=== PATIENT | female | born 1940 | race Caucasian/White ===

== ENCOUNTER → 2017-10-25 09:59 | Outpatient (CLI) | payer MEDICARE, OTHER, SELFPAY ==
[2017-10-25 10:53] LABS: BUN 40 mg/dL (7-18); Creatinine, Serum 1.22 mg/dL (0.55-1.02); Glucose 257 mg/dL (74-106)
[2017-10-25 10:54] LABS: Anion Gap 9 (5-15); BUN/Creat Ratio 32.8 RATIO (10-20); Calcium,Total 8.9 mg/dL (8.5-10.1); Chloride 102 mmol/L (98-107); EST Glomerular Filtration Rate 46 mL/min (>60); Est Glom Filt Rate - Afr Amer 55 mL/min (>60); Potassium 4.1 mmol/L (3.5-5.1); Sodium Level 138 mmol/L (136-145)
== END ==
PROVIDERS: Family Provider Surgery Vascular Surgery; PCP Surgery Vascular Surgery; Visit Provider Physician Assistant Medical
DX: I25.10 Atherosclerotic heart disease of native coronary artery without angina pectoris (principal)
CPT/HCPCS: 36415; 80048

== ENCOUNTER → 2018-05-28 11:03 | Outpatient (CLI) | payer MEDICARE, OTHER, SELFPAY ==
[2018-05-28 12:19] LABS: Absolute Lymphocyte Count 3.08 X10^3/ul (0.83-4.51); Absolute Neutrophil Count 5.5 X10^3/uL (2.0-7.7); Basophil# 0.03 X10^3/uL; Basophil% 0.3 % (0-1); Eosinophil# 0.19 X10^3/uL; Hematocrit 30.4 % (37-47); Hemoglobin 9.5 g/dl (12.0-15.0); Lymphocyte # 3.08 X10^3/ul (4.0); Lymphocyte % 31.7 % (19-41); Mean Corp Hgb Conc 31.3 g/gl (32-36); Mean Corpuscular Hgb 27.2 pg (27.0-32.0); Mean Corpuscular Volume 87.1 fL (81-99); Mean Platelet Vol. 10.7 fl (6.2-12.0); Monocyte# 0.87 X10^3/uL; Neutrophil # 5.51 X10^3/uL (2.7-7.7); Neutrophil % 56.7 % (47-70); POSITIVE COUNT NO; POSITIVE DIFFERENTIAL NO; POSITIVE MORPHOLOGY NO; Platelet Count 407 K/mm3 (150-450); RBC Distribution Width SD 43.9 fl (35.1-43.9); Red Blood Count 3.49 M/mm3 (4.2-5.4); White Blood Count 9.7 K/mm3 (4.4-11.0)
[2018-05-28 12:43] LABS: Anion Gap 7 (5-15); BUN 45 mg/dL (7-18); BUN/Creat Ratio 28.8 RATIO (10-20); Calcium,Total 9.5 mg/dL (8.5-10.1); Chloride 106 mmol/L (98-107); Creatinine, Serum 1.56 mg/dL (0.55-1.02); EST Glomerular Filtration Rate 34 mL/min (>60); Est Glom Filt Rate - Afr Amer 42 mL/min (>60); Glucose 83 mg/dL (74-106); Potassium 4.5 mmol/L (3.5-5.1); Sodium Level 141 mmol/L (136-145)
== END ==
PROVIDERS: Family Provider Surgery Vascular Surgery; PCP Family Medicine; Referring Provider Physician Assistant Medical; Visit Provider Physician Assistant Medical
DX: I50.32 Chronic diastolic (congestive) heart failure (principal); I25.10 Atherosclerotic heart disease of native coronary artery without angina pectoris; E78.5 Hyperlipidemia, unspecified; I10 Essential (primary) hypertension
CPT/HCPCS: 36415; 80048; 85025

== ENCOUNTER → 2018-08-06 12:11 | Outpatient (CLI) | payer MEDICARE, OTHER, SELFPAY ==
[2018-08-06 11:19] VITALS: BMI 37.8
--- NOTE | 2018-08-06 12:15 | RAD_ITS ---
STUDY: X-RAY CHEST REASON FOR EXAM: Female, 78 years old. Cough TECHNIQUE: PA and lateral views of the chest. COMPARISON: December 20, 2016 chest 6 FINDINGS: Since prior study there is worsening of the interstitial markings and trace blunting of the costophrenic angles. Sternotomy wires are seen midline. Normal mediastinum and isaiah. Normal visualized pulmonary arteries. There is atherosclerotic calcification of the aortic arch with tortuosity. There are diffuse degenerative changes of the visualized thoracic spine. Normal visualized ribs, clavicles, and shoulders. There is no demonstrated abnormality of the visualized soft tissue structures of the upper abdomen. RAD/Chest PA and Lateral IMPRESSION: Findings is suspicious for vascular congestion small bilateral effusions mild CHF. Status post sternotomy. Electronically Signed: Lynda Reina MD at 3:02 EST Tel , Service support ,
[2018-08-06 13:58] LABS: BNP,B-Type NATRIURETIC PEPTIDE 949.5 pg/mL (0-100)
--- OUTSIDE RECORDS SUMMARY | 2018-11-07 22:03 | XMS RPT_ITS ---
:1940 Author Organization OHIP Support Name Relationship Address Phone HIMA BLANCA Unavailable . + [place] [address] DUSTY DANIEL Unavailable [address] + [place] [address] R Unavailable Unavailable Unavailable UVALDO RABAGOE Unavailable Unavailable + [place] [address] DUSTY DANIEL Unavailable [address] + [place] [address] R Unavailable Unavailable Unavailable UVALDO RABAGOE Unavailable Unavailable + [place] [address] DUSTY DANIEL Unavailable [address] + [place] [address] R Unavailable Unavailable Unavailable HIMA BLANCA Unavailable Unavailable + [place] [address] DUSTY DANIEL Unavailable [address] + [place] [address] R Unavailable Unavailable Unavailable HIMA BLANCA Unavailable Unavailable + [place] [address] DUSTY DANIEL Unavailable [address] + [place] [address] R Unavailable Unavailable Unavailable UVALDO RABAGOE Unavailable Unavailable + [place] [address] DUSTY DANIEL Unavailable [address] + [place] [address] R Unavailable Unavailable Unavailable HIMA BLANCA Unavailable Unavailable + [place] [address] DUSTY DANIEL Unavailable [address] + [place] [address] R Unavailable Unavailable Unavailable HIMA BLANCA Unavailable Unavailable + [place] [address] DUSYT DANIEL Unavailable [address] + [place] [address] R Unavailable Unavailable Unavailable HIMA, BLANCA Unavailable Unavailable + [place] [address] DUSTY DANIEL Unavailable [address] + [place] [address] R Unavailable Unavailable Unavailable HIMA, BLANCA Unavailable Unavailable + [place] [address] DUSTY DANIEL Unavailable [address] + [place] [address] R Unavailable Unavailable Unavailable HIMA, BLANCA Unavailable Unavailable + [place] [address] DUSTY DANIEL Unavailable [address] + [place] [address] R Unavailable Unavailable Unavailable HIMA, BLANCA Unavailable . + [place] [address] DUSTY DANIEL Unavailable [address] + [place] [address] R Unavailable Unavailable Unavailable HIMA, BLANCA Unavailable Unavailable + [place] [address] DUSTY DANIEL Unavailable [address] + [place] [address] R Unavailable Unavailable Unavailable HIMA, BLANCA Unavailable Unavailable + [place] [address] DUSTY DANIEL Unavailable [address] + [place] [address] R Unavailable Unavailable Unavailable HIMA, BLANCA Unavailable . + [place] [address] LANCE DANIELEN Unavailable [address] + [place] [address] R Unavailable Unavailable Unavailable HIMA, BLANCA Unavailable Unavailable + [place] [address] LANCE DANIELEN Unavailable [address] + [place] [address] R Unavailable Unavailable Unavailable HIMA, BLANCA Unavailable Unavailable + [place] [address] LANCE DANIELEN Unavailable [address] + [place] [address] R Unavailable Unavailable Unavailable HIMA, BLANCA Unavailable . + [place] [address] DUSTY DANIEL Unavailable [address] + [place] [address] R Unavailable Unavailable Unavailable HIMA, BLANCA Unavailable . + [place] [address] DUSTY DANIEL Unavailable [address] + [place] [address] R Unavailable Unavailable Unavailable HIMA, BLANCA Unavailable Unavailable + DUSTY DANIEL Unavailable Unavailable + HIMA, BLANCA Unavailable . + [place] [address] DUSTY DANIEL Unavailable [address] + [place] [address] R Unavailable Unavailable Unavailable HIMA, BLANCA Unavailable Unavailable + DUSTY DANIEL Unavailable [address] + [place] [address] R Unavailable Unavailable Unavailable HIMA, BLANCA Unavailable Unavailable + DUSTY DANIEL Unavailable [address] + [place] [address] R Unavailable Unavailable Unavailable Care Team Providers Name Role Phone DURAN DUMONT Attending Unavailable FAST, ADRIANA A Referring Unavailable MENG DO, DR. ALON Asencio Attending Unavailable ABDOUL OROZCO, DR. WHEAT Attending Unavailable Roof, Andres Wheeler Attending Unavailable Meng, Alon Referring Unavailable Roof, Andres H Attending Unavailable Roof, Andres H Referring Unavailable Chang, Alon A Primary Care Unavailable Roof, Andres H Attending Unavailable Roof, Andres H Referring Unavailable Meng, Alon Primary Care Unavailable Meng, Alon Primary Care Unavailable Jopperi, Red Admitting Unavailable Jopperi, Red Attending Unavailable Aki Briceno Consulting Unavailable Duran Dumont Consulting Unavailable Jopperi, Red Admitting Unavailable Jopperi, Red Attending Unavailable Meng, Alon Primary Care Unavailable Aki Briceno Consulting Unavailable Maximeri, Red Consulting Unavailable Jopperi, Red Admitting Unavailable Aki Briceno Attending Unavailable Meng, Alon Primary Care Unavailable Aki Briceno Consulting Unavailable Duran Dumont Consulting Unavailable Jopperi, Red Consulting Unavailable Jopperi, Red Admitting Unavailable Aki Briceno Attending Unavailable Meng, Alon Primary Care Unavailable Aki Briceno Consulting Unavailable Duran Dumont Consulting Unavailable Jopperi, Red Consulting Unavailable Jopperi, Red Admitting Unavailable Jopperi, Red Attending Unavailable Meng, Alon Primary Care Unavailable Aki Briceno Consulting Unavailable Nilesh, Duran Consulting Unavailable Jopperi, Red Consulting Unavailable Jopperi, Red Admitting Unavailable Aki Briceno Attending Unavailable Meng, Alon Primary Care Unavailable Aki Briceno Consulting Unavailable Nilesh, Duran Consulting Unavailable Sementi, Elle Consulting Unavailable Jopperi, Red Admitting Unavailable Sementi, Elle Attending Unavailable Meng, Alon Primary Care Unavailable Aki Briceno Consulting Unavailable Nilesh, Duran Consulting Unavailable Sementi, Elle Consulting Unavailable Jopperi, Red Admitting Unavailable Jopperi, Red Attending Unavailable Meng, Alon Primary Care Unavailable Briceno, Aki Consulting Unavailable Nilesh, Duran Consulting Unavailable Jopperi, Red Consulting Unavailable Meng, Alon Attending Unavailable Meng, Alon Referring Unavailable Meng, Alon Primary Care Unavailable Andres Briseno Attending Unavailable Meng, Alon Referring Unavailable Aki Briceno Attending Unavailable Jopperi, Red Referring Unavailable Nelson Felipe Attending Unavailable Fast, Adriana Referring Unavailable Chang, Alon A Primary Care Unavailable Marie House Attending Unavailable Krystina Villeda Attending Unavailable Marie House Attending Unavailable Krystina Villeda Attending Unavailable Chang, Alon A Referring Unavailable Krystina Villeda Attending Unavailable Krystina Villeda M Referring Unavailable Chang, Alon A Primary Care Unavailable Jopperi, Red Admitting Unavailable Jopperi, Red Attending Unavailable Meng, Alon Primary Care Unavailable Aki Briceno Consulting Unavailable Nilesh, Duran Consulting Unavailable Jopperi, Red Consulting Unavailable Krystina Villeda Attending Unavailable Krystina Villeda Referring Unavailable Chang, Alon A Primary Care Unavailable PROBLEMS PROBLEMS DATE TYPE CONDITION / CODE ATTENDING STATUS SOURCE Unknown R94.31 - Abnormal Aki Briceno Active [place] 9 electrocardiogram [ECG] [facility] [EKG] / R94.31(ICD-10) Hospital Repository Unknown R06.02 - Shortness of Roof Andres Wheeler Active [place] 8 breath / R06.02(ICD-10) [facility] Repository Unknown I50.32 - Chronic Villeda, Active [place] 8 diastolic (congestive) [facility] heart failure / Hospital I50.32(ICD-10) Repository Unknown I10 - Essential (primary) Ronal, Active [place] 8 hypertension / [facility] I10(ICD-10) Hospital Repository Unknown E78.00 - Pure Ronal, Active [place] 8 hypercholesterolemia, [facility] unspecified / Hospital E78.00(ICD-10) Repository Unknown I25.10 - Atherosclerotic Ronal, Active [place] 8 heart disease of [place] [facility] coronary artery without Hospital angina pectoris / Repository I25.10(ICD-10) Unknown E78.5 - Hyperlipidemia, Ronal, Active [place] 8 unspecified / [facility] E78.5(ICD-10) Hospital Repository Unknown R53.83 - Other fatigue / Ronal, Active [place] 8 R53.83(ICD-10) [facility] Hospital Repository Unknown Z95.1 - Presence of [place], Lejunior Active [place] 8 aortocoronary bypass Community graft / Z95.1(ICD-10) Hospital Repository Unknown E78.0 - Pure Matteo, Nelson Active 8 hypercholesterolemia / [facility] E78.0(ICD-10) Hospital Repository PROCEDURES PROCEDURES No Procedure Records FoundRESULTS RESULTS PROGRESS Observed: 08/30/2018 Status: COMPLETED Source: [place] 5:57 AM [facility] [place] REPOSITORY HNO ID: [id number] Author: Duran Dumont Service: (none) Author Type: Physician Type: Progress Notes Filed: 08/30/2018 6:06 AM Note Text: FOLLOW UP VISIT - ENDOSCOPY NAME: Cookie Guerrero [facility] NO.: [id number] DATE OF SERVICE: 08/29/2018 : 1940 REFERRING PHYSICIAN: Alon Fan DO Cookie is a patient I am following for presumed upper GI bleed. The patient is 78 showed male with advanced complicated diabetes, congestive heart failure, coronary disease, peripheral vascular disease who was noted to have worsening fatigue and dyspnea on exertion. She was admitted to [facility] on August 10, 2018 and found to be dehydrated and anemic. Her stool is positive for occult blood. The patient notes that she has very poor vision due to diabetic retinopathy so as not tablet notice if she has blood in her stools. She had recently undergone colonoscopy by Dr. Michel Omer in [place] in the fall for chronic diarrhea and had no colonic abnormalities noted. She was noted to have T-wave changes compared to previous EKGs and diagnosed with another likely acute coronary syndrome. I performed upper endoscopy on August 12, 2018. The patient was found to have superficial gastric ulcers that were not bleeding at the time and nonsevere distal esophagitis. Pathology demonstrated: chronic active gastritis which was negative for H. pylori and chronic inflammation at the GE junction without intestinal metaplasia The patient notes no complaints since the procedure, but did felt she had 1 dark stool. hemoglobin was repeated on August 21 and this was stable at 8.0 compared to her discharge hemoglobin. VITALS: There were no vitals taken for this visit. On examination, the abdomen is benign. Assessment IMPRESSION: recent GI bleed-presumed upper GI bleed PLAN: If the patient notes any problems or changes in bowel function, the patient should contact me immediately. I will obtain a stool for occult blood. If this is negative I would just recommend following her hemoglobin. If this is positive, I recommend follow up endoscopy - upper and lower. Diagnoses: (K92.2) Acute GI bleeding (primary encounter diagnosis) (I21.3) Acute ST elevation myocardial infarction (STEMI), unspecified artery (HCC) Return to Clinic: The patient is instructed to follow- up with me as needed. Duran Dumont MD CNOV Observed: 08/29/2018 Status: COMPLETED Source: WINTER 10:00 AM [facility] REPOSITORY Office Visit (GENSWS) COOKIE GUERRERO ([id number]) 1940 F Date Time Provider Department 08/29/18 10:00 AM DURAN DUMONT During your visit today, we recorded the following information about you: Chris Castaneda YULISSA 08/29/2018 10:12 AM Signed REVIEW OF SYSTEMS: General: The patient denies fatigue, denies weight loss, NOTES weight gain, denies feeling hot, and denies feelings of cold. Eyes: The patient denies glaucoma, NOTES eye injury/surgery, wears glasses or contacts. Ear/Nose/Throat: The patient denies allergies, denies hayfever, denies ear infections, and denies bloody noses. Cardiovascular: The patient denies chest pain, NOTES heart disease, NOTES high blood pressure,NOTES cardiac stent, NOTES prior heart attack, denies irregular heart beat, NOTES high cholesterol, NOTES poor circulation, denies heart failure, other cardiac issues, NOTES claudication, denies cold feet, denies peripheral arterial stent. Respiratory: The patient denies tuberculosis, denies pneumonia, NOTES frequent cough, denies pulmonary embolism, NOTES shortness of breath, and denies coughing up blood. Gastrointestinal: The patient denies difficulty swallowing, NOTES acid reflux, denies ulcers, denies vomiting, denies jaundice/hepatitis, NOTES gallbladder problems, NOTES black or tarry stools, denies hemorrhoids, denies bleeding from rectum, denies diverticulitis, denies constipation, NOTES diarrhea, denies loss of stool control, and denies hernias. Kidney/Bladder: The patient denies kidney stones, denies urine infections, and denies bloody urine. Skin: The patient denies a history of skin cancer, denies bleeding/changing moles, and denies a history of skin rash. Neurologic: The patient denies a history of epilepsy/convulsions, denies headaches, denies head/spinal injuries, and denies stroke/TIA. Psychiatric: The patient denies psychiatric medications, denies depression, and denies voices, denies substance abuse. Endocrine: The patient denies thyroid disorders, NOTES diabetes, and denies hormonal problems. Hematologic: The patient denies a history of bruising, denies bleeding, and denies anemia, denies blood clots. Infections: The patient NOTES a history of measles and mumps, denies rheumatic fever, and denies sexually transmitted diseases. Musculoskeletal: The patient denies back pain/injury, denies back problems, denies sciatica, NOTES knee/foot trouble, denies arthritis, or denies gout. When was patient's last Mammogram screening? unknown Last Colonoscopy: 05/2018 Chris Dumont MD 08/30/2018 6:06 AM Signed FOLLOW UP VISIT - ENDOSCOPY NAME: Cookie Guerrero CLINIC NO.: [id number] DATE OF SERVICE: 08/29/2018 : 1940 REFERRING PHYSICIAN: Alon Fan DO Cookie is a patient I am following for presumed upper GI bleed. The patient is 78 showed male with advanced complicated diabetes, congestive heart failure, coronary disease, peripheral vascular disease who was noted to have worsening fatigue and dyspnea on exertion. She was admitted to [facility] on August 10, 2018 and found to be dehydrated and anemic. Her stool is positive for occult blood. The patient notes that she has very poor vision due to diabetic retinopathy so as not tablet notice if she has blood in her stools. She had recently undergone colonoscopy by Dr. Michel Omer in [place] in the fall for chronic diarrhea and had no colonic abnormalities noted. She was noted to have T-wave changes compared to previous EKGs and diagnosed with another likely acute coronary syndrome. I performed upper endoscopy on August 12, 2018. The patient was found to have superficial gastric ulcers that were not bleeding at the time and nonsevere distal esophagitis. Pathology demonstrated: chronic active gastritis which was negative for H. pylori and chronic inflammation at the GE junction without intestinal metaplasia The patient notes no complaints since the procedure, but did felt she had 1 dark stool. hemoglobin was repeated on August 21 and this was stable at 8.0 compared to her discharge hemoglobin. VITALS: There were no vitals taken for this visit. On examination, the abdomen is benign. Assessment IMPRESSION: recent GI bleed-presumed upper GI bleed PLAN: If the patient notes any problems or changes in bowel function, the patient should contact me immediately. I will obtain a stool for occult blood. If this is negative I would just recommend following her hemoglobin. If this is positive, I recommend follow up endoscopy - upper and lower. Diagnoses: (K92.2) Acute GI bleeding (primary encounter diagnosis) (I21.3) Acute ST elevation myocardial infarction (STEMI), unspecified artery (HCC) Return to Clinic: The patient is instructed to follow- up with me as needed. Duran Dumont MD Referring Provider: ADRIANA CERNA [[id number]] Allergies As of Date: 08/29/2018 (No Known Allergies) Date Reviewed: 08/29/2018 Reviewed by: Chris Castaneda LPN - Fully Assessed Reason for Visit: Post Op [174] Cmt: f/u [facility] Primary Visit Diagnosis:Acute GI bleeding [K92.2] Other Visit Diagnosis:Acute ST elevation myocardial infarction (STEMI), unspecified artery (HCC) [I21.3] Order(s):OCCULT BLD EXAM-DIAG [SQOB] Order #: [id number] Prescriptions as of 08/29/2018 Sig: FUROSEMIDE 40 MG TABLET DAILY LOPERAMIDE 2 MG CAPSULE THREE TIMES A DAY PRN For Bela* FERROUS SULFATE 325 MG (65 MG* DAILY@0800 ASPIRIN 81 MG CHEWABLE TABLET DAILY@0800 ATENOLOL 50 MG TABLET DAILY BUPROPION HCL 150 MG TABLET,1* NEEDED PRN For Anxiety CALCIUM CARBONATE 600 MG CALC* DAILY FENOFIBRATE NANOCRYSTALLIZED * DAILY INSULIN DETEMIR (U-100) 100 U* TWICE A DAY THERAPEUTIC MULTIVITAMIN ORAL DAILY CHOLECALCIFEROL (VITAMIN D3) * DAILY OCUVITE ORAL DAILY INSULIN ASPART 100 UNIT/ML BAILON* 3 TIMES DAILY WITH MEALS ATORVASTATIN 80 MG TABLET Take 80 mg by mouth daily at * PANTOPRAZOLE 40 MG TABLET,DEL* Take 40 mg by mouth twice ranjana* Problem List As Of Date: 08/29/2018 (None) Visit Notes: >> Chris Castaneda LPN [facility] Aug 29, 2018 10:09 AM Status: Signed REVIEW OF SYSTEMS: General: The patient denies fatigue, denies weight loss, NOTES weight gain, denies feeling hot, and denies feelings of cold. Eyes: The patient denies glaucoma, NOTES eye injury/surgery, wears glasses or contacts. Ear/Nose/Throat: The patient denies allergies, denies hayfever, denies ear infections, and denies bloody noses. Cardiovascular: The patient denies chest pain, NOTES heart disease, NOTES high blood pressure,NOTES cardiac stent, NOTES prior heart attack, denies irregular heart beat, NOTES high cholesterol, NOTES poor circulation, denies heart failure, other cardiac issues, NOTES claudication, denies cold feet, denies peripheral arterial stent. Respiratory: The patient denies tuberculosis, denies pneumonia, NOTES frequent cough, denies pulmonary embolism, NOTES shortness of breath, and denies coughing up blood. Gastrointestinal: The patient denies difficulty swallowing, NOTES acid reflux, denies ulcers, denies vomiting, denies jaundice/hepatitis, NOTES gallbladder problems, NOTES black or tarry stools, denies hemorrhoids, denies bleeding from rectum, denies diverticulitis, denies constipation, NOTES diarrhea, denies loss of stool control, and denies hernias. Kidney/Bladder: The patient denies kidney stones, denies urine infections, and denies bloody urine. Skin: The patient denies a history of skin cancer, denies bleeding/changing moles, and denies a history of skin rash. Neurologic: The patient denies a history of epilepsy/convulsions, denies headaches, denies head/spinal injuries, and denies stroke/TIA. Psychiatric: The patient denies psychiatric medications, denies depression, and denies voices, denies substance abuse. Endocrine: The patient denies thyroid disorders, NOTES diabetes, and denies hormonal problems. Hematologic: The patient denies a history of bruising, denies bleeding, and denies anemia, denies blood clots. Infections: The patient NOTES a history of measles and mumps, denies rheumatic fever, and denies sexually transmitted diseases. Musculoskeletal: The patient denies back pain/injury, denies back problems, denies sciatica, NOTES knee/foot trouble, denies arthritis, or denies gout. When was patient's last Mammogram screening? unknown Last Colonoscopy: 05/2018 Chris Castaneda LPN Letter Text Letter Text Encounter Status:Closed by DURAN DUMONT MD on 08/30/18 12 LEAD ELECTROCARDIOGRAM Observed: 08/28/2018 Status: F Source: [place] 4:16 PM [facility] REPOSITORY [facility] Cardiovascular Services [address] [place] [address] 12 Lead EKG 08/10/18 1126 MR#: [id number] Acct: [id number] Name: COOKIE GUERRERO Rep #: [id number] : 1940 78 From: Aki Briceno MD Attending Dr: Red Gurrola DO Status: DIS IN Ordering Dr: Aki Arthur DO Date: 08/10/18 Location: U Sex: F C Admitted: 08/10/18 Test Reason : SOB Blood Pressure : / mmHG Vent. Rate : 060 BPM Atrial Rate : 060 BPM P-R Int : 188 ms QRS Dur : 102 ms QT Int : 432 ms P-R-T Axes : 020 011 173 degrees QTc Int : 432 ms Normal sinus rhythm ST AND Marked T wave abnormality, consider anterolateral ischemia Abnormal ECG Confirmed by AKI BRICENO ([id number]), sports editor FLORENCIO PEREZ ([id number]) on 08/28/2018 4:15:47 PM Referred By: Andres Briseno Confirmed By:AKI BRICENO 08/28/18 1615 Date Aki Briceno MD CC: DO Alon Fan; Aki Arthur DO; Red Gurrola DO Signed BASIC METABOLIC Collected: 08/21/2018 Status: F Source: [place] PROFILE (BMP) 5:19 PM [facility] REPOSITORY Order Comment: Send Results To: lAon Fan @[id number] AND DURAN DUMONT Reason for Laboratory Test acute kidney injury TYPE CODE TESTS RESULT OUT OF RANGE REFERENCE UNITS LAB L501.0100 74-106 mg/dL High GLU 275 Result Comment: Glucose result greater than or equal to 200 mg/dL suggests DIABETES MELLITUS per A.D.A. criteria. Please note revised GLUCOSE reference range effective 2017. LAB L501.1000 7-18 mg/dL High BUN 62 LAB L501.1100 0.55-1.02 mg/dL High CREAT,SERUM 2.91 Result Comment: The validity of the calculated GFR AND GFRAA in patients over 70 years has not been determined. Clinical correlation is essential. LAB L501.1110 >60 mL/min Low EST GFR 17 Result Comment: Non- GFR Calc LAB L501.1115 >60 mL/min Low EST GFR - AA 20 Result Comment: GFR Calc LAB L501.1300 10-20 RATIO High BUN/CRE 21.3 LAB L501.2200 8.5-10.1 mg/dL CA Normal 9.0 LAB L501.5300 136-145 mmol/L NA Normal 140 LAB L501.5600 3.5-5.1 mmol/L K Normal 4.7 LAB L501.5900 98-107 mmol/L CL Normal 103 LAB L501.6100 21.0-32.0 mmol/L Normal CO2 27.0 LAB L501.6200 5-15 Normal GAP 10 Performed By: #### L500.2500 #### [facility] [place], [address] CBC W/DIFF, AUTOMATED Collected: 08/21/2018 Status: F Source: [place] 5:19 PM [facility] REPOSITORY Order Comment: Send Results To: Alon Fan Reason for Laboratory Test anemia Send Results To: Alon Fan @[id number] AND DURAN DUMONT Reason for Laboratory Test acute kidney injury TYPE CODE TESTS RESULT OUT OF RANGE REFERENCE UNITS LAB L100.1000 4.4-11.0 K/mm3 Normal WBC 6.2 LAB L100.1200 4.2-5.4 M/mm3 Low RBC 3.15 LAB L100.1300 12.0-15.0 g/dl Low HGB 8.0 LAB L100.1400 37-47 % Low HCT 26.8 LAB L100.1500 81-99 fL Normal MCV 85.1 LAB L100.1600 27.0-32.0 pg Low MCH 25.4 LAB L100.1700 32-36 g/gl Low MCHC 29.9 LAB L100.1810 11.6-14.6 % High RDW CV 16.1 LAB L100.1820 35.1-43.9 fl High RDW SD 49.7 LAB L100.1900 150-450 K/mm3 Normal PLT 247 LAB L100.2000 6.2-12.0 fl High MPV 12.2 LAB L100.2100 47-70 % Normal NEUT% 63.9 LAB L100.2200 19-41 % Normal LY% 23.2 LAB L100.2300 0-10 % High MONO% 10.3 LAB L100.2400 0-5 % Normal EO% 1.8 LAB L100.2500 0-1 % Normal BASO% 0.6 LAB L100.2550 0.0-0.9 % Normal IM GRAN % 0.200 Result Comment: IG% - Immature Granulocytes (promyelocytes, myelocytes and metamyelocytes) > 1% indicates that a LEFT SHIFT is Present. LAB L100.2620 2.0-7.7 X10 3/uL Normal Absolute Neut 4.0 LAB L100.2720 0.83-4.51 X10 3/ul Normal Absolute Lymph 1.44 Performed By: #### L100.0100 #### [facility] [address] [place], [address] DISCHARGE SUMMARY Observed: 08/14/2018 Status: F Source: [place] 12:26 PM [facility] REPOSITORY [facility] Medical Records Department [address] [place] [address] Discharge Summary 08/14/18 1222 MR#: [id number] Acct: [id number] Name: COOKIE GUERRERO Rep #: [id number] : 1940 78 From: Red Gurrola DO PCP: Alon Fan DO Status: ADM IN Y Location: [place] [address] Discharge Date and Diagnosis - Problem List Patient Problems: Active and Suspected Problems (Last Reviewed 08/10/18 @ 15:44 by Red Gurrola DO) Peptic ulcer disease (Acute) Acute blood loss anemia (Acute) SELAM (acute kidney injury) (Acute) NSTEMI (non-ST elevated myocardial infarction) (Acute) Date of Admission: 08/10/18 Date of Discharge: 08/14/18 - Primary Discharge Diagnosis Active and Suspected Problems (Last Reviewed 08/10/18 @ 15:44 by Red Gurrola DO) Acute blood loss anemia (Acute) SELAM (acute kidney injury) (Acute) NSTEMI (non-ST elevated myocardial infarction) (Acute) - Secondary Discharge Diagnosis Chronic Problems (Last Reviewed 08/10/18 @ 15:44 by Red Gurrola DO) Chronic diastolic heart failure (Chronic) Essential (primary) hypertension (Chronic) H/O coronary artery bypass surgery (Chronic 06/2009) CABG X 4: ONTIVEROS to LAD, SVG to high lateral cx, SVG to PDA and RCA 03/30/2009 History of coronary artery stent placement (Chronic 11/2010) GIO to the mid and distal main RCA origin, GIO-Prox PDA, GIO- RCA and AV continution of the RCA 11/2010 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 Electronically Signed: Kelechi Keyes, at 11:55 EST Tel , Service support , Aki Briceno MD--cardiology Duran Dumont MD--general surgery. Operations: - - 08/07/14 Angiogram w/ ballooning, 08/07/14 R 2nd toe amputation per Dr. Bui Procedures: 2-D Echocardiogram, EGD Summary of Care Provided: The patient is a 78 year old F presents with fatigue. 1. Acute blood loss anemia * Suspected GI source. noted non-bleeding gastric ulcer * stable status post 2 units PRBCs * Check ferritin, iron, TIBC, B12, folate and TSH * General surgery on consultation for further evaluation * start Ferrous sulfate 2. SELAM * improving * Presumed prerenal but may also be a component of ATN related with volume depletion or her anemia * IV fluids * Hold her diuretics * Follow-up labs in the morning * Last creatinine before this admission was 1.56 in May 3. Non-STEMI * May be more of a type II event * Will continue with aspirin but hold her Plavix in light of the anemia * follow up with cardiology * not a candidate for intervention given the GI bleed. 4. PUD * protonix BID for 2 weeks, then daily. 5. Peripheral arterial disease * Hold her Pletal at this time given the anemia 6. DM2 * fair control * as diet is advanced, resume her regular dosing of Lantus. 7. DVT proph: SCDs. Chemical prophylaxis contraindicated due to acute anemia. 8. Disposition: home pending remainder of cardiac work up + H/H remaining stable and improvement of kidney function 9. Diarrhea: chronic. unclear if pt has IBS. was on an expensive medication as outpt, but had to stop d/t cost (Linzess?), was then changed over to Pepto- Bismol and Imodium). Collagenous colitis per report. [] Patient Problems: Active and Suspected Problems (Last Reviewed 08/10/18 @ 15:44 by Red Gurrola DO) Peptic ulcer disease (Acute) Acute blood loss anemia (Acute) SELAM (acute kidney injury) (Acute) NSTEMI (non-ST elevated myocardial infarction) (Acute) - Physical Exam General: Alert, Cooperative, No apparent distress HEENT: Atraumatic, Normocephalic Psych/Mental Status: Normal Affect, Appropriate Vital Signs Temp Pulse Resp BP Pulse Ox 36.6 C 56 L 16 131/78 H 96 08/14/18 09:09 08/14/18 11:00 08/14/18 09:09 08/14/18 09:09 08/14/18 10:00 Oxygen Flow Rate (L/min) 2 Oxygen Delivery Method Room Air Weight: 95.8 kg Body Mass Index (BMI) 36.2 Intake and Output for Last 24 Hours Intake Total 1481 / 1481 1567 / 1567 Output Total 100 / 100 Balance 1381 / 1381 1567 / 1567 Microbiology Past 72 Hours 08/12/18 10:10 Stool Occult Blood (VISHNU) - Final Stool Occult Blood Positive Laboratory Tests Past 24 Hrs WBC 7.7 RBC 3.07 L Hgb 8.1 L Hct 26.5 L MCV 86.3 POC Glucose POC Glucose 220 H 104 245 H POC Glucose 234 H Discharge Diet: Low fat/ Low Cholesterol, 1800 Calorie Control Diet Discharge Activity: Return to Normal Activity Call your doctor if you observe: Shortness of breath, Fainting spells, Increased palpitations (irregular heartbeat) Home Medications: Medications to take at Discharge Aspirin [Aspirin, Baby] 81 mg PO DAILY@0800 08/10/18 Atenolol 50 mg PO DAILY 08/10/18 Bupropion HCl 1 tab PO PRN PRN 08/10/18 Calcium Carbonate [Calcium] 600 mg PO DAILY 08/10/18 Fenofibrate [Tricor] 145 mg PO DAILY 08/10/18 Insulin Detemir [Levemir] 40 unit SQ BID 08/10/18 Isosorbide Mononitrate [Imdur] 30 mg PO DAILY 08/10/18 Multivitamin,Therapeutic [Thera] 1 each PO DAILY 08/10/18 Mv-Min/FA/Vit K/Lycop/Lut/Zeax [Ocuvite Eye Plus Multi Tablet] 1 each PO DAILY 08/10/18 Vitamin D3 1 tab PO DAILY 08/10/18 Atorvastatin Calcium [Lipitor] 80 mg PO QHS #30 tablet 08/14/18 Furosemide [Lasix] 40 mg PO DAILY #30 tab 08/14/18 Insulin Aspart [Novolog Flexpen] 10 units SC TIDCM #0 08/14/18 Loperamide [Imodium] 2 mg PO TID PRN capsule 08/14/18 Pantoprazole Sodium [Protonix] 40 mg PO BID #60 tablet 08/14/18 Following Prescrptions Were Given to Patient: Atorvastatin Calcium [Lipitor] 80 mg PO QHS #30 tablet Furosemide [Lasix] 40 mg PO DAILY #30 tab Pantoprazole Sodium [Protonix] 40 mg PO BID #60 tablet Other Amb Orders: Basic Metabolic Profile (BMP) Time Frame: 1 Week, Location: Laboratory CBC W/Diff, Automated Time Frame: 1 Week, Location: Laboratory Primary Care Physician: Alon Fan DO [Primary Care Provider] - Within 2 Weeks Please Follow Up With: Nelson Felipe MD When: 2-4 weeks Please Follow Up With: Duran Dumont MD When: 2-4 weeks. Disposition: Home with Home Health Minutes spent on discharge:: 35 Patient Condition:: Good Medical Necessity - Tobacco Use Smoking Status: Former smoker Meaningful Use Info Meaningful Use Diagnoses (Choose all that apply): None applicable Code Visit Inpatient E AND M: 56785 Disch Hosp 08/14/18 1226 <Electronically signed by Red Gurrola DO> Date Red Tiwariigner Signature (if applicable): Date CC: DO Alon Fan; Red Gurrola DO Signed DISCHARGE INSTRUCTION Observed: 08/14/2018 Status: F Source: [place] 12:22 PM [facility] REPOSITORY [facility] Medical Records Department [address] [place] [address] Instructions for Home/Discharge Instructions 08/14/18 1220 MR#: [id number] Acct: [id number] Name: COOKIE GUERRERO Rep #: [id number] : 1940 78 From: Red Gurrola DO PCP: Alon Fan DO Status: ADM IN - Discharge Diagnoses Current Active Problems: Current Active and Chronic Problems (Last Reviewed 08/10/18 @ 15:44 by Red Gurrola DO) Acute blood loss anemia (Acute) SELAM (acute kidney injury) (Acute) NSTEMI (non-ST elevated myocardial infarction) (Acute) You will use the following diet at home:: Calorie/Carbohydrate Controlled (specify 1200, 1400, etc) - 1800, Cardiac Your food should be the consistency of: Regular Your liquids should be the consistency of: Regular/Thin Discharge Activity: Return to Normal Activity Call your doctor if you observe: Shortness of breath, Fainting spells, Increased palpitations (irregular heartbeat) Allergies/Adverse Reactions: Allergies latex Allergy (Verified 08/10/18 10:55) Hives Medications to take at Discharge Aspirin [Aspirin, Baby] 81 mg PO DAILY@0800 08/10/18 Atenolol 50 mg PO DAILY 08/10/18 Bupropion HCl 1 tab PO PRN PRN 08/10/18 Calcium Carbonate [Calcium] 600 mg PO DAILY 08/10/18 Fenofibrate [Tricor] 145 mg PO DAILY 08/10/18 Insulin Detemir [Levemir] 40 unit SQ BID 08/10/18 Isosorbide Mononitrate [Imdur] 30 mg PO DAILY 08/10/18 Multivitamin,Therapeutic [Thera] 1 each PO DAILY 08/10/18 Mv-Min/FA/Vit K/Lycop/Lut/Zeax [Ocuvite Eye Plus Multi Tablet] 1 each PO DAILY 08/10/18 Vitamin D3 1 tab PO DAILY 08/10/18 Atorvastatin Calcium [Lipitor] 80 mg PO QHS #30 tablet 08/14/18 Furosemide [Lasix] 40 mg PO DAILY #30 tab 08/14/18 Insulin Aspart [Novolog Flexpen] 10 units SC TIDCM #0 08/14/18 Loperamide [Imodium] 2 mg PO TID PRN capsule 08/14/18 Pantoprazole Sodium [Protonix] 40 mg PO BID #60 tablet 08/14/18 The following prescriptions were given: Atorvastatin Calcium [Lipitor] 80 mg PO QHS #30 tablet Furosemide [Lasix] 40 mg PO DAILY #30 tab Pantoprazole Sodium [Protonix] 40 mg PO BID #60 tablet Orders to be completed after discharge: Basic Metabolic Profile (BMP) Time Frame: 1 Week, Location: Laboratory CBC W/Diff, Automated Time Frame: 1 Week, Location: Laboratory Primary Care Physician: Alon Fan DO [Primary Care Provider] - Within 2 Weeks Test Results: Test results from this visit will be discussed in further detail at your follow-up appointment, if applicable. Please Follow Up With: Nelson Felipe MD When: 2-4 weeks Please Follow Up With: Duran Dumont MD When: 2-4 weeks. Proposed Discharge Date: 08/14/18 08/14/18 1222 <Electronically signed by Red Gurrola DO> Date Red Gurrola DO CC: DO Alon Fan; Aki Briceno MD; Duran Dumont MD Signed BEDSIDE GLUCOSE Collected: 08/14/2018 Status: F Source: [place] 11:26 AM [facility] REPOSITORY TYPE CODE TESTS RESULT OUT OF REFERENCE UNITS RANGE LAB L501.080 70-110 mg/dL High BEDSIDE GLU 220 Result Comment: MANAGEMENT OF PATIENT CARE PER NURSING PROTOCOL Performed By: #### L501.080 #### [facility] Point of Care [address] [place], [place] [id number] BEDSIDE GLUCOSE Collected: 08/14/2018 Status: F Source: [place] 7:06 AM [facility] REPOSITORY TYPE CODE TESTS RESULT OUT OF RANGE REFERENCE UNITS LAB L501.080 70-110 mg/dL Normal BEDSIDE GLU 104 Result Comment: Snack Given Dr Orders Followed MANAGEMENT OF PATIENT CARE PER NURSING PROTOCOL Performed By: #### L501.080 #### [facility] Point of Care [address] [place], [place] [id number] CBC-COMPLETE BLOOD CNT Collected: 08/14/2018 Status: F Source: [place] NO DIFF 5:20 AM [facility] REPOSITORY TYPE CODE TESTS RESULT OUT OF RANGE REFERENCE UNITS LAB L100.1000 4.4-11.0 K/mm3 Normal WBC 7.7 LAB L100.1200 4.2-5.4 M/mm3 Low RBC 3.07 LAB L100.1300 12.0-15.0 g/dl Low HGB 8.1 LAB L100.1400 37-47 % Low HCT 26.5 LAB L100.1500 81-99 fL Normal MCV 86.3 LAB L100.1600 27.0-32.0 pg Low MCH 26.4 LAB L100.1700 32-36 g/gl Low MCHC 30.6 LAB L100.1810 11.6-14.6 % High RDW CV 15.4 LAB L100.1820 35.1-43.9 fl High RDW SD 47.3 LAB L100.1900 150-450 K/mm3 Normal PLT 248 LAB L100.2000 6.2-12.0 fl Normal MPV 11.6 Performed By: #### L100.0500 #### [facility] [address] [place], [place], [id number] BASIC METABOLIC Collected: 08/14/2018 Status: F Source: [place] PROFILE (BMP) 5:20 AM [facility] REPOSITORY TYPE CODE TESTS RESULT OUT OF RANGE REFERENCE UNITS LAB L501.0100 74-106 mg/dL High GLU 120 Result Comment: Fasting Glucose result from 100 to 125 mg/dL suggests IMPAIRED HOMEOSTASIS per A.D.A. criteria. Please note revised GLUCOSE reference range effective 2017. LAB L501.1000 7-18 mg/dL High BUN 49 LAB L501.1100 0.55-1.02 mg/dL High CREAT,SERUM 1.95 Result Comment: The validity of the calculated GFR AND GFRAA in patients over 70 years has not been determined. Clinical correlation is essential. LAB L501.1110 >60 mL/min Low EST GFR 27 Result Comment: Non- GFR Calc LAB L501.1115 >60 mL/min Low EST GFR - AA 32 Result Comment: GFR Calc LAB L501.1255 ml/min Normal Estimated CRCL 21.19 LAB L501.1300 10-20 RATIO High BUN/CRE 25.1 LAB L501.2200 8.5-10 mg/dL Low .1 CA 8.3 LAB L501.5300 136-14 mmol/L Normal 5 NA 145 LAB L501.5600 3.5-5. mmol/L Normal 1 K 4.4 LAB L501.5900 98-107 mmol/L High CL 110 LAB L501.6100 21.0-3 mmol/L Normal 2.0 CO2 27.0 LAB L501.6200 5-15 Normal GAP 8 Performed By: #### L500.2500 #### [facility] [address] [place], [address] BEDSIDE GLUCOSE Collected: 08/13/2018 Status: F Source: [place] 9:13 PM [facility] REPOSITORY TYPE CODE TESTS RESULT OUT OF REFERENCE UNITS RANGE LAB L501.080 70-110 mg/dL High BEDSIDE GLU 245 Result Comment: MANAGEMENT OF PATIENT CARE PER NURSING PROTOCOL Performed By: #### L501.080 #### [facility] Point of Care [address] [place] [address] BEDSIDE GLUCOSE Collected: 08/13/2018 Status: F Source: [place] 4:50 PM [facility] REPOSITORY TYPE CODE TESTS RESULT OUT OF REFERENCE UNITS RANGE LAB L501.080 70-110 mg/dL High BEDSIDE GLU 234 Result Comment: MANAGEMENT OF PATIENT CARE PER NURSING PROTOCOL Performed By: #### L501.080 #### [facility] Point of Care [address] [place] [address] BEDSIDE GLUCOSE Collected: 08/13/2018 Status: F Source: [place] 11:35 AM [facility] REPOSITORY TYPE CODE TESTS RESULT OUT OF REFERENCE UNITS RANGE LAB L501.080 70-110 mg/dL High BEDSIDE GLU 190 Result Comment: MANAGEMENT OF PATIENT CARE PER NURSING PROTOCOL Performed By: #### L501.080 #### [facility] Point of Care [address] [place] [address] BEDSIDE GLUCOSE Collected: 08/13/2018 Status: F Source: [place] 6:46 AM [facility] REPOSITORY TYPE CODE TESTS RESULT OUT OF RANGE REFERENCE UNITS LAB L501.080 70-110 mg/dL Normal BEDSIDE GLU 101 Result Comment: MANAGEMENT OF PATIENT CARE PER NURSING PROTOCOL Performed By: #### L501.080 #### [facility] Point of Care [address] [place] [address] BASIC METABOLIC Collected: 08/13/2018 Status: F Source: [place] PROFILE (BMP) 5:52 AM [facility] REPOSITORY TYPE CODE TESTS RESULT OUT OF RANGE REFERENCE UNITS LAB L501.0100 74-106 mg/dL High GLU 124 Result Comment: Fasting Glucose result from 100 to 125 mg/dL suggests IMPAIRED HOMEOSTASIS per A.D.A. criteria. Please note revised GLUCOSE reference range effective 2017. LAB L501.1000 7-18 mg/dL High BUN 51 LAB L501.1100 0.55-1.02 mg/dL High CREAT,SERUM 1.82 Result Comment: The validity of the calculated GFR AND GFRAA in patients over 70 years has not been determined. Clinical correlation is essential. LAB L501.1110 >60 mL/min Low EST GFR 29 Result Comment: Non- GFR Calc LAB L501.1115 >60 mL/min Low EST GFR - AA 35 Result Comment: GFR Calc LAB L501.1255 ml/min Normal Estimated CRCL 22.71 LAB L501.1300 10-20 RATIO High BUN/CRE 28.0 LAB L501.2200 8.5-10 mg/dL Low .1 CA 8.2 LAB L501.5300 136-14 mmol/L Normal 5 NA 145 LAB L501.5600 3.5-5. mmol/L Normal 1 K 4.3 LAB L501.5900 98-107 mmol/L High CL 111 LAB L501.6100 21.0-3 mmol/L Normal 2.0 CO2 26.0 LAB L501.6200 5-15 Normal GAP 8 Performed By: #### L500.2500 #### [facility] [address] [place], [address] HH, HEMOGLOBIN AND Collected: 08/13/2018 Status: F Source: [place] HEMATOCRIT 5:52 AM [facility] REPOSITORY TYPE CODE TESTS RESULT OUT OF RANGE REFERENCE UNITS LAB L100.1300 12.0-15.0 g/dl Low HGB 8.4 LAB L100.1400 37-47 % Low HCT 26.9 Performed By: #### L100.0600 #### [facility] [address] [place], [address] BEDSIDE GLUCOSE Collected: 08/12/2018 Status: F Source: [place] 8:57 PM [facility] REPOSITORY TYPE CODE TESTS RESULT OUT OF REFERENCE UNITS RANGE LAB L501.080 70-110 mg/dL High BEDSIDE GLU 281 Result Comment: MANAGEMENT OF PATIENT CARE PER NURSING PROTOCOL Performed By: #### L501.080 #### [facility] Point of Care [address] [place] [address] BEDSIDE GLUCOSE Collected: 08/12/2018 Status: F Source: [place] 4:28 PM [facility] REPOSITORY TYPE CODE TESTS RESULT OUT OF REFERENCE UNITS RANGE LAB L501.080 70-110 mg/dL High BEDSIDE GLU 242 Result Comment: Insulin Given MANAGEMENT OF PATIENT CARE PER NURSING PROTOCOL Performed By: #### L501.080 #### [facility] Point of Care [address] [place] [address] ECHOCARDIOGRAM COMPLETE Observed: 08/12/2018 Status: F Source: [place] 1:52 PM [facility] REPOSITORY [facility] Cardiovascular Services [address] [place] [address] Echo Complete 08/12/18 1142 MR#: [id number] Acct: [id number] Name: NICHOLASRONICOOKIE BRYANT Rep #: [id number] : 1940 78 From: Aki Briceno MD Attending Dr: Red Gurrola DO Status: ADM IN Ordering Dr: Red Gurrola DO Date: 08/10/18 Location: PCU Sex: F C Admitted: 08/10/18 Reason For Study: NSTEMI Procedure This was a 2D Doppler, Color Flow transthoracic echocardiogram. Exam performed portable in patient room. Left Ventricle Normal size and thickness. The estimated ejection fraction is 50-55 %. Posterior-Basal: Mildly hypokinetic. Infero-Basal: Mildly hypokinetic. Right Ventricle Mildly dilated right ventricle. Normal systolic function. Atria The left atrium is mildly enlarged. Normal right atrium. Normal atrial septum. Mitral Valve The mitral valve is structurally normal. No prolapse or stenosis seen. Mild mitral annular calcification extending into the posterior leaflet. Trivial mitral valve insufficiency. Tricuspid Valve Normal tricuspid valve. Mild to moderate (1-2+) tricuspid valve insufficiency. Right ventricular systolic pressure estimated to be 67 mmHg. Severe pulmonary hypertension. Aortic Valve Trisinus/trileaflet aortic valve. Mild diffuse aortic valve thickening. Pulmonic Valve The pulmonic valve is not well visualized. Great Vessels Normal aortic root. Normal arch. The inferior vena cava is dilated. Pericardium/Pleural No pericardial effusion. MMode/2D Measurements AND Calculations LVIDd: 4.7 cm IVSd: 1.2 cm Ao root diam: 2.6 cm LVIDs: 3.3 cm LVPWd: 1.1 cm RVDd: 4.1 cm FS: 29.0 % LAV(MOD-bp): 65.2 ml EDV(MOD-sp4): 129.4 ml SV(MOD-sp4): 81.5 ml LAV(MOD-bp) Indexed: 32.6 ml/m2 ESV(MOD-sp4): 47.9 ml LAV(MOD-sp2): 55.9 ml EF(MOD-sp4): 63.0 % LAV(MOD-sp4): 68.4 ml LA dimension(2D): 5.0 cm LA A4 area: 21.4 cm2 RA A4 area: 13.7 cm2 Time Measurements MV dec time: 0.19 sec Doppler Measurements AND Calculations MV E max mahnaz: 147.6 cm/sec Lat Peak E' Mahnaz: 3.8 cm/sec Med Peak E' Mahnaz: 2.0 cm/sec MV A max mahnaz: 50.7 cm/sec E/E' lat: 39.1 E/E' med: 73.8 MV E/A: 2.9 Ao V2 max: 143.9 cm/sec LV V1 max: 78.4 cm/sec PA V2 max: 103.3 cm/sec Ao max P.3 mmHg LV V1 max P.5 mmHg TR max mahnaz: 379.8 cm/sec TR max P.0 mmHg Interpretation Summary The estimated ejection fraction is 50-55 %. Posterior-Basal: Mildly hypokinetic Infero-Basal: Mildly hypokinetic Mildly dilated right ventricle. The left atrium is mildly enlarged. Trivial mitral valve insufficiency. Mild to moderate (1-2+) tricuspid valve insufficiency. Right ventricular systolic pressure estimated to be 67 mmHg. Severe pulmonary hypertension. The inferior vena cava is dilated Compared to echo report dated 12/18/2016, LV function appears mildly reduced and pulmonary pressures not mentioned at that time. Ordering Physician: Red Gurrola Referring Physician: ALON FAN Performed By: Archana Mackay, TRUNG, RVT 08/12/18 1352 Date Aki Briceno MD CC: DO Alon Fan; Red Gurrola DO Date Dictated: 08/12/18 1142 Date Transcribed: 08/12/181351 Equipment Maint Tech: Signed BEDSIDE GLUCOSE Collected: 08/12/2018 Status: F Source: [place] 10:56 AM [facility] REPOSITORY TYPE CODE TESTS RESULT OUT OF REFERENCE UNITS RANGE LAB L501.080 70-110 mg/dL High BEDSIDE GLU 232 Result Comment: MANAGEMENT OF PATIENT CARE PER NURSING PROTOCOL Performed By: #### L501.080 #### [facility] Point of Care [address] [place] [address] Observed: 08/12/2018 Status: F Source: [place] STOOL OCCULT BLOOD 10:10 AM [facility]OB REPOSITORY Send Results To: U Has pt arrived? Y STOB iFOB Occult Blood Positive ORGANISM 1: OCCULT BLOOD POSITIVE Performed By: #### M100.7900 #### [facility] [address] [place], [address] PROGRESS Observed: 08/12/2018 Status: COMPLETED Source: [place] 9:13 AM [facility] REPOSITORY O ID: [id number] Author: Duran Dumont Service: (none) Author Type: Physician Type: Progress Notes Filed: 08/13/2018 9:11 AM Note Text: OPERATIVE NOTATION FOR [facility] SURGICAL PROCEDURE. August 12, 2018 Cookie Guerrero 1940 [id number] female PROCEDURE: EGD WITH BIOPSY - [id number] SURGEON: Lewis Dumont M.D. FACS OPERATIONS VOCATIONAL INSTRUCTOR: None DEPT: WQ PROVIDER: [id number] Dumont MD POS: [id number] DIAGNOSIS: (K92.2) Acute GI bleeding (primary encounter diagnosis) ASA CLASS: 3 - Severe FINDINGS: ? Healing ulcer, distal esophagitis COMPLICATIONS: None PMHx - No past medical history on file. COMORBIDITIES - Chronic Pulmonary, Coagulopathy, Anemia, CHF, Hx Cardiac Surgery and WI Post Op Occurrences - None Wound Classification - Clean Contaminated Operative note dictated in the [facility] dictation system. Duran Dumont MD IMMUNOHISTOCHEMISTRY Observed: 08/12/2018 Status: F Source: [place] 8:00 AM [facility] REPOSITORY Patient: COOKIE GUERRERO : 1940 (/) Acct Num: [id number] Phys: Red Gurrola DO Unit Num: [id number] Loc: [facility] [id number] Specimen: [id number] Received: 08/12/181329 Spec Type: IMMUNO TISSUES 1 TISSUES: A. Stomach, NOS SPECIMEN INFORMATION: Tissue Source: A - Gastric antrum Clinical Info: Anemia Specimen Number: [id number] CPT code: 05398 METHODOLOGY: Deparaffinized sections of prefer/formalin-fixed tissue or PAP/DQ stained slides are incubated with monoclonal/polyclonal antibodies/oligonucleotide probes. Localization is made via biotin free immunoperoxidase method. Appropriate controls are performed and reacted as expected. Results on target cell population are indicated in the following table: RESULTS: ANTIBODY / CLONE RESULT Block A H Pylori (polyclonal) negative These tests were developed and their performance characteristics determined by [facility]. They may not have been cleared or approved by the U.S. Food and Drug Administration. The FDA has determined that such clearance or approval is not necessary. INTERPRETATION: A. Gastric antrum, biopsy: Negative for Helicobacter pylori organisms. SJ:clint 08/14/18 PHYSICIAN AND INSTITUTION [place] [id number] Signed Jacinto Dunaway MD 08/14/18 <signature on file> Performed By: #### PIMM #### [facility] [address] [place], [address] GASTRIC BIOPSY Observed: 08/12/2018 Status: F Source: [place] 8:00 AM [facility] REPOSITORY Patient: COOKIE GUERRERO : 1940 (78/F) Acct Num: [id number] Phys: Red Gurrola DO Unit Num: [id number] Loc: [facility] [id number] Specimen: [id number] Received: 08/12/18 - 1200 Spec Type: Gastric Bx TISSUES 1 TISSUES: A. Gastric mucous membrane B. Esophageal mucous membrane COMMENT A. The results of immunohistochemistry for Helicobacter pylori will be reported separately ([id number]). B. Alcian blue/PAS stain with matched control is used in the evaluation of the specimen. GROSS DESCRIPTION A - Received in fixative is one container labeled with the patient's name and designated gastric antrum. The specimen consists of two irregular fragments of light doyle soft tissue that in aggregate measure 0.3 x 0.3 x 0.1 cm. The specimen is totally submitted in one cassette. B - Received in fixative is one container labeled with the patient's name and designated distal esophagus. The specimen consists of one irregular fragment of light doyle soft tissue that measures 0.3 x 0.3 x 0.1 cm. The specimen is totally submitted in one cassette. / JOSEPHINE:clint 08/12/18 TC:4 CPT: 34590 x2, 65786 HEADER OPERATION: E[place] [place] PRE-OP DIAGNOSIS: Anemia TISSUE SUBMITTED: A - Gastric antrum for H. pylori and path, B - Distal esophagus MICROSCOPIC DESCRIPTION Slides are reviewed. MICROSCOPIC DIAGNOSIS A. Gastric antrum, biopsy: Chronic active gastritis. See comment. B. Distal esophagus, biopsy: A fragment of gastroesophageal mucosa with chronic inflammation. Intestinal metaplasia (goblet cell metaplasia) is not identified. See comment. JOSEPHINE:clint 08/14/18 Signed Jacinto Dunaway MD 08/14/18 <signature on file> Performed By: #### PGASB #### [facility] [address] [place], [address] OPERATIVE REPORT - Observed: 08/12/2018 Status: F Source: [place] ENDOSCOPY 7:12 AM [facility] REPOSITORY [facility] Medical Records Department [address] [place] [address] Operative Report - Endoscopy MR#: [id number] Acct: [id number] Name: COOKIE GUERRERO Rep #: [id number] : 1940 78 From: Duran Dumont MD PCP: Alon Fan DO Status: ADM IN Patient Name: Cookie Guerrero Procedure Date: 08/12/2018 6:05 AM Date of : 1940 Age: 78 Procedure: Upper GI endoscopy Indications: Iron deficiency anemia, Heme positive stool Providers: Duran Dumont MD Medicines: Monitored Anesthesia Care Patient Profile: This is a 78 year old female. Refer to note in patient chart for documentation of history and physical. Complications: No immediate complications. Procedure: Pre-Anesthesia Assessment: - Prior to the procedure, a History and Physical was performed, and patient medications and allergies were reviewed. The patient is competent. The risks and benefits of the procedure and the sedation options and risks were discussed with the patient. All questions were answered and informed consent was obtained. Patient identification and proposed procedure were verified by the physician and the nurse in the procedure room. Mental Status Examination: alert and oriented. Airway Examination: normal oropharyngeal airway and neck mobility. Respiratory Examination: clear to auscultation. CV Examination: normal. Prophylactic Antibiotics: The patient does not require prophylactic antibiotics. Prior Anticoagulants: The patient has taken aspirin, last dose was 1 day prior to procedure. ASA Grade Assessment: III - A patient with severe systemic disease. After reviewing the risks and benefits, the patient was deemed in satisfactory condition to undergo the procedure. The anesthesia plan was to use monitored anesthesia care (MAC). Immediately prior to administration of medications, the patient was re-assessed for adequacy to receive sedatives. The heart rate, respiratory rate, oxygen saturations, blood pressure, adequacy of pulmonary ventilation, and response to care were monitored throughout the procedure. The physical status of the patient was re-assessed after the procedure. After obtaining informed consent, the endoscope was passed under direct vision. Throughout the procedure, the patient's blood pressure, pulse, and oxygen saturations were monitored continuously. The gastroscope was introduced through the mouth, and advanced to the jejunum. The upper GI endoscopy was accomplished without difficulty. The patient tolerated the procedure well. Scope In: 7:03:07 AM Scope Out: 7:06:36 AM Total Procedure Duration Time 0 hours 3 minutes 29 seconds Findings: The examined jejunum was normal. The examined duodenum was normal. One non-bleeding superficial gastric ulcer with no stigmata of bleeding was found in the gastric antrum. Biopsies were taken with a cold forceps for Helicobacter pylori testing using PyloriTek test. Biopsies were taken with a cold forceps for histology. The exam of the stomach was otherwise normal. Non-severe esophagitis with no bleeding was found. Biopsies were taken with a cold forceps for histology. Impression: - Normal examined jejunum. - Normal examined duodenum. - Non-bleeding gastric ulcer with no stigmata of bleeding. Biopsied. - Non-severe reflux esophagitis. Rule out Stratton's esophagus. Biopsied. Recommendation: - Await pathology results. - Return patient to hospital hand for ongoing care. - Continue present medications. Procedure Code(s): --- Professional --- 32892, Esophagogastroduodenoscopy, flexible, transoral; with biopsy, single or multiple CPT copyright 2017 [employer]. All rights reserved. The codes documented in this report are preliminary and upon software validation engineer review may be revised to meet current compliance requirements. Duran Dumont MD 08/12/2018 7:11:57 AM This report has been signed electronically. Number of Addenda: 0 Note Initiated On: 08/12/2018 6:05 AM 08/12/18 0712 Date Duran Dumont MD Cosigner Signature: Date (if indicated) CC: DO Alon Fan; Aki Briceno MD; Red Gurrola DO; Duran Dumont MD Date Dictated: 08/12/18 0605 Date Transcribed: Equipment Maint Tech: CLINT Signed EMERGENCY DEPARTMENT Observed: 08/12/2018 Status: F Source: LANSE SUMMARY 7:03 AM [facility] REPOSITORY [facility] Medical Records Department [address] [place] [address] Emergency Department Summary 08/10/18 1546 MR#: [id number] Acct: [id number] Name: COOKIE GUERRERO Rep #: [id number] : 1940 78 From: Aki Arthur DO PCP: Alon Fan DO Status: ADM IN - ER Visit Summary Date of Service: 08/10/18 Chief Complaint: Shortness of breath History of Present Illness: The patient is a 78 F who states that she went to her PCP on Sunday was placed on 40 mg of Lasix twice a day for swelling her legs and a 13 pound weight gain. She does have a history of coronary artery disease and CHF. She states that on Sunday she weighed 220 pounds today she was 216.8. She continues however to have dyspnea on exertion and dyspnea at rest. She notes a cough but states that she is not expelling any sputum. She is a former smoker. Baseline creatinine 1.56 that was May this year. Last hemoglobin was 9. She also notes that she has been feeling fatigued. Patient states that she has been using a lot of Pepto-Bismol for some colitis that she has had. She is on Plavix. 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 Physical Examination: Afebrile vital signs stable Gen: Well-nourished well-developed Head: Normocephalic atraumatic Eyes: Perrl EOMI ENT: TMs clear no rhinorrhea moist mucous membranes Neck: Supple no lymphadenopathy no JVD nontender CVS: Regular rate rhythm no murmurs normal S1-S2 Respiratory: No distress clear to auscultation bilaterally chest nontender Abdomen: Soft nontender nondistended normal bowel sounds no masses : Back: Nontender Extremity: Nontender no edema Skin: Normal color no rash Neuro: alert orientated 3 CN II-XII intact normal strength sensation reflexes gait cerebellar Psych: Normal affect normal mood Test Results: EKG showed a sinus rhythm at a rate of [address] depression changes. Chest x-ray showed no acute findings. Hemoglobin is low at 6.6 troponin 0.7 creatinine 2.99 with a BUN of 95. Emergency Department Course and Treatment: Patient is anemic with acute renal failure and now elevated troponin. Patient will need to be transfused. We started gentle hydration. I spoke with Dr. Briceno (Cardiology) as well as Dr. Grier (Surgery) and Dr. Gurrola (medicine) Impression: 1. Acute blood loss anemia requiring transfusion 2. NSTEMI 3. Acute renal failure This note was generated with [employer] dictation software. It may contain incorrect words, spelling, and punctuation that were not noted in review of the chart prior to signing ED Disposition - Plan for ED Patient: Disposition: Home or Assisted Living Chief Complaint: Shortness of Breath What to do if you have Problems For any increased pain, shortness of breath, bleeding, nausea or vomiting, chest pain, or any unexpected problems, contact your Primary Care Provider. Call [facility] ([phone]) or report to the closest Emergency Room. Call 911 if necessary. 08/12/18 0703 <Electronically signed by Aki Arthur DO> Date Aki Arthur DO Cosigner Signature (If Indicated): Date CC: DO Alon Meng BEDSIDE GLUCOSE Collected: 08/12/2018 Status: F Source: LANSE 5:56 AM [facility] REPOSITORY TYPE CODE TESTS RESULT OUT OF REFERENCE UNITS RANGE LAB L501.080 70-110 mg/dL High BEDSIDE GLU 138 Result Comment: MANAGEMENT OF PATIENT CARE PER NURSING PROTOCOL Performed By: #### L501.080 #### [facility] Point of Care [address] [place] [address] CBC W/DIFF, AUTOMATED Collected: 08/12/2018 Status: F Source: GRETA 5:24 AM [facility] REPOSITORY TYPE CODE TESTS RESULT OUT OF RANGE REFERENCE UNITS LAB L100.1000 4.4-11.0 K/mm3 Normal WBC 6.6 LAB L100.1200 4.2-5.4 M/mm3 Low RBC 2.98 LAB L100.1300 12.0-15.0 g/dl Low HGB 8.0 LAB L100.1400 37-47 % Low HCT 25.7 LAB L100.1500 81-99 fL Normal MCV 86.2 LAB L100.1600 27.0-32.0 pg Low MCH 26.8 LAB L100.1700 32-36 g/gl Low MCHC 31.1 LAB L100.1810 11.6-14.6 % High RDW CV 15.7 LAB L100.1820 35.1-43.9 fl High RDW SD 48.3 LAB L100.1900 150-450 K/mm3 Normal PLT 235 LAB L100.2000 6.2-12.0 fl Normal MPV 11.3 LAB L100.2100 47-70 % Normal NEUT% 60.2 LAB L100.2200 19-41 % Normal LY% 27.6 LAB L100.2300 0-10 % Normal MONO% 9.7 LAB L100.2400 0-5 % Normal EO% 2.0 LAB L100.2500 0-1 % Normal BASO% 0.3 LAB L100.2550 0.0-0.9 % Normal IM GRAN % 0.200 Result Comment: IG% - Immature Granulocytes (promyelocytes, myelocytes and metamyelocytes) > 1% indicates that a LEFT SHIFT is Present. LAB L100.2620 2.0-7.7 X10 3/uL Normal Absolute Neut 4.0 LAB L100.2720 0.83-4.51 X10 3/ul Normal Absolute Lymph 1.82 Performed By: #### L100.0100 #### [facility] [address] [place], [place], [address] BASIC METABOLIC Collected: 08/12/2018 Status: F Source: GRETA PROFILE (BMP) 5:24 AM [facility] REPOSITORY TYPE CODE TESTS RESULT OUT OF RANGE REFERENCE UNITS LAB L501.0100 74-106 mg/dL High GLU 132 Result Comment: Fasting Glucose result greater than or equal to 126 mg/dL suggests DIABETES MELLITUS per A.D.A. criteria. Please note revised GLUCOSE reference range effective 2017. LAB L501.1000 7-18 mg/dL High BUN 57 LAB L501.1100 0.55-1.02 mg/dL High CREAT,SERUM 2.19 Result Comment: The validity of the calculated GFR AND GFRAA in patients over 70 years has not been determined. Clinical correlation is essential. LAB L501.1110 >60 mL/min Low EST GFR 23 Result Comment: Non- GFR Calc LAB L501.1115 >60 mL/min Low EST GFR - AA 28 Result Comment: GFR Calc LAB L501.1255 ml/min Normal Estimated CRCL 18.87 LAB L501.1300 10-20 RATIO High BUN/CRE 26.0 LAB L501.2200 8.5-10 mg/dL Low .1 CA 8.3 LAB L501.5300 136-14 mmol/L Normal 5 NA 143 LAB L501.5600 3.5-5. mmol/L Normal 1 K 4.4 LAB L501.5900 98-107 mmol/L High CL 110 LAB L501.6100 21.0-3 mmol/L Normal 2.0 CO2 25.0 LAB L501.6200 5-15 Normal GAP 8 Performed By: #### L500.2500 #### [facility] [address] [place], [place], [id number] CNCO Observed: 08/12/2018 Status: COMPLETED Source: WINTER 12:00 AM [facility] REPOSITORY Letter Text Dr. Duran Martínez Priyanka Robles . [place], [place] [address] 08-12-2018 Attn: Medical Records. Patient: NicholasronicatiaCookie D.O.B. 1940 To Whom it may concern, Can you please fax patients recent colonoscopy report for the patient above to [phone]. Thank you, Dr. Duran Dumont CNOP Observed: 08/12/2018 Status: COMPLETED Source: WINTER 12:00 AM [facility] REPOSITORY Operative Note (Enc) (GENSWS) Progress Notes: Duran Dumont MD 08/13/2018 9:11 AM Signed OPERATIVE NOTATION FOR [facility] SURGICAL PROCEDURE. August 12, 2018 Cookie Guerrero 1940 [id number] female PROCEDURE: EGD WITH BIOPSY - 15200-627 SURGEON: Lewis Dumont M.D. FACS OPERATIONS VOCATIONAL INSTRUCTOR: None DEPT: PROVIDER: [id number] Dumont MD POS: [id number] DIAGNOSIS: (K92.2) Acute GI bleeding (primary encounter diagnosis) ASA CLASS: 3 - Severe FINDINGS: ? Healing ulcer, distal esophagitis COMPLICATIONS: None PMHx - No past medical history on file. COMORBIDITIES - Chronic Pulmonary, Coagulopathy, Anemia, CHF, Hx Cardiac Surgery and WI Post Op Occurrences - None Wound Classification - Clean Contaminated Operative note dictated in the [facility] dictation system. Druan Dumont MD Encounter Status:Closed by DURAN DUMONT MD on 08/13/18 BEDSIDE GLUCOSE Collected: 08/11/2018 Status: F Source: LANSE 9:06 PM [facility] REPOSITORY TYPE CODE TESTS RESULT OUT OF REFERENCE UNITS RANGE LAB L501.080 70-110 mg/dL High BEDSIDE GLU 184 Result Comment: MANAGEMENT OF PATIENT CARE PER NURSING PROTOCOL Performed By: #### L501.080 #### [facility] Point of Care [facility] [place] [address] URINALYSIS, COMPLETE Collected: 08/11/2018 Status: F Source: LANSE 7:25 PM [facility] REPOSITORY Order Comment: How was Urine Obtained? CLEAN CATCH TYPE CODE TESTS RESULT OUT OF RANGE REFERENCE UNITS LAB L400.3000 Yellow COLOR Normal Yellow LAB L400.3050 Clear Normal CLARITY Cloudy LAB L400.3200 Normal mg/dl Normal GLUCOSE, UR Normal LAB L400.3300 Negative mg/dL Normal BILIRUBIN URINE Negative LAB L400.3400 Negative mg/dl Normal KETONE UR Negative LAB L400.3465 1.002-1.030 Normal SP.GR. DIPSTX 1.015 LAB L400.3550 5.0 - 8.0 pH UR Normal 6.0 LAB L400.3600 Negative mg/dl High PROT 15 DIPSTX LAB L400.3700 Normal mg/dl Normal UROBILI Normal LAB L400.3750 Negative Normal NITRITE UR Negative LAB L400.3780 Negative /ul Normal OCCULT BLOOD-UR Negative LAB L400.3800 Negative /ul High LEUK ESTERASE 100 LAB L400.4050 0-5 /hpf WBC Normal 0-5 SEEN LAB L400.4100 0-5 /hpf 0 Normal RBC-UA SEEN LAB L400.4150 5-10 /hpf SQUAM Normal EPI 0-5 SEEN LAB L400.4300 None Seen /hpf 3+ Normal BACTERIA LAB L400.4350 <or=2+ /hpf 0 Normal MUCUS, URINE SEEN Performed By: #### L400.0001 #### [facility] [address] [place], [address] CREATININE, URINE Collected: 08/11/2018 Status: F Source: LANSE (RANDOM) 7:25 PM [facility] REPOSITORY TYPE CODE TESTS RESULT OUT OF RANGE REFERENCE UNITS LAB L501.1200 NO RANGE EST. mg/dL Normal UR CREAT 43.00 Performed By: #### L501.1200 #### [facility] [address] [place], [address] UREA NITROGEN, URINE Collected: 08/11/2018 Status: F Source: LANSE 7:25 PM [facility] REPOSITORY TYPE CODE TESTS RESULT OUT OF RANGE REFERENCE UNITS LAB L502.0715 NO RANGE EST. mg/dL Normal URINE 617 UREA Performed By: #### L502.0715 #### [facility] [address] [place], [address] URINE Collected: 08/11/2018 Status: F Source: LANSE 7:25 PM [facility] REPOSITORY TYPE CODE TESTS RESULT OUT OF RANGE REFERENCE UNITS LAB L3100.6600 . % No Normal EOS CT Eosinophils Seen [id number] Result Comment: <5% few or none seen Performed at: [facility] [address] [id number] Automotive Instructor: Michel Simental PhD, Phone: [phone] Performed By: #### L3100.6600 #### [facility] (refer to report for specific site) refer to report for address and phone number BEDSIDE GLUCOSE Collected: 08/11/2018 Status: F Source: GRETA 4:13 PM [facility] REPOSITORY TYPE CODE TESTS RESULT OUT OF REFERENCE UNITS RANGE LAB L501.080 70-110 mg/dL High BEDSIDE GLU 205 Result Comment: MANAGEMENT OF PATIENT CARE PER NURSING PROTOCOL Performed By: #### L501.080 #### [facility] [address] [place] [address] BEDSIDE GLUCOSE Collected: 08/11/2018 Status: F Source: GRETA 11:24 AM [facility] REPOSITORY TYPE CODE TESTS RESULT OUT OF REFERENCE UNITS RANGE LAB L501.080 70-110 mg/dL High BEDSIDE GLU 197 Result Comment: MANAGEMENT OF PATIENT CARE PER NURSING PROTOCOL Performed By: #### L501.080 #### [facility] Point of Care [address] [facility] [place] [address] CONSULTATION Observed: 08/11/2018 Status: F Source: GRETA 9:41 AM [facility] Medical Records Department [address] [place] [address] Consultation 08/11/18 0933 MR#: [id number] Acct: [id number] Name: COOKIE GUERRERO Rep #: [id number] : 1940 78 From: Aki Briceno MD PCP: Alon Fan DO Status: ADM IN Y Location: [place] [address] Problem List (1) NSTEMI (non-ST elevated myocardial infarction) Status: Acute (2) H/O coronary artery bypass surgery Status: Resolved Comment: CABG X 4: ONTIVEROS to LAD, SVG to high lateral cx, SVG to PDA and RCA 03/30/2009 (3) History of coronary artery stent placement Status: Resolved Comment: GIO to the mid and distal main RCA origin, GIO-Prox PDA, GIO- RCA and AV continution of the RCA 11/2010 (4) Bilateral carotid artery stenosis Status: Chronic (5) Hyperlipidemia Status: Chronic Qualifiers: Hyperlipidemia type: pure hypercholesterolemia Qualified Code(s): E78.00 - Pure hypercholesterolemia, unspecified Reason for Consult Date of Consultation: 08/11/18 Reason for Consultation: Acute anemia, non-STEMI, coronary artery disease, abnormal EKG, status post bypass, status post stents, peripheral vascular disease, carotid disease. History of Present Illness: The patient is a 78 year old F, who is legally blind, with diabetes, hypertension, hypercholesterolemia, peripheral vascular disease, coronary artery disease status post bypass surgery x3 with Dr. Hall in 2008. At that time she received a ONTIVEROS to the LAD, saphenous vein graft to the RCA, and a saphenous vein graft to the left circumflex. Repeat catheterization done in 2010 demonstrated occluded saphenous vein graft to the RCA, occluded saphenous vein graft to the circumflex, and patent ONTIVEROS to the LAD. At that time she underwent angioplasty and stenting to the RCA. Patient is a primary patient of Dr. Solitario, and underwent repeat catheterization on 12/22/16. At that time she was found to have severe three-vessel coronary disease, widely patent ONTIVEROS to the LAD, normal LV function of 60%, and no coronary vessels which were amenable to PCI. Patient is remain on baby aspirin and Plavix due to her peripheral vascular disease and remaining coronary disease. Patient apparently has a history of colitis and is a patient of Dr. Garcia. She underwent colonoscopy several months ago which demonstrated colitis and she was placed on Pepto-Bismol and Imodium. Her Imodium made her too constipated, and so she decreased this. She is now presenting with recurrent bloody diarrhea, and positive stools. She is unable to tell how long she has had bloody diarrhea as she has legally blind. Patient admitted with extreme weakness, was unable to walk with a walker, but had no chest pain symptoms. She was found to have a hemoglobin of 6.6, and received 1 unit of PRBCs. Troponins were cycled and peak troponin was found to be 0.906. Her EKG showed normal sinus rhythm with new anterolateral T wave inversion which was not present on previous EKGs. Prior to this she denied any chest pain, angina but did complain of mild dyspnea on exertion prior to her initial presentation. She is a former smoker quit around 40 years ago. Currently she is resting comfortably in her bed. Her hemoglobin is increased to 7.2. [] Past Medical History Allergies/Adverse Reactions: Allergies latex Allergy (Verified 08/10/18 10:55) Hives Home Medications: Ambulatory Orders Medication Instructions Recorded Aspirin [Aspirin, Baby] 81 mg PO DAILY@0800 08/10/18 Atenolol 50 mg PO DAILY 08/10/18 Bupropion HCl 1 tab PO PRN PRN 08/10/18 Past Medical History (Chronic Problems): Chronic Problems (Last Reviewed 08/10/18 @ 15:44 by Red Gurrola DO) Chronic diastolic heart failure (Chronic) Essential (primary) hypertension (Chronic) 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) Atherosclerotic heart disease of [place] coronary artery without angina pectoris (Chronic) Bilateral carotid artery stenosis (Chronic) Hyperlipidemia (Chronic) PVD (peripheral vascular disease) (Chronic) Surgical History: - - Cholecystectomy, hysterectomy, appendectomy, coronary artery bypass surgery, angioplasty, R 1st toe amputation. 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 history - *Family History Maternal Family History: Family History (Last Reviewed 08/10/18 @ 15:44 by Red Gurrola DO) Father COPD (chronic obstructive pulmonary disease) Mother CAD (coronary artery disease) Myocardial infarction Diabetes Congestive heart failure Brother CAD (coronary artery disease) S/P CABG x 4 Sister CAD (coronary artery disease) Hx of CABG History Items: Diabetes Paternal Family History: Family History (Last Reviewed 08/10/18 @ 15:44 by Red Gurrola DO) Father COPD (chronic obstructive pulmonary disease) Mother CAD (coronary artery disease) Myocardial infarction Diabetes Congestive heart failure Brother CAD (coronary artery disease) S/P CABG x 4 Sister CAD (coronary artery disease) Hx of CABG History Items: Heart Disease Lives: Alone Smoking Status: Former smoker Alcohol: Rare Drugs: None Review of Systems - Review of Systems General: Denies: Fever, Night Sweats, Fatigue Cardiovascular: Denies: Chest Discomfort, Shortness of Breath, Orthopnea, PND, Peripheral Edema, Palpitations, Lightheadedness, Dizziness, Near Syncope, Syncope Respiratory: Denies: Cough, Sputum Production, Hemoptysis Gastrointestinal: Denies: Hematemesis, Hematochezia, Melena Genitourinary: Denies: Dysuria, Hematuria Skin: Denies: Rash Subjectve: Patient resting comfortably, no chest pain or shortness of breath. Objective: Vital Signs Temp Pulse Resp BP Pulse Ox 97.8 F 60 18 134/69 H 98 08/11/18 08:14 08/11/18 08:14 08/11/18 08:14 08/11/18 08:14 08/11/18 08:14 Oxygen Flow Rate (L/min) 2 Oxygen Delivery Method Nasal Cannula Weight: 211 lb 3.245 oz Body Mass Index (BMI) 36.2 Intake and Output for Last 24 Hours Intake Total 860 / 860 469 / 469 Balance 860 / 860 469 / 469 General: Awake, Alert, Oriented x 3 HEENT: PERRL, EOMI, Sclera Non Icteric Neck: Supple, Good ROM, No Lymph Node Enlargement Lungs: Clear to auscultation Cardiovascular: Regular Rhythm, Normal S1, Normal S2, No Murmurs, No Rubs, No Gallops Vascular: No Carotid Bruits, Normal Femoral Pulses, Normal Radial Pulses, Normal Dorsalis Pedal Pulse, Normal Posterior Tibial Pulses Abdomen: Bowel Sounds Present, Soft, Non Tender, No HSM, No Organomegaly Extremities: No Cyanosis, No Clubbing, No edema Neurological: No Focal Motor or Sensory Deficit 08/10/18 12:20: WBC 10.6, RBC 2.43 L, Hgb 6.6 L, Hct 21.2 L, MCV 87.2, MCH 27.2, MCHC 31.1 L, RDW 15.0 H, RDW Differential 47.9 H, Plt Count 290, MPV 11.0, Immature Gran % (Auto) 0.300, Neut % (Auto) 71.0 H, Lymph % (Auto) 21.8, Logan % (Auto) 5.6, Eos % (Auto) 1.0, Baso % (Auto) 0.3, Absolute Neuts (auto) 7.5, Total Counted Not Reportable 08/10/18 12:20: PT 15.5 H, INR 1.2, APTT 29.0 08/10/18 12:20: Sodium 140, Potassium 4.7, Chloride 103, Carbon Dioxide 25.0, Anion Gap 12, BUN 95 H, Creatinine 2.99 H, Est GFR (MDRD) Af Amer 20 L, Est GFR (MDRD) Non-Af 16 L, BUN/Creatinine Ratio 31.8 H, Glucose 167 H, Calcium 8.9, Total Bilirubin 0.20, Troponin I 0.705 H* 08/10/18 12:20: B-Natriuretic Peptide 1354.4 H 08/10/18 16:15: WBC 8.9, RBC 2.32 L, Hgb 6.4 L, Hct 20.6 L, MCV 88.8, MCH 27.6, MCHC 31.1 L, RDW 14.6, RDW Differential 44.9 H, Plt Count 301, MPV 11.5, Immature Gran % (Auto) 0.200, Neut % (Auto) 66.8, Lymph % (Auto) 24.6, Logan % (Auto) 7.1, Eos % (Auto) 1.1, Baso % (Auto) 0.2, Absolute Neuts (auto) 5.9, Total Counted Not Reportable 08/10/18 16:15: Ferritin 11 08/10/18 16:15: TIBC 513 H, Troponin I 0.899 H* 08/10/18 18:55: Troponin I 0.906 H* 08/11/18 05:29: WBC 8.0, RBC 2.70 L, Hgb 7.2 L, Hct 23.1 L, MCV 85.6, MCH 26.7 L, MCHC 31.2 L, RDW 15.8 H, RDW Differential 49.3 H, Plt Count 278, MPV 11.0 08/11/18 05:29: PT 14.7, INR 1.2 08/11/18 05:29: Sodium 142, Potassium 4.1, Chloride 106, Carbon Dioxide 25.0, Anion Gap 11, BUN 79 H, Creatinine 2.52 H, Est GFR (MDRD) Af Amer 24 L, Est GFR (MDRD) Non-Af 20 L, BUN/Creatinine Ratio 31.3 H, Glucose 135 H, Calcium 8.2 L, Total Bilirubin 0.20 08/11/18 05:29: Ferritin 12 Rhythm: EKG: Normal sinus rhythm, normal axis, new anterolateral T wave inversion not present on previous EKG. ECHO: Pending. Stress Test: Cardiac Cath: PCI: CT Surgery: Holter monitor: EPS: PPM: CXR: Chest CT Scan: Assessment/Plan 1. Coronary artery disease: The patient presents with extreme weakness, tiredness, but no chest pain or anginal symptoms. She has known severe coronary artery disease and has 1 remaining patent graft with her ONTIVEROS to the LAD. The patient has significant disease in her left circumflex and RCA systems which appear to be not amenable to PCI. Patient presents now with acute anemia most likely secondary to either recurrent colitis, or upper GI bleeding. Her troponins have peaked at 0.906 at this time. She is remained asymptomatic. Given the patient's acute anemia, she is not a good candidate for dual antiplatelet therapy nor would she be a good candidate for repeat catheterization at this time. I also would not entertain the option of a stress test as she is already undergone a stress test with her acute anemia. I believe it is reasonable to proceed with EGD and/or colonoscopy if these are indicated the patient is at moderate risk for these procedures. I believe they can be done reasonably safely here at [facility] with cardiac assistance. I would recommend continuation of her baby aspirin given her severe coronary disease and peripheral vascular disease however I would discontinue her Plavix which may take several days to dimas out of her system. I agree with aggressive PPI therapy with pantoprazole 40 mg p.o. twice daily. Pending the outcome of her EGD will determine if she requires more aggressive treatment. I would recommend obtaining a 2D echo with Doppler to confirm that her LV function has remained normal given her EKG changes, and abnormal troponins. 2. Hypertension: Her blood pressure and heart rate are fairly well-controlled. Continue present management. 3. Hyperlipidemia: Patient was on Crestor and fenofibrate as an outpatient. Would recommend resuming these once her scopes have been completed. 4. Discussed plan with Dr. Dumont. Thank you very much for the opportunity to participate in the cardiac care of your patient. Consultation time took place between 8 AM and 8:30 AM. Code Visit Inpatient E AND M: [id number] Init Hosp L2 08/11/18 0941 <Electronically signed by Aki Briceno MD> Date Aki Briceno MD Cosigner Signature (if applicable): Date CC: DO Alon Fan; Aki Briceno MD; Duran Dumont MD Signed BEDSIDE GLUCOSE Collected: 08/11/2018 Status: F Source: LAN[place] 8:15 AM [facility] REPOSITORY TYPE CODE TESTS RESULT OUT OF REFERENCE UNITS RANGE LAB L501.080 70-110 mg/dL High BEDSIDE GLU 164 Result Comment: MANAGEMENT OF PATIENT CARE PER NURSING PROTOCOL Performed By: #### L501.080 #### [facility] Point of Care [address] [place] [address] CONSULTATION Observed: 08/11/2018 Status: F Source: LAN[place] 6:58 AM [facility] REPOSITORY [facility] Medical Records Department [address] [place] [address] Consultation 08/10/18 1658 MR#: [id number] Acct: [id number] Name: COOKIE GUERRERO Rep #: [id number] : 1940 78 From: Duran Dumont MD PCP: Alon Fan DO Status: ADM IN Location: [place] [address] Reason for Consult Date of Consultation: 08/10/18 Reason for Consultation: anemia, fatigue, CHF History of Present Illness: The patient is a 78 year old F with advanced complicated diabetes -CHF, CAD, PVD, with worsening fatigue and dyspenia on exertion. She was found to be dehydrated and anemia. Stool was positive of occult blood. She is blind, so had not noted blood in her stools. She is on peptobismol for chronic diarrhrea. She underwent a colonoscopy by Dr. Omer in [place] a few months previously for chronic diarrhea and started on she recalls Linzess, but had to quit due to the cost. She is again having loose stools. She denies abdominal pain. She has not had a prior upper endoscopy. in the October 28, she was noted to have increased BUN and creatinine and a decreased hemoglobin. She was also found to have ST segment depression or EKG. Her troponins are elevated. 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) Bilateral carotid artery stenosis (Chronic) Hyperlipidemia (Chronic) PVD (peripheral vascular disease) (Chronic) Medical History: Medical History (Last Reviewed 08/10/18 @ 15:44 by Red Gurrola DO) Fatigue (Acute) R53.83 Chronic diastolic heart failure (Chronic) I50.32 Essential (primary) hypertension (Chronic) I10 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) I25.798 Atherosclerotic heart disease of [place] coronary artery without angina pectoris (Chronic) I25.10 Bilateral carotid artery stenosis (Chronic) I65.23 Hyperlipidemia (Chronic) E78.5 PVD (peripheral vascular disease) (Chronic) I73.9 Anemia D64.9 Macular degeneration H35.30 Type 2 diabetes mellitus E11.9 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 Allergies latex Allergy (Verified 08/10/18 10:55) Hives Home Medications: Ambulatory Orders Medication Instructions Recorded Aspirin [Aspirin, Baby] 81 mg PO DAILY@0800 08/10/18 Atenolol 50 mg PO DAILY 08/10/18 Bupropion HCl 1 tab PO PRN PRN 08/10/18 Surgical History: Surgical History (Last Reviewed 08/10/18 @ 15:44 by Red Gurrola DO) H/O coronary artery bypass surgery (Resolved) Onset Date: 06/2009 Z95.1 CABG X 4: ONTIVEROS to LAD, SVG to high lateral cx, SVG to PDA and RCA 03/30/2009 History of coronary artery stent placement (Resolved) Onset Date: 11/2010 Z95.5 GIO to the mid and distal main RCA origin, GIO-Prox PDA, GIO- RCA and AV continution of the RCA 11/2010 History of left heart catheterization Onset Date: 12/22/16 Z98.890 03/2009; 11/04/2010 [facility]; 12/22/2016 amputation of right second toe Onset Date: 08/07/14 angioplasty to right SFA Onset Date: 2013 bilateral iliac stents Surgical History: - - Cholecystectomy, hysterectomy, appendectomy, coronary artery bypass surgery, angioplasty, R 1st toe amputation. 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 history Lives: Alone Smoking Status: Former smoker Alcohol: Rare Drugs: None - *Family History Maternal Family History: Family History (Last Reviewed 08/10/18 @ 15:44 by Red Gurrola DO) Father COPD (chronic obstructive pulmonary disease) Mother CAD (coronary artery disease) Myocardial infarction Diabetes Congestive heart failure Brother CAD (coronary artery disease) S/P CABG x 4 Sister CAD (coronary artery disease) Hx of CABG History Items: Diabetes Paternal Family History: Family History (Last Reviewed 08/10/18 @ 15:44 by Red Gurrola DO) Father COPD (chronic obstructive pulmonary disease) Mother CAD (coronary artery disease) Myocardial infarction Diabetes Congestive heart failure Brother CAD (coronary artery disease) S/P CABG x 4 Sister CAD (coronary artery disease) Hx of CABG History Items: Heart Disease Patient Problems: Active and Suspected Problems (Last Reviewed 08/10/18 @ 15:44 by Red Gurrola DO) Acute blood loss anemia (Acute) SELAM (acute kidney injury) (Acute) NSTEMI (non-ST elevated myocardial infarction) (Acute) - Physical Exam Vital Signs Temp Pulse Resp BP Pulse Ox 98.0 F 65 16 138/71 H 100 08/10/18 16:45 08/10/18 16:45 08/10/18 16:45 08/10/18 16:45 08/10/18 16:45 Oxygen Flow Rate (L/min) 2 Oxygen Delivery Method Nasal Cannula Weight: 95.8 kg Body Mass Index (BMI) 36.2 Intake and Output for Last 24 Hours Intake Total 0 / 0 Balance 0 / 0 Microbiology Past 72 Hours 08/10/18 13:35 Stool Occult Blood (VISHNU) - Final Stool Occult Blood Positive Laboratory Tests Past 24 Hrs WBC 8.9 RBC 2.32 L Hgb 6.4 L WBC RBC Hgb Hct MCV MCH MCHC RDW RDW Differential Plt Count POC Glucose POC Glucose 146 H 166 H Assessment/Plan All Active Problems (Last Reviewed 08/10/18 @ 15:44 by Red Gurrola DO) Acute blood loss anemia (Acute) SELAM (acute kidney injury) (Acute) NSTEMI (non-ST elevated myocardial infarction) (Acute) Fatigue (Acute) H/O coronary artery bypass surgery (Resolved 06/2009) History of coronary artery stent placement (Resolved 11/2010) Gangrene (Resolved) Gangrene associated with type 2 diabetes mellitus (Resolved) Anemia, dehydration, complicated advanced diabetes, NSTEMI. Will be available for urgent EGD if signs of active bleeding. Otherwise, will plan for transfusion , medical optimization and then semi-elective EGD. Will try to obtain copies of recent colonoscopy report. 08/11/18 0658 <Electronically signed by Duran Dumont MD> Date Duran Dumont MD Cosigner Signature (if applicable): Date CC: DO Alon Fan; Aki Briceno MD; Duran Dumont MD Signed BEDSIDE GLUCOSE Collected: 08/11/2018 Status: F Source: [place] 6:48 AM [facility] REPOSITORY TYPE CODE TESTS RESULT OUT OF REFERENCE UNITS RANGE LAB L501.080 70-110 mg/dL High BEDSIDE GLU 155 Result Comment: MANAGEMENT OF PATIENT CARE PER NURSING PROTOCOL Performed By: #### L501.080 #### [facility] Point of Care [facility] [place] [address] CBC-COMPLETE BLOOD CNT Collected: 08/11/2018 Status: F Source: [place] NO DIFF 5:29 AM [facility] REPOSITORY TYPE CODE TESTS RESULT OUT OF RANGE REFERENCE UNITS LAB L100.1000 4.4-11.0 K/mm3 Normal WBC 8.0 LAB L100.1200 4.2-5.4 M/mm3 Low RBC 2.70 LAB L100.1300 12.0-15.0 g/dl Low HGB 7.2 LAB L100.1400 37-47 % Low HCT 23.1 LAB L100.1500 81-99 fL Normal MCV 85.6 LAB L100.1600 27.0-32.0 pg Low MCH 26.7 LAB L100.1700 32-36 g/gl Low MCHC 31.2 LAB L100.1810 11.6-14.6 % High RDW CV 15.8 LAB L100.1820 35.1-43.9 fl High RDW SD 49.3 LAB L100.1900 150-450 K/mm3 Normal PLT 278 LAB L100.2000 6.2-12.0 fl Normal MPV 11.0 Performed By: #### L100.0500 #### [facility] [address] [place], [address] PROTHROMBIN TIME W/INR Collected: 08/11/2018 Status: F Source: [place] 5:29 AM [facility] REPOSITORY TYPE CODE TESTS RESULT OUT OF RANGE REFERENCE UNITS LAB L300.4150 11.7-14.9 SECONDS Normal PROTIME 14.7 LAB L300.4200 Normal INR 1.2 Performed By: #### L300.3900 #### [facility] [address] [place], [address] BASIC METABOLIC Collected: 08/11/2018 Status: F Source: [place] PROFILE (BMP) 5:29 AM [facility] REPOSITORY TYPE CODE TESTS RESULT OUT OF RANGE REFERENCE UNITS LAB L501.0100 74-106 mg/dL High GLU 135 Result Comment: Fasting Glucose result greater than or equal to 126 mg/dL suggests DIABETES MELLITUS per A.D.A. criteria. Please note revised GLUCOSE reference range effective 2017. LAB L501.1000 7-18 mg/dL High BUN 79 LAB L501.1100 0.55-1.02 mg/dL High CREAT,SERUM 2.52 Result Comment: The validity of the calculated GFR AND GFRAA in patients over 70 years has not been determined. Clinical correlation is essential. LAB L501.1110 >60 mL/min Low EST GFR 20 Result Comment: Non- GFR Calc LAB L501.1115 >60 mL/min Low EST GFR - AA 24 Result Comment: GFR Calc LAB L501.1255 ml/min Normal Estimated CRCL 16.40 LAB L501.1300 10-20 RATIO High BUN/CRE 31.3 LAB L501.2200 8.5-10 mg/dL Low .1 CA 8.2 LAB L501.5300 136-14 mmol/L Normal 5 NA 142 LAB L501.5600 3.5-5. mmol/L Normal 1 K 4.1 LAB L501.5900 98-107 mmol/L Normal CL 106 LAB L501.6100 21.0-3 mmol/L Normal 2.0 CO2 25.0 LAB L501.6200 5-15 Normal GAP 11 Performed By: #### L500.2500, L500.4050, L501.9520 #### [facility] [address] [place], [place], [id number] COMPREHENSIVE METABOLIC Collected: 08/11/2018 Status: F Source: [place] PROFIL 5:29 AM [facility] REPOSITORY TYPE CODE TESTS RESULT OUT OF RANGE REFERENCE UNITS LAB L501.1500 6.4-8.2 g/dL Low T PROT 6.3 LAB L501.1800 3.2-5.0 g/dL Low ALB 3.0 LAB L501.1950 2.2-4.2 g/dL Normal GLOB 3.3 LAB L501.2000 0.9-2.4 RATIO Normal A/G 0.9 LAB L501.4100 15-37 U/L Normal AST 24 LAB L501.4305 45-117 U/L Low ALK P 24 LAB L501.4405 13-56 U/L Normal ALT 33 LAB L501.4600 0.20-1.00 mg/dL Normal T BILI 0.20 Performed By: #### L500.2500, L500.4050, L501.9520 #### [facility] [address] [place], [place], [address] THYROID STIM HORMONE Collected: 08/11/2018 Status: F Source: [place] (TSH) 5:29 AM [facility] REPOSITORY TYPE CODE TESTS RESULT OUT OF RANGE REFERENCE UNITS LAB L501.9520 0.358-3.74 uIU/mL Normal TSH 3.20 Performed By: #### L500.2500, L500.4050, L501.9520 #### [facility] [address] [place], [address] FERRITIN Collected: 08/11/2018 Status: F Source: [place] 5:29 AM [facility] REPOSITORY TYPE CODE TESTS RESULT OUT OF RANGE REFERENCE UNITS LAB L503.6550 8-252 ng/mL Normal FERRITIN 12 Performed By: #### L503.6550 #### [facility] [address] [place], [address] BEDSIDE GLUCOSE Collected: 08/10/2018 Status: F Source: [place] 10:33 PM [facility] REPOSITORY TYPE CODE TESTS RESULT OUT OF REFERENCE UNITS RANGE LAB L501.080 70-110 mg/dL High BEDSIDE GLU 125 Result Comment: MANAGEMENT OF PATIENT CARE PER NURSING PROTOCOL Performed By: #### L501.080 #### [facility] Point of Care [address] [place] [address] TROPONIN-I Collected: 08/10/2018 Status: F Source: [place] 6:55 PM [facility] REPOSITORY Order Comment: 'TROP' Serial specimen #1, #2 or #3: 3 TYPE CODE TESTS RESULT OUT OF RANGE REFERENCE UNITS LAB L501.4010 <0.045 ng/mL High alert 0.906 TROPONIN-I Result Comment: Critical Result(s) Called to CELIA Irby at: 19:51:18 08/10/2018 by: JERMAINE BRENNAN TROPONIN-I EXPECTED VALUES <0.045 Negative 0.045 - 0.590 Consistent with Cardiac Damage > OR = 0.600 Critical Value Not every elevated troponin is indicative of WI. These values should be used with clinical judgement in examining the patient's clinical picture for diagnosis. To establish a diagnosis of WI versus myocardial injury, there must be a demonstrated rise and/or fall in the troponin values, in addition to ischemic symptoms, EKG changes, new regional wall motion abnormality, and/or angiographical evidence. PLEASE NOTE: REFERENCE RANGES EDITED 17 Performed By: #### L501.4010 #### [facility] [address] [place], [address] CBC W/DIFF, AUTOMATED Collected: 08/10/2018 Status: F Source: [place] 4:15 PM [facility] REPOSITORY TYPE CODE TESTS RESULT OUT OF RANGE REFERENCE UNITS LAB L100.1000 4.4-11.0 K/mm3 Normal WBC 8.9 LAB L100.1200 4.2-5.4 M/mm3 Low RBC 2.32 LAB L100.1300 12.0-15.0 g/dl Low HGB 6.4 LAB L100.1400 37-47 % Low HCT 20.6 LAB L100.1500 81-99 fL Normal MCV 88.8 LAB L100.1600 27.0-32.0 pg Normal MCH 27.6 LAB L100.1700 32-36 g/gl Low MCHC 31.1 LAB L100.1810 11.6-14.6 % Normal RDW CV 14.6 LAB L100.1820 35.1-43.9 fl High RDW SD 44.9 LAB L100.1900 150-450 K/mm3 Normal PLT 301 LAB L100.2000 6.2-12.0 fl Normal MPV 11.5 LAB L100.2100 47-70 % Normal NEUT% 66.8 LAB L100.2200 19-41 % Normal LY% 24.6 LAB L100.2300 0-10 % Normal MONO% 7.1 LAB L100.2400 0-5 % Normal EO% 1.1 LAB L100.2500 0-1 % Normal BASO% 0.2 LAB L100.2550 0.0-0.9 % Normal IM GRAN % 0.200 Result Comment: IG% - Immature Granulocytes (promyelocytes, myelocytes and metamyelocytes) > 1% indicates that a LEFT SHIFT is Present. LAB L100.2620 2.0-7.7 X10 3/uL Normal Absolute Neut 5.9 LAB L100.2720 0.83-4.51 X10 3/ul Normal Absolute Lymph 2.18 Performed By: #### L100.0100 #### [facility] [address] [place], [place], [address] TROPONIN-I Collected: 08/10/2018 Status: F Source: [place] 4:15 PM [facility] REPOSITORY Order Comment: 'TROP' Serial specimen #1, #2 or #3: 2 TYPE CODE TESTS RESULT OUT OF RANGE REFERENCE UNITS LAB L501.4010 <0.045 ng/mL High alert 0.899 TROPONIN-I Result Comment: Critical Result(s) Called to CELIA Warner at: 16:55:52 08/10/2018 by: JERMAINE BRENNAN TROPONIN-I EXPECTED VALUES <0.045 Negative 0.045 - 0.590 Consistent with Cardiac Damage > OR = 0.600 Critical Value Not every elevated troponin is indicative of WI. These values should be used with clinical judgement in examining the patient's clinical picture for diagnosis. To establish a diagnosis of WI versus myocardial injury, there must be a demonstrated rise and/or fall in the troponin values, in addition to ischemic symptoms, EKG changes, new regional wall motion abnormality, and/or angiographical evidence. PLEASE NOTE: REFERENCE RANGES EDITED 17 Performed By: #### L501.4010, L503.6075 #### [facility] [address] [place], [address] IRON BINDING Collected: 08/10/2018 Status: F Source: [facility],TOTAL 4:15 PM [facility] REPOSITORY Order Comment: 'TROP' Serial specimen #1, #2 or #3: 2 TYPE CODE TESTS RESULT OUT OF RANGE REFERENCE UNITS LAB L503.6075 250-450 ug/dL High TIBC 513 Performed By: #### L501.4010, L503.6075 #### [facility] [address] [place], [address] FERRITIN Collected: 08/10/2018 Status: F Source: [place] 4:15 PM [facility] REPOSITORY TYPE CODE TESTS RESULT OUT OF RANGE REFERENCE UNITS LAB L503.6550 8-252 ng/mL Normal FERRITIN 11 Performed By: #### L503.6550 #### [facility] [address] [place], [address] VITAMIN B12 Collected: 08/10/2018 Status: F Source: [place] 4:15 PM [facility] REPOSITORY TYPE CODE TESTS RESULT OUT OF REFERENCE UNITS RANGE LAB L503.0105 211-911 pg/mL Low Vitamin B12 207 Performed By: #### L503.0105 #### [facility] [address] [place], [address] FOLATES, RBC Collected: 08/10/2018 Status: F Source: [place] 4:15 PM [facility] REPOSITORY TYPE CODE TESTS RESULT OUT OF RANGE REFERENCE UNITS LAB L3100.1735 Not Estab. ng/mL Normal 422.2 FOL,HEMOLYSA TE LAB L3100.1740 34.0-46.6 % Low 19.7 FOLR,HEMATOC RIT LAB L3100.1745 >498 ng/mL Normal FOLATE, 2143 RBC Result Comment: Performed at: - [facility] [address] [id number] Automotive Instructor: Michel Simental PhD, Phone: [phone] Performed By: #### L3100.1725 #### [facility] (refer to report for specific site) refer to report for address and phone number HISTORY AND PHYSICAL Observed: 08/10/2018 Status: F Source: [place] EXAM 3:52 PM [facility] REPOSITORY [facility] Medical Records Department [address] [place] [id number] History and Physical 08/10/18 1539 MR#: [id number] Acct: [id number] Name: COOKIE GUERRERO Rep #: [id number] : 1940 78 From: Red Gurrola DO PCP: Alon Fan DO Status: ADM IN Y Location: [place] [address] Problem List (1) Acute blood loss anemia Status: Acute (2) SELAM (acute kidney injury) Status: Acute (3) NSTEMI (non-ST elevated myocardial infarction) Status: Acute History of Present Illness Date of Admission: 08/10/18 Chief Complaint: fatigue. dypnea on exertion The patient is a 78 year old F presents with several month history of progressive dyspnea on exertion. Also feels more fatigued. She has put on 10 # and saw her director asset's PA, who increased her lasix. Presented to the ED for evaluation and was found to have a Cr of 2.99 (baseline 1.56), Hg 6 (baseline 9). Patient received blood and IVF. 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) Bilateral carotid artery stenosis (Chronic) Hyperlipidemia (Chronic) PVD (peripheral vascular disease) (Chronic) Medical History: Medical History (Last Reviewed 08/10/18 @ 15:44 by Red Gurrola DO) Fatigue (Acute) R53.83 Chronic diastolic heart failure (Chronic) I50.32 Essential (primary) hypertension (Chronic) I10 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) I25.798 Atherosclerotic heart disease of [place] coronary artery without angina pectoris (Chronic) I25.10 Bilateral carotid artery stenosis (Chronic) I65.23 Hyperlipidemia (Chronic) E78.5 PVD (peripheral vascular disease) (Chronic) I73.9 Anemia D64.9 Macular degeneration H35.30 Type 2 diabetes mellitus E11.9 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 Allergies latex Allergy (Verified 08/10/18 10:55) Hives Home Medications: Ambulatory Orders Medication Instructions Recorded Aspirin [Aspirin, Baby] 81 mg PO DAILY@0800 08/10/18 Atenolol 50 mg PO DAILY 08/10/18 Bupropion HCl 1 tab PO PRN PRN 08/10/18 Surgical History: Surgical History (Last Reviewed 08/10/18 @ 15:44 by Red Gurrola DO) H/O coronary artery bypass surgery (Resolved) Onset Date: 06/2009 Z95.1 CABG X 4: ONTIVEROS to LAD, SVG to high lateral cx, SVG to PDA and RCA 03/30/2009 History of coronary artery stent placement (Resolved) Onset Date: 11/2010 Z95.5 GIO to the mid and distal main RCA origin, GIO-Prox PDA, GIO- RCA and AV continution of the RCA 11/2010 History of left heart catheterization Onset Date: 12/22/16 Z98.890 03/2009; 11/04/2010 [facility]; 12/22/2016 amputation of right second toe Onset Date: 08/07/14 angioplasty to right SFA Onset Date: 2013 bilateral iliac stents Surgical History: - - Cholecystectomy, hysterectomy, appendectomy, coronary artery bypass surgery, angioplasty, R 1st toe amputation. 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 history Lives: Alone Smoking Status: Former smoker Alcohol: Rare Drugs: None - *Family History Maternal Family History: Family History (Last Reviewed 08/10/18 @ 15:44 by Red Gurrola DO) Father COPD (chronic obstructive pulmonary disease) Mother CAD (coronary artery disease) Myocardial infarction Diabetes Congestive heart failure Brother CAD (coronary artery disease) S/P CABG x 4 Sister CAD (coronary artery disease) Hx of CABG History Items: Diabetes Paternal Family History: Family History (Last Reviewed 08/10/18 @ 15:44 by Red Gurrola DO) Father COPD (chronic obstructive pulmonary disease) Mother CAD (coronary artery disease) Myocardial infarction Diabetes Congestive heart failure Brother CAD (coronary artery disease) S/P CABG x 4 Sister CAD (coronary artery disease) Hx of CABG History Items: Heart Disease Review of Systems Constitutional: Denies: Anorexia, Chills, Fever Eyes: Reports: Blurred vision. Denies: Double vision HEENT: Denies: Head Aches, Sinus Congestion, Sinus Drainage Cardiovascular: Denies: Chest Pain, Palpitations Respiratory: Reports: Shortness of breath upon exertion. Denies: Cough Gastrointestinal: Denies: Abdominal Pain, Nausea, Vomiting Genitourinary: Denies: Dysuria, Frequency Musculoskeletal: Denies: Joint Pain, Joint Tenderness Skin: Denies: Dryness, Jaundice Neurological: Denies: Numbness, Tingling, Focal weakness Psychiatric: Denies: Anxiety, Depression Endocrine: Denies: Change in Body Habitus Hematologic/ Lymphatic: Denies: Easy Bruising, Easy Bleeding, Hx of blood clot Comment: A 10 point review of systems were negative except as mentioned in the history of present illness and the other review of systems. VTE Information - Inpt Only VTE Present on Admission: No VTE Mechan Device Prophylaxis: SCD's Reason prophylaxis not ordered:: Medical Contraindication Patient Problems: Active and Suspected Problems (Last Reviewed 05/28/18 @ 07:20 by Marie House) Acute blood loss anemia (Acute) SELAM (acute kidney injury) (Acute) NSTEMI (non-ST elevated myocardial infarction) (Acute) - Physical Exam General: Alert, Cooperative, No apparent distress HEENT: Atraumatic, EOMI, Normocephalic Oral: Moist Mucosa, No Gingival or Mucosal Lesions/ Ulcerations Neck: No Nodes, Thyroid Normal Size and Texture Lungs: Clear to auscultation, Normal air movement, No rhonchi, No wheeze Cardiovascular: Regular rate, Regular Rhythm, Normal S1, Normal S2, No murmurs Abdomen: Bowel Sounds Present, Soft, Non Tender, Non-Distended, No Hepato-splenomegaly Extremities: No edema, No Calf Tenderness Skin: No rashes, No breakdown Musculoskeletal: No Tenderness to Palpation of Joints or Extremities, No Muscle Wasting Neurological: Neuro grossly intact, Sensory exam intact to light touch and pain, Coordination normal Psych/Mental Status: Normal Affect, Appropriate Vital Signs Temp Pulse Resp BP Pulse Ox 36.5 C L 66 18 132/72 H 99 08/10/18 15:26 08/10/18 15:26 08/10/18 15:26 08/10/18 15:26 08/10/18 15:26 Oxygen Flow Rate (L/min) 2 Oxygen Delivery Method Nasal Cannula Weight: 95.8 kg Body Mass Index (BMI) 36.2 Microbiology Past 72 Hours 08/10/18 13:35 Stool Occult Blood (VISHNU) - Final Stool Occult Blood Positive Laboratory Tests Past 24 Hrs WBC 10.6 RBC 2.43 L Hgb 6.6 L Hct 21.2 L WBC RBC Hgb Hct MCV MCH POC Glucose POC Glucose 166 H EKG reviewed and showed some ST depressions in the lateral leads. Clinical Impression(s) from Imaging Studies Chest X-Ray 08/10/18 11:38 IMPRESSION: No acute thoracic pathology. Electronically Signed: Kelechi Keyes, at 11:55 EST Tel , Service support , Assessment/Plan All Active Problems (Last Reviewed 05/28/18 @ 07:20 by Marie House) Acute blood loss anemia (Acute) SELAM (acute kidney injury) (Acute) NSTEMI (non-ST elevated myocardial infarction) (Acute) Fatigue (Acute) H/O coronary artery bypass surgery (Resolved 06/2009) History of coronary artery stent placement (Resolved 11/2010) Gangrene (Resolved) Gangrene associated with type 2 diabetes mellitus (Resolved) 1. Acute blood loss anemia * Suspected GI source * Patient be transfused 1unit red blood cells * Check ferritin, iron, TIBC, B12, folate and TSH * General surgery on consultation for further evaluation * Patient has a history of colitis and was diagnosed by Dr. Kingsley. Patient does not know what type of colitis that she has. Will request the records from Dr. Kingsley's office. 2. SELAM * Presumed prerenal but may also be a component of ATN related with volume depletion or her anemia * IV fluids * Hold her diuretics * Follow-up labs in the morning 3. Non-STEMI * May be more of a type II event * Will continue with aspirin but hold her Plavix in light of the anemia * Cycle troponins * Cardiology consult 4. Peripheral arterial disease * Hold her Pletal at this time given the anemia 5. DM2 * cut Lantus in half to 20 while she is on clears/NPO 6. DVT proph: SCDs. Chemical prophylaxis contraindicated due to acute anemia. Advanced care planning: Spent 20 minutes discussing with the patient and her sister outside of the history and physical discussing DNR, CPR. Did recommend DNR Comfort Care arrest. After initial hesitation patient did agree to DNR Comfort Care arrest. Patient is aware that we will do everything in the point that her heart stops. I also informed her that this decision on her CODE STATUS is can be changed anytime in the future. Code Visit Inpatient E AND M: 80187 Init Hosp L3 Procedures: 08511 Advncd Care Plan 30 Min 08/10/18 1552 <Electronically signed by Red Gurrola DO> Date Red Gurrola DO Cosigner Signature: Date (if applicable) CC: DO Alon Fan; Red Gurrola DO Signed BEDSIDE GLUCOSE Collected: 08/10/2018 Status: F Source: GRETA 3:29 PM [facility] REPOSITORY TYPE CODE TESTS RESULT OUT OF REFERENCE UNITS RANGE LAB L501.080 70-110 mg/dL High BEDSIDE GLU 146 Result Comment: MANAGEMENT OF PATIENT CARE PER NURSING PROTOCOL Performed By: #### L501.080 #### [facility] Point of Care [address] [place], [place] [address] TYPE AND SCREEN Collected: 08/10/2018 Status: F Source: LANSE 2:00 PM [facility] REPOSITORY Order Comment: Reason for Type AND Screen/Red Cells: HEMORRHAGE, GI BLEED TYPE CODE TESTS RESULT OUT OF RANGE REFERENCE UNITS LAB B10.0800 A Normal BLOOD TYPE GEL POSITIVE LAB B100.4000 Normal Antibody NEGATIVE Screen Performed By: #### B101.7450 #### [facility] [address] [place] [address], [id number] RC Collected: 08/10/2018 Status: F Source: LANSE 2:00 PM [facility] REPOSITORY TYPE CODE TESTS RESULT OUT OF REFERENCE UNITS RANGE LAB U100.0000 [id number] TRANSFUSED PRODUCT: T AND S with Crossmatch, Red Cells COUNT: 2 Performed By: #### U100.0000 #### Non[facility] - refer to report for specific site Observed: 08/10/2018 Status: F Source: LANSE STOOL OCCULT BLOOD 1:35 PM [facility] IFOB REPOSITORY STOB iFOB Normal Reference Range = Negative Occult Blood Positive ORGANISM 1: OCCULT BLOOD POSITIVE Performed By: #### M100.7900 #### [facility] [address] [place] [address], [id number] BEDSIDE GLUCOSE Collected: 08/10/2018 Status: F Source: LANSE 1:09 PM [facility] REPOSITORY TYPE CODE TESTS RESULT OUT OF REFERENCE UNITS RANGE LAB L501.080 70-110 mg/dL High BEDSIDE GLU 166 Result Comment: MANAGEMENT OF PATIENT CARE PER NURSING PROTOCOL Performed By: #### L501.080 #### [facility] Point of Care [address] [place] [address]. [place], [place] [id number] CBC W/DIFF, AUTOMATED Collected: 08/10/2018 Status: F Source: LANSE 12:20 PM [facility] REPOSITORY TYPE CODE TESTS RESULT OUT OF RANGE REFERENCE UNITS LAB L100.1000 4.4-11.0 K/mm3 Normal WBC 10.6 LAB L100.1200 4.2-5.4 M/mm3 Low RBC 2.43 LAB L100.1300 12.0-15.0 g/dl Low HGB 6.6 LAB L100.1400 37-47 % Low HCT 21.2 LAB L100.1500 81-99 fL Normal MCV 87.2 LAB L100.1600 27.0-32.0 pg Normal MCH 27.2 LAB L100.1700 32-36 g/gl Low MCHC 31.1 LAB L100.1810 11.6-14.6 % High RDW CV 15.0 LAB L100.1820 35.1-43.9 fl High RDW SD 47.9 LAB L100.1900 150-450 K/mm3 Normal PLT 290 LAB L100.2000 6.2-12.0 fl Normal MPV 11.0 LAB L100.2100 47-70 % High NEUT% 71.0 LAB L100.2200 19-41 % Normal LY% 21.8 LAB L100.2300 0-10 % Normal MONO% 5.6 LAB L100.2400 0-5 % Normal EO% 1.0 LAB L100.2500 0-1 % Normal BASO% 0.3 LAB L100.2550 0.0-0.9 % Normal IM GRAN % 0.300 Result Comment: IG% - Immature Granulocytes (promyelocytes, myelocytes and metamyelocytes) > 1% indicates that a LEFT SHIFT is Present. LAB L100.2620 2.0-7.7 X10 3/uL Normal Absolute Neut 7.5 LAB L100.2720 0.83-4.51 X10 3/ul Normal Absolute Lymph 2.30 Performed By: #### L100.0100 #### [facility] [address] [facility] [place], [address] PROTHROMBIN TIME W/INR Collected: 08/10/2018 Status: F Source: LANSE 12:20 PM [facility] REPOSITORY TYPE CODE TESTS RESULT OUT OF RANGE REFERENCE UNITS LAB L300.4150 11.7-14.9 SECONDS High PROTIME 15.5 LAB L300.4200 Normal INR 1.2 Performed By: #### L300.3900, L300.4310 #### [facility] [address] [place], [address] PARTIAL THROMBOPLAST Collected: 08/10/2018 Status: F Source: GRETA TIME 12:20 PM [facility] REPOSITORY TYPE CODE TESTS RESULT OUT OF RANGE REFERENCE UNITS LAB L300.4310 24.1-36.2 Seconds Normal PTT 29.0 Performed By: #### L300.3900, L300.4310 #### [facility] [address] [place], [address] BNP,B-TYPE NATRIURETIC Collected: 08/10/2018 Status: F Source: GRETA PEPTIDE 12:20 PM [facility] REPOSITORY TYPE CODE TESTS RESULT OUT OF RANGE REFERENCE UNITS LAB L503.6620 0-100 pg/mL High B-TYPE 1354.4 BABS PEP Performed By: #### L503.6620 #### [facility] [address] [place], [address] COMPREHENSIVE METABOLIC Collected: 08/10/2018 Status: F Source: GRETA PROFIL 12:20 PM [facility] REPOSITORY TYPE CODE TESTS RESULT OUT OF RANGE REFERENCE UNITS LAB L501.0100 74-106 mg/dL High GLU 167 Result Comment: Fasting Glucose result greater than or equal to 126 mg/dL suggests DIABETES MELLITUS per A.D.A. criteria. Please note revised GLUCOSE reference range effective 2017. LAB L501.1000 7-18 mg/dL High BUN 95 LAB L501.1100 0.55-1.02 mg/dL High CREAT,SERUM 2.99 Result Comment: The validity of the calculated GFR AND GFRAA in patients over 70 years has not been determined. Clinical correlation is essential. LAB L501.1110 >60 mL/min Low EST GFR 16 Result Comment: Non- GFR Calc LAB L501.1115 >60 mL/min Low EST GFR - AA 20 Result Comment: GFR Calc LAB L501.1255 ml/min Normal Estimated CRCL 12.66 LAB L501.1300 10-20 RATIO High BUN/CRE 31.8 LAB L501.1500 6.4-8. g/dL Normal 2 T PROT 6.9 LAB L501.1800 3.2-5. g/dL Normal 0 ALB 3.4 LAB L501.1950 2.2-4. g/dL Normal 2 GLOB 3.5 LAB L501.2000 0.9-2. RATIO Normal 4 A/G 1.0 LAB L501.2200 8.5-10 mg/dL Normal .1 CA 8.9 LAB L501.4100 15-37 U/L Normal AST 36 LAB L501.4305 45-117 U/L Low ALK P 24 LAB L501.4405 13-56 U/L Normal ALT 43 LAB L501.4600 0.20-1 mg/dL Normal .00 T BILI 0.20 LAB L501.5300 136-14 mmol/L Normal 5 NA 140 Result Comment: Critical Result(s) Called at: 13:29:12 08/10/2018 by: Pj Day RN LAB L501.5600 3.5-5.1 mmol/L Normal K 4.7 LAB L501.5900 98-107 mmol/L Normal CL 103 LAB L501.6100 21.0-32.0 mmol/L Normal CO2 25.0 LAB L501.6200 5-15 Normal GAP 12 Performed By: #### L500.4050, L501.4010 #### [facility] [address] [place], [place], [address] TROPONIN-I Collected: 08/10/2018 Status: F Source: LANSE 12:20 PM [facility] REPOSITORY TYPE CODE TESTS RESULT OUT OF RANGE REFERENCE UNITS LAB L501.4010 <0.045 ng/mL High alert 0.705 TROPONIN-I Result Comment: TROPONIN-I EXPECTED VALUES <0.045 Negative 0.045 - 0.590 Consistent with Cardiac Damage > OR = 0.600 Critical Value Not every elevated troponin is indicative of WI. These values should be used with clinical judgement in examining the patient's clinical picture for diagnosis. To establish a diagnosis of WI versus myocardial injury, there must be a demonstrated rise and/or fall in the troponin values, in addition to ischemic symptoms, EKG changes, new regional wall motion abnormality, and/or angiographical evidence. PLEASE NOTE: REFERENCE RANGES EDITED 17 Performed By: #### L500.4050, L501.4010 #### [facility] [address] [place], [address] CHEST 1 VIEW Observed: 08/10/2018 Status: F Source: GRETA (PORTABLE) 11:35 AM [facility] Imaging Services [address] [place] [address] Chest 1 View (Portable) MR#: [id number] Acct: [id number] Name: COOKIE GUERRERO Rep #: [id number] : 1940 F 78 From: Kelechi Keyes MD PCP: Alon Fan DO Status: REG ER Study: Chest 1 View (Portable) Date of Exam: 08/10/18 Exam# [id number] Ordering Dr: Aki Arthur DO STUDY: X-RAY CHEST REASON FOR EXAM: Female, 78 years old. Shortness of breath TECHNIQUE: Frontal view of the chest COMPARISON: 08/06/2018 FINDINGS: The lungs are clear. There are no pleural effusions. There is no pneumothorax. The heart is mildly enlarged, but stable in size. Again noted are sternotomy wires. The visualized osseous structures are within normal limits. RAD/Chest 1 View (Portable) IMPRESSION: No acute thoracic pathology. Electronically Signed: Kelechi Keyes, at 11:55 EST Tel , Service support , CC: DO Alon Arthur DO Equipment Maint Tech: Signed CARDIOLOGY VISIT Observed: 08/08/2018 Status: F Source: GRETA REPORT 7:27 AM [facility] REPOSITORY [facility] [address] [place] [address] OFFICE VISIT Date of Service: 08/06/18 MR#: [id number] Acct: [id number] Name: COOKIE GUERRERO Rep #: [id number] : 1940 Provider: HANH Briseno Age/Sex: 78/F Location: [facility] Status: Signed HPI HPI Chief Complaint: Follow-up visit. Details: COOKIE GUERRERO, is a 78 F who presents to the office today for a cardiovascular outpatient follow-up. She has a history of coronary artery disease with bypass surgery in 2008. She had an ONTIVEROS to the LAD, SVG to circumflex, SVG to the posterior descending and RCA. Heart catheterization in 2010 demonstrated an occluded SVG to circumflex, occluded SVG to the RCA and patient ONTIVEROS to the LAD. She did undergo stenting of her RCA. She also has a history of hypertension and hyperlipidemia. Pt. denies chest, arm, jaw, or neck discomfort. Her exercise tolerance is stable. Pt. denies symptoms of CHF, palpitations, lightheadedness, dizziness, near syncope, or syncopal episodes. Pt. denies edema or claudication issues. Pt. denies orthopnea, PND, fever, chills, blood in urine, blood in stool, myalgia, or unexplainable fatigue. She states worsening SOB on exertion for the past two weeks. She states her feet feel weak. She states dizziness with position changes. She states a cough that produces mucus that is clear. This has not worsended. She states having the flu a few weeks ago. Intake Vital Signs08/06/18 Height 5 ft 4 in 08/06/18 Weight: 220 lb 08/06/18 Body Mass Index (BMI) 37.8 08/06/18 Blood Pressure 122/58 H Intake Visit Reasons: Shortness of breath Senior Clinical Sas Programmer Required: No Accompanied by: Sister Is patient in pain?: No Allergies latex Allergy (Verified 08/06/18 11:21) Hives Medications Calcium Carb/Vitamin D [Os-Gurmeet 500MG + D] 1 tab PO DAILY@0800 08/04/14 [History Confirmed 08/06/18] Multivitamins,Ther W-Minerals [Multivitamin With Minerals] 1 tab PO DAILY 08/04/14 [History Confirmed 08/06/18] Vits A,C,E/Lutein/Minerals [Ocuvite with Lutein Tablet] 1 ea PO BID 08/04/14 [History Confirmed 08/06/18] Aspirin [Adult Low Dose Aspirin EC] 81 mg PO DAILY 12/22/16 [History Confirmed 08/06/18] Insulin Aspart [Novolog Flexpen] 20 units SC TIDCM 12/22/16 [History Confirmed 08/06/18] Insulin Detemir [Levemir FlexPen] 40 units SC BID 12/22/16 [History Confirmed 08/06/18] Nitroglycerin [Nitrostat] 0.4 mg SUBLINGUAL Q5M PRN 12/22/16 [History Confirmed 08/06/18] fenofibrate nanocrystallized 145 mg tablet 145 mg PO DAILY #90 tab 10/02/17 [Rx Confirmed 08/06/18] lisinopril 5 mg tablet 5 mg PO BID #180 tab 10/02/17 [Rx Confirmed 08/06/18] atenolol 50 mg tablet 50 mg PO QDAY 10/26/17 [History Confirmed 08/06/18] rosuvastatin 40 mg tablet 40 mg PO QDAY 10/26/17 [History Confirmed 08/06/18] isosorbide mononitrate ER 30 mg tablet,extended release 24 hr 30 mg PO QAM #30 tab 01/08/18 [Rx Confirmed 08/06/18] furosemide 20 mg tablet 20 mg PO QDAY #90 tab 02/05/18 [Rx Confirmed 08/06/18] clopidogrel 75 mg tablet 75 mg PO DAILY #90 tab 02/18/18 [Rx Confirmed 08/06/18] bismuth subsalicylate 262 mg tablet 2 tab PO Q30-60M PRN 05/28/18 [History Confirmed 08/06/18] bupropion HCl XL 150 mg 24 hr tablet, extended release 150 mg PO DAILY PRN 05/28/18 [History Confirmed 08/06/18] loperamide 2 mg tablet 2 mg PO Q1-4H PRN 05/28/18 [History Confirmed 08/06/18] cilostazol 50 mg tablet 50 mg PO ONCE tab 08/06/18 [History Confirmed 08/06/18] hydrochlorothiazide 25 mg tablet 25 mg PO QAM PRN tab 08/06/18 [History] Ejection fraction %: 60 to 64 PFSH Medical History Fatigue (Acute) Chronic diastolic heart failure (Chronic) Essential (primary) hypertension (Chronic) 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) Atherosclerotic heart disease of [place] coronary artery without angina pectoris (Chronic) Bilateral carotid artery stenosis (Chronic) Hyperlipidemia (Chronic) PVD (peripheral vascular disease) (Chronic) Anemia (Chronic) Macular degeneration (Chronic) Type 2 diabetes mellitus (Chronic) Gangrene associated with type 2 diabetes mellitus (Resolved) Surgical History H/O coronary artery bypass surgery (Resolved 06/2009) History of coronary artery stent placement (Resolved 11/2010) History of left heart catheterization (Resolved 12/22/16) 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/14) angioplasty to right SFA (Resolved 2013) bilateral iliac stents (Resolved) Family History Father COPD (chronic obstructive pulmonary disease) emphysema Mother , of massive [place] CAD (coronary artery disease) Myocardial infarction Diabetes Congestive heart failure Brother CAD (coronary artery disease) S/P CABG x 4 Sister , age 60, after CABG surgery CAD (coronary artery disease) Hx of CABG Social History Smoking Status: Former smoker alcohol intake: never caffeine: No ROS Const Const: Negative for weakness, body ache, fever(s), chills or fatigue ENT ENT: Negative for dizziness Cardio Chest Pain: No Palpitations: No Edema: None Muscle aches with walking: None Resp Respiratory: Positive for SOB with activity and Cough; negative for SOB at rest, SOB orthopnea\SOB lying down or paroxysmal nocturnal dyspnea GI GI: Negative nausea, black,tarry stools, bright, red blood in stools or vomiting blood/hematemesis : Negative for hematuria or frequent nighttime urination/ nocturia Musc Musc: Negative for muscle aches/ myalgia Skin Skin: Negative non-healing lesions or rash Neuro Neuro: Negative for lightheadedness, near syncope, syncope, orthostatic symptoms, dizziness or weakness Endo Endo: Negative for fatigue Allergy Allergy/Immunology: Negative for rash Cardiology Exam Const Appearance: cooperative, no acute distress and well developed Nutritional Appearance: obese and well nourished Orientation: alert, awake and oriented x3 Head Head: normocephalic and atraumatic Mouth: moist mucous membranes Eyes General: appearance normal, both eyes and all related structures Conjunctivae: conjunctivae normal Pupils: PERRL EOM: EOM intact bilaterally Neck Neck: normal visual inspection, no lymphadenopathy and no JVD Carotids: Negative bruit Neck Mass: Negative Neck mass Chest Chest inspection: normal inspection of the chest, symmetric chest movement and normal respiratory effort Auscultation: Bilateral: Diminished Lung Sounds Cardio Palpation: normal PMI Rate: regular rate Rhythm: regular rhythm Heart sounds: S1 normal and S2 normal; negative rub, gallop or murmur GI GI: normal to inspection, soft, no hepatosplenomegaly, bowel sounds present and obese; negative tender Neuro General: alert, awake, oriented x3, CN's II-XI intact bilaterally and moves all extremities Extremities Pulses: Normal: Right Posterior Tibial Pulse, Left Posterior Tibial Pulse, Right Radial Pulse, Left Radial Pulse Lower Extremity Edema: +2: Bilateral Psych Psychological: normal affect Assessment AND Plan 1. Shortness of breath R06.02 Plan - NEEL Dodd Based on history and exam it appears that her shortness of breath is related to fluid volume overload. Her family member present states that she has not taken her diuretic consistently. She undergo both a chest x-ray and laboratory evaluation. Based on results further recommendation will be made. He will also undergo an echocardiogram to assess changes in LV function or valvular status. Completion of this note patient's BNP result was elevated and chest x-ray showed mild pulmonary congestion. She was contacted regarding results on 08/06/2018. She was instructed to increase her Lasix to 40 mg twice daily for 3 days and contact our office with an update for further recommendation. Orders Orders: 2. H/O coronary artery bypass surgery Z95.1 CABG X 4: ONTIVEROS to LAD, SVG to high lateral cx, SVG to PDA and RCA 03/30/2009 Plan - HILL DoddC Her heart catheterization in December 2016 showed severe disease involving LAD and LCx with diffuse disease of a previously stented RCA. Her ONTIVEROS to LAD was patent. Her previous heart catheterization 2010 showed occluded SVG to LCx and occluded SVG to RCA. At that time isosorbide was added to her medication regimen. She denies any chest pain, arm pain, jaw pain, or neck pain suggestive of angina. She will continue with current medications and we will continue to monitor. 3. History of coronary artery stent placement Z95.5 GIO to the mid and distal main RCA origin, GIO-Prox PDA, GIO- RCA and AV continution of the RCA 11/2010 Plan - NEEL Dodd She will continue current treatment plan as outlined above. She will continue with lifestyle risk factor modification. 4. Chronic diastolic heart failure I50.32 Plan - NEEL Dodd Her most recent echocardiogram December 2016 showed ejection fraction of 60%. She will undergo repeat echocardiogram to assess for changes. Based on her chest x-ray and laboratory evaluation further recommendation regarding diuretics will be made. She will continue with current beta-karina and ANDERS inhibitor. 5. Essential (primary) hypertension I10 Plan - NEEL Dodd Patient's blood pressure is well-controlled today in the office. We will continue to monitor this. We will not make any medication regimen changes. 6. Pure hypercholesterolemia E78.00 Plan - NEEL Dodd She will continue current statin medication. 7. Bilateral carotid artery stenosis I65.23 Plan - NEEL Dodd Carotid duplex ultrasound from July 2016 showed moderate, 50-69%, stenosis of right extracranial internal carotid and moderate, 50-69%, stenosis of left extracranial internal carotid. She will continue with current medications. Plan Detail Additional Comments - NEEL Dodd Discussed the above patient with Dr. Felipe, he agrees with the plan of care. Thank you for allowing us to participate in the patients plan of care, if you have any questions please do not hesitate to call. This note was generated using a voice recognition system and there may be incorrect words, spelling or punctuation that were not noted when reviewing the office note prior to saving. Follow Up 3 Weeks (PELLETIZER TENDER/PA) Coding Level of Care Code Off vis,est,level 4 Diagnoses Shortness of breath R06.02 H/O coronary artery bypass surgery Z95.1 History of coronary artery stent placement Z95.5 Chronic diastolic heart failure I50.32 Essential (primary) hypertension I10 Pure hypercholesterolemia E78.00 Hyperlipidemia type: pure hypercholesterolemia Bilateral carotid artery stenosis I65.23 Coding Level of Care Code Off vis,est,level 4 Diagnoses Shortness of breath R06.02 H/O coronary artery bypass surgery Z95.1 History of coronary artery stent placement Z95.5 Chronic diastolic heart failure I50.32 Essential (primary) hypertension I10 Pure hypercholesterolemia E78.00 Hyperlipidemia type: pure hypercholesterolemia Bilateral carotid artery stenosis I65.23 08/07/18 1229 <Electronically signed by Andres Briseno PELLETIZER TENDER-C> Date Andres Briseno PELLETIZER TENDER-C 08/08/18 0727<Electronically signed by Nelson Felipe MD> Cosigner Signature: Date (if applicable) Nelson Felipe MD CC: DO Alon Fan BNP,B-TYPE NATRIURETIC Collected: 08/06/2018 Status: F Source: [place] PEPTIDE 12:45 PM [facility] REPOSITORY TYPE CODE TESTS RESULT OUT OF RANGE REFERENCE UNITS LAB L503.6620 0-100 pg/mL High B-TYPE 949.5 BABS PEP Performed By: #### L503.6620 #### [facility] [address] [place], [address] CHEST PA AND LATERAL Observed: 08/06/2018 Status: F Source: GRETA 12:15 PM [facility] REPOSITORY [facility] Imaging Services [address] [place] [address] Chest PA and Lateral MR#: [id number] Acct: [id number] Name: COOKIE GUERRERO Rep #: [id number] : 1940 F 78 From: Lynda Reina MD PCP: Alon Fan DO Status: REG CLI Study: Chest PA and Lateral Date of Exam: 08/06/18 Exam# [id number] Ordering Dr: Andres Briseno STUDY: X-RAY CHEST REASON FOR EXAM: Female, 78 years old. Cough TECHNIQUE: PA and lateral views of the chest. COMPARISON: December 20, 2016 chest 6 FINDINGS: Since prior study there is worsening of the interstitial markings and trace blunting of the costophrenic angles. Sternotomy wires are seen midline. Normal mediastinum and isaiah. Normal visualized pulmonary arteries. There is atherosclerotic calcification of the aortic arch with tortuosity. There are diffuse degenerative changes of the visualized thoracic spine. Normal visualized ribs, clavicles, and shoulders. There is no demonstrated abnormality of the visualized soft tissue structures of the upper abdomen. RAD/Chest PA and Lateral IMPRESSION: Findings is suspicious for vascular congestion small bilateral effusions mild CHF. Status post sternotomy. Electronically Signed: Lynda Reina MD at 3:02 EST Tel , Service support , CC: HANH Briseno; DO Jerry Meng Equipment Maint Tech: Signed CARDIOLOGY VISIT Observed: 05/29/2018 Status: F Source: [place] REPORT 3:24 PM [facility] REPOSITORY [facility] [address] [facility] [place] [address] OFFICE VISIT Date of Service: 05/28/18 MR#: [id number] Acct: [id number] Name: COOKIE GUERRERO Rep #: [id number] : 1940 Provider: Krystina Villeda Age/Sex: 77/F Location: [facility] Status: Signed HPI HPI Chief Complaint: Follow-up visit. Details: COOKIE GUERRERO, is a 77 F who presents to the office today for a cardiovascular follow-up. She has a history of coronary artery disease with bypass surgery in 2008. She had an ONTIVEROS to the LAD, SVG to circumflex, SVG to the posterior descending and RCA. Heart catheterization in 2010 demonstrated an occluded SVG to circumflex, occluded SVG to the RCA and ONTIVEROS to the LAD. She did undergo stenting of her RCA. She does not have any chest discomfort/heaviness/tightness. She does not have any worsening symptoms of shortness of breath. She is getting over a URI. She does not have any orthopnea. She denies PND. She does not have any symptoms of congestive heart failure. She does not have any palpitations that she is aware of. She does not have any lightheadedness or dizziness. She does not have any near-syncope or syncope. She does not have any lower extremity edema. She does not have any symptoms of claudication. Intake Vital Signs05/28/18 Height 5 ft 4 in Intake Visit Reasons: 6 M FU Allergies latex Allergy (Verified 05/28/18 10:23) Hives Medications Calcium Carb/Vitamin D [Os-Gurmeet 500MG + D] 1 tab PO DAILY@0800 08/04/14 [History Confirmed 05/28/18] Multivitamins,Ther W-Minerals [Multivitamin With Minerals] 1 tab PO DAILY 08/04/14 [History Confirmed 05/28/18] Vits A,C,E/Lutein/Minerals [Ocuvite with Lutein Tablet] 1 ea PO BID 08/04/14 [History Confirmed 05/28/18] Aspirin [Adult Low Dose Aspirin EC] 81 mg PO DAILY 12/22/16 [History Confirmed 05/28/18] Cilostazol [Pletal] 50 mg PO BIDAC 12/22/16 [History Confirmed 05/28/18] Insulin Aspart [Novolog Flexpen] 20 units SC TIDCM 12/22/16 [History Confirmed 05/28/18] Insulin Detemir [Levemir FlexPen] 40 units SC BID 12/22/16 [History Confirmed 05/28/18] Nitroglycerin [Nitrostat] 0.4 mg SUBLINGUAL Q5M PRN 12/22/16 [History Confirmed 05/28/18] cholecalciferol (vitamin D3) 1,000 unit capsule 1,000 unit PO QDAY cap 08/28/17 [History Confirmed 05/28/18] fenofibrate nanocrystallized 145 mg tablet 145 mg PO DAILY #90 tab 10/02/17 [Rx Confirmed 05/28/18] lisinopril 5 mg tablet 5 mg PO BID #180 tab 10/02/17 [Rx Confirmed 05/28/18] atenolol 50 mg tablet 50 mg PO QDAY 10/26/17 [History Confirmed 05/28/18] hydrochlorothiazide 25 mg tablet 25 mg PO QAM #90 tab 10/26/17 [Rx Confirmed 05/28/18] rosuvastatin 40 mg tablet 40 mg PO QDAY 10/26/17 [History Confirmed 05/28/18] isosorbide mononitrate ER 30 mg tablet,extended release 24 hr 30 mg PO QAM #30 tab 01/08/18 [Rx Confirmed 05/28/18] furosemide 20 mg tablet 20 mg PO QDAY #90 tab 02/05/18 [Rx Confirmed 05/28/18] clopidogrel 75 mg tablet 75 mg PO DAILY #90 tab 02/18/18 [Rx Confirmed 05/28/18] bismuth subsalicylate 262 mg tablet 2 tab PO Q30-60M PRN 05/28/18 [History Confirmed 05/28/18] bupropion HCl XL 150 mg 24 hr tablet, extended release 150 mg PO DAILY PRN 05/28/18 [History Confirmed 05/28/18] loperamide 2 mg tablet 2 mg PO Q1-4H PRN 05/28/18 [History Confirmed 05/28/18] PFSH Medical History Chronic diastolic heart failure (Chronic) Essential (primary) hypertension (Chronic) 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) Atherosclerotic heart disease of [place] coronary artery without angina pectoris (Chronic) Bilateral carotid artery stenosis (Chronic) Hyperlipidemia (Chronic) PVD (peripheral vascular disease) (Chronic) Anemia (Chronic) Macular degeneration (Chronic) Type 2 diabetes mellitus (Chronic) Gangrene associated with type 2 diabetes mellitus (Resolved) Surgical History H/O coronary artery bypass surgery (Resolved 06/2009) History of coronary artery stent placement (Resolved 11/2010) History of left heart catheterization (Resolved 12/22/16) 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/14) angioplasty to right SFA (Resolved 2013) bilateral iliac stents (Resolved) Family History Father COPD (chronic obstructive pulmonary disease) emphysema Mother , of massive [place] CAD (coronary artery disease) Myocardial infarction Diabetes Congestive heart failure Brother CAD (coronary artery disease) S/P CABG x 4 Sister , age 60, after CABG surgery CAD (coronary artery disease) Hx of CABG Social History Smoking Status: Former smoker ROS Const Const: Positive for weakness and other (Admits to recently having the flu); negative for fatigue, difficulty sleeping, frequent falls, excessive sweating or headache(s) Eyes Eyes: Negative for loss of peripheral vision, transient loss of vision, blurry vision, tunnel vision or double vision ENT ENT: Negative for headache(s), dizziness, Nosebleed/epistaxis or balance problems Cardio Chest Pain: No Palpitations: No Edema: None Muscle aches with walking: None Resp Respiratory: Positive for SOB with activity (SOB improving after recently having the flu); negative for SOB at rest, SOB orthopnea\SOB lying down, paroxysmal nocturnal dyspnea or Cough GI GI: Negative nausea, heartburn, black,tarry stools or vomiting : Negative for hematuria Musc Musc: Negative for balance problems, muscle aches/ myalgia, muscle weakness or joint pain Skin Skin: Negative non-healing lesions, unusual bruising or rash Neuro Neuro: Positive for weakness and lack of coordination; negative for frequent falls, headache(s), blurry vision, double vision, dizziness, lightheadedness, orthostatic symptoms, near syncope or syncope Yash Hematologic/Lymphatic: Negative for easy bruising or easy bleeding Endo Endo: Negative for fatigue, excessive sweating or increased thirst/drinking Psych Psych: Negative for anxiety or depression Allergy Allergy/Immunology: Negative for hives, Negative for rash Cardiology Exam Const Appearance: cooperative, no acute distress and well developed Orientation: alert, awake and oriented x3 Head Head: normocephalic and atraumatic Mouth: moist mucous membranes Eyes General: appearance normal, both eyes and all related structures Conjunctivae: conjunctivae normal Pupils: PERRL EOM: EOM intact bilaterally Neck Neck: normal visual inspection, no lymphadenopathy and no JVD Carotids: Negative bruit Neck Mass: Negative Neck mass Chest Chest inspection: normal inspection of the chest and symmetric chest movement Auscultation: Bilateral: Clear to Auscultation Cardio Palpation: normal PMI Rate: regular rate Rhythm: regular rhythm Heart sounds: S1 normal and S2 normal; negative rub, gallop or murmur GI GI: normal to inspection, soft, no hepatosplenomegaly and bowel sounds present; negative tender Neuro General: alert, awake, oriented x3, CN's II-XI intact bilaterally and moves all extremities Extremities Pulses: Normal: Right Posterior Tibial Pulse, Left Posterior Tibial Pulse, Right Radial Pulse, Left Radial Pulse Lower Extremity Edema: None: Bilateral Psych Psychological: normal affect Supplemental Info Echocardiogram in December 2016 demonstrates an ejection fraction of 60%. Mild focal aortic valve calcification. Pharmacologic stress test in 2017 demonstrated evidence of mid anterior ischemia and a moderate sized zone. Heart catheterization was done for this abnormal stress test. Heart catheterization demonstrated severe disease involving the LAD, circumflex and diffuse disease of the previously stented RCA. Isosorbide was added to her medication regimen. Assessment AND Plan 1. Atherosclerosis of [place] coronary artery of [place] heart without angina pectoris I25.10 Plan - EDU Sheriff Stable, from a cardiac standpoint patient does not have any symptoms of angina. We recommend that they continue with current aggressive medical management and risk factor modification. Orders Orders: 2. Essential (primary) hypertension I10 Plan - EDU Sheriff Blood pressure is well controlled on current medications, we do not recommend any changes at this time. Orders Orders: 3. Pure hypercholesterolemia E78.00 Plan - EDU Sheriff Lipids are being monitored by her primary care doctor. She will continue with her moderate intensity statin. 4. Fatigue, unspecified type R53.83 Plan - EDU Sheriff Patient does complain of fatigue. She does appear to be pale today. Will obtain CBC Plan Detail Other Orders Orders: Other Medications New: Additional Comments - EDU Sheriff The above patient was discussed with Dr. Felipe, he agrees with plan of care. Thank you for allowing us to participate in patient's plan of care, if you have any questions please do not hesitate to call. This note was generated using a voice recognition system and there may be incorrect words, spelling or punctuation errors that were not noted when reviewing the office note prior to saving. 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 transplanted heart: [place] heart Essential (primary) hypertension I10 Pure hypercholesterolemia E78.00 Hyperlipidemia type: pure hypercholesterolemia Fatigue, unspecified type R53.83 Fatigue type: unspecified Coding Level of Care Code Off vis,est,level 3 Diagnoses Atherosclerosis of [place] coronary artery of [place] heart without angina pectoris I25.10 [place] vs. transplanted heart: [place] heart Essential (primary) hypertension I10 Pure hypercholesterolemia E78.00 Hyperlipidemia type: pure hypercholesterolemia Fatigue, unspecified type R53.83 Fatigue type: unspecified 05/28/18 1111 <Electronically signed by Krystina SORENSEN> Date Krystina SORNESEN 05/29/18 1524<Electronically signed by Nelson Felipe MD> Cosigner Signature: Date (if applicable) Nelson Felipe MD CC: DO Alon Fan CBC W/DIFF, AUTOMATED Collected: 05/28/2018 Status: F Source: [place] 11:09 AM [facility] REPOSITORY TYPE CODE TESTS RESULT OUT OF RANGE REFERENCE UNITS LAB L100.1000 4.4-11.0 K/mm3 Normal WBC 9.7 LAB L100.1200 4.2-5.4 M/mm3 Low RBC 3.49 LAB L100.1300 12.0-15.0 g/dl Low HGB 9.5 LAB L100.1400 37-47 % Low HCT 30.4 LAB L100.1500 81-99 fL Normal MCV 87.1 LAB L100.1600 27.0-32.0 pg Normal MCH 27.2 LAB L100.1700 32-36 g/gl Low MCHC 31.3 LAB L100.1810 11.6-14.6 % Normal RDW CV 14.0 LAB L100.1820 35.1-43.9 fl Normal RDW SD 43.9 LAB L100.1900 150-450 K/mm3 Normal PLT 407 LAB L100.2000 6.2-12.0 fl Normal MPV 10.7 LAB L100.2100 47-70 % Normal NEUT% 56.7 LAB L100.2200 19-41 % Normal LY% 31.7 LAB L100.2300 0-10 % Normal MONO% 9.0 LAB L100.2400 0-5 % Normal EO% 2.0 LAB L100.2500 0-1 % Normal BASO% 0.3 LAB L100.2550 0.0-0.9 % Normal IM GRAN % 0.300 Result Comment: IG% - Immature Granulocytes (promyelocytes, myelocytes and metamyelocytes) > 1% indicates that a LEFT SHIFT is Present. LAB L100.2620 2.0-7.7 X10 3/uL Normal Absolute Neut 5.5 LAB L100.2720 0.83-4.51 X10 3/ul Normal Absolute Lymph 3.08 Performed By: #### L100.0100 #### [facility] [address] [place], [address] BASIC METABOLIC Collected: 05/28/2018 Status: F Source: LANSE PROFILE (BMP) 11:09 AM [facility] REPOSITORY TYPE CODE TESTS RESULT OUT OF RANGE REFERENCE UNITS LAB L501.0100 74-106 mg/dL Normal GLU 83 Result Comment: Please note revised GLUCOSE reference range effective 2017. LAB L501.1000 7-18 mg/dL High BUN 45 LAB L501.1100 0.55-1.02 mg/dL High CREAT,SERUM 1.56 Result Comment: The validity of the calculated GFR AND GFRAA in patients over 70 years has not been determined. Clinical correlation is essential. LAB L501.1110 >60 mL/min Low EST GFR 34 Result Comment: Non- GFR Calc LAB L501.1115 >60 mL/min Low EST GFR - AA 42 Result Comment: GFR Calc LAB L501.1300 10-20 RATIO High BUN/CRE 28.8 LAB L501.2200 8.5-10.1 mg/dL CA Normal 9.5 LAB L501.5300 136-145 mmol/L NA Normal 141 LAB L501.5600 3.5-5.1 mmol/L K Normal 4.5 LAB L501.5900 98-107 mmol/L CL Normal 106 LAB L501.6100 21.0-32.0 mmol/L Normal CO2 28.0 LAB L501.6200 5-15 Normal GAP 7 Performed By: #### L500.2500 #### [facility] [address] [place], [address] FINAL SURGICAL Observed: 02/11/2018 Status: F Source: [facility] PATHOLOGY REPORT 10:12 AM [facility] [place] REPOSITORY . Pathology Reports Accession: Collected Date/Time: Received Date/Time: Pathologist: [id number] 02/11/2018 10:12 EDT 02/12/2018 08:30 EDT MD DURAN FARR Final Surgical Pathology Report DIAGNOSIS: A) TERMINAL ILEUM, BIOPSY: FOCAL MINIMAL NONSPECIFIC FIBROSIS OF THE LAMINA PROPRIA. NEGATIVE FOR ILEITIS. B) RIGHT AND LEFT COLON, BIOPSY: COLLAGENOUS COLITIS. C) TRANSVERSE COLON, BIOPSY: TUBULAR ADENOMA. COMMENT: [facility]# [id number] CLINICAL INFORMATION: Procedure: COLONOSCOPY Preoperative diagnosis: DIARRHEA Postoperative diagnosis: SAME + POLYP SPECIMEN: A COLON, BX - TERMINAL ILEUM (R/O MICROSCOPIC COLITIS) B COLON, BX - RANDOM - RIGHT & LEFT COLON (R/O MICROSCOPIC COLITIS) C POLYP, DISTAL TRANSVERSE GROSS DESCRIPTION: A. Received in formalin labeled terminal ileum biopsy are 2 doyle glistening soft tissues, 0.3 and 0.4 cm. TS -1 B. Received in formalin labeled right and left colon biopsies are multiple pale doyle glistening soft tissues ranging from 0.2-0.6 cm. TS -1 C. Received in formalin labeled distal transverse polyp is a 0.7 cm doyle glistening soft tissue. TS -1 Dictated by MAUREEN SORENSEN ([facility]) MICROSCOPIC DESCRIPTION: A,B&C) Slides reviewed. Electronically Signed by Pathology Report verified by [facility] Electronically signed by DURAN FARR MD Sign out Date: 02/13/2018 17:24 Performing Lab: [facility], [address] [place] [address] Performed By: #### SPFR #### [place] [address] BD BONE DENSITY DEXA Observed: 01/07/2018 Status: F Source: [facility] AXIAL SKELETON 11:00 AM [facility] REPOSITORY ORIGINAL BONE DENSITOMETRY CLINICAL STATEMENT: SCREENING COMPARISON: None T. Score Left Femoral Neck: -0.8 BMD (g/cm2) Left Femoral Neck: 0.762 T. Score Left Hip: 0.9 BMD (g/cm2) Left Hip: 1.050 T. Score Lumbar Spine L1-L4: 0.5 BMD (g/cm2) Lumbar Spine L1-L4: 1.102 CONCLUSION: The patient is considered to have normal bone density based on the left femoral neck which has a T score of -0.8. *By the World Health Organization standards: Osteopenia is present when the bone mineral density is greater than 1 standard deviation (SD) but less than 2.5 SDs below a young normal sex matched populati on. Osteoporosis is present when the bone mineral density is equal to or greater than 2.5 SDs below a young normal sex matched population. Interpreted By: Chris Ramos MD Preliminary Report By: Chris Ramos MD Electronically Signed By: Chris Ramos MD Dictated Date: 01/08/2018 8:28:11 AM Prelim Date: 01/08/2018 8:28:11 AM Sign Date: 01/08/2018 8:28:56 AM [place] MAMMOGRAM SCREENING Observed: 01/07/2018 Status: F Source: [facility] BILATERAL W/BARNEY 10:30 AM [facility] REPOSITORY ORIGINAL FROM: [place] [address] PROCEDURE FOR: COOKIE GUERRERO [address] [place] [address] Home: PID#: [id number] Exam#: [id number] : 1940 Age: 77 TO: [place] [address] #[id number] DIGITAL SCREENING MAMMOGRAM 3D/2D WITH CAD WITH MEDIOLATERAL OBLIQUE CRANIOCAUDAL: 01/07/2018 Comparison is made to exam dated: 07/26/2016 mammogram - [facility]. The tissue of both breasts is predominately fatty. Current study was also evaluated with a Computer Aided Detection (CAD) system. No significant masses, calcifications, or other findings are seen in either breast. There has been no significant interval change. IMPRESSION: NEGATIVE There is no mammographic evidence of malignancy. A 1 year screening mammogram is recommended. I have personally reviewed the images of the examination and agree with the findings and interpretation. DANIELA Roque,nichole/penrad:01/11/2018 08:59:55 Shovel Engineer: DELIA DIAL (R)(M), [facility] letter sent: Normal BI-RADS 1&2 Mammogram BI-RADS: 1 Negative CARDIOLOGY VISIT Observed: 10/26/2017 Status: F Source: [place] REPORT 2:32 PM [facility] REPOSITORY [facility] [address] [place] [address] OFFICE VISIT Date of Service: 10/26/17 MR#: [id number] Acct: [id number] Name: COOKIE GUERRERO Rep #: [id number] : 1940 Provider: Nelson Felipe MD Age/Sex: 77/F Location: [facility] Status: Signed HPI HPI Chief Complaint: Follow-up visit. Details: COOKIE GUERRERO, is a 77 F who presents to the office today for a follow-up visit. She is a lady with a history of coronary artery disease status post coronary bypass surgery with a left internal mammary artery to left anterior descending artery saphenous vein graft to high lateral circumflex artery saphenous vein graft to posterior descending artery and right coronary artery. She is also had peripheral vascular disease with bilateral stenting. She returns for follow-up visit. She says that she has been experiencing bedwetting and is not enthused about continuing on the Lasix. She had previously complained of shortness of breath and this had necessitated changing her from hydrochlorothiazide to Lasix. At this time she has shortness of breath only with exertion no palpitations no paroxysmal nocturnal dyspnea and no pedal edema. She has had no neck arm or jaw discomfort suggest angina. Last stress test was in 2017 during which time and evidence of ischemia was noted. She underwent a cardiac catheterization with demonstrated severe disease involving the left anterior descending artery circumflex artery had diffuse disease in the previously stented right coronary artery was patent. There was severe diffuse disease also noted. The left internal mammary artery to the left anterior descending artery was patent. The saphenous vein grafts previously placed were occluded. Medical regimen was recommended and isosorbide was added to her regimen. Her echocardiogram at that time demonstrated ejection fraction of 50%. Blood work done yesterday. Her physical exam today demonstrates clear lung lauren regular rate and rhythm and no pedal edema. Intake Vital Signs10/26/17 Height 5 ft 4 in 10/26/17 Weight: 205 lb 03/09/18 Body Mass Index (BMI) 35.2 10/26/17 Blood Pressure 148/60 10/26/17 Respiratory Rate 18 10/26/17 Pulse Rate 72 Intake Visit Reasons: 6 M FU (we moved from 08-30-17) Allergies latex Allergy (Verified 10/26/17 13:44) Hives Medications Calcium Carb/Vitamin D [Os-Gurmeet 500MG + D] 1 tab PO DAILY@0800 08/04/14 [History Confirmed 08/28/17] Multivitamins,Ther W-Minerals [Multivitamin With Minerals] 1 tab PO DAILY 08/04/14 [History Confirmed 08/28/17] Vits A,C,E/Lutein/Minerals [Ocuvite with Lutein Tablet] 1 ea PO BID 08/04/14 [History Confirmed 08/28/17] Aspirin [Adult Low Dose Aspirin EC] 81 mg PO DAILY 12/22/16 [History Confirmed 08/28/17] BuPROPion (XL) [Wellbutrin Xl] 150 mg PO DAILY 12/22/16 [History Confirmed 08/28/17] Cilostazol [Pletal] 50 mg PO BIDAC 12/22/16 [History Confirmed 10/26/17] Insulin Aspart [Novolog Flexpen] 20 units SC TIDCM 12/22/16 [History Confirmed 08/28/17] Insulin Detemir [Levemir FlexPen] 40 units SC BID 12/22/16 [History Confirmed 08/28/17] Nitroglycerin [Nitrostat] 0.4 mg SUBLINGUAL Q5M PRN 12/22/16 [History Confirmed 10/26/17] cholecalciferol (vitamin D3) 1,000 unit capsule 1,000 unit PO QDAY cap 08/28/17 [History Confirmed 08/28/17] isosorbide mononitrate ER 30 mg tablet,extended release 24 hr 30 mg PO QAM 08/28/17 [History Confirmed 08/28/17] clopidogrel 75 mg tablet 75 mg PO DAILY #90 tab 10/02/17 [Rx Confirmed 10/26/17] fenofibrate nanocrystallized 145 mg tablet 145 mg PO DAILY #90 tab 10/02/17 [Rx Confirmed 10/26/17] furosemide 20 mg tablet 20 mg PO QDAY #90 tab 02/13/18 [Rx Confirmed 10/26/17] lisinopril 5 mg tablet 5 mg PO BID #180 tab 10/02/17 [Rx Confirmed 10/26/17] atenolol 50 mg tablet 50 mg PO QDAY 10/26/17 [History Confirmed 10/26/17] hydrochlorothiazide 25 mg tablet 25 mg PO QAM #90 tab 10/26/17 [Rx Confirmed 10/26/17] rosuvastatin 40 mg tablet 40 mg PO QDAY 10/26/17 [History Confirmed 10/26/17] Ejection fraction %: 60 to 64 [facility] Medical History 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) Stented coronary artery (Chronic 11/2010) Atherosclerotic heart disease of [place] coronary artery without angina pectoris (Chronic) Bilateral carotid artery stenosis (Chronic) Diabetes type 2, controlled (Chronic) Hypertension (Chronic) Hyperlipidemia (Chronic) PVD (peripheral vascular disease) (Chronic) Anemia (Acute) Surgical History History of left heart catheterization (Chronic 12/22/16) Hx of CABG (Chronic) 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) angioplasty to right SFA (Chronic 2013) bilateral iliac stents (Chronic) Family History Father COPD (chronic obstructive pulmonary disease) emphysema Mother , of massive [place] CAD (coronary artery disease) Myocardial infarction Diabetes Congestive heart failure Brother CAD (coronary artery disease) S/P CABG x 4 Sister , age 60, after CABG surgery CAD (coronary artery disease) Hx of CABG Social History Smoking Status: Former smoker ROS Const Const: Positive for fatigue and weakness; negative for difficulty sleeping, frequent falls, headache(s) or excessive sweating Eyes Eyes: Negative for loss of peripheral vision, transient loss of vision, blurry vision or double vision ENT ENT: Negative for headache(s), dizziness, Nosebleed/epistaxis or balance problems Cardio Chest Pain: No Edema: None Muscle aches with walking: None Resp Respiratory: Positive for SOB with activity; negative for SOB at rest, SOB orthopnea\SOB lying down or paroxysmal nocturnal dyspnea GI GI: Negative nausea or heartburn : Negative for hematuria Musc Musc: Negative for muscle aches/ myalgia, muscle weakness, joint pain or balance problems Skin Skin: Negative non-healing lesions, unusual bruising or rash Neuro Neuro: Positive for weakness; negative for frequent falls, blurry vision, headache(s), dizziness, lightheadedness, orthostatic symptoms or double vision Yash Hematologic/Lymphatic: Negative for easy bruising Endo Endo: Positive for fatigue; negative for excessive sweating or increased thirst/drinking Psych Psych: Negative for anxiety or depression Allergy Allergy/Immunology: Negative for hives, Negative for rash Cardiology Exam Const Appearance: cooperative, healthy appearing, well developed, well groomed and no acute distress Nutritional Appearance: well nourished and average body habitus Orientation: alert, awake and oriented x3 Head Head: normal to inspection, normocephalic and atraumatic Ears: hearing grossly normal bilaterally and external ears normal Nose: external nose normal, nasal mucous membranes and turbinates normal, nares normal, septum normal, no nasal discharge Face and Sinus: face symmetric Mouth: oral mucosae normal, tongue normal, oropharynx normal and moist mucous membranes Teeth and gingiva: dentition normal Throat: posterior oropharynx normal, tonsils normal and uvula midline Eyes General: appearance normal, both eyes and all related structures Eyelids: eyelids normal Conjunctivae: conjunctivae normal Pupils: PERRL, normal by confrontation and accommodation normal EOM: EOM intact bilaterally Neck Neck: normal visual inspection, trachea midline and no JVD JVD: +5 Carotids: normal carotid upstroke and bounding pulses Chest Chest inspection: normal inspection of the chest, symmetric chest movement and normal respiratory effort Auscultation: Bilateral: Clear to Auscultation Cardio Palpation: normal PMI Rate: regular rate Rhythm: regular rhythm Heart sounds: S1 normal, S2 normal and normal, physiologic split S2; negative rub, gallop or murmur GI GI: normal to inspection, soft, no hepatosplenomegaly and bowel sounds present Neuro General: alert, awake, oriented x3, no focal sensory deficit, gait normal and moves all extremities Skin Skin: no rashes or lesions noted Extremities Pulses: Normal: Right Femoral Pulse, Left Femoral Pulse, Right Dorsalis Pedis Pulse, Left Dorsalis Pedis Pulse, Right Posterior Tibial Pulse, Left Posterior Tibial Pulse, Right Radial Pulse, Left Radial Pulse Lower Extremity Edema: None: Bilateral Musculoskel Musculoskeletal: No joint tenderness Psych Psychological: normal affect Assessment AND Plan 1. Hx of CABG Z95.1 CABG X 4: ONTIVEROS to LAD, SVG to high lateral cx, SVG to PDA and RCA per Dr. Alfaro [facility] 03/30/2009 Plan She appears to be doing fairly well without any significant angina. My recommendation will be for her to continue the current medical therapy without making any changes. She remain on the isosorbide as well as the atenolol and aspirin. 2. Chronic diastolic congestive heart failure I50.32 Plan She does have evidence of diastolic heart failure ejection fraction was noted to be 60%. She does not want to be on the Lasix anymore and I am putting her back on hydrochlorothiazide 25 mg a day. She would use the Lasix only as needed 3. Essential hypertension I10 Plan Her blood pressure is under good control on the current medical therapy she is on the ANDERS inhibitor as well as the beta-karina and the diuretic with hydrochlorothiazide. No other changes will be made. 4. Pure hypercholesterolemia E78.00; E78.0 Plan She remains on a high intensity statin on the current regimen. She did not have a lipid profile performed. We will try and obtain one at the next visit. Thank you for allowing me to participate in her care. Plan Detail Other Medications New: Discontinued: Follow Up 6 Months (mmm) Coding Level of Care Code Off vis,est,level 4 Diagnoses Hx of CABG Z95.1 Chronic diastolic congestive heart failure I50.32 Heart failure chronicity: chronic Essential hypertension I10 Hypertension type: essential hypertension Pure hypercholesterolemia E78.00; E78.0 Hyperlipidemia type: pure hypercholesterolemia Coding Level of Care Code Off vis,est,level 4 Diagnoses Hx of CABG Z95.1 Chronic diastolic congestive heart failure I50.32 Heart failure chronicity: chronic Essential hypertension I10 Hypertension type: essential hypertension Pure hypercholesterolemia E78.00; E78.0 Hyperlipidemia type: pure hypercholesterolemia 10/26/17 1432 <Electronically signed by Nelson Felipe MD> Date Nelson Felipe MD Cosigner Signature: Date (if applicable) CC: Adriana Fast DO BASIC METABOLIC Collected: 10/25/2017 Status: F Source: GRETA PROFILE (BMP) 10:06 AM [facility] REPOSITORY Order Comment: Order Date: 05/01/17 Order Info: 0667-1 - *BMP Comments: Reason: TYPE CODE TESTS RESULT OUT OF RANGE REFERENCE UNITS LAB L501.0100 74-106 mg/dL High GLU 257 Result Comment: Glucose result greater than or equal to 200 mg/dL suggests DIABETES MELLITUS per A.D.A. criteria. Please note revised GLUCOSE reference range effective 2017. LAB L501.1000 7-18 mg/dL High BUN 40 LAB L501.1100 0.55-1.02 mg/dL High CREAT,SERUM 1.22 Result Comment: The validity of the calculated GFR AND GFRAA in patients over 70 years has not been determined. Clinical correlation is essential. LAB L501.1110 >60 mL/min Low EST GFR 46 Result Comment: Non- GFR Calc LAB L501.1115 >60 mL/min Low EST GFR - AA 55 Result Comment: GFR Calc LAB L501.1300 10-20 RATIO High BUN/CRE 32.8 LAB L501.2200 8.5-10.1 mg/dL CA Normal 8.9 LAB L501.5300 136-145 mmol/L NA Normal 138 LAB L501.5600 3.5-5.1 mmol/L K Normal 4.1 LAB L501.5900 98-107 mmol/L CL Normal 102 LAB L501.6100 21.0-32.0 mmol/L Normal CO2 27.0 LAB L501.6200 5-15 Normal GAP 9 Performed By: #### L500.2500 #### [facility] [address] [place], [address] ALLERGIES ALLERGIES DATE TYPE / CODE NAME / CODE REACTION SEVERITY SOURCE 08/27/2018 Drug latex/R10089 Hives Unknown [facility] Allergy/4160 8962(RXNORM) Hospital 14553(SNOMED Repository CT) ENCOUNTERS ENCOUNTERS ADMIT/DISCHARGE ACCOUNT NUMBER ADMITTING ENCOUNTER LOCATION SOURCE CLASS 08/29/2018/09/02/19 [id number] Ambulatory [address] Repository 08/27/2018/08/27/19 [id number] Ambulatory BMSBuilding: Greta 19 BMS.[facility] Repository 08/22/[id number] [facility] ding:[facility] Repository 08/21/[id number] [facility] ding:LABSPEC Repository 08/10/2018/08/14/20 [id number] Izabela, Inpatient [place] 18 Red [facility] ding:PCURoom Repository : PTB756Ocs: 1 08/10/2018 [id number] Izabela Ambulatory BMSBuilding: [place] Red BMS.[facility] Repository 08/10/2018 [id number] Izabela Ambulatory BMSBuilding: [place] Red BMS..[facility] Repository 08/10/2018 [id number] Izabela Ambulatory BMSBuilding: [place] Red BMS.CF.[facility] Repository 08/10/2018 [id number] Izabela Ambulatory BMSBuilding: [place] Red BMS.[facility] Repository 08/10/2018 [id number] Izabela Ambulatory BMSBuilding: [place] Red BMS..[facility] Repository 08/10/2018 [id number] Izabela Ambulatory BMSBuilding: [place] Red BMS.[facility] Repository 08/10/2018 [id number] Izabela Ambulatory BMSBuilding: [place] Red BMS.[facility] Repository 08/10/2018/08/14/20 [id number] Ambulatory BMSBuilding: [place] 18 [facility] Repository 08/10/2018 [id number] Izabela Ambulatory BMSBuilding: [place] Red BMS.[facility] Repository 08/06/[id number] [facility] ding:RAD Repository 08/06/2018/08/06/20 [id number] Ambulatory BMSBuilding: [place] 18 BMS.[facility] Repository 05/28/[id number] [facility] ding:LAB Repository 05/28/2018/05/28/20 [id number] Ambulatory BMSBuilding: [place] 18 BMS.[facility] Repository 05/28/2018 [id number] Ambulatory BMSBuilding: [place] BMS.[facility] Repository 04/29/2018 [id number] Ambulatory BMSBuilding: [place] BMS.[facility] Repository 02/11/2018/02/12/20 [id number] Ambulatory BBuilding:[place] 18 [facility] Repository 01/07/2018/01/08/20 [id number] Ambulatory [facility] 18 [facility] ding:[facility] Repository 10/26/2017/10/27/19 [id number] Ambulatory BMSBuilding: [place] 18 BMS.[facility] Repository 10/26/2017 [id number] Ambulatory BMSBuilding: [place] BMS.[facility] Repository 10/25/[id number] [facility] ding:LAB Repository PAYERS PAYERS ENCOUNTER GUARANTOR PAYER SUBSCRIBER SOURCE 08/27/2018 COOKIE C Primary COOKIE C [place] [id number] HIGH Insurance:MEDICARE YERIANDOB: [place] PART A [facility] [id number] Hospital 35952Xbd: (330) Number: Repository [phone] HP [id number] Date:2018-08-06 08/27/2018 Secondary COOKIE C [place] Insurance:MUTUAL OF YERIANDOB: [facility] Number: [id number] Hospital [id number] Repository Date:5937-41-87PPMESH [place], [place] [address]SG: 08/27/2018 Tertiary NOT GIVENUNK [place] Insurance:SELF PAY [facility] Number: Effective Repository Date:2018-08-22 08/22/2018 COOKIE C Primary COOKIE C [place] [id number] HIGH Insurance:MEDICARE YERIANDOB: [place] PART A [facility] [id number] Hospital 89235Dge: (330) Number: Repository [phone] () [id number] Date:2018-08-06 08/22/2018 Secondary COOKIE C [place] Insurance:MUTUAL OF YERIANDOB: [facility] Number: [id number] Hospital [id number] Repository Date:1813-56-23IFLDXM [place] [address]TX: 08/22/2018 Tertiary NOT GIVENUNK [place] Insurance:SELF PAY [facility] Number: Effective Repository Date:2018-08-06 08/21/2018 COOKIE C Primary COOKIE C [place] [id number] HIGH Insurance:MEDICARE YERIANDOB: [place] PART A [facility] [id number] Hospital 61490Tsf: (330) Number: Repository [phone] () [id number] Date:2018-08-21 08/21/2018 Secondary COOKIE C [place] Insurance:MUTUAL OF YERIANDOB: [facility] Number: [id number] Hospital [id number] Repository Date:2823-35-34LSJHFZ OF [place], [place] [address]WV: 08/21/2018 Tertiary NOT GIVENUNK [place] Insurance:SELF PAY [facility] Number: Effective Repository Date:2018-08-21 08/10/2018 COOKIE C Primary COOKIE C [place] [id number] HIGH Insurance:MEDICARE YERIANDOB: [place] PART A [facility] [id number] Hospital 40123Dqh: (330) Number: Repository [phone] () [id number] Date:2018-08-10 08/10/2018 Secondary COOKIE C [place] Insurance:MUTUAL OF YERIANDOB: [facility] Number: [id number] Hospital [id number] Repository Date:4290-22-79UELPIQ OF [place], [place] [address]SY: 08/10/2018 Tertiary NOT GIVENUNK [place] Insurance:SELF PAY [facility] Number: Effective Repository Date:2018-08-10 08/10/2018 COOKIE C Primary COOKIE C [place] [id number] HIGH Insurance:MEDICARE YERIANDOB: [place] PART A [facility] [id number] Hospital 47333Ltc: (330) Number: Repository [phone] () [id number] Date:2018-08-10 08/10/2018 Secondary COOKIE C [place] Insurance:MUTUAL OF YERIANDOB: [facility] Number: [id number] Hospital [id number] Repository Date:0735-24-67ZLGKNF OF [place], [place] [address]EK: 08/10/2018 Tertiary NOT GIVENUNK [place] Insurance:SELF PAY [facility] Number: Effective Repository Date:2018-08-10 08/10/2018 COOKIE C Primary COOKIE C [place] [id number] HIGH Insurance:MEDICARE YERIANDOB: [place] PART A [facility] [id number] Hospital 99387Vzc: (330) Number: Repository [phone] () [id number] Date:2018-08-10 08/10/2018 Secondary COOKIE C [place] Insurance:MUTUAL OF YERIANDOB: [facility] Number: [id number] Hospital [id number] Repository Date:7610-42-64MJXKWY OF [place], [place] [address]FO: 08/10/2018 Tertiary NOT GIVENUNK [place] Insurance:SELF PAY [facility] Number: Effective Repository Date:2018-08-10 08/10/2018 COOKIE C Primary COOKIE C [place] [id number] HIGH Insurance:MEDICARE YERIANDOB: [place] PART A [facility] [id number] Hospital 22544Szl: (330) Number: Repository [phone] () [id number] Date:2018-08-10 08/10/2018 Secondary COOKIE C [place] Insurance:MUTUAL OF YERIANDOB: [facility] Number: [id number] Hospital [id number] Repository Date:7627-48-86IAXTRE [place] [address]DW: 08/10/2018 Tertiary NOT GIVENUNK [place] Insurance:SELF PAY [facility] Number: Effective Repository Date:2018-08-10 08/10/2018 COOKIE C Primary COOKIE C [place] [id number] HIGH Insurance:MEDICARE YERIANDOB: [place] PART A [facility] [id number] Hospital 925[address]Cym: (330) Number: Repository [phone] () [id number] Date:2018-08-10 08/10/2018 Secondary COOKIE C [place] Insurance:MUTUAL OF YERIANDOB: [facility] Number: [id number] Hospital [id number] Repository Date:7284-68-01THFZYU OF [place], [place] [address]XM: 08/10/2018 Tertiary NOT GIVENUNK [place] Insurance:SELF PAY [facility] Number: Effective Repository Date:2018-08-10 08/10/2018 COOKIE C Primary COOKIE C [place] [id number] HIGH Insurance:MEDICARE YERIANDOB: [place] PART A [facility] [id number] Hospital 18962Rkk: (330) Number: Repository [phone] () [id number] Date:2018-08-10 08/10/2018 Secondary COOKIE C [place] Insurance:MUTUAL OF YERIANDOB: [facility] Number: [id number] Hospital [id number] Repository Date:3373-03-04MZWZWB OF [place], [place] [address]VV: 08/10/2018 Tertiary NOT GIVENUNK [place] Insurance:SELF PAY [facility] Number: Effective Repository Date:2018-08-10 08/10/2018 COOKIE C Primary COOKIE C [place] [id number] HIGH Insurance:MEDICARE YERIANDOB: [facility] [place] PART A [facility] [id number] Hospital 64004Gns: (330) Number: Repository [phone] () [id number] Date:2018-08-10 08/10/2018 Secondary COOKIE C [place] Insurance:MUTUAL OF YERIANDOB: [facility] Number: [id number] Hospital [id number] Repository Date:9637-21-02JXLYAQ OF [place], [place] [address]MO: 08/10/2018 Tertiary NOT GIVENUNK [place] Insurance:SELF PAY [facility] Number: Effective Repository Date:2018-08-10 08/10/2018 COOKIE C Primary COOKIE C [place] [id number] HIGH Insurance:MEDICARE YERIANDOB: [place] PART A [facility] [id number] Hospital 19345Ekr: (330) Number: Repository [phone] () [id number] Date:2018-08-10 08/10/2018 Secondary COOKIE C [place] Insurance:MUTUAL OF YERIANDOB: [facility] Number: [id number] Hospital [id number] Repository Date:0743-14-21MOBIWI OF [place], [place] [address]LQ: 08/10/2018 Tertiary NOT GIVENUNK [place] Insurance:SELF PAY [facility] Number: Effective Repository Date:2018-08-10 08/10/2018 COOKIE C Primary COOKIE C [place] [id number] HIGH Insurance:MEDICARE YERIANDOB[facility] [place] [facility] [id number] Hospital 88161Ctt: (330) Number: Repository [phone] () [id number] Date:2018-08-10 08/10/2018 Secondary COOKIE C [place] Insurance:MUTUAL OF YERIANDOB: [facility] Number: [id number] Hospital [id number] Repository Date:8895-10-65AZGLEY OF [place] [address]QC: 08/10/2018 Tertiary NOT GIVENUNK [place] Insurance:SELF PAY [facility] Number: Effective Repository Date:2018-08-10 08/10/2018 COOKIE C Primary COOKIE C [place] [id number] HIGH Insurance:MEDICARE YERIANDOB: [place] PART [place] [facility] [id number] Hospital 33711Ffr: (330) Number: Repository [phone] () [id number] Date:2018-08-10 08/10/2018 Secondary COOKIE C [place] Insurance:MUTUAL OF YERIANDOB: [facility] Number: [id number] Hospital [id number] Repository Date:6232-27-62OSLIQY OF [place], [place] [address]RY: 08/10/2018 Tertiary NOT GIVENUNK [place] Insurance:SELF PAY [facility] Number: Effective Repository Date:2018-08-10 08/06/2018 COOKIE C Primary COOKIE C [place] [id number] HIGH Insurance:MEDICARE YERIANDOB: [place] PART [place] [facility] [id number] Hospital 89715Xmq: (330) Number: Repository [phone] () [id number] Date:2018-08-06 08/06/2018 Secondary COOKIE C [place] Insurance:MUTUAL OF YERIANDOB: [facility] Number: [id number] Hospital [id number] Repository Date:0353-69-37ZQJBYK OF [place], [place] [address]SJ: 08/06/2018 Tertiary NOT GIVENUNK [place] Insurance:SELF PAY [facility] Number: Effective Repository Date:2018-08-06 08/06/2018 COOKIE C Primary COOKIE C [place] [id number] HIGH Insurance:MEDICARE YERIANDOB: [facility] [place] PART A [facility] [id number] Hospital 89930Pkh: (330) Number: Repository [phone] () [id number] Date:2018-08-05 08/06/2018 Secondary COOKIE C [place] Insurance:MUTUAL OF YERIANDOB: [facility] Number: [id number] Hospital [id number] Repository Date:6994-24-33WVSKJD [place] [address]NY: 08/06/2018 Tertiary NOT GIVENUNK [place] Insurance:SELF PAY [facility] Number: Effective Repository Date:2018-08-06 05/28/2018 COOKIE C Primary COOKIE C [place] [id number] HIGH Insurance:MEDICARE YERIANDOB: [place] PART A [facility] [id number] Hospital 55090Dwd: (330) Number: Repository [phone] () [id number] Date:2018-05-28 05/28/2018 Secondary COOKIE C [place] Insurance:MUTUAL OF YERIANDOB: [facility] Number: [id number] Hospital [id number] Repository Date:7007-16-72SKXSOC OF [place], [place] [address]OL: 05/28/2018 Tertiary NOT GIVENUNK [place] Insurance:SELF PAY [facility] Number: Effective Repository Date:2018-05-28 05/28/2018 COOKIE C Primary COOKIE C [place] [id number] HIGH Insurance:MEDICARE YERIANDOB: [facility] [place] PART A [facility] [id number] Hospital 97159Fwo: (330) Number: Repository [phone] () [id number] Date:2018-05-22 05/28/2018 Secondary COOKIE C [place] Insurance:MUTUAL OF YERIANDOB: [facility] Number: [id number] Hospital [id number] Repository Date:1990-09-72OGIWGR OF [place] [address]FY: 05/28/2018 Tertiary NOT GIVENUNK [place] Insurance:SELF PAY [facility] Number: Effective Repository Date:2018-05-28 05/28/2018 COOKIE C Primary COOKIE C [place] [id number] HIGH Insurance:MEDICARE YERIANDOB: [place] PART A [facility] [id number] Hospital 66565Kzw: (330) Number: Repository [phone] () [id number] Date:2018-05-28 05/28/2018 Secondary COOKIE C [place] Insurance:MUTUAL OF YERIANDOB: [facility] Number: [id number] Hospital [id number] Repository Date:9864-46-34KDHRMO OF [place], [place] [address]JO: 05/28/2018 Tertiary NOT GIVENUNK [place] Insurance:SELF PAY [facility] Number: Effective Repository Date:2018-05-28 04/29/2018 COOKIE C Primary COOKIE C [place] [id number] HIGH Insurance:MEDICARE YERIANDOB: [place] PART A [facility] [id number] Hospital 91828Obk: (330) Number: Repository [phone] () [id number] Date:2017-10-26 04/29/2018 Secondary COOKIE C [place] Insurance:MUTUAL OF YERIANDOB: [facility] Number: [id number] Hospital [id number] Repository Date:6554-57-33JWAMAR OF [place], [place] [address]KT: 04/29/2018 Tertiary NOT GIVENUNK [place] Insurance:SELF PAY [facility] Number: Effective Repository Date:2017-10-26 02/11/2018 COOKIE YERIANDOB: Primary COOKIE YERIANDOB: [facility] Insurance:MEDICARE [id number] Foundation [place], PART BPolicy Number: [place], [place] [address]Jko: [id number] [place] [address]Ixy: Date:2018-01-31 - (HP) [id number] (HP)Tel: (000) Name:PCGHelder 000-0000 (WP) Administrators [address] [address]TR: 02/11/2018 Secondary COOKIE YERIANDOB: [facility] Insurance:[facility] [id number] [facility] Number: [place], Repository [id number] [place] [address]Onv: Date:2018-01-31 - [id number] (HP)Tel: (000) Name:[place] 000-0000 () RONAK DAVEY [address]EE: 01/07/2018 COOKIE YERIANDOB: Primary COOKIE YERIANDOB: [facility] Insurance:MEDICARE [id number] [facility] [place], PART BPolicy Number: [place], [place] [address]Ykk: [id number] [place] [address]Ucp: Date:2018-01-02 (HP)Tel: (000) [phone] (HP) (WP) Name:[facility] 000-0000 () Administrators [address] [address]UA: 01/07/2018 Secondary COOKIE YERIANDOB: [facility] Insurance:MUTUAL [id number] [place] [address] Number: [place], Repository [id number] [place] [address]Vht: Date:2018-01-02 - [id number] (HP)Tel: (000) Name:[place] 000-0000 ([place], [place] [address]FW: 10/26/2017 COOKIE C Primary COOKIE C [place] [id number] HIGH Insurance:MEDICARE YERIANDOB: [place] PART A [facility] [id number] Hospital 28[address]Qbf: (330) Number: Repository [phone] () [id number] Date:2017-07-24 10/26/2017 Secondary COOKIE C [place] Insurance:MUTUAL OF YERIANDOB: [facility] Number: [id number] Hospital [id number] Repository Date:4011-12-23SQICFIFENTON, [place] [address]HR: 10/26/2017 Tertiary NOT GIVENUNK [place] Insurance:SELF PAY [facility] Number: Effective Repository Date:2017-07-24 10/26/2017 COOKIE C Primary COOKIE C [place] [id number] HIGH Insurance:MEDICARE YERIANDOB: [place] PART A [facility] [id number] Hospital [address]Gia: (330) Number: Repository [phone] () [id number] Date:2017-10-26 10/26/2017 Secondary COOKIE C [place] Insurance:MUTUAL OF YERIANDOB: [facility] Number: [id number] Hospital [id number] Repository Date:0521-42-32MZJCADMILLV[place], [place] [address]PK: 10/26/2017 Tertiary NOT GIVENUNK [place] Insurance:SELF PAY [facility] Number: Effective Repository Date:2017-10-26 10/25/2017 COOKIE C Primary COOKIE C [place] [id number] HIGH Insurance:MEDICARE YERIANDOB: [place] PART A [facility] [id number] Hospital 70[address]Kce: (330) Number: Repository [phone] () [id number] Date:2017-10-25 10/25/2017 Secondary COOKIE C [place] Insurance:MUTUAL OF CHRISTIOB: [facility] Number: [id number] Hospital [id number] Repository Date:4786-10-61QBXVHW OF [place] DAVEYRONAK [address]WY: 10/25/2017 Tertiary NOT GIVENUNK [place] Insurance:SELF PAY [facility] Number: Effective Repository Date:2017-10-25
== END ==
PROVIDERS: Family Provider Surgery Vascular Surgery; PCP Family Medicine; Referring Provider Nurse Practitioner Family; Visit Provider Nurse Practitioner Family
DX: R06.02 Shortness of breath (principal)
CPT/HCPCS: 36415; 71046; 83880

== ENCOUNTER 2018-08-10 10:51 | Inpatient (IN) | payer MEDICARE, OTHER, SELFPAY ==
[2018-08-06 11:19] VITALS: BMI 37.8
[2018-08-10] VITALS (15 sets, daily range): BP systolic 107–164; BP diastolic 48–100; PULSE 58–70; RESP 16–24; TEMP 36.3–36.8; O2SAT 95–100; BMI 40.2; BMI 36.2; BMI 36.3
--- NOTE | 2018-08-10 11:34 | EKG12_ITS ---
Test Reason : SOB Blood Pressure : / mmHG Vent. Rate : 060 BPM Atrial Rate : 060 BPM P-R Int : 188 ms QRS Dur : 102 ms QT Int : 432 ms P-R-T Axes : 020 011 173 degrees QTc Int : 432 ms Normal sinus rhythm ST & Marked T wave abnormality, consider anterolateral ischemia Abnormal ECG Confirmed by NICOLE BRICENO ([id number]), manager editorial FLORENCIO PEREZ ([id number] on 08/28/2018 4:15:47 PM Referred By: Andres Briseno Confirmed By:NICOLE BRICENO
--- NOTE | 2018-08-10 11:38 | RAD_ITS ---
STUDY: X-RAY CHEST REASON FOR EXAM: Female, 78 years old. Shortness of breath TECHNIQUE: Frontal view of the chest COMPARISON: 08/06/2018 FINDINGS: The lungs are clear. There are no pleural effusions. There is no pneumothorax. The heart is mildly enlarged, but stable in size. Again noted are sternotomy wires. The visualized osseous structures are within normal limits. RAD/Chest 1 View (Portable) IMPRESSION: No acute thoracic pathology. Electronically Signed: Kelechi Keyes, at 11:55 EST Tel , Service support ,
[2018-08-10 12:38] LABS: Absolute Neutrophil Count 7.5 X10^3/uL (2.0-7.7); Basophil# 0.03 X10^3/uL; Basophil% 0.3 % (0-1); Eosinophil# 0.11 X10^3/uL; Hematocrit 21.2 % (37-47); Hemoglobin 6.6 g/dl (12.0-15.0); Lymphocyte % 21.8 % (19-41); Mean Corp Hgb Conc 31.1 g/gl (32-36); Mean Corpuscular Hgb 27.2 pg (27.0-32.0); Mean Corpuscular Volume 87.2 fL (81-99); Monocyte# 0.59 X10^3/uL; Monocyte% 5.6 % (0-10); Neutrophil # 7.49 X10^3/uL (2.7-7.7); POSITIVE COUNT NO; POSITIVE DIFFERENTIAL NO; POSITIVE MORPHOLOGY NO; Platelet Count 290 K/mm3 (150-450); RBC Distribution Width SD 47.9 fl (35.1-43.9); Red Blood Count 2.43 M/mm3 (4.2-5.4); White Blood Count 10.6 K/mm3 (4.4-11.0)
[2018-08-10 12:45] LABS: International Normalized Ratio 1.2; Prothrombin Time (Protime)PT. 15.5 SECONDS (11.7-14.9)
[2018-08-10 13:09] LABS: BNP,B-Type NATRIURETIC PEPTIDE 1354.4 pg/mL (0-100)
[2018-08-10 13:16] LABS: Bedside Glucose 166 mg/dL (70-110)
[2018-08-10 13:28] LABS: AST(SGOT) 36 U/L (15-37); Alanine Aminotransfer ALT/SGPT 43 U/L (13-56); Albumin, Serum 3.4 g/dL (3.2-5.0); Alkaline Phosphatase 24 U/L (45-117); Anion Gap 12 (5-15); BUN 95 mg/dL (7-18); BUN/Creat Ratio 31.8 RATIO (10-20); Calcium,Total 8.9 mg/dL (8.5-10.1); Chloride 103 mmol/L (98-107); Creatinine, Serum 2.99 mg/dL (0.55-1.02); EST Glomerular Filtration Rate 16 mL/min (>60); Est Glom Filt Rate - Afr Amer 20 mL/min (>60); Estimated Creatinine Clearance 12.66 ml/min; Globulin 3.5 g/dL (2.2-4.2); Glucose 167 mg/dL (74-106); Potassium 4.7 mmol/L (3.5-5.1); Protein, Total 6.9 g/dL (6.4-8.2); Sodium Level 140 mmol/L (136-145)
[2018-08-10] MEDS: 0.9% Normal Saline 1,000 ML 150 ML IV (14:03)
--- NOTE | 2018-08-10 15:32 | ECHOD_ITS ---
Reason For Study: NSTEMI Procedure This was a 2D Doppler, Color Flow transthoracic echocardiogram. Exam performed portable in patient room. Left Ventricle Normal size and thickness. The estimated ejection fraction is 50-55 %. Posterior-Basal: Mildly hypokinetic. Infero-Basal: Mildly hypokinetic. Right Ventricle Mildly dilated right ventricle. Normal systolic function. Atria The left atrium is mildly enlarged. Normal right atrium. Normal atrial septum. Mitral Valve The mitral valve is structurally normal. No prolapse or stenosis seen. Mild mitral annular calcification extending into the posterior leaflet. Trivial mitral valve insufficiency. Tricuspid Valve Normal tricuspid valve. Mild to moderate (1-2+) tricuspid valve insufficiency. Right ventricular systolic pressure estimated to be 67 mmHg. Severe pulmonary hypertension. Aortic Valve Trisinus/trileaflet aortic valve. Mild diffuse aortic valve thickening. Pulmonic Valve The pulmonic valve is not well visualized. Great Vessels Normal aortic root. Normal arch. The inferior vena cava is dilated. Pericardium/Pleural No pericardial effusion. MMode/2D Measurements & Calculations LVIDd: 4.7 cm IVSd: 1.2 cm Ao root diam: 2.6 cm LVIDs: 3.3 cm LVPWd: 1.1 cm RVDd: 4.1 cm FS: 29.0 % LAV(MOD-bp): 65.2 ml EDV(MOD-sp4): 129.4 ml SV(MOD-sp4): 81.5 ml LAV(MOD-bp) Indexed: 32.6 ml/m2 ESV(MOD-sp4): 47.9 ml LAV(MOD-sp2): 55.9 ml EF(MOD-sp4): 63.0 % LAV(MOD-sp4): 68.4 ml LA dimension(2D): 5.0 cm LA A4 area: 21.4 cm2 RA A4 area: 13.7 cm2 Time Measurements MV dec time: 0.19 sec Doppler Measurements & Calculations MV E max jean-claude: 147.6 cm/sec Lat Peak E' Jean-Claude: 3.8 cm/sec Med Peak E' Jean-Claude: 2.0 cm/sec MV A max jean-claude: 50.7 cm/sec E/E' lat: 39.1 E/E' med: 73.8 MV E/A: 2.9 Ao V2 max: 143.9 cm/sec LV V1 max: 78.4 cm/sec PA V2 max: 103.3 cm/sec Ao max P.3 mmHg LV V1 max P.5 mmHg TR max jean-claude: 379.8 cm/sec TR max P.0 mmHg Interpretation Summary The estimated ejection fraction is 50-55 %. Posterior-Basal: Mildly hypokinetic Infero-Basal: Mildly hypokinetic Mildly dilated right ventricle. The left atrium is mildly enlarged. Trivial mitral valve insufficiency. Mild to moderate (1-2+) tricuspid valve insufficiency. Right ventricular systolic pressure estimated to be 67 mmHg. Severe pulmonary hypertension. The inferior vena cava is dilated Compared to echo report dated 12/18/2016, LV function appears mildly reduced and pulmonary pressures not mentioned at that time. Ordering Physician: Red Gurrola Referring Physician: ALON STEPHEN Performed By: Archana Mackay, TRUNG, RVT
--- NOTE | 2018-08-10 15:39 | PCM.HP.STD ---
Problem List (1) Acute blood loss anemia Status: Acute (2) SELAM (acute kidney injury) Status: Acute (3) NSTEMI (non-ST elevated myocardial infarction) Status: Acute History of Present Illness Date of Admission: 08/10/18 Chief Complaint: fatigue. dypnea on exertion The patient is a 78 year old F presents with several month history of progressive dyspnea on exertion. Also feels more fatigued. 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 Presented to the ED for evaluation and was found to have a Cr of 2.99 (baseline 1.56), Hg 6 (baseline 9). Patient received blood and IVF. 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) Bilateral carotid artery stenosis (Chronic) Hyperlipidemia (Chronic) PVD (peripheral vascular disease) (Chronic) Medical History: Medical History (Last Reviewed 08/10/18 @ 15:44 by Red Gurrola DO) Fatigue (Acute) R53.83 Chronic diastolic heart failure (Chronic) I50.32 Essential (primary) hypertension (Chronic) I10 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) I25.798 Atherosclerotic heart disease of [place] coronary artery without angina pectoris (Chronic) I25.10 Bilateral carotid artery stenosis (Chronic) I65.23 Hyperlipidemia (Chronic) E78.5 PVD (peripheral vascular disease) (Chronic) I73.9 Anemia D64.9 Macular degeneration H35.30 Type 2 diabetes mellitus E11.9 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 Allergies latex Allergy (Verified 08/10/18 10:55) Hives Home Medications: Ambulatory Orders Medication Instructions Recorded Aspirin [Aspirin, Baby] 81 mg PO DAILY@0800 08/10/18 Atenolol 50 mg PO DAILY 08/10/18 Bupropion HCl 1 tab PO PRN PRN 08/10/18 Calcium Carbonate [Calcium] 600 mg PO DAILY 08/10/18 Cilostazol [Pletal] 50 mg PO BIDAC 08/10/18 Clopidogrel Bisulfate [Clopidogrel] 75 mg PO DAILY 08/10/18 Fenofibrate [Tricor] 145 mg PO DAILY 08/10/18 Furosemide [Lasix] 20 mg PO DAILY 08/10/18 Insulin Aspart [Novolog Flexpen 20 units SC TIDCM 08/10/18 ([facility])] Insulin Detemir [Levemir] 40 unit SQ BID 08/10/18 Isosorbide Mononitrate [Imdur] 30 mg PO DAILY 08/10/18 Lisinopril 2 tab PO BID 08/10/18 Multivitamin,Therapeutic [Thera] 1 each PO DAILY 08/10/18 Mv-Min/FA/Vit K/Lycop/Lut/Zeax 1 each PO DAILY 08/10/18 [Ocuvite Eye + Multi Tablet] Rosuvastatin Calcium [Crestor] 40 mg PO DAILY 08/10/18 Vitamin D3 1 tab PO DAILY 08/10/18 hydroCHLOROthiazide 25 mg PO DAILY 08/10/18 [Hydrochlorothiazide] Surgical History: Surgical History (Last Reviewed 08/10/18 @ 15:44 by Red Gurrola DO) H/O coronary artery bypass surgery (Resolved) Onset Date: 06/2009 Z95.1 CABG X 4: ONTIVEROS to LAD, SVG to high lateral cx, SVG to PDA and RCA 03/30/2009 History of coronary artery stent placement (Resolved) Onset Date: ~11/2010 Z95.5 GIO to the mid and distal main RCA origin, GIO-Prox PDA, GIO- RCA and AV continution of the RCA 11/2010 History of left heart catheterization Onset Date: 12/22/16 Z98.890 03/2009; 11/04/2010 [facility]; 12/22/2016 amputation of right second toe Onset Date: ~08/07/14 angioplasty to right SFA Onset Date: ~2013 bilateral iliac stents Surgical History: - - Cholecystectomy, hysterectomy, appendectomy, coronary artery bypass surgery, angioplasty, R 1st toe amputation. 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 Lives: Alone Smoking Status: Former smoker Alcohol: Rare Drugs: None - *Family History Maternal Family History: Family History (Last Reviewed 08/10/18 @ 15:44 by Red Gurrola DO) Father COPD (chronic obstructive pulmonary disease) Mother CAD (coronary artery disease) Myocardial infarction Diabetes Congestive heart failure Brother CAD (coronary artery disease) S/P CABG x 4 Sister CAD (coronary artery disease) Hx of CABG History Items: Diabetes Paternal Family History: Family History (Last Reviewed 08/10/18 @ 15:44 by Red Gurrola DO) Father COPD (chronic obstructive pulmonary disease) Mother CAD (coronary artery disease) Myocardial infarction Diabetes Congestive heart failure Brother CAD (coronary artery disease) S/P CABG x 4 Sister CAD (coronary artery disease) Hx of CABG History Items: Heart Disease Review of Systems Constitutional: Denies: Anorexia, Chills, Fever Eyes: Reports: Blurred vision. Denies: Double vision HEENT: Denies: Head Aches, Sinus Congestion, Sinus Drainage Cardiovascular: Denies: Chest Pain, Palpitations Respiratory: Reports: Shortness of breath upon exertion. Denies: Cough Gastrointestinal: Denies: Abdominal Pain, Nausea, Vomiting Genitourinary: Denies: Dysuria, Frequency Musculoskeletal: Denies: Joint Pain, Joint Tenderness Skin: Denies: Dryness, Jaundice Neurological: Denies: Numbness, Tingling, Focal weakness Psychiatric: Denies: Anxiety, Depression Endocrine: Denies: Change in Body Habitus Hematologic/ Lymphatic: Denies: Easy Bruising, Easy Bleeding, Hx of blood clot Comment: A 10 point review of systems were negative except as mentioned in the history of present illness and the other review of systems. VTE Information - Inpt Only VTE Present on Admission: No VTE Mechan Device Prophylaxis: SCD's Reason prophylaxis not ordered:: Medical Contraindication Patient Problems: Active and Suspected Problems (Last Reviewed 05/28/18 @ 07:20 by Marie House) Acute blood loss anemia (Acute) SELAM (acute kidney injury) (Acute) NSTEMI (non-ST elevated myocardial infarction) (Acute) - Physical Exam General: Alert, Cooperative, No apparent distress HEENT: Atraumatic, EOMI, Normocephalic Oral: Moist Mucosa, No Gingival or Mucosal Lesions/ Ulcerations Neck: No Nodes, Thyroid Normal Size and Texture Lungs: Clear to auscultation, Normal air movement, No rhonchi, No wheeze Cardiovascular: Regular rate, Regular Rhythm, Normal S1, Normal S2, No murmurs Abdomen: Bowel Sounds Present, Soft, Non Tender, Non-Distended, No Hepato-splenomegaly Extremities: No edema, No Calf Tenderness Skin: No rashes, No breakdown Musculoskeletal: No Tenderness to Palpation of Joints or Extremities, No Muscle Wasting Neurological: Neuro grossly intact, Sensory exam intact to light touch and pain, Coordination normal Psych/Mental Status: Normal Affect, Appropriate Vital Signs Temp Pulse Resp BP Pulse Ox 36.5 C L 66 18 132/72 H 99 08/10/18 15:26 08/10/18 15:26 08/10/18 15:26 08/10/18 15:26 08/10/18 15:26 Oxygen Flow Rate (L/min) 2 Oxygen Delivery Method Nasal Cannula Weight: 95.8 kg Body Mass Index (BMI) 36.2 Microbiology Past 72 Hours 08/10/18 13:35 Stool Occult Blood (VISHNU) - Final Stool Occult Blood Positive Laboratory Tests Past 24 Hrs 08/10/18 08/10/18 08/10/18 12:20 12:20 12:20 WBC 10.6 RBC 2.43 L Hgb 6.6 L Hct 21.2 L MCV 87.2 MCH 27.2 MCHC 31.1 L RDW 15.0 H RDW Differential 47.9 H Plt Count 290 MPV 11.0 Immature Gran % (Auto) 0.300 Neut % (Auto) 71.0 H Lymph % (Auto) 21.8 [place] % (Auto) 5.6 Eos % (Auto) 1.0 Baso % (Auto) 0.3 Absolute Neuts (auto) 7.5 Absolute Lymphs (auto) 2.30 Total Counted Not Reportable PT 15.5 H INR 1.2 APTT 29.0 Sodium 140 Potassium 4.7 Chloride 103 Carbon Dioxide 25.0 Anion Gap 12 BUN 95 H Creatinine 2.99 H Estim Creat Clear Calc 12.66 Est GFR (MDRD) Af Amer 20 L Est GFR (MDRD) Non-Af 16 L BUN/Creatinine Ratio 31.8 H Glucose 167 H Calcium 8.9 Total Bilirubin 0.20 AST 36 ALT 43 Alkaline Phosphatase 24 L Troponin I 0.705 H* B-Natriuretic Peptide Total Protein 6.9 Albumin 3.4 Globulin 3.5 Albumin/Globulin Ratio 1.0 Blood Type Antibody Screen Crossmatch 08/10/18 08/10/1808/10/18 12:20 14:00 14:00 WBC RBC Hgb Hct MCV MCH MCHC RDW RDW Differential Plt Count MPV Immature Gran % (Auto) Neut % (Auto) Lymph % (Auto) [place] % (Auto) Eos % (Auto) Baso % (Auto) Absolute Neuts (auto) Absolute Lymphs (auto) Total Counted PT INR APTT Sodium Potassium Chloride Carbon Dioxide Anion Gap BUN Creatinine Estim Creat Clear Calc Est GFR (MDRD) Af Amer Est GFR (MDRD) Non-Af BUN/Creatinine Ratio Glucose Calcium Total Bilirubin AST ALT Alkaline Phosphatase Troponin I B-Natriuretic Peptide 1354.4 H Total Protein Albumin Globulin Albumin/Globulin Ratio Blood Type A POSITIVE Antibody Screen NEGATIVE Crossmatch See Detail POC Glucose 08/10/18 13:09 POC Glucose 166 H EKG reviewed and showed some ST depressions in the lateral leads. Clinical Impression(s) from Imaging Studies Chest X-Ray 08/10/18 11:38 IMPRESSION: No acute thoracic pathology. Electronically Signed: Kelechi Keyes, at 11:55 EST Tel , Service support , Assessment/Plan All Active Problems (Last Reviewed 05/28/18 @ 07:20 by Marie House) Acute blood loss anemia (Acute) SELAM (acute kidney injury) (Acute) NSTEMI (non-ST elevated myocardial infarction) (Acute) Fatigue (Acute) H/O coronary artery bypass surgery (Resolved 06/2009) History of coronary artery stent placement (Resolved ~11/2010) Gangrene (Resolved) Gangrene associated with type 2 diabetes mellitus (Resolved) 1. Acute blood loss anemia Suspected GI source Patient be transfused 1unit red blood cells Check ferritin, iron, TIBC, B12, folate and TSH General surgery on consultation for further evaluation Patient has a history of colitis and was diagnosed by Dr. Kingsley. Patient does not know what type of colitis that she has. Will request the records from Dr. Kingsley's office. 2. SELAM Presumed prerenal but may also be a component of ATN related with volume depletion or her anemia IV fluids Hold her diuretics Follow-up labs in the morning 3. Non-STEMI May be more of a type II event Will continue with aspirin but hold her Plavix in light of the anemia Cycle troponins Cardiology consult 4. Peripheral arterial disease Hold her Pletal at this time given the anemia 5. DM2 cut Lantus in half to 20 while she is on clears/NPO 6. DVT proph: SCDs. Chemical prophylaxis contraindicated due to acute anemia. Advanced care planning: Spent 20 minutes discussing with the patient and her sister outside of the history and physical discussing DNR, CPR. Did recommend DNR Comfort Care arrest. After initial hesitation patient did agree to DNR Comfort Care arrest. Patient is aware that we will do everything in the point that her heart stops. I also informed her that this decision on her CODE STATUS is can be changed anytime in the future. Code Visit Inpatient E&M: 08442 Init Hosp L3 Procedures: 92735 Advncd Care Plan 30 Min
--- NOTE | 2018-08-10 15:43 | HP.PCM_ITS ---
Problem List (1) Acute blood loss anemia Status: Acute (2) SELAM (acute kidney injury) Status: Acute (3) NSTEMI (non-ST elevated myocardial infarction) Status: Acute History of Present Illness Date of Admission: 08/10/18 Chief Complaint: fatigue. dypnea on exertion The patient is a 78 year old F presents with several month history of progressive dyspnea on exertion. Also feels more fatigued. 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 Presented to the ED for evaluation and was found to have a Cr of 2.99 (baseline 1.56), Hg 6 (baseline 9). Patient received blood and IVF. 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) Bilateral carotid artery stenosis (Chronic) Hyperlipidemia (Chronic) PVD (peripheral vascular disease) (Chronic) Medical History: Medical History (Last Reviewed 08/10/18 @ 15:44 by Red Gurrola DO) Fatigue (Acute) R53.83 Chronic diastolic heart failure (Chronic) I50.32 Essential (primary) hypertension (Chronic) I10 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) I25.798 Atherosclerotic heart disease of [place] coronary artery without angina pectoris (Chronic) I25.10 Bilateral carotid artery stenosis (Chronic) I65.23 Hyperlipidemia (Chronic) E78.5 PVD (peripheral vascular disease) (Chronic) I73.9 Anemia D64.9 Macular degeneration H35.30 Type 2 diabetes mellitus E11.9 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 Allergies latex Allergy (Verified 08/10/18 10:55) Hives Home Medications: Ambulatory Orders Medication Instructions Recorded Aspirin [Aspirin, Baby] 81 mg PO DAILY@0800 08/10/18 Atenolol 50 mg PO DAILY 08/10/18 Bupropion HCl 1 tab PO PRN PRN 08/10/18 Calcium Carbonate [Calcium] 600 mg PO DAILY 08/10/18 Cilostazol [Pletal] 50 mg PO BIDAC 08/10/18 Clopidogrel Bisulfate [Clopidogrel] 75 mg PO DAILY 08/10/18 Fenofibrate [Tricor] 145 mg PO DAILY 08/10/18 Furosemide [Lasix] 20 mg PO DAILY 08/10/18 Insulin Aspart [Novolog Flexpen 20 units SC TIDCM 08/10/18 ([facility])] Insulin Detemir [Levemir] 40 unit SQ BID 08/10/18 Isosorbide Mononitrate [Imdur] 30 mg PO DAILY 08/10/18 Lisinopril 2 tab PO BID 08/10/18 Multivitamin,Therapeutic [Thera] 1 each PO DAILY 08/10/18 Mv-Min/FA/Vit K/Lycop/Lut/Zeax 1 each PO DAILY 08/10/18 [Ocuvite Eye + Multi Tablet] Rosuvastatin Calcium [Crestor] 40 mg PO DAILY 08/10/18 Vitamin D3 1 tab PO DAILY 08/10/18 hydroCHLOROthiazide 25 mg PO DAILY 08/10/18 [Hydrochlorothiazide] Surgical History: Surgical History (Last Reviewed 08/10/18 @ 15:44 by Red Gurrola DO) H/O coronary artery bypass surgery (Resolved) Onset Date: 06/2009 Z95.1 CABG X 4: ONTIVEROS to LAD, SVG to high lateral cx, SVG to PDA and RCA 03/30/2009 History of coronary artery stent placement (Resolved) Onset Date: ~11/2010 Z95.5 GIO to the mid and distal main RCA origin, GIO-Prox PDA, GIO- RCA and AV continution of the RCA 11/2010 History of left heart catheterization Onset Date: 12/22/16 Z98.890 03/2009; 11/04/2010 [facility]; 12/22/2016 amputation of right second toe Onset Date: ~08/07/14 angioplasty to right SFA Onset Date: ~2013 bilateral iliac stents Surgical History: - - Cholecystectomy, hysterectomy, appendectomy, coronary artery bypass surgery, angioplasty, R 1st toe amputation. 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 Lives: Alone Smoking Status: Former smoker Alcohol: Rare Drugs: None - *Family History Maternal Family History: Family History (Last Reviewed 08/10/18 @ 15:44 by Red Gurrola DO) Father COPD (chronic obstructive pulmonary disease) Mother CAD (coronary artery disease) Myocardial infarction Diabetes Congestive heart failure Brother CAD (coronary artery disease) S/P CABG x 4 Sister CAD (coronary artery disease) Hx of CABG History Items: Diabetes Paternal Family History: Family History (Last Reviewed 08/10/18 @ 15:44 by Red Gurrola DO) Father COPD (chronic obstructive pulmonary disease) Mother CAD (coronary artery disease) Myocardial infarction Diabetes Congestive heart failure Brother CAD (coronary artery disease) S/P CABG x 4 Sister CAD (coronary artery disease) Hx of CABG History Items: Heart Disease Review of Systems Constitutional: Denies: Anorexia, Chills, Fever Eyes: Reports: Blurred vision. Denies: Double vision HEENT: Denies: Head Aches, Sinus Congestion, Sinus Drainage Cardiovascular: Denies: Chest Pain, Palpitations Respiratory: Reports: Shortness of breath upon exertion. Denies: Cough Gastrointestinal: Denies: Abdominal Pain, Nausea, Vomiting Genitourinary: Denies: Dysuria, Frequency Musculoskeletal: Denies: Joint Pain, Joint Tenderness Skin: Denies: Dryness, Jaundice Neurological: Denies: Numbness, Tingling, Focal weakness Psychiatric: Denies: Anxiety, Depression Endocrine: Denies: Change in Body Habitus Hematologic/ Lymphatic: Denies: Easy Bruising, Easy Bleeding, Hx of blood clot Comment: A 10 point review of systems were negative except as mentioned in the history of present illness and the other review of systems. VTE Information - Inpt Only VTE Present on Admission: No VTE Mechan Device Prophylaxis: SCD's Reason prophylaxis not ordered:: Medical Contraindication Patient Problems: Active and Suspected Problems (Last Reviewed 05/28/18 @ 07:20 by Marie House) Acute blood loss anemia (Acute) SELAM (acute kidney injury) (Acute) NSTEMI (non-ST elevated myocardial infarction) (Acute) - Physical Exam General: Alert, Cooperative, No apparent distress HEENT: Atraumatic, EOMI, Normocephalic Oral: Moist Mucosa, No Gingival or Mucosal Lesions/ Ulcerations Neck: No Nodes, Thyroid Normal Size and Texture Lungs: Clear to auscultation, Normal air movement, No rhonchi, No wheeze Cardiovascular: Regular rate, Regular Rhythm, Normal S1, Normal S2, No murmurs Abdomen: Bowel Sounds Present, Soft, Non Tender, Non-Distended, No Hepato- splenomegaly Extremities: No edema, No Calf Tenderness Skin: No rashes, No breakdown Musculoskeletal: No Tenderness to Palpation of Joints or Extremities, No Muscle Wasting Neurological: Neuro grossly intact, Sensory exam intact to light touch and pain, Coordination normal Psych/Mental Status: Normal Affect, Appropriate Vital Signs Temp Pulse Resp BP Pulse Ox 36.5 C L 66 18 132/72 H 99 08/10/18 15:26 08/10/18 15:26 08/10/18 15:26 08/10/18 15:26 08/10/18 15:26 Oxygen Flow Rate (L/min) 2 Oxygen Delivery Method Nasal Cannula Weight: 95.8 kg Body Mass Index (BMI) 36.2 Microbiology Past 72 Hours 08/10/18 13:35 Stool Occult Blood (VISHNU) - Final Stool Occult Blood Positive Laboratory Tests Past 24 Hrs 08/10/18 08/10/18 08/10/18 12:20 12:20 12:20 WBC 10.6 RBC 2.43 L Hgb 6.6 L Hct 21.2 L MCV 87.2 MCH 27.2 MCHC 31.1 L RDW 15.0 H RDW Differential 47.9 H Plt Count 290 MPV 11.0 Immature Gran % (Auto) 0.300 Neut % (Auto) 71.0 H Lymph % (Auto) 21.8 [place] % (Auto) 5.6 Eos % (Auto) 1.0 Baso % (Auto) 0.3 Absolute Neuts (auto) 7.5 Absolute Lymphs (auto) 2.30 Total Counted Not Reportable PT 15.5 H INR 1.2 APTT 29.0 Sodium 140 Potassium 4.7 Chloride 103 Carbon Dioxide 25.0 Anion Gap 12 BUN 95 H Creatinine 2.99 H Estim Creat Clear Calc 12.66 Est GFR (MDRD) Af Amer 20 L Est GFR (MDRD) Non-Af 16 L BUN/Creatinine Ratio 31.8 H Glucose 167 H Calcium 8.9 Total Bilirubin 0.20 AST 36 ALT 43 Alkaline Phosphatase 24 L Troponin I 0.705 H* B-Natriuretic Peptide Total Protein 6.9 Albumin 3.4 Globulin 3.5 Albumin/Globulin Ratio 1.0 Blood Type Antibody Screen Crossmatch 08/10/18 08/10/1808/10/18 12:20 14:00 14:00 WBC RBC Hgb Hct MCV MCH MCHC RDW RDW Differential Plt Count MPV Immature Gran % (Auto) Neut % (Auto) Lymph % (Auto) [place] % (Auto) Eos % (Auto) Baso % (Auto) Absolute Neuts (auto) Absolute Lymphs (auto) Total Counted PT INR APTT Sodium Potassium Chloride Carbon Dioxide Anion Gap BUN Creatinine Estim Creat Clear Calc Est GFR (MDRD) Af Amer Est GFR (MDRD) Non-Af BUN/Creatinine Ratio Glucose Calcium Total Bilirubin AST ALT Alkaline Phosphatase Troponin I B-Natriuretic Peptide 1354.4 H Total Protein Albumin Globulin Albumin/Globulin Ratio Blood Type A POSITIVE Antibody Screen NEGATIVE Crossmatch See Detail POC Glucose 08/10/18 13:09 POC Glucose 166 H EKG reviewed and showed some ST depressions in the lateral leads. Clinical Impression(s) from Imaging Studies Chest X-Ray 08/10/18 11:38 IMPRESSION: No acute thoracic pathology. Electronically Signed: Kelechi Keyes, at 11:55 EST Tel , Service support , Assessment/Plan All Active Problems (Last Reviewed 05/28/18 @ 07:20 by Marie House) Acute blood loss anemia (Acute) SELAM (acute kidney injury) (Acute) NSTEMI (non-ST elevated myocardial infarction) (Acute) Fatigue (Acute) H/O coronary artery bypass surgery (Resolved 06/2009) History of coronary artery stent placement (Resolved ~11/2010) Gangrene (Resolved) Gangrene associated with type 2 diabetes mellitus (Resolved) 1. Acute blood loss anemia * Suspected GI source * Patient be transfused 1unit red blood cells * Check ferritin, iron, TIBC, B12, folate and TSH * General surgery on consultation for further evaluation * Patient has a history of colitis and was diagnosed by Dr. Kingsley. Patient does not know what type of colitis that she has. Will request the records from Dr. Kingsley's office. 2. SELAM * Presumed prerenal but may also be a component of ATN related with volume depletion or her anemia * IV fluids * Hold her diuretics * Follow-up labs in the morning 3. Non-STEMI * May be more of a type II event * Will continue with aspirin but hold her Plavix in light of the anemia * Cycle troponins * Cardiology consult 4. Peripheral arterial disease * Hold her Pletal at this time given the anemia 5. DM2 * cut Lantus in half to 20 while she is on clears/NPO 6. DVT proph: SCDs. Chemical prophylaxis contraindicated due to acute anemia. Advanced care planning: Spent 20 minutes discussing with the patient and her sister outside of the history and physical discussing DNR, CPR. Did recommend DNR Comfort Care arrest. After initial hesitation patient did agree to DNR Comfort Care arrest. Patient is aware that we will do everything in the point that her heart stops. I also informed her that this decision on her CODE STATUS is can be changed anytime in the future. Code Visit Inpatient E&M: 55664 Init Hosp L3 Procedures: 39155 Advncd Care Plan 30 Min
--- NOTE | 2018-08-10 15:46 | ED.VISSUMM ---
- ER Visit Summary Date of Service: 08/10/18 Chief Complaint: Shortness of breath History of Present Illness: The patient is a 78 F who states that she went to her PCP on Sunday was placed on 40 mg of Lasix twice a day for swelling her legs and a 13 pound weight gain. She does have a history of coronary artery disease and CHF. She states that on Sunday she weighed 220 pounds today she was 216.8. She continues however to have dyspnea on exertion and dyspnea at rest. She notes a cough but states that she is not expelling any sputum. She is a former smoker. Baseline creatinine 1.56 that was May this year. Last hemoglobin was 9. She also notes that she has been feeling fatigued. Patient states that she has been using a lot of Pepto-Bismol for some colitis that she has had. She is on Plavix. 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 Physical Examination: Afebrile vital signs stable Gen: Well-nourished well-developed Head: Normocephalic atraumatic Eyes: Perrl EOMI ENT: TMs clear no rhinorrhea moist mucous membranes Neck: Supple no lymphadenopathy no JVD nontender CVS: Regular rate rhythm no murmurs normal S1-S2 Respiratory: No distress clear to auscultation bilaterally chest nontender Abdomen: Soft nontender nondistended normal bowel sounds no masses : Back: Nontender Extremity: Nontender no edema Skin: Normal color no rash Neuro: alert orientated ?3 CN II-XII intact normal strength sensation reflexes gait cerebellar Psych: Normal affect normal mood Test Results: EKG showed a sinus rhythm at a rate of [address] depression changes. Chest x-ray showed no acute findings. Hemoglobin is low at 6.6 troponin 0.7 creatinine 2.99 with a BUN of 95. Emergency Department Course and Treatment: Patient is anemic with acute renal failure and now elevated troponin. Patient will need to be transfused. We started gentle hydration. I spoke with Dr. Rivera (Cardiology) as well as Dr. Grier (Surgery) and Dr. Gurrola (medicine) Impression: 1. Acute blood loss anemia requiring transfusion 2. NSTEMI 3. Acute renal failure This note was generated with [employer]ick[employer] dictation software. It may contain incorrect words, spelling, and punctuation that were not noted in review of the chart prior to signing ED Disposition - Plan for ED Patient: Disposition: Home or Assisted Living Chief Complaint: Shortness of Breath
[2018-08-10 15:50] LABS: Bedside Glucose 146 mg/dL (70-110)
--- NOTE | 2018-08-10 15:50 | ED.DCSUM_ITS ---
- ER Visit Summary Date of Service: 08/10/18 Chief Complaint: Shortness of breath History of Present Illness: The patient is a 78 F who states that she went to her PCP on Sunday was placed on 40 mg of Lasix twice a day for swelling her legs and a 13 pound weight gain. She does have a history of coronary artery disease and CHF. She states that on Sunday she weighed 220 pounds today she was 216.8. She continues however to have dyspnea on exertion and dyspnea at rest. She notes a cough but states that she is not expelling any sputum. She is a former smoker. Baseline creatinine 1.56 that was May this year. Last hemoglobin was 9. She also notes that she has been feeling fatigued. Patient s tates that she has been using a lot of Pepto-Bismol for some colitis that she has had. She is on Plavix. 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 Physical Examination: Afebrile vital signs stable Gen: Well-nourished well-developed Head: Normocephalic atraumatic Eyes: Perrl EOMI ENT: TMs clear no rhinorrhea moist mucous membranes Neck: Supple no lymphadenopathy no JVD nontender CVS: Regular rate rhythm no murmurs normal S1-S2 Respiratory: No distress clear to auscultation bilaterally chest nontender Abdomen: Soft nontender nondistended normal bowel sounds no masses : Back: Nontender Extremity: Nontender no edema Skin: Normal color no rash Neuro: alert orientated ?3 CN II-XII intact normal strength sensation reflexes gait cerebellar Psych: Normal affect normal mood Test Results: EKG showed a sinus rhythm at a rate of [address] depression changes. Chest x-ray showed no acute findings. Hemoglobin is low at 6.6 troponin 0.7 creatinine 2.99 with a BUN of 95. Emergency Department Course and Treatment: Patient is anemic with acute renal failure and now elevated troponin. Patient will need to be transfused. We started gentle hydration. I spoke with Dr. Rivera (Cardiology) as well as Dr. Grier (Surgery) and Dr. Gurrola (medicine) Impression: 1. Acute blood loss anemia requiring transfusion 2. NSTEMI 3. Acute renal failure This note was generated with [employer] software. It may contain incorrect words, spelling, and punctuation that were not noted in review of the chart prior to signing ED Disposition - Plan for ED Patient: Disposition: Home or Assisted Living Chief Complaint: Shortness of Breath
[2018-08-10 16:28] LABS: Absolute Lymphocyte Count 2.18 X10^3/ul (0.83-4.51); Absolute Neutrophil Count 5.9 X10^3/uL (2.0-7.7); Basophil# 0.02 X10^3/uL; Basophil% 0.2 % (0-1); Eosinophils% 1.1 % (0-5); Hematocrit 20.6 % (37-47); Hemoglobin 6.4 g/dl (12.0-15.0); Lymphocyte # 2.18 X10^3/ul (4.0); Lymphocyte % 24.6 % (19-41); Mean Corp Hgb Conc 31.1 g/gl (32-36); Mean Corpuscular Hgb 27.6 pg (27.0-32.0); Mean Corpuscular Volume 88.8 fL (81-99); Mean Platelet Vol. 11.5 fl (6.2-12.0); Monocyte# 0.63 X10^3/uL; Monocyte% 7.1 % (0-10); Neutrophil % 66.8 % (47-70); Platelet Count 301 K/mm3 (150-450); RBC Distribution Width CV 14.6 % (11.6-14.6); RBC Distribution Width SD 44.9 fl (35.1-43.9); Red Blood Count 2.32 M/mm3 (4.2-5.4); White Blood Count 8.9 K/mm3 (4.4-11.0)
[2018-08-10 16:37] LABS: POSITIVE COUNT NO; POSITIVE DIFFERENTIAL NO; POSITIVE MORPHOLOGY NO
[2018-08-10 16:54] LABS: Iron Binding Capacity,Total 513 ug/dL (250-450)
[2018-08-10 16:58] LABS: Ferritin 11 ng/mL (8-252)
--- NOTE | 2018-08-10 17:03 | CON.PCM_ITS ---
Reason for Consult Date of Consultation: 08/10/18 Reason for Consultation: anemia, fatigue, CHF History of Present Illness: The patient is a 78 year old F with advanced complicated diabetes -CHF, CAD, PVD, with worsening fatigue and dyspenia on exertion. She was found to be dehydrated and anemia. Stool was positive of occult blood. She is blind, so had not noted blood in her stools. She is on peptobismol for chronic diarrhrea. She underwent a colonoscopy by Dr. Omer in [place] a few months previously for chronic diarrhea and started on she recalls Linzess, but had to quit due to the cost. She is again having loose stools. She denies abdominal pain. She has not had a prior upper endoscopy. in the October 28, she was noted to have increased BUN and creatinine and a decreased hemoglobin. She was also found to have ST segment depression or EKG. Her troponins are elevated. 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) Bilateral carotid artery stenosis (Chronic) Hyperlipidemia (Chronic) PVD (peripheral vascular disease) (Chronic) Medical History: Medical History (Last Reviewed 08/10/18 @ 15:44 by Red Gurrola DO) Fatigue (Acute) R53.83 Chronic diastolic heart failure (Chronic) I50.32 Essential (primary) hypertension (Chronic) I10 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) I25.798 Atherosclerotic heart disease of [place] coronary artery without angina pectoris (Chronic) I25.10 Bilateral carotid artery stenosis (Chronic) I65.23 Hyperlipidemia (Chronic) E78.5 PVD (peripheral vascular disease) (Chronic) I73.9 Anemia D64.9 Macular degeneration H35.30 Type 2 diabetes mellitus E11.9 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 Allergies latex Allergy (Verified 08/10/18 10:55) Hives Home Medications: Ambulatory Orders Medication Instructions Recorded Aspirin [Aspirin, Baby] 81 mg PO DAILY@0800 08/10/18 Atenolol 50 mg PO DAILY 08/10/18 Bupropion HCl 1 tab PO PRN PRN 08/10/18 Calcium Carbonate [Calcium] 600 mg PO DAILY 08/10/18 Cilostazol [Pletal] 50 mg PO BIDAC 08/10/18 Clopidogrel Bisulfate [Clopidogrel] 75 mg PO DAILY 08/10/18 Fenofibrate [Tricor] 145 mg PO DAILY 08/10/18 Furosemide [Lasix] 20 mg PO DAILY 08/10/18 Insulin Aspart [Novolog Flexpen 20 units SC TIDCM 08/10/18 ([facility])] Insulin Detemir [Levemir] 40 unit SQ BID 08/10/18 Isosorbide Mononitrate [Imdur] 30 mg PO DAILY 08/10/18 Lisinopril 2 tab PO BID 08/10/18 Multivitamin,Therapeutic [Thera] 1 each PO DAILY 08/10/18 Mv-Min/FA/Vit K/Lycop/Lut/Zeax 1 each PO DAILY 08/10/18 [Ocuvite Eye + Multi Tablet] Rosuvastatin Calcium [Crestor] 40 mg PO DAILY 08/10/18 Vitamin D3 1 tab PO DAILY 08/10/18 hydroCHLOROthiazide 25 mg PO DAILY 08/10/18 [Hydrochlorothiazide] Surgical History: Surgical History (Last Reviewed 08/10/18 @ 15:44 by Red Gurrola DO) H/O coronary artery bypass surgery (Resolved) Onset Date: 06/2009 Z95.1 CABG X 4: ONTIVEROS to LAD, SVG to high lateral cx, SVG to PDA and RCA 03/30/2009 History of coronary artery stent placement (Resolved) Onset Date: ~11/2010 Z95.5 GIO to the mid and distal main RCA origin, GIO-Prox PDA, GIO- RCA and AV continution of the RCA 11/2010 History of left heart catheterization Onset Date: 12/22/16 Z98.890 03/2009; 11/04/2010 [facility]; 12/22/2016 amputation of right second toe Onset Date: ~08/07/14 angioplasty to right SFA Onset Date: ~2013 bilateral iliac stents Surgical History: - - Cholecystectomy, hysterectomy, appendectomy, coronary artery bypass surgery, angioplasty, R 1st toe amputation. 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 Lives: Alone Smoking Status: Former smoker Alcohol: Rare Drugs: None - *Family History Maternal Family History: Family History (Last Reviewed 08/10/18 @ 15:44 by Red Gurrola DO) Father COPD (chronic obstructive pulmonary disease) Mother CAD (coronary artery disease) Myocardial infarction Diabetes Congestive heart failure Brother CAD (coronary artery disease) S/P CABG x 4 Sister CAD (coronary artery disease) Hx of CABG History Items: Diabetes Paternal Family History: Family History (Last Reviewed 08/10/18 @ 15:44 by Red Gurrola DO) Father COPD (chronic obstructive pulmonary disease) Mother CAD (coronary artery disease) Myocardial infarction Diabetes Congestive heart failure Brother CAD (coronary artery disease) S/P CABG x 4 Sister CAD (coronary artery disease) Hx of CABG History Items: Heart Disease Patient Problems: Active and Suspected Problems (Last Reviewed 08/10/18 @ 15:44 by Red Gurrola DO) Acute blood loss anemia (Acute) SELAM (acute kidney injury) (Acute) NSTEMI (non-ST elevated myocardial infarction) (Acute) - Physical Exam Vital Signs Temp Pulse Resp BP Pulse Ox 98.0 F 65 16 138/71 H 100 08/10/18 16:45 08/10/18 16:45 08/10/18 16:45 08/10/18 16:45 08/10/18 16:45 Oxygen Flow Rate (L/min) 2 Oxygen Delivery Method Nasal Cannula Weight: 95.8 kg Body Mass Index (BMI) 36.2 Intake and Output for Last 24 Hours 08/08/18 08/09/18 08/10/18 23:59 23:59 23:59 Intake Total 0 / 0 Balance 0 / 0 Microbiology Past 72 Hours 08/10/18 13:35 Stool Occult Blood (VISHNU) - Final Stool Occult Blood Positive Laboratory Tests Past 24 Hrs 08/10/18 08/10/18 08/10/18 12:20 12:20 12:20 WBC 10.6 RBC 2.43 L Hgb 6.6 L Hct 21.2 L MCV 87.2 MCH 27.2 MCHC 31.1 L RDW 15.0 H RDW Differential 47.9 H Plt Count 290 MPV 11.0 Immature Gran % (Auto) 0.300 Neut % (Auto) 71.0 H Lymph % (Auto) 21.8 [place] % (Auto) 5.6 Eos % (Auto) 1.0 Baso % (Auto) 0.3 Absolute Neuts (auto) 7.5 Absolute Lymphs (auto) 2.30 Total Counted Not Reportable PT 15.5 H INR 1.2 APTT 29.0 Sodium 140 Potassium 4.7 Chloride 103 Carbon Dioxide 25.0 Anion Gap 12 BUN 95 H Creatinine 2.99 H Estim Creat Clear Calc 12.66 Est GFR (MDRD) Af Amer 20 L Est GFR (MDRD) Non-Af 16 L BUN/Creatinine Ratio 31.8 H Glucose 167 H Calcium 8.9 TIBC Ferritin Total Bilirubin 0.20 AST 36 ALT 43 Alkaline Phosphatase 24 L Troponin I 0.705 H* B-Natriuretic Peptide Total Protein 6.9 Albumin 3.4 Globulin 3.5 Albumin/Globulin Ratio 1.0 Vitamin B12 RBC Folate Hemolysate RBC Folate Hematocrit Blood Type Antibody Screen Crossmatch 08/10/18 08/10/18 08/10/18 12:20 14:00 14:00 WBC RBC Hgb Hct MCV MCH MCHC RDW RDW Differential Plt Count MPV Immature Gran % (Auto) Neut % (Auto) Lymph % (Auto) [place] % (Auto) Eos % (Auto) Baso % (Auto) Absolute Neuts (auto) Absolute Lymphs (auto) Total Counted PT INR APTT Sodium Potassium Chloride Carbon Dioxide Anion Gap BUN Creatinine Estim Creat Clear Calc Est GFR (MDRD) Af Amer Est GFR (MDRD) Non-Af BUN/Creatinine Ratio Glucose Calcium TIBC Ferritin Total Bilirubin AST ALT Alkaline Phosphatase Troponin I B-Natriuretic Peptide 1354.4 H Total Protein Albumin Globulin Albumin/Globulin Ratio Vitamin B12 RBC Folate Hemolysate RBC Folate Hematocrit Blood Type A POSITIVE Antibody Screen NEGATIVE Crossmatch See Detail 08/10/18 08/10/18 08/10/18 16:15 16:15 16:15 WBC 8.9 RBC 2.32 L Hgb 6.4 L Hct 20.6 L MCV 88.8 MCH 27.6 MCHC 31.1 L RDW 14.6 RDW Differential 44.9 H Plt Count 301 MPV 11.5 Immature Gran % (Auto) 0.200 Neut % (Auto) 66.8 Lymph % (Auto) 24.6 [place] % (Auto) 7.1 Eos % (Auto) 1.1 Baso % (Auto) 0.2 Absolute Neuts (auto) 5.9 Absolute Lymphs (auto) 2.18 Total Counted Not Reportable PT INR APTT Sodium Potassium Chloride Carbon Dioxide Anion Gap BUN Creatinine Estim Creat Clear Calc Est GFR (MDRD) Af Amer Est GFR (MDRD) Non-Af BUN/Creatinine Ratio Glucose Calcium TIBC Ferritin Pending Total Bilirubin AST ALT Alkaline Phosphatase Troponin I B-Natriuretic Peptide Total Protein Albumin Globulin Albumin/Globulin Ratio Vitamin B12 Pending RBC Folate Hemolysate RBC Folate Hematocrit Blood Type Antibody Screen Crossmatch 08/10/18 08/10/18 16:15 16:15 WBC RBC Hgb Hct MCV MCH MCHC RDW RDW Differential Plt Count MPV Immature Gran % (Auto) Neut % (Auto) Lymph % (Auto) [place] % (Auto) Eos % (Auto) Baso % (Auto) Absolute Neuts (auto) Absolute Lymphs (auto) Total Counted PT INR APTT Sodium Potassium Chloride Carbon Dioxide Anion Gap BUN Creatinine Estim Creat Clear Calc Est GFR (MDRD) Af Amer Est GFR (MDRD) Non-Af BUN/Creatinine Ratio Glucose Calcium TIBC 513 H Ferritin Total Bilirubin AST ALT Alkaline Phosphatase Troponin I 0.899 H* B-Natriuretic Peptide Total Protein Albumin Globulin Albumin/Globulin Ratio Vitamin B12 RBC Folate Hemolysate Pending RBC Folate Pending Hematocrit Pending Blood Type Antibody Screen Crossmatch POC Glucose 08/10/18 08/10/18 15:29 13:09 POC Glucose 146 H 166 H Assessment/Plan All Active Problems (Last Reviewed 08/10/18 @ 15:44 by Red Gurrola DO) Acute blood loss anemia (Acute) SELAM (acute kidney injury) (Acute) NSTEMI (non-ST elevated myocardial infarction) (Acute) Fatigue (Acute) H/O coronary artery bypass surgery (Resolved 06/2009) History of coronary artery stent placement (Resolved ~11/2010) Gangrene (Resolved) Gangrene associated with type 2 diabetes mellitus (Resolved) Anemia, dehydration, complicated advanced diabetes, NSTEMI. Will be available for urgent EGD if signs of active bleeding. Otherwise, will plan for transfusion , medical optimization and then semi-elective EGD. Will try to obtain copies of recent colonoscopy report.
[2018-08-10] MEDS: 0.9% Normal Saline 1,000 ML 75 ML IV (22:34)
[2018-08-10] MEDS: Pantoprazole Sodium 40 MG Tablet PO (22:36)
[2018-08-10 22:51] LABS: Bedside Glucose 125 mg/dL (70-110)
[2018-08-11] VITALS (15 sets, daily range): BP systolic 115–136; BP diastolic 43–69; PULSE 55–76; RESP 14–18; TEMP 36.6–37; O2SAT 94–99
[2018-08-11 06:56] LABS: Bedside Glucose 155 mg/dL (70-110)
[2018-08-11 07:02] LABS: Hematocrit 23.1 % (37-47); Hemoglobin 7.2 g/dl (12.0-15.0); Mean Corp Hgb Conc 31.2 g/gl (32-36); Mean Corpuscular Hgb 26.7 pg (27.0-32.0); Mean Corpuscular Volume 85.6 fL (81-99); Platelet Count 278 K/mm3 (150-450); RBC Distribution Width CV 15.8 % (11.6-14.6); RBC Distribution Width SD 49.3 fl (35.1-43.9)
[2018-08-11 07:12] LABS: Scan Indicated on CBC? Y/N NO
[2018-08-11 07:13] LABS: International Normalized Ratio 1.2; Prothrombin Time (Protime)PT. 14.7 SECONDS (11.7-14.9)
[2018-08-11 07:34] LABS: ALB/GLOB Ratio 0.9 RATIO (0.9-2.4); AST(SGOT) 24 U/L (15-37); Alanine Aminotransfer ALT/SGPT 33 U/L (13-56); Alkaline Phosphatase 24 U/L (45-117); Anion Gap 11 (5-15); BUN 79 mg/dL (7-18); BUN/Creat Ratio 31.3 RATIO (10-20); Calcium,Total 8.2 mg/dL (8.5-10.1); Chloride 106 mmol/L (98-107); Creatinine, Serum 2.52 mg/dL (0.55-1.02); EST Glomerular Filtration Rate 20 mL/min (>60); Est Glom Filt Rate - Afr Amer 24 mL/min (>60); Globulin 3.3 g/dL (2.2-4.2); Glucose 135 mg/dL (74-106); Potassium 4.1 mmol/L (3.5-5.1); Protein, Total 6.3 g/dL (6.4-8.2); Sodium Level 142 mmol/L (136-145)
[2018-08-11 07:38] LABS: Ferritin 12 ng/mL (8-252)
[2018-08-11] MEDS: Aspirin 81 MG TAB.CHEW PO (08:18)
[2018-08-11] MEDS: Atenolol 50 MG Tablet PO (08:19)
[2018-08-11] MEDS: Pantoprazole Sodium 40 MG Tablet PO ×2 (08:19→21:07)
[2018-08-11] MEDS: Insulin Lispro 100 UNIT/ML INSULN.PEN SQ ×3 (08:22→16:13)
[2018-08-11 08:25] LABS: Bedside Glucose 164 mg/dL (70-110)
--- NOTE | 2018-08-11 09:33 | PCM.CONS.C ---
Problem List (1) NSTEMI (non-ST elevated myocardial infarction) Status: Acute (2) H/O coronary artery bypass surgery Status: Resolved Comment: CABG X 4: ONTIVEROS to LAD, SVG to high lateral cx, SVG to PDA and RCA 03/30/2009 (3) History of coronary artery stent placement Status: Resolved Comment: GIO to the mid and distal main RCA origin, GIO-Prox PDA, GIO- RCA and AV continution of the RCA 11/2010 (4) Bilateral carotid artery stenosis Status: Chronic (5) Hyperlipidemia Status: Chronic Qualifiers: Hyperlipidemia type: pure hypercholesterolemia Qualified Code(s): E78.00 - Pure hypercholesterolemia, unspecified Reason for Consult Date of Consultation: 08/11/18 Reason for Consultation: Acute anemia, non-STEMI, coronary artery disease, abnormal EKG, status post bypass, status post stents, peripheral vascular disease, carotid disease. History of Present Illness: The patient is a 78 year old F, who is legally blind, with diabetes, hypertension, hypercholesterolemia, peripheral vascular disease, coronary artery disease status post bypass surgery x3 with Dr. Hall in 2008. At that time she received a ONTIVEROS to the LAD, saphenous vein graft to the RCA, and a saphenous vein graft to the left circumflex. Repeat catheterization done in 2010 demonstrated occluded saphenous vein graft to the RCA, occluded saphenous vein graft to the circumflex, and patent ONTIVEROS to the LAD. At that time she underwent angioplasty and stenting to the RCA. Patient is a primary patient of Dr. Solitario, and underwent repeat catheterization on 12/22/16. At that time she was found to have severe three-vessel coronary disease, widely patent ONTIVEROS to the LAD, normal LV function of 60%, and no coronary vessels which were amenable to PCI. Patient is remain on baby aspirin and Plavix due to her peripheral vascular disease and remaining coronary disease. Patient apparently has a history of colitis and is a patient of Dr. Garcia. She underwent colonoscopy several months ago which demonstrated colitis and she was placed on Pepto-Bismol and Imodium. Her Imodium made her too constipated, and so she decreased this. She is now presenting with recurrent bloody diarrhea, and positive stools. She is unable to tell how long she has had bloody diarrhea as she has legally blind. Patient admitted with extreme weakness, was unable to walk with a walker, but had no chest pain symptoms. She was found to have a hemoglobin of 6.6, and received 1 unit of PRBCs. Troponins were cycled and peak troponin was found to be 0.906. Her EKG showed normal sinus rhythm with new anterolateral T wave inversion which was not present on previous EKGs. Prior to this she denied any chest pain, angina but did complain of mild dyspnea on exertion prior to her initial presentation. She is a former smoker quit around 40 years ago. Currently she is resting comfortably in her bed. Her hemoglobin is increased to 7.2. [] Past Medical History Allergies/Adverse Reactions: Allergies latex Allergy (Verified 08/10/18 10:55) Hives Home Medications: Ambulatory Orders Medication Instructions Recorded Aspirin [Aspirin, Baby] 81 mg PO DAILY@0800 08/10/18 Atenolol 50 mg PO DAILY 08/10/18 Bupropion HCl 1 tab PO PRN PRN 08/10/18 Calcium Carbonate [Calcium] 600 mg PO DAILY 08/10/18 Cilostazol [Pletal] 50 mg PO BIDAC 08/10/18 Clopidogrel Bisulfate [Clopidogrel] 75 mg PO DAILY 08/10/18 Fenofibrate [Tricor] 145 mg PO DAILY 08/10/18 Furosemide [Lasix] 20 mg PO DAILY 08/10/18 Insulin Aspart [Novolog Flexpen 20 units SC TIDCM 08/10/18 ([facility])] Insulin Detemir [Levemir] 40 unit SQ BID 08/10/18 Isosorbide Mononitrate [Imdur] 30 mg PO DAILY 08/10/18 Lisinopril 2 tab PO BID 08/10/18 Multivitamin,Therapeutic [Thera] 1 each PO DAILY 08/10/18 Mv-Min/FA/Vit K/Lycop/Lut/Zeax 1 each PO DAILY 08/10/18 [Ocuvite Eye + Multi Tablet] Rosuvastatin Calcium [Crestor] 40 mg PO DAILY 08/10/18 Vitamin D3 1 tab PO DAILY 08/10/18 hydroCHLOROthiazide 25 mg PO DAILY 08/10/18 [Hydrochlorothiazide] Past Medical History (Chronic Problems): Chronic Problems (Last Reviewed 08/10/18 @ 15:44 by Red Gurrola DO) Chronic diastolic heart failure (Chronic) Essential (primary) hypertension (Chronic) 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 - *Family History Maternal Family History: Family History (Last Reviewed 08/10/18 @ 15:44 by Red Gurrola DO) Father COPD (chronic obstructive pulmonary disease) Mother CAD (coronary artery disease) Myocardial infarction Diabetes Congestive heart failure Brother CAD (coronary artery disease) S/P CABG x 4 Sister CAD (coronary artery disease) Hx of CABG History Items: Diabetes Paternal Family History: Family History (Last Reviewed 08/10/18 @ 15:44 by Red Gurrola DO) Father COPD (chronic obstructive pulmonary disease) Mother CAD (coronary artery disease) Myocardial infarction Diabetes Congestive heart failure Brother CAD (coronary artery disease) S/P CABG x 4 Sister CAD (coronary artery disease) Hx of CABG History Items: Heart Disease Lives: Alone Smoking Status: Former smoker Alcohol: Rare Drugs: None Review of Systems - Review of Systems General: Denies: Fever, Night Sweats, Fatigue Cardiovascular: Denies: Chest Discomfort, Shortness of Breath, Orthopnea, PND, Peripheral Edema, Palpitations, Lightheadedness, Dizziness, Near Syncope, Syncope Respiratory: Denies: Cough, Sputum Production, Hemoptysis Gastrointestinal: Denies: Hematemesis, Hematochezia, Melena Genitourinary: Denies: Dysuria, Hematuria Skin: Denies: Rash Subjectve: Patient resting comfortably, no chest pain or shortness of breath. Objective: Vital Signs Temp Pulse Resp BP Pulse Ox 97.8 F 60 18 134/69 H 98 08/11/18 08:14 08/11/18 08:14 08/11/18 08:14 08/11/18 08:14 08/11/18 08:14 Oxygen Flow Rate (L/min) 2 Oxygen Delivery Method Nasal Cannula Weight: 211 lb 3.245 oz Body Mass Index (BMI) 36.2 Intake and Output for Last 24 Hours 08/09/18 08/10/18 08/11/18 23:59 23:59 23:59 Intake Total 860 / 860 469 / 469 Balance 860 / 860 469 / 469 General: Awake, Alert, Oriented x 3 HEENT: PERRL, EOMI, Sclera Non Icteric Neck: Supple, Good ROM, No Lymph Node Enlargement Lungs: Clear to auscultation Cardiovascular: Regular Rhythm, Normal S1, Normal S2, No Murmurs, No Rubs, No Gallops Vascular: No Carotid Bruits, Normal Femoral Pulses, Normal Radial Pulses, Normal Dorsalis Pedal Pulse, Normal Posterior Tibial Pulses Abdomen: Bowel Sounds Present, Soft, Non Tender, No HSM, No Organomegaly Extremities: No Cyanosis, No Clubbing, No edema Neurological: No Focal Motor or Sensory Deficit 08/10/18 12:20: WBC 10.6, RBC 2.43 L, Hgb 6.6 L, Hct 21.2 L, MCV 87.2, MCH 27.2, MCHC 31.1 L, RDW 15.0 H, RDW Differential 47.9 H, Plt Count 290, MPV 11.0, Immature Gran % (Auto) 0.300, Neut % (Auto) 71.0 H, Lymph % (Auto) 21.8, [place] % (Auto) 5.6, Eos % (Auto) 1.0, Baso % (Auto) 0.3, Absolute Neuts (auto) 7.5, Total Counted Not Reportable 08/10/18 12:20: PT 15.5 H, INR 1.2, APTT 29.0 08/10/18 12:20: Sodium 140, Potassium 4.7, Chloride 103, Carbon Dioxide 25.0, Anion Gap 12, BUN 95 H, Creatinine 2.99 H, Est GFR (MDRD) Af Amer 20 L, Est GFR (MDRD) Non-Af 16 L, BUN/Creatinine Ratio 31.8 H, Glucose 167 H, Calcium 8.9, Total Bilirubin 0.20, Troponin I 0.705 H* 08/10/18 12:20: B-Natriuretic Peptide 1354.4 H 08/10/18 16:15: WBC 8.9, RBC 2.32 L, Hgb 6.4 L, Hct 20.6 L, MCV 88.8, MCH 27.6, MCHC 31.1 L, RDW 14.6, RDW Differential 44.9 H, Plt Count 301, MPV 11.5, Immature Gran % (Auto) 0.200, Neut % (Auto) 66.8, Lymph % (Auto) 24.6, [place] % (Auto) 7.1, Eos % (Auto) 1.1, Baso % (Auto) 0.2, Absolute Neuts (auto) 5.9, Total Counted Not Reportable 08/10/18 16:15: Ferritin 11 08/10/18 16:15: TIBC 513 H, Troponin I 0.899 H* 08/10/18 18:55: Troponin I 0.906 H* 08/11/18 05:29: WBC 8.0, RBC 2.70 L, Hgb 7.2 L, Hct 23.1 L, MCV 85.6, MCH 26.7 L, MCHC 31.2 L, RDW 15.8 H, RDW Differential 49.3 H, Plt Count 278, MPV 11.0 08/11/18 05:29: PT 14.7, INR 1.2 08/11/18 05:29: Sodium 142, Potassium 4.1, Chloride 106, Carbon Dioxide 25.0, Anion Gap 11, BUN 79 H, Creatinine 2.52 H, Est GFR (MDRD) Af Amer 24 L, Est GFR (MDRD) Non-Af 20 L, BUN/Creatinine Ratio 31.3 H, Glucose 135 H, Calcium 8.2 L, Total Bilirubin 0.20 08/11/18 05:29: Ferritin 12 Rhythm: EKG: Normal sinus rhythm, normal axis, new anterolateral T wave inversion not present on previous EKG. ECHO: Pending. Stress Test: Cardiac Cath: PCI: CT Surgery: Holter monitor: EPS: PPM: CXR: Chest CT Scan: Assessment/Plan 1. Coronary artery disease: The patient presents with extreme weakness, tiredness, but no chest pain or anginal symptoms. She has known severe coronary artery disease and has 1 remaining patent graft with her ONTIVEROS to the LAD. The patient has significant disease in her left circumflex and RCA systems which appear to be not amenable to PCI. Patient presents now with acute anemia most likely secondary to either recurrent colitis, or upper GI bleeding. Her troponins have peaked at 0.906 at this time. She is remained asymptomatic. Given the patient's acute anemia, she is not a good candidate for dual antiplatelet therapy nor would she be a good candidate for repeat catheterization at this time. I also would not entertain the option of a stress test as she is already undergone a stress test with her acute anemia. I believe it is reasonable to proceed with EGD and/or colonoscopy if these are indicated the patient is at moderate risk for these procedures. I believe they can be done reasonably safely here at [facility] with cardiac assistance. I would recommend continuation of her baby aspirin given her severe coronary disease and peripheral vascular disease however I would discontinue her Plavix which may take several days to dimas out of her system. I agree with aggressive PPI therapy with pantoprazole 40 mg p.o. twice daily. Pending the outcome of her EGD will determine if she requires more aggressive treatment. I would recommend obtaining a 2D echo with Doppler to confirm that her LV function has remained normal given her EKG changes, and abnormal troponins. 2. Hypertension: Her blood pressure and heart rate are fairly well-controlled. Continue present management. 3. Hyperlipidemia: Patient was on Crestor and fenofibrate as an outpatient. Would recommend resuming these once her scopes have been completed. 4. Discussed plan with Dr. Galloway. Thank you very much for the opportunity to participate in the cardiac care of your patient. Consultation time took place between 8 AM and 8:30 AM. Code Visit Inpatient E&M: 95186 Init Hosp L2
--- NOTE | 2018-08-11 09:37 | CON.PCM_ITS ---
Problem List (1) NSTEMI (non-ST elevated myocardial infarction) Status: Acute (2) H/O coronary artery bypass surgery Status: Resolved Comment: CABG X 4: ONTIVEROS to LAD, SVG to high lateral cx, SVG to PDA and RCA 03/30/2009 (3) History of coronary artery stent placement Status: Resolved Comment: GIO to the mid and distal main RCA origin, GIO-Prox PDA, GIO- RCA and AV continution of the RCA 11/2010 (4) Bilateral carotid artery stenosis Status: Chronic (5) Hyperlipidemia Status: Chronic Qualifiers: Hyperlipidemia type: pure hypercholesterolemia Qualified Code(s): E78.00 - Pure hypercholesterolemia, unspecified Reason for Consult Date of Consultation: 08/11/18 Reason for Consultation: Acute anemia, non-STEMI, coronary artery disease, abnormal EKG, status post bypass, status post stents, peripheral vascular disease, carotid disease. History of Present Illness: The patient is a 78 year old F, who is legally blind, with diabetes, hypertension, hypercholesterolemia, peripheral vascular disease, coronary artery disease status post bypass surgery x3 with Dr. Hall in 2008. At that time she received a ONTIVEROS to the LAD, saphenous vein graft to the RCA, and a saphenous vein graft to the left circumflex. Repeat catheterization done in 2010 demonstrated occluded saphenous vein graft to the RCA, occluded saphenous vein graft to the circumflex, and patent ONTIVEROS to the LAD. At that time she underwent angioplasty and stenting to the RCA. Patient is a primary patient of Dr. Solitario, and underwent repeat catheterization on 12/22/16. At that time she was found to have severe three- vessel coronary disease, widely patent ONTIVEROS to the LAD, normal LV function of 60%, and no coronary vessels which were amenable to PCI. Patient is remain on baby aspirin and Plavix due to her peripheral vascular disease and remaining coronary disease. Patient apparently has a history of colitis and is a patient of Dr. Garcia. She underwent colonoscopy several months ago which demonstrated colitis and she was placed on Pepto-Bismol and Imodium. Her Imodium made her too constipated, and so she decreased this. She is now presenting with recurrent bloody diarrhea, and positive stools. She is unable to tell how long she has had bloody diarrhea as she has legally blind. Patient admitted with extreme weakness, was unable to walk with a walker, but had no chest pain symptoms. She was found to have a hemoglobin of 6.6, and received 1 unit of PRBCs. Troponins were cycled and peak troponin was found to be 0.906. Her EKG showed normal sinus rhythm with new anterolateral T wave inversion which was not present on previous EKGs. Prior to this she denied any chest pain, angina but did complain of mild dyspnea on exertion prior to her initial presentation. She is a former smoker quit around 40 years ago. Currently she is resting comfortably in her bed. Her hemoglobin is increased to 7.2. [] Past Medical History Allergies/Adverse Reactions: Allergies latex Allergy (Verified 08/10/18 10:55) Hives Home Medications: Ambulatory Orders Medication Instructions Recorded Aspirin [Aspirin, Baby] 81 mg PO DAILY@0800 08/10/18 Atenolol 50 mg PO DAILY 08/10/18 Bupropion HCl 1 tab PO PRN PRN 08/10/18 Calcium Carbonate [Calcium] 600 mg PO DAILY 08/10/18 Cilostazol [Pletal] 50 mg PO BIDAC 08/10/18 Clopidogrel Bisulfate [Clopidogrel] 75 mg PO DAILY 08/10/18 Fenofibrate [Tricor] 145 mg PO DAILY 08/10/18 Furosemide [Lasix] 20 mg PO DAILY 08/10/18 Insulin Aspart [Novolog Flexpen 20 units SC TIDCM 08/10/18 ([facility])] Insulin Detemir [Levemir] 40 unit SQ BID 08/10/18 Isosorbide Mononitrate [Imdur] 30 mg PO DAILY 08/10/18 Lisinopril 2 tab PO BID 08/10/18 Multivitamin,Therapeutic [Thera] 1 each PO DAILY 08/10/18 Mv-Min/FA/Vit K/Lycop/Lut/Zeax 1 each PO DAILY 08/10/18 [Ocuvite Eye + Multi Tablet] Rosuvastatin Calcium [Crestor] 40 mg PO DAILY 08/10/18 Vitamin D3 1 tab PO DAILY 08/10/18 hydroCHLOROthiazide 25 mg PO DAILY 08/10/18 [Hydrochlorothiazide] Past Medical History (Chronic Problems): Chronic Problems (Last Reviewed 08/10/18 @ 15:44 by eRd Gurrola DO) Chronic diastolic heart failure (Chronic) Essential (primary) hypertension (Chronic) 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) Atherosclerotic heart disease of [place] coronary artery without angina pectoris (Chronic) Bilateral carotid artery stenosis (Chronic) Hyperlipidemia (Chronic) PVD (peripheral vascular disease) (Chronic) Surgical History: - - Cholecystectomy, hysterectomy, appendectomy, coronary artery bypass surgery, angioplasty, R 1st toe amputation. Psychiatric History: No pertinent psych hx [employer]ER History: No pertinent [employer] SOCK[employer]ER history - *Family History Maternal Family History: Family History (Last Reviewed 08/10/18 @ 15:44 by Red Gurrola DO) Father COPD (chronic obstructive pulmonary disease) Mother CAD (coronary artery disease) Myocardial infarction Diabetes Congestive heart failure Brother CAD (coronary artery disease) S/P CABG x 4 Sister CAD (coronary artery disease) Hx of CABG History Items: Diabetes Paternal Family History: Family History (Last Reviewed 08/10/18 @ 15:44 by Red Gurrola DO) Father COPD (chronic obstructive pulmonary disease) Mother CAD (coronary artery disease) Myocardial infarction Diabetes Congestive heart failure Brother CAD (coronary artery disease) S/P CABG x 4 Sister CAD (coronary artery disease) Hx of CABG History Items: Heart Disease Lives: Alone Smoking Status: Former smoker Alcohol: Rare Drugs: None Review of Systems - Review of Systems General: Denies: Fever, Night Sweats, Fatigue Cardiovascular: Denies: Chest Discomfort, Shortness of Breath, Orthopnea, PND, Peripheral Edema, Palpitations, Lightheadedness, Dizziness, Near Syncope, Syncope Respiratory: Denies: Cough, Sputum Production, Hemoptysis Gastrointestinal: Denies: Hematemesis, Hematochezia, Melena Genitourinary: Denies: Dysuria, Hematuria Skin: Denies: Rash Subjectve: Patient resting comfortably, no chest pain or shortness of breath. Objective: Vital Signs Temp Pulse Resp BP Pulse Ox 97.8 F 60 18 134/69 H 98 08/11/18 08:14 08/11/18 08:14 08/11/18 08:14 08/11/18 08:14 08/11/18 08:14 Oxygen Flow Rate (L/min) 2 Oxygen Delivery Method Nasal Cannula Weight: 211 lb 3.245 oz Body Mass Index (BMI) 36.2 Intake and Output for Last 24 Hours 08/09/18 08/10/18 08/11/18 23:59 23:59 23:59 Intake Total 860 / 860 469 / 469 Balance 860 / 860 469 / 469 General: Awake, Alert, Oriented x 3 HEENT: PERRL, EOMI, Sclera Non Icteric Neck: Supple, Good ROM, No Lymph Node Enlargement Lungs: Clear to auscultation Cardiovascular: Regular Rhythm, Normal S1, Normal S2, No Murmurs, No Rubs, No Gallops Vascular: No Carotid Bruits, Normal Femoral Pulses, Normal Radial Pulses, Normal Dorsalis Pedal Pulse, Normal Posterior Tibial Pulses Abdomen: Bowel Sounds Present, Soft, Non Tender, No HSM, No Organomegaly Extremities: No Cyanosis, No Clubbing, No edema Neurological: No Focal Motor or Sensory Deficit 08/10/18 12:20: WBC 10.6, RBC 2.43 L, Hgb 6.6 L, Hct 21.2 L, MCV 87.2, MCH 27.2, MCHC 31.1 L, RDW 15.0 H, RDW Differential 47.9 H, Plt Count 290, MPV 11.0, Immature Gran % (Auto) 0.300, Neut % (Auto) 71.0 H, Lymph % (Auto) 21.8, [place] % (Auto) 5.6, Eos % (Auto) 1.0, Baso % (Auto) 0.3, Absolute Neuts (auto) 7.5, Total Counted Not Reportable 08/10/18 12:20: PT 15.5 H, INR 1.2, APTT 29.0 08/10/18 12:20: Sodium 140, Potassium 4.7, Chloride 103, Carbon Dioxide 25.0, Anion Gap 12, BUN 95 H, Creatinine 2.99 H, Est GFR (MDRD) Af Amer 20 L, Est GFR (MDRD) Non-Af 16 L, BUN/Creatinine Ratio 31.8 H, Glucose 167 H, Calcium 8.9, Total Bilirubin 0.20, Troponin I 0.705 H* 08/10/18 12:20: B-Natriuretic Peptide 1354.4 H 08/10/18 16:15: WBC 8.9, RBC 2.32 L, Hgb 6.4 L, Hct 20.6 L, MCV 88.8, MCH 27.6, MCHC 31.1 L, RDW 14.6, RDW Differential 44.9 H, Plt Count 301, MPV 11.5, Immature Gran % (Auto) 0.200, Neut % (Auto) 66.8, Lymph % (Auto) 24.6, [place] % (Auto) 7.1, Eos % (Auto) 1.1, Baso % (Auto) 0.2, Absolute Neuts (auto) 5.9, Total Counted Not Reportable 08/10/18 16:15: Ferritin 11 08/10/18 16:15: TIBC 513 H, Troponin I 0.899 H* 08/10/18 18:55: Troponin I 0.906 H* 08/11/18 05:29: WBC 8.0, RBC 2.70 L, Hgb 7.2 L, Hct 23.1 L, MCV 85.6, MCH 26.7 L , MCHC 31.2 L, RDW 15.8 H, RDW Differential 49.3 H, Plt Count 278, MPV 11.0 08/11/18 05:29: PT 14.7, INR 1.2 08/11/18 05:29: Sodium 142, Potassium 4.1, Chloride 106, Carbon Dioxide 25.0, Anion Gap 11, BUN 79 H, Creatinine 2.52 H, Est GFR (MDRD) Af Amer 24 L, Est GFR (MDRD) Non-Af 20 L, BUN/Creatinine Ratio 31.3 H, Glucose 135 H, Calcium 8.2 L, Total Bilirubin 0.20 08/11/18 05:29: Ferritin 12 Rhythm: EKG: Normal sinus rhythm, normal axis, new anterolateral T wave inversion not present on previous EKG. ECHO: Pending. Stress Test: Cardiac Cath: PCI: CT Surgery: Holter monitor: EPS: PPM: CXR: Chest CT Scan: Assessment/Plan 1. Coronary artery disease: The patient presents with extreme weakness, tiredness, but no chest pain or anginal symptoms. She has known severe coronary artery disease and has 1 remaining patent graft with her ONTIVEROS to the LAD. The patient has significant disease in her left circumflex and RCA systems which appear to be not amenable to PCI. Patient presents now with acute anemia most likely secondary to either recurrent colitis, or upper GI bleeding. Her troponins have peaked at 0.906 at this time. She is remained asymptomatic. Given the patient's acute anemia, she is not a good candidate for dual antiplatelet therapy nor would she be a good candidate for repeat catheterization at this time. I also would not entertain the option of a stress test as she is already undergone a stress test with her acute anemia. I believe it is reasonable to proceed with EGD and/or colonoscopy if these are indicated the patient is at moderate risk for these procedures. I believe they can be done reasonably safely here at [facility] with cardiac assistance. I would recommend continuation of her baby aspirin given her severe coronary disease and peripheral vascular disease however I would discontinue her Plavix which may take several days to dimas out of her system. I agree with aggressive PPI therapy with pantoprazole 40 mg p.o. twice daily. Pending the outcome of her EGD will determine if she requires more aggressive treatment. I would recommend obtaining a 2D echo with Doppler to confirm that her LV function has remained normal given her EKG changes, and abnormal troponins. 2. Hypertension: Her blood pressure and heart rate are fairly well-controlled. Continue present management. 3. Hyperlipidemia: Patient was on Crestor and fenofibrate as an outpatient. Would recommend resuming these once her scopes have been completed. 4. Discussed plan with Dr. Galloway. Thank you very much for the opportunity to participate in the cardiac care of your patient. Consultation time took place between 8 AM and 8:30 AM. Code Visit Inpatient E&M: 08855 Init Hosp L2
--- NOTE | 2018-08-11 09:44 | PN.SURG_ITS ---
Patient Problems: Active and Suspected Problems (Last Reviewed 08/10/18 @ 15:44 by Red Gurrola DO) Acute blood loss anemia (Acute) SELAM (acute kidney injury) (Acute) NSTEMI (non-ST elevated myocardial infarction) (Acute) Subjective: patient feeling with more energy, no abdominal complaints - Physical Exam General: Alert, Oriented x3 Lungs: Clear to auscultation Cardiovascular: Irregular Rate Abdomen: Bowel Sounds Present, Soft, Non Tender Vital Signs Temp Pulse Resp BP Pulse Ox 97.8 F 60 18 134/69 H 98 08/11/18 08:14 08/11/18 08:14 08/11/18 08:14 08/11/18 08:14 08/11/18 08:14 Oxygen Flow Rate (L/min) 2 Oxygen Delivery Method Nasal Cannula Weight: 95.8 kg Body Mass Index (BMI) 36.2 Intake and Output for Last 24 Hours 08/09/18 08/10/18 08/11/18 23:59 23:59 23:59 Intake Total 860 / 860 469 / 469 Balance 860 / 860 469 / 469 Microbiology Past 72 Hours 08/10/18 13:35 Stool Occult Blood (VISHNU) - Final Stool Occult Blood Positive Laboratory Tests Past 24 Hrs 08/10/18 08/10/18 08/10/18 12:20 12:20 12:20 WBC 10.6 RBC 2.43 L Hgb 6.6 L Hct 21.2 L MCV 87.2 MCH 27.2 MCHC 31.1 L RDW 15.0 H RDW Differential 47.9 H Plt Count 290 MPV 11.0 Immature Gran % (Auto) 0.300 Neut % (Auto) 71.0 H Lymph % (Auto) 21.8 [place] % (Auto) 5.6 Eos % (Auto) 1.0 Baso % (Auto) 0.3 Absolute Neuts (auto) 7.5 Absolute Lymphs (auto) 2.30 Total Counted Not Reportable PT 15.5 H INR 1.2 APTT 29.0 Sodium 140 Potassium 4.7 Chloride 103 Carbon Dioxide 25.0 Anion Gap 12 BUN 95 H Creatinine 2.99 H Estim Creat Clear Calc 12.66 Est GFR (MDRD) Af Amer 20 L Est GFR (MDRD) Non-Af 16 L BUN/Creatinine Ratio 31.8 H Glucose 167 H Calcium 8.9 TIBC Ferritin Total Bilirubin 0.20 AST 36 ALT 43 Alkaline Phosphatase 24 L Troponin I 0.705 H* B-Natriuretic Peptide Total Protein 6.9 Albumin 3.4 Globulin 3.5 Albumin/Globulin Ratio 1.0 Vitamin B12 RBC Folate Hemolysate RBC Folate Hematocrit TSH Blood Type Antibody Screen Crossmatch 08/10/18 08/10/18 08/10/18 12:20 14:00 14:00 WBC RBC Hgb Hct MCV MCH MCHC RDW RDW Differential Plt Count MPV Immature Gran % (Auto) Neut % (Auto) Lymph % (Auto) [place] % (Auto) Eos % (Auto) Baso % (Auto) Absolute Neuts (auto) Absolute Lymphs (auto) Total Counted PT INR APTT Sodium Potassium Chloride Carbon Dioxide Anion Gap BUN Creatinine Estim Creat Clear Calc Est GFR (MDRD) Af Amer Est GFR (MDRD) Non-Af BUN/Creatinine Ratio Glucose Calcium TIBC Ferritin Total Bilirubin AST ALT Alkaline Phosphatase Troponin I B-Natriuretic Peptide 1354.4 H Total Protein Albumin Globulin Albumin/Globulin Ratio Vitamin B12 RBC Folate Hemolysate RBC Folate Hematocrit TSH Blood Type A POSITIVE Antibody Screen NEGATIVE Crossmatch See Detail 08/10/18 08/10/18 08/10/18 16:15 16:15 16:15 WBC 8.9 RBC 2.32 L Hgb 6.4 L Hct 20.6 L MCV 88.8 MCH 27.6 MCHC 31.1 L RDW 14.6 RDW Differential 44.9 H Plt Count 301 MPV 11.5 Immature Gran % (Auto) 0.200 Neut % (Auto) 66.8 Lymph % (Auto) 24.6 [place] % (Auto) 7.1 Eos % (Auto) 1.1 Baso % (Auto) 0.2 Absolute Neuts (auto) 5.9 Absolute Lymphs (auto) 2.18 Total Counted Not Reportable PT INR APTT Sodium Potassium Chloride Carbon Dioxide Anion Gap BUN Creatinine Estim Creat Clear Calc Est GFR (MDRD) Af Amer Est GFR (MDRD) Non-Af BUN/Creatinine Ratio Glucose Calcium TIBC Ferritin 11 Total Bilirubin AST ALT Alkaline Phosphatase Troponin I B-Natriuretic Peptide Total Protein Albumin Globulin Albumin/Globulin Ratio Vitamin B12 Pending RBC Folate Hemolysate RBC Folate Hematocrit TSH Blood Type Antibody Screen Crossmatch 08/10/18 08/10/18 08/10/18 16:15 16:15 18:55 WBC RBC Hgb Hct MCV MCH MCHC RDW RDW Differential Plt Count MPV Immature Gran % (Auto) Neut % (Auto) Lymph % (Auto) [place] % (Auto) Eos % (Auto) Baso % (Auto) Absolute Neuts (auto) Absolute Lymphs (auto) Total Counted PT INR APTT Sodium Potassium Chloride Carbon Dioxide Anion Gap BUN Creatinine Estim Creat Clear Calc Est GFR (MDRD) Af Amer Est GFR (MDRD) Non-Af BUN/Creatinine Ratio Glucose Calcium TIBC 513 H Ferritin Total Bilirubin AST ALT Alkaline Phosphatase Troponin I 0.899 H* 0.906 H* B-Natriuretic Peptide Total Protein Albumin Globulin Albumin/Globulin Ratio Vitamin B12 RBC Folate Hemolysate Pending RBC Folate Pending Hematocrit Pending TSH Blood Type Antibody Screen Crossmatch 08/11/18 08/11/18 08/11/18 05:29 05:29 05:29 WBC 8.0 RBC 2.70 L Hgb 7.2 L Hct 23.1 L MCV 85.6 MCH 26.7 L MCHC 31.2 L RDW 15.8 H RDW Differential 49.3 H Plt Count 278 MPV 11.0 Immature Gran % (Auto) Neut % (Auto) Lymph % (Auto) [place] % (Auto) Eos % (Auto) Baso % (Auto) Absolute Neuts (auto) Absolute Lymphs (auto) Total Counted PT 14.7 INR 1.2 APTT Sodium 142 Potassium 4.1 Chloride 106 Carbon Dioxide 25.0 Anion Gap 11 BUN 79 H Creatinine 2.52 H Estim Creat Clear Calc 16.40 Est GFR (MDRD) Af Amer 24 L Est GFR (MDRD) Non-Af 20 L BUN/Creatinine Ratio 31.3 H Glucose 135 H Calcium 8.2 L TIBC Ferritin Total Bilirubin 0.20 AST 24 ALT 33 Alkaline Phosphatase 24 L Troponin I B-Natriuretic Peptide Total Protein 6.3 L Albumin 3.0 L Globulin 3.3 Albumin/Globulin Ratio 0.9 Vitamin B12 RBC Folate Hemolysate RBC Folate Hematocrit TSH 3.20 Blood Type Antibody Screen Crossmatch 08/11/18 05:29 WBC RBC Hgb Hct MCV MCH MCHC RDW RDW Differential Plt Count MPV Immature Gran % (Auto) Neut % (Auto) Lymph % (Auto) [place] % (Auto) Eos % (Auto) Baso % (Auto) Absolute Neuts (auto) Absolute Lymphs (auto) Total Counted PT INR APTT Sodium Potassium Chloride Carbon Dioxide Anion Gap BUN Creatinine Estim Creat Clear Calc Est GFR (MDRD) Af Amer Est GFR (MDRD) Non-Af BUN/Creatinine Ratio Glucose Calcium TIBC Ferritin 12 Total Bilirubin AST ALT Alkaline Phosphatase Troponin I B-Natriuretic Peptide Total Protein Albumin Globulin Albumin/Globulin Ratio Vitamin B12 RBC Folate Hemolysate RBC Folate Hematocrit TSH Blood Type Antibody Screen Crossmatch POC Glucose 08/11/18 08/11/18 08/10/18 08:15 06:48 22:33 POC Glucose 164 H 155 H 125 H 08/10/18 08/10/18 15:29 13:09 POC Glucose 146 H 166 H Medical Necessity - Tobacco Use Smoking Status: Former smoker Assessment/Plan All Active Problems (Last Reviewed 08/10/18 @ 15:44 by Red Gurrola DO) Acute blood loss anemia (Acute) SELAM (acute kidney injury) (Acute) NSTEMI (non-ST elevated myocardial infarction) (Acute) Fatigue (Acute) H/O coronary artery bypass surgery (Resolved 06/2009) History of coronary artery stent placement (Resolved ~11/2010) Gangrene (Resolved) Gangrene associated with type 2 diabetes mellitus (Resolved) Anemia, dehydration, complicated advanced diabetes, NSTEMI. Will be available for urgent EGD if signs of active bleeding. Otherwise, will plan for transfusion 1 additional unit of packed red cells and continue medical optimization. plan for upper endoscopy tomorrow morning. the patient understands the risks, benefits, possible complications given her recent cardiac issues and consents to upper endoscopy. Will try to obtain copies of recent colonoscopy report.
[2018-08-11] MEDS: Ondansetron 4 MG/2 ML Vial IV (11:20)
--- NOTE | 2018-08-11 11:30 | NURSING ---
Unit #2 blood initiated at 1128 on 08/11/18.
[2018-08-11 11:55] LABS: Bedside Glucose 197 mg/dL (70-110)
--- NOTE | 2018-08-11 14:53 | PCM.PN.HOSP ---
Patient Problems: Active and Suspected Problems (Last Reviewed 08/10/18 @ 15:44 by Red Gurrola DO) Acute blood loss anemia (Acute) SELAM (acute kidney injury) (Acute) NSTEMI (non-ST elevated myocardial infarction) (Acute) Subjective: no bleeding. feels better after transfusion. Vitals/I&O's: Vital Signs Temp Pulse Resp BP Pulse Ox 36.8 C 58 L 18 118/43 L 96 08/11/18 11:43 08/11/18 11:43 08/11/18 11:43 08/11/18 11:43 08/11/18 11:43 Oxygen Flow Rate (L/min) 2 Oxygen Delivery Method Nasal Cannula Weight: 95.8 kg Body Mass Index (BMI) 36.2 Intake and Output for Last 24 Hours 08/09/18 08/10/18 08/11/18 23:59 23:59 23:59 Intake Total 860 / 860 469 / 469 Balance 860 / 860 469 / 469 General: Alert, Cooperative, No apparent distress HEENT: Atraumatic, Normocephalic Oral: Moist Mucosa, No Gingival or Mucosal Lesions/ Ulcerations Neck: No Nodes, Thyroid Normal Size and Texture Lungs: Clear to auscultation, Normal air movement, No rhonchi, No wheeze Cardiovascular: Regular rate, Regular Rhythm, Normal S1, Normal S2 Abdomen: Bowel Sounds Present, Soft, Non Tender, Non-Distended Extremities: No clubbing, No cyanosis Skin: No rashes, No breakdown Musculoskeletal: No Tenderness to Palpation of Joints or Extremities Psych/Mental Status: Normal Affect, Appropriate Microbiology Past 72 Hours 08/10/18 13:35 Stool Stool Occult Blood (VISHNU) - Final Occult Blood Positive Laboratory Results 08/10/18 14:00: Blood Type A POSITIVE, Antibody Screen NEGATIVE 08/10/18 14:00: Crossmatch See Detail 08/10/18 15:29: POC Glucose 146 H 08/10/18 16:15: WBC 8.9, RBC 2.32 L, Hgb 6.4 L, Hct 20.6 L, MCV 88.8, MCH 27.6, MCHC 31.1 L, RDW 14.6, RDW Differential 44.9 H, Plt Count 301, MPV 11.5, Immature Gran % (Auto) 0.200, Neut % (Auto) 66.8, Lymph % (Auto) 24.6, [place] % (Auto) 7.1, Eos % (Auto) 1.1, Baso % (Auto) 0.2, Absolute Neuts (auto) 5.9, Absolute Lymphs (auto) 2.18, Total Counted Not Reportable 08/10/18 16:15: Ferritin 11 08/10/18 16:15: Vitamin B12 Pending 08/10/18 16:15: RBC Folate Hemolysate Pending, RBC Folate Pending, Hematocrit Pending 08/10/18 16:15: TIBC 513 H, Troponin I 0.899 H* 08/10/18 18:55: Troponin I 0.906 H* 08/10/18 22:33: POC Glucose 125 H 08/11/18 05:29: WBC 8.0, RBC 2.70 L, Hgb 7.2 L, Hct 23.1 L, MCV 85.6, MCH 26.7 L, MCHC 31.2 L, RDW 15.8 H, RDW Differential 49.3 H, Plt Count 278, MPV 11.0 08/11/18 05:29: PT 14.7, INR 1.2 08/11/18 05:29: Sodium 142, Potassium 4.1, Chloride 106, Carbon Dioxide 25.0, Anion Gap 11, BUN 79 H, Creatinine 2.52 H, Estim Creat Clear Calc 16.40, Est GFR (MDRD) Af Amer 24 L, Est GFR (MDRD) Non-Af 20 L, BUN/Creatinine Ratio 31.3 H, Glucose 135 H, Calcium 8.2 L, Total Bilirubin 0.20, AST 24, ALT 33, Alkaline Phosphatase 24 L, Total Protein 6.3 L, Albumin 3.0 L, Globulin 3.3, Albumin/Globulin Ratio 0.9, TSH 3.20 08/11/18 05:29: Ferritin 12 08/11/18 06:48: POC Glucose 155 H 08/11/18 08:15: POC Glucose 164 H 08/11/18 11:24: POC Glucose 197 H Current Medications Aspirin (Aspirin, Baby) 81 mg PO DAILY@0800 [facility] Last Admin: 08/11/18 08:18 Dose: 81 mg Atenolol (Tenormin (Beta Demario)) 50 mg PO DAILY [facility] Last Admin: 08/11/18 08:19 Dose: 50 mg Dextrose (D50w Syringe) 0 gm IV X1 PRN; Protocol PRN Reason: Hypoglycemia Glucagon () 1 mg IM .X1 PRN PRN Reason: Hypoglycemia Insulin Glargine (Lantus (Bkc)) 20 units SC BID [facility] Last Admin: 08/11/18 08:19 Dose: Not Given Insulin Human Lispro (Humalog Kwikpen (Bkc)) 0 unit SQ TIDAC [facility]; Protocol Last Admin: 08/11/18 11:46 Dose: 2 u Magnesium Hydroxide (Milk Of Magnesia) 30 ml PO DAILY PRN PRN Reason: Constipation Nitroglycerin (Nitrostat) 0.4 mg SUBLINGUAL Q5M PRN PRN Reason: CHEST PAIN Ondansetron HCl (Zofran) 4 mg IV Q8H PRN PRN PRN Reason: NAUSEA Last Admin: 08/11/18 11:20 Dose: 4 mg Pantoprazole Sodium (Protonix) 40 mg PO BID [facility] Last Admin: 08/11/18 08:19 Dose: 40 mg Sodium Chloride () 5 - 15 ml IV UD PRN PRN Reason: SALINE FLUSH Medical Necessity - Tobacco Use Smoking Status: Former smoker Assessment/Plan All Active Problems (Last Reviewed 08/10/18 @ 15:44 by Red Gurrola DO) Acute blood loss anemia (Acute) SELAM (acute kidney injury) (Acute) NSTEMI (non-ST elevated myocardial infarction) (Acute) Gangrene (Resolved) Gangrene associated with type 2 diabetes mellitus (Resolved) 1. Acute blood loss anemia Suspected GI source Patient be transfused 1unit red blood cells and currently being transfused another. Check ferritin, iron, TIBC, B12, folate and TSH General surgery on consultation for further evaluation Patient has a history of colitis and was diagnosed by Dr. Kingsley. Patient does not know what type of colitis that she has. Will request the records from Dr. Kingsley's office. 2. SELAM Presumed prerenal but may also be a component of ATN related with volume depletion or her anemia IV fluids Hold her diuretics Follow-up labs in the morning 3. Non-STEMI May be more of a type II event Will continue with aspirin but hold her Plavix in light of the anemia Cycle troponins Cardiology consult 4. Peripheral arterial disease Hold her Pletal at this time given the anemia 5. DM2 cut Lantus in half to 20 while she is on clears/NPO 6. DVT proph: SCDs. Chemical prophylaxis contraindicated due to acute anemia. Code Visit Inpatient E&M: 58405 Subs Hosp L2
--- NOTE | 2018-08-11 14:56 | PN_ITS ---
Patient Problems: Active and Suspected Problems (Last Reviewed 08/10/18 @ 15:44 by Red Gurrola DO) Acute blood loss anemia (Acute) SELAM (acute kidney injury) (Acute) NSTEMI (non-ST elevated myocardial infarction) (Acute) Subjective: no bleeding. feels better after transfusion. Vitals/I&O's: Vital Signs Temp Pulse Resp BP Pulse Ox 36.8 C 58 L 18 118/43 L 96 08/11/18 11:43 08/11/18 11:43 08/11/18 11:43 08/11/18 11:43 08/11/18 11:43 Oxygen Flow Rate (L/min) 2 Oxygen Delivery Method Nasal Cannula Weight: 95.8 kg Body Mass Index (BMI) 36.2 Intake and Output for Last 24 Hours 08/09/18 08/10/18 08/11/18 23:59 23:59 23:59 Intake Total 860 / 860 469 / 469 Balance 860 / 860 469 / 469 General: Alert, Cooperative, No apparent distress HEENT: Atraumatic, Normocephalic Oral: Moist Mucosa, No Gingival or Mucosal Lesions/ Ulcerations Neck: No Nodes, Thyroid Normal Size and Texture Lungs: Clear to auscultation, Normal air movement, No rhonchi, No wheeze Cardiovascular: Regular rate, Regular Rhythm, Normal S1, Normal S2 Abdomen: Bowel Sounds Present, Soft, Non Tender, Non-Distended Extremities: No clubbing, No cyanosis Skin: No rashes, No breakdown Musculoskeletal: No Tenderness to Palpation of Joints or Extremities Psych/Mental Status: Normal Affect, Appropriate Microbiology Past 72 Hours 08/10/18 13:35 Stool Stool Occult Blood (VISHNU) - Final Occult Blood Positive Laboratory Results 08/10/18 14:00: Blood Type A POSITIVE, Antibody Screen NEGATIVE 08/10/18 14:00: Crossmatch See Detail 08/10/18 15:29: POC Glucose 146 H 08/10/18 16:15: WBC 8.9, RBC 2.32 L, Hgb 6.4 L, Hct 20.6 L, MCV 88.8, MCH 27.6, MCHC 31.1 L, RDW 14.6, RDW Differential 44.9 H, Plt Count 301, MPV 11.5, Immature Gran % (Auto) 0.200, Neut % (Auto) 66.8, Lymph % (Auto) 24.6, [place] % (Auto) 7.1, Eos % (Auto) 1.1, Baso % (Auto) 0.2, Absolute Neuts (auto) 5.9, Absolute Lymphs (auto) 2.18, Total Counted Not Reportable 08/10/18 16:15: Ferritin 11 08/10/18 16:15: Vitamin B12 Pending 08/10/18 16:15: RBC Folate Hemolysate Pending, RBC Folate Pending, Hematocrit Pending 08/10/18 16:15: TIBC 513 H, Troponin I 0.899 H* 08/10/18 18:55: Troponin I 0.906 H* 08/10/18 22:33: POC Glucose 125 H 08/11/18 05:29: WBC 8.0, RBC 2.70 L, Hgb 7.2 L, Hct 23.1 L, MCV 85.6, MCH 26.7 L , MCHC 31.2 L, RDW 15.8 H, RDW Differential 49.3 H, Plt Count 278, MPV 11.0 08/11/18 05:29: PT 14.7, INR 1.2 08/11/18 05:29: Sodium 142, Potassium 4.1, Chloride 106, Carbon Dioxide 25.0, Anion Gap 11, BUN 79 H, Creatinine 2.52 H, Estim Creat Clear Calc 16.40, Est GFR (MDRD) Af Amer 24 L, Est GFR (MDRD) Non-Af 20 L, BUN/Creatinine Ratio 31.3 H, Glucose 135 H, Calcium 8.2 L, Total Bilirubin 0.20, AST 24, ALT 33, Alkaline Phosphatase 24 L, Total Protein 6.3 L, Albumin 3.0 L, Globulin 3.3, Albumin/Globulin Ratio 0.9, TSH 3.20 08/11/18 05:29: Ferritin 12 08/11/18 06:48: POC Glucose 155 H 08/11/18 08:15: POC Glucose 164 H 08/11/18 11:24: POC Glucose 197 H Current Medications Aspirin (Aspirin, Baby) 81 mg PO DAILY@0800 [facility] Last Admin: 08/11/18 08:18 Dose: 81 mg Atenolol (Tenormin (Beta Demario)) 50 mg PO DAILY [facility] Last Admin: 08/11/18 08:19 Dose: 50 mg Dextrose (D50w Syringe) 0 gm IV X1 PRN; Protocol PRN Reason: Hypoglycemia Glucagon () 1 mg IM .X1 PRN PRN Reason: Hypoglycemia Insulin Glargine (Lantus (Bkc)) 20 units SC BID [facility] Last Admin: 08/11/18 08:19 Dose: Not Given Insulin Human Lispro (Humalog Kwikpen (Bkc)) 0 unit SQ TIDAC [facility]; Protocol Last Admin: 08/11/18 11:46 Dose: 2 u Magnesium Hydroxide (Milk Of Magnesia) 30 ml PO DAILY PRN PRN Reason: Constipation Nitroglycerin (Nitrostat) 0.4 mg SUBLINGUAL Q5M PRN PRN Reason: CHEST PAIN Ondansetron HCl (Zofran) 4 mg IV Q8H PRN PRN PRN Reason: NAUSEA Last Admin: 08/11/18 11:20 Dose: 4 mg Pantoprazole Sodium (Protonix) 40 mg PO BID [facility] Last Admin: 08/11/18 08:19 Dose: 40 mg Sodium Chloride () 5 - 15 ml IV UD PRN PRN Reason: SALINE FLUSH Medical Necessity - Tobacco Use Smoking Status: Former smoker Assessment/Plan All Active Problems (Last Reviewed 08/10/18 @ 15:44 by Red Gurrola DO) Acute blood loss anemia (Acute) SELAM (acute kidney injury) (Acute) NSTEMI (non-ST elevated myocardial infarction) (Acute) Gangrene (Resolved) Gangrene associated with type 2 diabetes mellitus (Resolved) 1. Acute blood loss anemia * Suspected GI source * Patient be transfused 1unit red blood cells and currently being transfused another. * Check ferritin, iron, TIBC, B12, folate and TSH * General surgery on consultation for further evaluation * Patient has a history of colitis and was diagnosed by Dr. Kingsley. Patient does not know what type of colitis that she has. Will request the records from Dr. Kingsley's office. 2. SELAM * Presumed prerenal but may also be a component of ATN related with volume depletion or her anemia * IV fluids * Hold her diuretics * Follow-up labs in the morning 3. Non-STEMI * May be more of a type II event * Will continue with aspirin but hold her Plavix in light of the anemia * Cycle troponins * Cardiology consult 4. Peripheral arterial disease * Hold her Pletal at this time given the anemia 5. DM2 * cut Lantus in half to 20 while she is on clears/NPO 6. DVT proph: SCDs. Chemical prophylaxis contraindicated due to acute anemia. Code Visit Inpatient E&M: 78418 Subs Hosp L2
[2018-08-11] MEDS: 0.9% Normal Saline 1,000 ML 125 ML IV (16:18)
[2018-08-11] MEDS: 0.9% NaCl Peripheral Flush Adult/Peds IV ×2 (16:18→16:21)
[2018-08-11 16:21] LABS: Bedside Glucose 205 mg/dL (70-110)
[2018-08-11 20:05] LABS: Mucous, Urine 0 SEEN /hpf (<or=2+); Red Blood Cells-Urine 0 SEEN /hpf (0-5)
[2018-08-11 20:09] LABS: Color, Urine Yellow (Yellow); Glucose, Dipstick Normal (Normal); Ketone-Dipstick Negative (Negative); Leukocyte Esterase-Dipstick 100 /ul (Negative); Nitrite-Dipstick Negative (Negative); Occult Blood-Urine Negative /ul (Negative); Protein-Dipstick 15 mg/dl (Negative); Specific Gravity, Urine 1.015 (1.002-1.030); Urine Bilirubin Dipstick Negative (Negative); Urine Clarity Cloudy (Clear); Urine Urobilinogen Normal (Normal)
[2018-08-11 20:14] LABS: Bacteria 3+ /hpf (None Seen); Squamous Epithelial Cells - UA 0-5 SEEN /hpf (5-10); White Blood Cells 0-5 SEEN /hpf (0-5)
[2018-08-11 20:32] LABS: Urea Nitrogen, Urine 617 mg/dL (NO RANGE EST.)
[2018-08-11 22:41] LABS: Bedside Glucose 184 mg/dL (70-110)
[2018-08-12] VITALS (14 sets, daily range): BP systolic 120–148; BP diastolic 45–66; PULSE 50–61; RESP 14–18; TEMP 36.2–36.9; O2SAT 93–98
[2018-08-12 05:58] LABS: Absolute Lymphocyte Count 1.82 X10^3/ul (0.83-4.51); Basophil# 0.02 X10^3/uL; Basophil% 0.3 % (0-1); Eosinophil# 0.13 X10^3/uL; Hematocrit 25.7 % (37-47); Lymphocyte # 1.82 X10^3/ul (4.0); Lymphocyte % 27.6 % (19-41); Mean Corp Hgb Conc 31.1 g/gl (32-36); Mean Corpuscular Hgb 26.8 pg (27.0-32.0); Mean Corpuscular Volume 86.2 fL (81-99); Mean Platelet Vol. 11.3 fl (6.2-12.0); Monocyte# 0.64 X10^3/uL; Monocyte% 9.7 % (0-10); Neutrophil # 3.97 X10^3/uL (2.7-7.7); Neutrophil % 60.2 % (47-70); Platelet Count 235 K/mm3 (150-450); RBC Distribution Width CV 15.7 % (11.6-14.6); RBC Distribution Width SD 48.3 fl (35.1-43.9); Red Blood Count 2.98 M/mm3 (4.2-5.4); White Blood Count 6.6 K/mm3 (4.4-11.0)
[2018-08-12 06:01] LABS: Bedside Glucose 138 mg/dL (70-110)
[2018-08-12 06:01] LABS: POSITIVE COUNT NO; POSITIVE DIFFERENTIAL NO; POSITIVE MORPHOLOGY NO
[2018-08-12 06:21] LABS: Anion Gap 8 (5-15); BUN 57 mg/dL (7-18); Calcium,Total 8.3 mg/dL (8.5-10.1); Chloride 110 mmol/L (98-107); Creatinine, Serum 2.19 mg/dL (0.55-1.02); EST Glomerular Filtration Rate 23 mL/min (>60); Est Glom Filt Rate - Afr Amer 28 mL/min (>60); Estimated Creatinine Clearance 18.87 ml/min; Glucose 132 mg/dL (74-106); Potassium 4.4 mmol/L (3.5-5.1); Sodium Level 143 mmol/L (136-145)
--- NOTE | 2018-08-12 07:12 | OP.ENDO_ITS ---
Patient Name: Cookie Bangura Procedure Date: 08/12/2018 6:05 AM Date of : 1940 Age: 78 Procedure: Upper GI endoscopy Indications: Iron deficiency anemia, Heme positive stool Providers: Ryley Galloway MD Medicines: Monitored Anesthesia Care Patient Profile: This is a 78 year old female. Refer to note in patient chart for documentation of history and physical. Complications: No immediate complications. Procedure: Pre-Anesthesia Assessment: - Prior to the procedure, a History and Physical was performed, and patient medications and allergies were reviewed. The patient is competent. The risks and benefits of the procedure and the sedation options and risks were discussed with the patient. All questions were answered and informed consent was obtained. Patient identification and proposed procedure were verified by the physician and the nurse in the procedure room. Mental Status Examination: alert and oriented. Airway Examination: normal oropharyngeal airway and neck mobility. Respiratory Examination: clear to auscultation. CV Examination: normal. Prophylactic Antibiotics: The patient does not require prophylactic antibiotics. Prior Anticoagulants: The patient has taken aspirin, last dose was 1 day prior to procedure. ASA Grade Assessment: III - A patient with severe systemic disease. After reviewing the risks and benefits, the patient was deemed in satisfactory condition to undergo the procedure. The anesthesia plan was to use monitored anesthesia care (MAC). Immediately prior to administration of medications, the patient was re-assessed for adequacy to receive sedatives. The heart rate, respiratory rate, oxygen saturations, blood pressure, adequacy of pulmonary ventilation, and response to care were monitored throughout the procedure. The physical status of the patient was re-assessed after the procedure. After obtaining informed consent, the endoscope was passed under direct vision. Throughout the procedure, the patient's blood pressure, pulse, and oxygen saturations were monitored continuously. The gastroscope was introduced through the mouth, and advanced to the jejunum. The upper GI endoscopy was accomplished without difficulty. The patient tolerated the procedure well. Scope In: 7:03:07 AM Scope Out: 7:06:36 AM Total Procedure Duration Time 0 hours 3 minutes 29 seconds Findings: The examined jejunum was normal. The examined duodenum was normal. One non-bleeding superficial gastric ulcer with no stigmata of bleeding was found in the gastric antrum. Biopsies were taken with a cold forceps for Helicobacter pylori testing using PyloriTek test. Biopsies were taken with a cold forceps for histology. The exam of the stomach was otherwise normal. Non-severe esophagitis with no bleeding was found. Biopsies were taken with a cold forceps for histology. Impression: - Normal examined jejunum. - Normal examined duodenum. - Non-bleeding gastric ulcer with no stigmata of bleeding. Biopsied. - Non-severe reflux esophagitis. Rule out Stratton's esophagus. Biopsied. Recommendation: - Await pathology results. - Return patient to hospital [facility] for ongoing care. - Continue present medications. Procedure Code(s): --- Professional --- 68226, Esophagogastroduodenoscopy, flexible, transoral; with biopsy, single or multiple CPT copyright 2017 [employer]. All rights reserved. The codes documented in this report are preliminary and upon chalk tester review may be revised to meet current compliance requirements. Ryley Galloway MD 08/12/2018 7:11:57 AM This report has been signed electronically. Number of Addenda: 0 Note Initiated On: 08/12/2018 6:05 AM
--- NOTE | 2018-08-12 07:16 | PN.SURG_ITS ---
Patient Problems: Active and Suspected Problems (Last Reviewed 08/10/18 @ 15:44 by Red Gurrola DO) Acute blood loss anemia (Acute) SELAM (acute kidney injury) (Acute) NSTEMI (non-ST elevated myocardial infarction) (Acute) Subjective: no complaints - Physical Exam General: Alert, Oriented x3, Cooperative Lungs: Clear to auscultation, Normal air movement Cardiovascular: Bradycardic Abdomen: Bowel Sounds Present, Soft, Non Tender Vital Signs Temp Pulse Resp BP Pulse Ox 98.4 F 52 L 18 123/45 H 97 08/12/18 03:15 08/12/18 03:15 08/12/18 03:15 08/12/18 03:15 08/12/18 03:15 Oxygen Flow Rate (L/min) 2 Oxygen Delivery Method Room Air Weight: 95.8 kg Body Mass Index (BMI) 36.2 Intake and Output for Last 24 Hours 08/10/18 08/11/18 08/12/18 23:59 23:59 23:59 Intake Total 860 / 860 2270 / 2270 Output Total 100 / 100 Balance 860 / 860 2170 / 2170 Microbiology Past 72 Hours 08/10/18 13:35 Stool Occult Blood (VISHNU) - Final Stool Occult Blood Positive Laboratory Tests Past 24 Hrs 08/10/18 08/11/18 08/11/18 14:00 05:29 05:29 WBC RBC Hgb Hct MCV MCH MCHC RDW RDW Differential Plt Count MPV Immature Gran % (Auto) Neut % (Auto) Lymph % (Auto) [place] % (Auto) Eos % (Auto) Baso % (Auto) Absolute Neuts (auto) Absolute Lymphs (auto) Total Counted Eos Smear Total Cells PT 14.7 INR 1.2 Sodium 142 Potassium 4.1 Chloride 106 Carbon Dioxide 25.0 Anion Gap 11 BUN 79 H Creatinine 2.52 H Estim Creat Clear Calc 16.40 Est GFR (MDRD) Af Amer 24 L Est GFR (MDRD) Non-Af 20 L BUN/Creatinine Ratio 31.3 H Glucose 135 H Calcium 8.2 L Ferritin Total Bilirubin 0.20 AST 24 ALT 33 Alkaline Phosphatase 24 L Total Protein 6.3 L Albumin 3.0 L Globulin 3.3 Albumin/Globulin Ratio 0.9 TSH 3.20 Urine Color Urine Clarity Urine pH Ur Specific [place] Urine Protein Urine Glucose (UA) Urine Ketones Urine Occult Blood Urine Nitrite Urine Bilirubin Urine Urobilinogen Ur Leukocyte Esterase Urine RBC Urine WBC Ur Squamous Epith Cells Urine Bacteria Urine Mucus Urine Creatinine Urine Urea Nitrogen Crossmatch See Detail 08/11/18 08/11/18 08/11/18 05:29 19:25 19:25 WBC RBC Hgb Hct MCV MCH MCHC RDW RDW Differential Plt Count MPV Immature Gran % (Auto) Neut % (Auto) Lymph % (Auto) [place] % (Auto) Eos % (Auto) Baso % (Auto) Absolute Neuts (auto) Absolute Lymphs (auto) Total Counted Eos Smear Total Cells Pending PT INR Sodium Potassium Chloride Carbon Dioxide Anion Gap BUN Creatinine Estim Creat Clear Calc Est GFR (MDRD) Af Amer Est GFR (MDRD) Non-Af BUN/Creatinine Ratio Glucose Calcium Ferritin 12 Total Bilirubin AST ALT Alkaline Phosphatase Total Protein Albumin Globulin Albumin/Globulin Ratio TSH Urine Color Urine Clarity Urine pH Ur Specific [place] Urine Protein Urine Glucose (UA) Urine Ketones Urine Occult Blood Urine Nitrite Urine Bilirubin Urine Urobilinogen Ur Leukocyte Esterase Urine RBC Urine WBC Ur Squamous Epith Cells Urine Bacteria Urine Mucus Urine Creatinine 43.00 Urine Urea Nitrogen Crossmatch 08/11/18 08/11/18 08/12/18 19:25 19:25 05:24 WBC 6.6 RBC 2.98 L Hgb 8.0 L Hct 25.7 L MCV 86.2 MCH 26.8 L MCHC 31.1 L RDW 15.7 H RDW Differential 48.3 H Plt Count 235 MPV 11.3 Immature Gran % (Auto) 0.200 Neut % (Auto) 60.2 Lymph % (Auto) 27.6 [place] % (Auto) 9.7 Eos % (Auto) 2.0 Baso % (Auto) 0.3 Absolute Neuts (auto) 4.0 Absolute Lymphs (auto) 1.82 Total Counted Not Reportable Eos Smear Total Cells PT INR Sodium Potassium Chloride Carbon Dioxide Anion Gap BUN Creatinine Estim Creat Clear Calc Est GFR (MDRD) Af Amer Est GFR (MDRD) Non-Af BUN/Creatinine Ratio Glucose Calcium Ferritin Total Bilirubin AST ALT Alkaline Phosphatase Total Protein Albumin Globulin Albumin/Globulin Ratio TSH Urine Color Yellow Urine Clarity Cloudy Urine pH 6.0 Ur Specific [place] 1.015 Urine Protein 15 H Urine Glucose (UA) Normal Urine Ketones Negative Urine Occult Blood Negative Urine Nitrite Negative Urine Bilirubin Negative Urine Urobilinogen Normal Ur Leukocyte Esterase 100 H Urine RBC 0 SEEN Urine WBC 0-5 SEEN Ur Squamous Epith Cells 0-5 SEEN Urine Bacteria 3+ Urine Mucus 0 SEEN Urine Creatinine Urine Urea Nitrogen 617 Crossmatch 08/12/18 05:24 WBC RBC Hgb Hct MCV MCH MCHC RDW RDW Differential Plt Count MPV Immature Gran % (Auto) Neut % (Auto) Lymph % (Auto) [place] % (Auto) Eos % (Auto) Baso % (Auto) Absolute Neuts (auto) Absolute Lymphs (auto) Total Counted Eos Smear Total Cells PT INR Sodium 143 Potassium 4.4 Chloride 110 H Carbon Dioxide 25.0 Anion Gap 8 BUN 57 H Creatinine 2.19 H Estim Creat Clear Calc 18.87 Est GFR (MDRD) Af Amer 28 L Est GFR (MDRD) Non-Af 23 L BUN/Creatinine Ratio 26.0 H Glucose 132 H Calcium 8.3 L Ferritin Total Bilirubin AST ALT Alkaline Phosphatase Total Protein Albumin Globulin Albumin/Globulin Ratio TSH Urine Color Urine Clarity Urine pH Ur Specific [place] Urine Protein Urine Glucose (UA) Urine Ketones Urine Occult Blood Urine Nitrite Urine Bilirubin Urine Urobilinogen Ur Leukocyte Esterase Urine RBC Urine WBC Ur Squamous Epith Cells Urine Bacteria Urine Mucus Urine Creatinine Urine Urea Nitrogen Crossmatch POC Glucose 08/12/18 08/11/18 08/11/18 05:56 21:06 16:13 POC Glucose 138 H 184 H 205 H 08/11/18 08/11/18 11:24 08:15 POC Glucose 197 H 164 H Medical Necessity - Tobacco Use Smoking Status: Former smoker Assessment/Plan All Active Problems (Last Reviewed 08/10/18 @ 15:44 by Red Gurrola DO) Acute blood loss anemia (Acute) SELAM (acute kidney injury) (Acute) NSTEMI (non-ST elevated myocardial infarction) (Acute) Gangrene (Resolved) Gangrene associated with type 2 diabetes mellitus (Resolved) Anemia, dehydration, complicated advanced diabetes, NSTEMI. Upper endoscopy demonstrated no blood. questionable healing ulcer/superficial erosion in the antral region and distal reflux esophagitis. Will recheck sttol for occult blood and obtain colonoscopy report from [facility].
--- NOTE | 2018-08-12 08:00 | IMM_PTH ---
PATIENT: ALECIA GUERRERO LOC: [facility] U#:[id number] AGE/SX: 78/F ROOM: [facility] RE08/10/[address]: Dr. Red Gurrola DO : 1940 BED: 1 DIS: 08/14/2018 SPEC #: [id number] RECD: 08/12/18 13:30 STATUS: LORE REQ #: [id number] WILLOW: 08/12/18 08:[address]: Ryley Galloway DEPT: IMMUNOHISTOCHEMISTRY RECD BY: Ashly Brooks ENTERED: 08/12/18 13:31 SP TYPE: IMMUNO OTHR DR: DO Dr. Aki Erwin MD Dr. Eric Jopperi, DO Dr. Richard Guttman, MD Tissues: A - Stomach, NOS Procedures: H Pylori (initial) Comments: @ Ordering doctor for H.PYLORI edited from to @ by FERMIN at 08/12/18 133 @ Submitting doctor edited from to @ by FERMIN at 08/12/18 133 PHYSICIAN & INSTITUTION [place] [id number] SPECIMEN INFORMATION: Tissue Source: A - Gastric antrum Clinical Info: Kim Specimen Number: [id number] CPT code: 40288 METHODOLOGY: Deparaffinized sections of prefer/formalin-fixed tissue or PAP/DQ stained slides are incubated with monoclonal/polyclonal antibodies/oligonucleotide probes. Localization is made via biotin free immunoperoxidase method. Appropriate controls are performed and reacted as expected. Results on target cell population are indicated in the following table: RESULTS: ANTIBODY / CLONE RESULT Block A H Pylori (polyclonal) negative These tests were developed and their performance characteristics determined by [facility]. They may not have been cleared or approved by the U.S. Food and Drug Administration. The FDA has determined that such clearance or approval is not necessary. INTERPRETATION: A. Gastric antrum, biopsy: Negative for Helicobacter pylori organisms. JOSEPHINE:clint 08/14/18
--- NOTE | 2018-08-12 08:00 | GASB_PTH ---
PATIENT: ALECIA GUERRERO LOC: [facility] U#:[id number] AGE/SX: 78/F ROOM: [facility] RE08/10/[address]: Dr. Red Gurrola DO : 1940 BED: 1 DIS: 08/14/2018 SPEC #: [id number] RECD: 08/12/18 12:00 STATUS: LORE TOMMY #: [id number] WILLOW: 08/12/18 08:[address]: Ryley Galloway DEPT: SURGICAL PATHOLOGY RECD BY: Ryley Major ENTERED: 08/12/18 13:15 SP TYPE: Gastric Bx OTHR DR: DO Dr. Aki Erwin MD Dr. Eric Jopperi, DO Tissues: A - Gastric mucous membrane B - Esophageal mucous membrane Procedures: Special Stain Group II Surgery Specimen Level IV Alcian Blue/PAS (control) HEADER OPERATION: EGD (MAC) PRE-OP DIAGNOSIS: Anemia TISSUE SUBMITTED: A - Gastric antrum for H. pylori and path, B - Distal esophagus MICROSCOPIC DIAGNOSIS A. Gastric antrum, biopsy: Chronic active gastritis. See comment. B. Distal esophagus, biopsy: A fragment of gastroesophageal mucosa with chronic inflammation. Intestinal metaplasia (goblet cell metaplasia) is not identified. See comment. SJ:rg 08/14/18 COMMENT A. The results of immunohistochemistry for Helicobacter pylori will be reported separately ([id number]). B. Alcian blue/PAS stain with matched control is used in the evaluation of the specimen. MICROSCOPIC DESCRIPTION Slides are reviewed. GROSS DESCRIPTION A - Received in fixative is one container labeled with the patient's name and designated gastric antrum. The specimen consists of two irregular fragments of light doyle soft tissue that in aggregate measure 0.3 x 0.3 x 0.1 cm. The specimen is totally submitted in one cassette. B - Received in fixative is one container labeled with the patient's name and designated distal esophagus. The specimen consists of one irregular fragment of light doyle soft tissue that measures 0.3 x 0.3 x 0.1 cm. The specimen is totally submitted in one cassette. / JOSEPHINE:clint 08/12/18 TC:4 CPT: 39998 x2, 21495
[2018-08-12] MEDS: Aspirin 81 MG TAB.CHEW PO (08:11)
[2018-08-12 09:39] LABS: Vitamin B12 207 pg/mL (211-911)
--- NOTE | 2018-08-12 09:46 | CASEMGMT ---
Addendum entered by Jeet Riojas 08/12/18 10:02: CELIA WHITT also spoke with pt re: Meals on Wheels. Pt would like to consider. SERGEI Boyd will give information and make referral. Original Note: CELIA WHITT Assessment: Pt presented to ER with NSTEMI, anemia. PCP: Dr. Fan Pharmacy: [facility] DME: [facility] Living arrangements: Lives in one story home with basement. -Pt states she is independent with ADL's, but more complicated due to visual impairment. Pt states her friend drives her to appointments and assists with her insulins. Pt states this is becoming more difficult for her friend as she cares for her with Alzheimer's. Pt states her family lives in [place] and are not able to assist her regularly. Her family has spoken to her re: Assisted Living. CELIA WHITT spoke at length with her re: benefits of assisted living specifically for assisting with medications, housekeeping, physician visits. Pt is considering and CELIA WHITT encouraged her to at least visit facilities (she is considering [facility]) and get information. -CELIA WHITT discussed Home Health, but pt is reluctant at this time. DC PLAN: Home
--- NOTE | 2018-08-12 10:22 | CASEMGMT ---
RN JOSE EDUARDO said patient was considering Meals on Wheels. SW spoke with patient and she plans on talking with her friend about it. SW left an information sheet in her room for her friend to help her decide what to do. SW also told her to let the nurse know if she would like SW to make a referral to [facility]. Radha HOLLIS MSW
[2018-08-12] MEDS: Atenolol 50 MG Tablet PO (10:53)
[2018-08-12] MEDS: Pantoprazole Sodium 40 MG Tablet PO ×2 (10:55→20:59)
[2018-08-12] MEDS: Insulin Lispro 100 UNIT/ML INSULN.PEN SQ ×2 (10:57→17:00)
[2018-08-12 11:06] LABS: Bedside Glucose 232 mg/dL (70-110)
--- NOTE | 2018-08-12 12:32 | PCM.PN.CARD ---
Subjectve: Patient doing well this morning. Status post EGD which showed mild gastritis but no overt ulcers, and esophagitis. Biopsies taken of each site. Hemoglobin has increased to 8 with second unit of PRBC. No chest pain or angina noted. Echocardiogram in progress with pulmonary results showing normal LV function. Objective: Vital Signs Temp Pulse Resp BP Pulse Ox 97.5 F L 58 L 18 134/61 H 98 08/12/18 08:00 08/12/18 11:00 08/12/18 08:00 08/12/18 08:00 08/12/18 08:07 Oxygen Flow Rate (L/min) 2 Oxygen Delivery Method Room Air Weight: 211 lb 3.245 oz Body Mass Index (BMI) 36.2 Intake and Output for Last 24 Hours 08/10/18 08/11/18 08/12/18 23:59 23:59 23:59 Intake Total 860 / 860 2270 / 2270 Output Total 100 / 100 100 / 100 Balance 860 / 860 2170 / 2170 -100 / -100 General: Awake, Alert, Oriented x 3 HEENT: PERRL, EOMI, Sclera Non Icteric Neck: Supple, Good ROM, No Lymph Node Enlargement Lungs: Clear to auscultation Cardiovascular: Regular Rhythm, Normal S1, Normal S2, No Murmurs, No Rubs, No Gallops Vascular: No Carotid Bruits, Normal Femoral Pulses, Normal Radial Pulses, Normal Dorsalis Pedal Pulse, Normal Posterior Tibial Pulses Abdomen: Bowel Sounds Present, Soft, Non Tender, No HSM, No Organomegaly Extremities: No Cyanosis, No Clubbing, No edema Neurological: No Focal Motor or Sensory Deficit 08/11/18 19:25: Urine Color Yellow, Urine Clarity Cloudy, Urine pH 6.0, Ur Specific [place] 1.015, Urine Protein 15 H, Urine Glucose (UA) Normal, Urine Ketones Negative, Urine Occult Blood Negative, Urine Nitrite Negative, Urine Bilirubin Negative, Urine Urobilinogen Normal, Ur Leukocyte Esterase 100 H, Urine RBC 0 SEEN, Urine WBC 0-5 SEEN 08/12/18 05:24: WBC 6.6, RBC 2.98 L, Hgb 8.0 L, Hct 25.7 L, MCV 86.2, MCH 26.8 L, MCHC 31.1 L, RDW 15.7 H, RDW Differential 48.3 H, Plt Count 235, MPV 11.3, Immature Gran % (Auto) 0.200, Neut % (Auto) 60.2, Lymph % (Auto) 27.6, [place] % (Auto) 9.7, Eos % (Auto) 2.0, Baso % (Auto) 0.3, Absolute Neuts (auto) 4.0, Total Counted Not Reportable 08/12/18 05:24: Sodium 143, Potassium 4.4, Chloride 110 H, Carbon Dioxide 25.0, Anion Gap 8, BUN 57 H, Creatinine 2.19 H, Est GFR (MDRD) Af Amer 28 L, Est GFR (MDRD) Non-Af 23 L, BUN/Creatinine Ratio 26.0 H, Glucose 132 H, Calcium 8.3 L Rhythm: EKG: ECHO: Pending Stress Test: Cardiac Cath: PCI: CT Surgery: Holter monitor: EPS: PPM: CXR: Chest CT Scan: Medical Necessity - Tobacco Use Smoking Status: Former smoker Assessment/Plan 1. Coronary artery disease: The patient presents with extreme weakness, tiredness, but no chest pain or anginal symptoms. She has known severe coronary artery disease and has 1 remaining patent graft with her ONTIVEROS to the LAD. The patient has significant disease in her left circumflex and RCA systems which appear to be not amenable to PCI. Patient presents now with acute anemia most likely secondary to either recurrent colitis, or upper GI bleeding. Her troponins have peaked at 0.906 at this time. She has remained asymptomatic. EGD today demonstrated mild gastritis, but no overt bleeding. Given the patient's acute anemia, she is not a good candidate for dual antiplatelet therapy nor would she be a good candidate for repeat catheterization at this time. I also would not entertain the option of a stress test as she is already undergone a stress test with her acute anemia. Please keep her hemoglobin above 8.0 with transfusions as needed. I would recommend continuation of her baby aspirin given her severe coronary disease and peripheral vascular disease however I would discontinue her Plavix which may take several days to dimas out of her system. I agree with aggressive PPI therapy with pantoprazole 40 mg p.o. twice daily. 2D echo has been completed, and results are pending. Pulmonary evaluation showed intact LV function. 2. Hypertension: Her blood pressure and heart rate are fairly well-controlled. Continue present management. 3. Hyperlipidemia: Patient was on Crestor and fenofibrate as an outpatient. Would recommend resuming these once her scopes have been completed. 4. Thank you very much for the opportunity to participate in the cardiac care of your patient. We will sign off. Please call with any questions. She can follow-up with Dr. Felipe. Code Visit Inpatient E&M: 16022 Subs Hosp L2
--- NOTE | 2018-08-12 13:38 | PCM.PN.HOSP ---
Patient Problems: Active and Suspected Problems (Last Reviewed 08/10/18 @ 15:44 by Red Gurrola DO) Acute blood loss anemia (Acute) SELAM (acute kidney injury) (Acute) NSTEMI (non-ST elevated myocardial infarction) (Acute) Subjective: No new events. No bleeding. Has had diarrhea chronically. Prescribed Pepto Bismol and Imodium by Dr. Kingsley for her diarrhea. Vitals/I&O's: Vital Signs Temp Pulse Resp BP Pulse Ox 36.4 C L 58 L 18 134/61 H 98 08/12/18 08:00 08/12/18 11:00 08/12/18 08:00 08/12/18 08:00 08/12/18 08:07 Oxygen Flow Rate (L/min) 2 Oxygen Delivery Method Room Air Weight: 95.8 kg Body Mass Index (BMI) 36.2 Intake and Output for Last 24 Hours 08/10/18 08/11/18 08/12/18 23:59 23:59 23:59 Intake Total 860 / 860 2270 / 2270 350 / 350 Output Total 100 / 100 100 / 100 Balance 860 / 860 2170 / 2170 250 / 250 General: Alert, No apparent distress HEENT: Atraumatic, Normocephalic Neck: No Nodes, Thyroid Normal Size and Texture Lungs: Clear to auscultation, Normal air movement, No rhonchi, No wheeze Cardiovascular: Regular rate, Regular Rhythm, Normal S1, Normal S2, No murmurs Abdomen: Bowel Sounds Present, Soft, Non Tender, Non-Distended, No Hepato-splenomegaly Extremities: No edema, No Calf Tenderness Skin: No rashes, No breakdown Psych/Mental Status: Normal Affect, Appropriate Microbiology Past 72 Hours 08/12/18 10:10 Stool Stool Occult Blood (VISHNU) - Final Occult Blood Positive 08/10/18 13:35 Stool Stool Occult Blood (VISHNU) - Final Occult Blood Positive Laboratory Results 08/10/18 14:00: Crossmatch See Detail 08/10/18 16:15: Vitamin B12 207 L 08/11/18 16:13: POC Glucose 205 H 08/11/18 19:25: Eos Smear Total Cells Pending 08/11/18 19:25: Urine Creatinine 43.00 08/11/18 19:25: Urine Urea Nitrogen 617 08/11/18 19:25: Urine Color Yellow, Urine Clarity Cloudy, Urine pH 6.0, Ur Specific [place] 1.015, Urine Protein 15 H, Urine Glucose (UA) Normal, Urine Ketones Negative, Urine Occult Blood Negative, Urine Nitrite Negative, Urine Bilirubin Negative, Urine Urobilinogen Normal, Ur Leukocyte Esterase 100 H, Urine RBC 0 SEEN, Urine WBC 0-5 SEEN, Ur Squamous Epith Cells 0-5 SEEN, Urine Bacteria 3+, Urine Mucus 0 SEEN 08/11/18 21:06: POC Glucose 184 H 08/12/18 05:24: WBC 6.6, RBC 2.98 L, Hgb 8.0 L, Hct 25.7 L, MCV 86.2, MCH 26.8 L, MCHC 31.1 L, RDW 15.7 H, RDW Differential 48.3 H, Plt Count 235, MPV 11.3, Immature Gran % (Auto) 0.200, Neut % (Auto) 60.2, Lymph % (Auto) 27.6, [place] % (Auto) 9.7, Eos % (Auto) 2.0, Baso % (Auto) 0.3, Absolute Neuts (auto) 4.0, Absolute Lymphs (auto) 1.82, Total Counted Not Reportable 08/12/18 05:24: Sodium 143, Potassium 4.4, Chloride 110 H, Carbon Dioxide 25.0, Anion Gap 8, BUN 57 H, Creatinine 2.19 H, Estim Creat Clear Calc 18.87, Est GFR (MDRD) Af Amer 28 L, Est GFR (MDRD) Non-Af 23 L, BUN/Creatinine Ratio 26.0 H, Glucose 132 H, Calcium 8.3 L 08/12/18 05:56: POC Glucose 138 H 08/12/18 10:56: POC Glucose 232 H Current Medications Aspirin (Aspirin, Baby) 81 mg PO DAILY@0800 [facility] Last Admin: 08/12/18 08:11 Dose: 81 mg Atenolol (Tenormin (Beta Demario)) 50 mg PO DAILY [facility] Last Admin: 08/12/18 10:53 Dose: 50 mg Dextrose (D50w Syringe) 0 gm IV X1 PRN; Protocol PRN Reason: Hypoglycemia Glucagon () 1 mg IM .X1 PRN PRN Reason: Hypoglycemia Insulin Glargine (Lantus (Bkc)) 20 units SC BID [facility] Last Admin: 08/12/18 10:57 Dose: 20 units Insulin Human Lispro (Humalog Kwikpen (Bk)) 0 unit SQ TIDAC [facility]; Protocol Last Admin: 08/12/18 10:57 Dose: 3 u Magnesium Hydroxide (Milk Of Magnesia) 30 ml PO DAILY PRN PRN Reason: Constipation Nitroglycerin (Nitrostat) 0.4 mg SUBLINGUAL Q5M PRN PRN Reason: CHEST PAIN Ondansetron HCl (Zofran) 4 mg IV Q8H PRN PRN PRN Reason: NAUSEA Last Admin: 08/11/18 11:20 Dose: 4 mg Pantoprazole Sodium (Protonix) 40 mg PO BID [facility] Last Admin: 08/12/18 10:55 Dose: 40 mg Sodium Chloride () 5 - 15 ml IV UD PRN PRN Reason: SALINE FLUSH Last Admin: 08/11/18 16:21 Dose: 10 ml Medical Necessity - Tobacco Use Smoking Status: Former smoker Assessment/Plan All Active Problems (Last Reviewed 08/10/18 @ 15:44 by Red Gurrola DO) Acute blood loss anemia (Acute) SELAM (acute kidney injury) (Acute) NSTEMI (non-ST elevated myocardial infarction) (Acute) Gangrene (Resolved) Gangrene associated with type 2 diabetes mellitus (Resolved) 1. Acute blood loss anemia Suspected GI source. noted non-bleeding gastric ulcer stable status post 2 units PRBCs Check ferritin, iron, TIBC, B12, folate and TSH General surgery on consultation for further evaluation Patient has a history of colitis and was diagnosed by Dr. Kingsley. Patient does not know what type of colitis that she has. Will request the records from Dr. Kingsley's office. start Ferrous sulfate 2. SELAM improving Presumed prerenal but may also be a component of ATN related with volume depletion or her anemia IV fluids Hold her diuretics Follow-up labs in the morning Last creatinine before this admission was 1.56 in May 3. Non-STEMI May be more of a type II event Will continue with aspirin but hold her Plavix in light of the anemia Cycle troponins Cardiology consult follow up echo 4. PUD protonix BID 5. Peripheral arterial disease Hold her Pletal at this time given the anemia 6. DM2 fair control as diet is advanced, resume her regular dosing of Lantus. 7. DVT proph: SCDs. Chemical prophylaxis contraindicated due to acute anemia. 8. Disposition: home pending remainder of cardiac work up + H/H remaining stable and improvement of kidney function 9. Diarrhea: chronic. unclear if pt has IBS. was on an expensive medication as outpt, but had to stop d/t cost (Linzess?), was then changed over to Pepto-Bismol and Imodium). Diagnosed with colitis, but what type. Code Visit Inpatient E&M: 56241 Subs Hosp L2
--- NOTE | 2018-08-12 13:50 | PN_ITS ---
Patient Problems: Active and Suspected Problems (Last Reviewed 08/10/18 @ 15:44 by Red Gurrola DO) Acute blood loss anemia (Acute) SELAM (acute kidney injury) (Acute) NSTEMI (non-ST elevated myocardial infarction) (Acute) Subjective: No new events. No bleeding. Has had diarrhea chronically. Prescribed Pepto Bismol and Imodium by Dr. Kingsley for her diarrhea. Vitals/I&O's: Vital Signs Temp Pulse Resp BP Pulse Ox 36.4 C L 58 L 18 134/61 H 98 08/12/18 08:00 08/12/18 11:00 08/12/18 08:00 08/12/18 08:00 08/12/18 08:07 Oxygen Flow Rate (L/min) 2 Oxygen Delivery Method Room Air Weight: 95.8 kg Body Mass Index (BMI) 36.2 Intake and Output for Last 24 Hours 08/10/18 08/11/18 08/12/18 23:59 23:59 23:59 Intake Total 860 / 860 2270 / 2270 350 / 350 Output Total 100 / 100 100 / 100 Balance 860 / 860 2170 / 2170 250 / 250 General: Alert, No apparent distress HEENT: Atraumatic, Normocephalic Neck: No Nodes, Thyroid Normal Size and Texture Lungs: Clear to auscultation, Normal air movement, No rhonchi, No wheeze Cardiovascular: Regular rate, Regular Rhythm, Normal S1, Normal S2, No murmurs Abdomen: Bowel Sounds Present, Soft, Non Tender, Non-Distended, No Hepato- splenomegaly Extremities: No edema, No Calf Tenderness Skin: No rashes, No breakdown Psych/Mental Status: Normal Affect, Appropriate Microbiology Past 72 Hours 08/12/18 10:10 Stool Stool Occult Blood (VISHNU) - Final Occult Blood Positive 08/10/18 13:35 Stool Stool Occult Blood (VISHNU) - Final Occult Blood Positive Laboratory Results 08/10/18 14:00: Crossmatch See Detail 08/10/18 16:15: Vitamin B12 207 L 08/11/18 16:13: POC Glucose 205 H 08/11/18 19:25: Eos Smear Total Cells Pending 08/11/18 19:25: Urine Creatinine 43.00 08/11/18 19:25: Urine Urea Nitrogen 617 08/11/18 19:25: Urine Color Yellow, Urine Clarity Cloudy, Urine pH 6.0, Ur Spe cific [place] 1.015, Urine Protein 15 H, Urine Glucose (UA) Normal, Urine Ketones Negative, Urine Occult Blood Negative, Urine Nitrite Negative, Urine Bilirubin Negative, Urine Urobilinogen Normal, Ur Leukocyte Esterase 100 H, Urine RBC 0 SEEN, Urine WBC 0-5 SEEN, Ur Squamous Epith Cells 0-5 SEEN, Urine Bacteria 3+, Urine Mucus 0 SEEN 08/11/18 21:06: POC Glucose 184 H 08/12/18 05:24: WBC 6.6, RBC 2.98 L, Hgb 8.0 L, Hct 25.7 L, MCV 86.2, MCH 26.8 L , MCHC 31.1 L, RDW 15.7 H, RDW Differential 48.3 H, Plt Count 235, MPV 11.3, Immature Gran % (Auto) 0.200, Neut % (Auto) 60.2, Lymph % (Auto) 27.6, [place] % (Auto) 9.7, Eos % (Auto) 2.0, Baso % (Auto) 0.3, Absolute Neuts (auto) 4.0, Absolute Lymphs (auto) 1.82, Total Counted Not Reportable 08/12/18 05:24: Sodium 143, Potassium 4.4, Chloride 110 H, Carbon Dioxide 25.0, Anion Gap 8, BUN 57 H, Creatinine 2.19 H, Estim Creat Clear Calc 18.87, Est GFR (MDRD) Af Amer 28 L, Est GFR (MDRD) Non-Af 23 L, BUN/Creatinine Ratio 26.0 H, Glucose 132 H, Calcium 8.3 L 08/12/18 05:56: POC Glucose 138 H 08/12/18 10:56: POC Glucose 232 H Current Medications Aspirin (Aspirin, Baby) 81 mg PO DAILY@0800 [facility] Last Admin: 08/12/18 08:11 Dose: 81 mg Atenolol (Tenormin (Beta Demario)) 50 mg PO DAILY COUNT INCLUDES THE [facility] Last Admin: 08/12/18 10:53 Dose: 50 mg Dextrose (D50w Syringe) 0 gm IV X1 PRN; Protocol PRN Reason: Hypoglycemia Glucagon () 1 mg IM .X1 PRN PRN Reason: Hypoglycemia Insulin Glargine (Lantus (Bkc)) 20 units SC BID [facility] Last Admin: 08/12/18 10:57 Dose: 20 units Insulin Human Lispro (Humalog Kwikpen (Bk)) 0 unit SQ TIDAC [facility]CLUD[facility]; Protocol Last Admin: 08/12/18 10:57 Dose: 3 u Magnesium Hydroxide (Milk Of Magnesia) 30 ml PO DAILY PRN PRN Reason: Constipation Nitroglycerin (Nitrostat) 0.4 mg SUBLINGUAL Q5M PRN PRN Reason: CHEST PAIN Ondansetron HCl (Zofran) 4 mg IV Q8H PRN PRN PRN Reason: NAUSEA Last Admin: 08/11/18 11:20 Dose: 4 mg Pantoprazole Sodium (Protonix) 40 mg PO BID [facility] Last Admin: 08/12/18 10:55 Dose: 40 mg Sodium Chloride () 5 - 15 ml IV UD PRN PRN Reason: SALINE FLUSH Last Admin: 08/11/18 16:21 Dose: 10 ml Medical Necessity - Tobacco Use Smoking Status: Former smoker Assessment/Plan All Active Problems (Last Reviewed 08/10/18 @ 15:44 by Red Gurrola DO) Acute blood loss anemia (Acute) SELAM (acute kidney injury) (Acute) NSTEMI (non-ST elevated myocardial infarction) (Acute) Gangrene (Resolved) Gangrene associated with type 2 diabetes mellitus (Resolved) 1. Acute blood loss anemia * Suspected GI source. noted non-bleeding gastric ulcer * stable status post 2 units PRBCs * Check ferritin, iron, TIBC, B12, folate and TSH * General surgery on consultation for further evaluation * Patient has a history of colitis and was diagnosed by Dr. Kingsley. Patient does not know what type of colitis that she has. Will request the records from Dr. Kingsley's office. * start Ferrous sulfate 2. SELAM * improving * Presumed prerenal but may also be a component of ATN related with volume depletion or her anemia * IV fluids * Hold her diuretics * Follow-up labs in the morning * Last creatinine before this admission was 1.56 in May 3. Non-STEMI * May be more of a type II event * Will continue with aspirin but hold her Plavix in light of the anemia * Cycle troponins * Cardiology consult * follow up echo 4. PUD * protonix BID 5. Peripheral arterial disease * Hold her Pletal at this time given the anemia 6. DM2 * fair control * as diet is advanced, resume her regular dosing of Lantus. 7. DVT proph: SCDs. Chemical prophylaxis contraindicated due to acute anemia. 8. Disposition: home pending remainder of cardiac work up + H/H remaining stable and improvement of kidney function 9. Diarrhea: chronic. unclear if pt has IBS. was on an expensive medication as outpt, but had to stop d/t cost (Linzess?), was then changed over to Pepto- Bismol and Imodium). Diagnosed with colitis, but what type. Code Visit Inpatient E&M: 95932 Subs Hosp L2
[2018-08-12] MEDS: 0.9% Normal Saline 1,000 ML 125 ML IV (15:02)
[2018-08-12] MEDS: 0.9% NaCl Peripheral Flush Adult/Peds IV (15:02)
[2018-08-12 16:36] LABS: Bedside Glucose 242 mg/dL (70-110)
[2018-08-12] MEDS: Loperamide 2 MG Capsule PO (21:10)
[2018-08-12 21:50] LABS: Bedside Glucose 281 mg/dL (70-110)
[2018-08-13] VITALS (10 sets, daily range): BP systolic 107–155; BP diastolic 40–84; PULSE 54–87; RESP 15–18; TEMP 36.3–37.1; O2SAT 94–100
[2018-08-13 06:45] LABS: Hematocrit 26.9 % (37-47); Hemoglobin 8.4 g/dl (12.0-15.0)
[2018-08-13 06:59] LABS: Anion Gap 8 (5-15); BUN 51 mg/dL (7-18); Calcium,Total 8.2 mg/dL (8.5-10.1); Chloride 111 mmol/L (98-107); Creatinine, Serum 1.82 mg/dL (0.55-1.02); EST Glomerular Filtration Rate 29 mL/min (>60); Est Glom Filt Rate - Afr Amer 35 mL/min (>60); Estimated Creatinine Clearance 22.71 ml/min; Glucose 124 mg/dL (74-106); Potassium 4.3 mmol/L (3.5-5.1); Sodium Level 145 mmol/L (136-145)
[2018-08-13 07:36] LABS: Bedside Glucose 101 mg/dL (70-110)
[2018-08-13] MEDS: Loperamide 2 MG Capsule PO (08:30)
[2018-08-13] MEDS: Aspirin 81 MG TAB.CHEW PO (08:30)
--- NOTE | 2018-08-13 09:22 | PN.SURG_ITS ---
Patient Problems: Active and Suspected Problems (Last Reviewed 08/10/18 @ 15:44 by Red Gurrola DO) Acute blood loss anemia (Acute) SELAM (acute kidney injury) (Acute) NSTEMI (non-ST elevated myocardial infarction) (Acute) Subjective: no complaints - Physical Exam General: Alert, Oriented x3, Cooperative Neck: Supple, No JVD, Negative Carotid Bruits Lungs: Clear to auscultation, Normal air movement Cardiovascular: Irregular Rate Abdomen: Bowel Sounds Present, Soft, Non Tender Vital Signs Temp Pulse Resp BP Pulse Ox 97.6 F L 56 L 18 121/54 H 94 08/13/18 03:00 08/13/18 07:29 08/13/18 03:00 08/13/18 03:00 08/13/18 06:47 Oxygen Flow Rate (L/min) 2 Oxygen Delivery Method Room Air Weight: 95.8 kg Body Mass Index (BMI) 36.2 Intake and Output for Last 24 Hours 08/11/18 08/12/18 08/13/18 23:59 23:59 23:59 Intake Total 2270 / 2270 1481 / 1481 Output Total 100 / 100 100 / 100 Balance 2170 / 2170 1381 / 1381 Microbiology Past 72 Hours 08/12/18 10:10 Stool Occult Blood (VISHNU) - Final Stool Occult Blood Positive 08/10/18 13:35 Stool Occult Blood (VISHNU) - Final Stool Occult Blood Positive Laboratory Tests Past 24 Hrs 08/10/18 08/13/18 08/13/18 16:15 05:52 05:52 Hgb 8.4 L Hct 26.9 L Sodium 145 Potassium 4.3 Chloride 111 H Carbon Dioxide 26.0 Anion Gap 8 BUN 51 H Creatinine 1.82 H Estim Creat Clear Calc 22.71 Est GFR (MDRD) Af Amer 35 L Est GFR (MDRD) Non-Af 29 L BUN/Creatinine Ratio 28.0 H Glucose 124 H Calcium 8.2 L Vitamin B12 207 L POC Glucose 08/13/18 08/12/18 08/12/18 06:46 20:57 16:28 POC Glucose 101 281 H 242 H 08/12/18 10:56 POC Glucose 232 H Medical Necessity - Tobacco Use Smoking Status: Former smoker Assessment/Plan All Active Problems (Last Reviewed 08/10/18 @ 15:44 by Red Gurrola DO) Acute blood loss anemia (Acute) SELAM (acute kidney injury) (Acute) NSTEMI (non-ST elevated myocardial infarction) (Acute) Gangrene (Resolved) Gangrene associated with type 2 diabetes mellitus (Resolved) Anemia, dehydration, complicated advanced diabetes, NSTEMI. Upper endoscopy demonstrated no blood. questionable healing ulcer/superficial erosion in the antral region and distal reflux esophagitis. Colonoscopy report from [facility] - 02/11/2018 - normal-appearing terminal ileum,normal-appearing colon mucosa throughout with small sessile polyp in the distal transverse colon. right and left colon biopsies did return as positive for collagenous colitis in the transverse colon was a tubular adenoma but there were no signs of active/inflammatory colitis noted. Patient's hemoglobin is remained stable. I would not recommend colonoscopy at this time.
[2018-08-13] MEDS: Pantoprazole Sodium 40 MG Tablet PO ×2 (10:04→21:16)
[2018-08-13] MEDS: Atenolol 50 MG Tablet PO (10:04)
--- NOTE | 2018-08-13 10:35 | PCM.PN.CARD ---
Subjectve: Patient doing well, hemoglobin 8.4. No 24-hour events. Telemetry negative. Objective: Vital Signs Temp Pulse Resp BP Pulse Ox 98.1 F 57 L 15 107/84 H 100 08/13/18 10:00 08/13/18 10:00 08/13/18 10:00 08/13/18 10:00 08/13/18 10:00 Oxygen Flow Rate (L/min) 2 Oxygen Delivery Method Room Air Weight: 211 lb 3.245 oz Body Mass Index (BMI) 36.2 Intake and Output for Last 24 Hours 08/11/18 08/12/18 08/13/18 23:59 23:59 23:59 Intake Total 2270 / 2270 1481 / 1481 Output Total 100 / 100 100 / 100 Balance 2170 / 2170 1381 / 1381 General: Awake, Alert, Oriented x 3 HEENT: PERRL, EOMI, Sclera Non Icteric Neck: Supple, Good ROM, No Lymph Node Enlargement Lungs: Clear to auscultation Cardiovascular: Regular Rhythm, Normal S1, Normal S2, No Murmurs, No Rubs, No Gallops Vascular: No Carotid Bruits, Normal Femoral Pulses, Normal Radial Pulses, Normal Dorsalis Pedal Pulse, Normal Posterior Tibial Pulses Abdomen: Bowel Sounds Present, Soft, Non Tender, No HSM, No Organomegaly Extremities: No Cyanosis, No Clubbing, No edema Neurological: No Focal Motor or Sensory Deficit 08/13/18 05:52: Hgb 8.4 L, Hct 26.9 L 08/13/18 05:52: Sodium 145, Potassium 4.3, Chloride 111 H, Carbon Dioxide 26.0, Anion Gap 8, BUN 51 H, Creatinine 1.82 H, Est GFR (MDRD) Af Amer 35 L, Est GFR (MDRD) Non-Af 29 L, BUN/Creatinine Ratio 28.0 H, Glucose 124 H, Calcium 8.2 L Rhythm: EKG: ECHO: Stress Test: Cardiac Cath: PCI: CT Surgery: Holter monitor: EPS: PPM: CXR: Chest CT Scan: Medical Necessity - Tobacco Use Smoking Status: Former smoker Assessment/Plan 1. Coronary artery disease: The patient presents with extreme weakness, tiredness, but no chest pain or anginal symptoms. She has known severe coronary artery disease and has 1 remaining patent graft with her ONTIVEROS to the LAD. The patient has significant disease in her left circumflex and RCA systems which appear to be not amenable to PCI. Patient presents now with acute anemia most likely secondary to either recurrent colitis, or upper GI bleeding. Her troponins have peaked at 0.906 at this time. She has remained asymptomatic. EGD today demonstrated mild gastritis, but no overt bleeding. Hemoglobin today 8.4 and creatinine improving. Given the patient's acute anemia, she is not a good candidate for dual antiplatelet therapy nor would she be a good candidate for repeat catheterization at this time. I also would not entertain the option of a stress test as she is already undergone a stress test with her acute anemia. Please keep her hemoglobin above 8.0 with transfusions as needed. I would recommend continuation of her baby aspirin given her severe coronary disease and peripheral vascular disease however I would discontinue her Plavix which may take several days to dimas out of her system. I agree with aggressive PPI therapy with pantoprazole 40 mg p.o. twice daily. Echocardiogram showed mild LV dysfunction with an EF around 50%, with inferior posterior hypokinesis, and an RVSP of around 67 mmHg. Usually under normal circumstances given her pulmonary hypertension she would be at high risk for DVT and pulmonary embolism. However given her recent GI bleed and anemia she is a poor candidate for anticoagulation. Continue baby aspirin. We will repeat her echocardiogram in several months time to determine if her pulmonary pressures improved. Would recommend restarting Lasix but at 40 mg a day. Would not recommend repeat starting hydrochlorothiazide at this time. 2. Hypertension: Her blood pressure and heart rate are fairly well-controlled. Continue present management. 3. Hyperlipidemia: Patient was on Crestor and fenofibrate as an outpatient. Would recommend resuming these once her scopes have been completed. 4. Thank you very much for the opportunity to participate in the cardiac care of your patient. We will sign off. Please call with any questions. She can follow-up with Dr. Felipe. Code Visit Inpatient E&M: [id number] [facility] Hosp L2
[2018-08-13 11:41] LABS: Bedside Glucose 190 mg/dL (70-110)
[2018-08-13] MEDS: Insulin Lispro 100 UNIT/ML INSULN.PEN SQ ×2 (12:38→16:52)
--- NOTE | 2018-08-13 14:29 | PCM.PROGNOTE ---
Patient Problems: Active and Suspected Problems (Last Reviewed 08/10/18 @ 15:44 by Red Gurrola DO) Acute blood loss anemia (Acute) SELAM (acute kidney injury) (Acute) NSTEMI (non-ST elevated myocardial infarction) (Acute) Subjective: Patient is a 78-year-old female with macular degeneration and legal blindness, chronic diastolic congestive heart failure, essential hypertension, coronary artery disease with history of CABG, bilateral carotid artery stenosis, hyperlipidemia and peripheral vascular disease who presented to the [facility] on 08/10/2018 complaining of dyspnea on exertion. Creatinine in the emergency room was 2.99 with a baseline of 1.56. Hemoglobin was 6 and she was admitted to a monitored bed on PCU and transfused with 2 units of packed red blood cells. Hemoglobin is stable at 8.4 currently. Creatinine has improved and is 1.82 today but not down to baseline. EGD showed a normal jejunum and normal duodenum. There was one nonbleeding superficial gastric ulcer with no stigmata of bleeding found in the gastric antrum. Biopsies were taken. There was nonsevere esophagitis with no bleeding noted. She is afebrile and her vital signs are stable she is 94-100% saturated on room air. She denies shortness of breath at rest. She denies chest pain. She does states she continues to have dyspnea on exertion. No nausea or abdominal pain - Physical Exam General: Alert, Oriented x3, Cooperative, No apparent distress Oral: Moist Mucosa Neck: No JVD Lungs: Clear to auscultation, Diminished Cardiovascular: Regular rate, Regular Rhythm, Normal S1, Normal S2, No rub noted, No Gallop, - - telemetry with no significant ectopy Abdomen: Bowel Sounds Present - not hyperactive, Soft, Non Tender, Non-Distended Extremities: No clubbing Neurological: Neuro grossly intact Psych/Mental Status: Normal Affect, Appropriate Vital Signs Temp Pulse Resp BP Pulse Ox 98.1 F 57 L 15 107/84 H 100 08/13/18 10:00 08/13/18 11:40 08/13/18 10:00 08/13/18 10:00 08/13/18 10:00 Oxygen Flow Rate (L/min) 2 Oxygen Delivery Method Room Air Weight: 211 lb 3.245 oz Body Mass Index (BMI) 36.2 Intake and Output for Last 24 Hours 08/11/18 08/12/18 08/13/18 23:59 23:59 23:59 Intake Total 2270 / 2270 1481 / 1481 480 / 480 Output Total 100 / 100 100 / 100 Balance 2170 / 2170 1381 / 1381 480 / 480 Microbiology Past 72 Hours 08/12/18 10:10 Stool Occult Blood (VISHNU) - Final Stool Occult Blood Positive 08/10/18 13:35 Stool Occult Blood (VISHNU) - Final Stool Occult Blood Positive Laboratory Tests Past 24 Hrs 08/13/18 08/13/18 05:52 05:52 Hgb 8.4 L Hct 26.9 L Sodium 145 Potassium 4.3 Chloride 111 H Carbon Dioxide 26.0 Anion Gap 8 BUN 51 H Creatinine 1.82 H Estim Creat Clear Calc 22.71 Est GFR (MDRD) Af Amer 35 L Est GFR (MDRD) Non-Af 29 L BUN/Creatinine Ratio 28.0 H Glucose 124 H Calcium 8.2 L POC Glucose 08/13/18 08/13/18 08/12/18 11:35 06:46 20:57 POC Glucose 190 H 101 281 H 08/12/18 16:28 POC Glucose 242 H Medical Necessity - Tobacco Use Smoking Status: Former smoker Assessment/Plan All Active Problems (Last Reviewed 08/10/18 @ 15:44 by Red Gurrola DO) Acute blood loss anemia (Acute) SELAM (acute kidney injury) (Acute) NSTEMI (non-ST elevated myocardial infarction) (Acute) Gangrene (Resolved) Gangrene associated with type 2 diabetes mellitus (Resolved) Impressions 1. acute blood loss anemia - possibly due to UGI bleed - EGD showed gastritis. 2. NSTEMI-likely type II 3. Known coronary artery disease 4. Macular degeneration with legal blindness 5. Severe pulmonary hypertension 6. SELAM on CRF stage 3 Continue ASA - no plavix going forward Continue the BID protonix No cardiac catheterization planned Lasix 40 mg p.o. daily restarted today by Dr. Rivera-continue to hold hydrochlorothiazide. Recheck CBC and BMP in the a.m. Check an ambulatory pulse ox on room air in the a.m. Possible discharge tomorrow Code Visit Inpatient E&M: 04003 Subs Hosp L2
--- NOTE | 2018-08-13 14:35 | PN_ITS ---
Patient Problems: Active and Suspected Problems (Last Reviewed 08/10/18 @ 15:44 by Red Gurrola DO) Acute blood loss anemia (Acute) SELAM (acute kidney injury) (Acute) NSTEMI (non-ST elevated myocardial infarction) (Acute) Subjective: Patient is a 78-year-old female with macular degeneration and legal blindness, chronic diastolic congestive heart failure, essential hypertension, coronary artery disease with history of CABG, bilateral carotid artery stenosis, hyperlipidemia and peripheral vascular disease who presented to the [facility] on 08/10/2018 complaining of dyspnea on exertion. Creatinine in the emergency room was 2.99 with a baseline of 1.56. Hemoglobin was 6 and she was admitted to a monitored bed on PCU and transfused with 2 units of packed red blood cells. Hemoglobin is stable at 8.4 currently. Creatinine has improved and is 1.82 today but not down to baseline. EGD showed a normal jejunu m and normal duodenum. There was one nonbleeding superficial gastric ulcer with no stigmata of bleeding found in the gastric antrum. Biopsies were taken. There was nonsevere esophagitis with no bleeding noted. She is afebrile and her vital signs are stable she is 94-100% saturated on room air. She denies shortness of breath at rest. She denies chest pain. She does states she continues to have dyspnea on exertion. No nausea or abdominal pain - Physical Exam General: Alert, Oriented x3, Cooperative, No apparent distress Oral: Moist Mucosa Neck: No JVD Lungs: Clear to auscultation, Diminished Cardiovascular: Regular rate, Regular Rhythm, Normal S1, Normal S2, No rub noted, No Gallop, - - telemetry with no significant ectopy Abdomen: Bowel Sounds Present - not hyperactive, Soft, Non Tender, Non-Distended Extremities: No clubbing Neurological: Neuro grossly intact Psych/Mental Status: Normal Affect, Appropriate Vital Signs Temp Pulse Resp BP Pulse Ox 98.1 F 57 L 15 107/84 H 100 08/13/18 10:00 08/13/18 11:40 08/13/18 10:00 08/13/18 10:00 08/13/18 10:00 Oxygen Flow Rate (L/min) 2 Oxygen Delivery Method Room Air Weight: 211 lb 3.245 oz Body Mass Index (BMI) 36.2 Intake and Output for Last 24 Hours 08/11/18 08/12/1808/13/18 23:59 23:59 23:59 Intake Total 2270 / 2270 1481 / 1481 480 / 480 Output Total 100 / 100 100 / 100 Balance 2170 / 2170 1381 / 1381 480 / 480 Microbiology Past 72 Hours 08/12/18 10:10 Stool Occult Blood (VISHNU) - Final Stool Occult Blood Positive 08/10/18 13:35 Stool Occult Blood (VISHNU) - Final Stool Occult Blood Positive Laboratory Tests Past 24 Hrs 08/13/18 08/13/18 05:52 05:52 Hgb 8.4 L Hct 26.9 L Sodium 145 Potassium 4.3 Chloride 111 H Carbon Dioxide 26.0 Anion Gap 8 BUN 51 H Creatinine 1.82 H Estim Creat Clear Calc 22.71 Est GFR (MDRD) Af Amer 35 L Est GFR (MDRD) Non-Af 29 L BUN/Creatinine Ratio 28.0 H Glucose 124 H Calcium 8.2 L POC Glucose 08/13/18 08/13/18 08/12/18 11:35 06:46 20:57 POC Glucose 190 H 101 281 H 08/12/18 16:28 POC Glucose 242 H Medical Necessity - Tobacco Use Smoking Status: Former smoker Assessment/Plan All Active Problems (Last Reviewed 08/10/18 @ 15:44 by Red Gurrola DO) Acute blood loss anemia (Acute) SELAM (acute kidney injury) (Acute) NSTEMI (non-ST elevated myocardial infarction) (Acute) Gangrene (Resolved) Gangrene associated with type 2 diabetes mellitus (Resolved) Impressions 1. acute blood loss anemia - possibly due to UGI bleed - EGD showed gastritis. 2. NSTEMI-likely type II 3. Known coronary artery disease 4. Macular degeneration with legal blindness 5. Severe pulmonary hypertension 6. SELAM on CRF stage 3 Continue ASA - no plavix going forward Continue the BID protonix No cardiac catheterization planned Lasix 40 mg p.o. daily restarted today by Dr. Rivera-continue to hold hydrochlorothiazide. Recheck CBC and BMP in the a.m. Check an ambulatory pulse ox on room air in the a.m. Possible discharge tomorrow Code Visit Inpatient E&M: 54148 Subs Hosp L2
[2018-08-13] MEDS: Furosemide 40 MG Tablet PO (15:24)
[2018-08-13 19:01] LABS: Bedside Glucose 234 mg/dL (70-110)
[2018-08-13] MEDS: Atorvastatin Calcium 80 MG Tablet PO (21:16)
[2018-08-13 21:55] LABS: Bedside Glucose 245 mg/dL (70-110)
[2018-08-14] VITALS (9 sets, daily range): BP systolic 131–150; BP diastolic 39–78; PULSE 51–61; RESP 16; TEMP 36.6–37.1; O2SAT 96–100
--- NOTE | 2018-08-14 06:26 | PN.SURG_ITS ---
Patient Problems: Active and Suspected Problems (Last Reviewed 08/10/18 @ 15:44 by Red Gurrola DO) Acute blood loss anemia (Acute) SELAM (acute kidney injury) (Acute) NSTEMI (non-ST elevated myocardial infarction) (Acute) Subjective: no complaints - Physical Exam Abdomen: Bowel Sounds Present, Soft Vital Signs Temp Pulse Resp BP Pulse Ox 97.8 F 51 L 16 145/39 H 96 08/14/18 03:09 08/14/18 03:09 08/14/18 03:09 08/14/18 03:09 08/14/18 03:09 Oxygen Flow Rate (L/min) 2 Oxygen Delivery Method Room Air Weight: 95.8 kg Body Mass Index (BMI) 36.2 Intake and Output for Last 24 Hours 08/12/18 08/13/18 08/14/18 23:59 23:59 23:59 Intake Total 1481 / 1481 1567 / 1567 Output Total 100 / 100 Balance 1381 / 1381 1567 / 1567 Microbiology Past 72 Hours 08/12/18 10:10 Stool Occult Blood (VISHNU) - Final Stool Occult Blood Positive Laboratory Tests Past 24 Hrs 08/13/18 08/13/18 08/14/18 05:52 05:52 05:20 WBC Pending RBC Pending Hgb 8.4 L Pending Hct 26.9 L Pending MCV Pending MCH Pending MCHC Pending RDW Pending RDW Differential Pending Plt Count Pending Sodium 145 Potassium 4.3 Chloride 111 H Carbon Dioxide 26.0 Anion Gap 8 BUN 51 H Creatinine 1.82 H Estim Creat Clear Calc 22.71 Est GFR (MDRD) Af Amer 35 L Est GFR (MDRD) Non-Af 29 L BUN/Creatinine Ratio 28.0 H Glucose 124 H Calcium 8.2 L 08/14/18 05:20 WBC RBC Hgb Hct MCV MCH MCHC RDW RDW Differential Plt Count Sodium Pending Potassium Pending Chloride Pending Carbon Dioxide Pending Anion Gap Pending BUN Pending Creatinine Pending Estim Creat Clear Calc Est GFR (MDRD) Af Amer Pending Est GFR (MDRD) Non-Af Pending BUN/Creatinine Ratio Pending Glucose Pending Calcium Pending POC Glucose 08/13/18 08/13/18 08/13/18 21:13 16:50 11:35 POC Glucose 245 H 234 H 190 H 08/13/18 06:46 POC Glucose 101 Medical Necessity - Tobacco Use Smoking Status: Former smoker Assessment/Plan All Active Problems (Last Reviewed 08/10/18 @ 15:44 by Red Gurrola DO) Acute blood loss anemia (Acute) SELAM (acute kidney injury) (Acute) NSTEMI (non-ST elevated myocardial infarction) (Acute) Gangrene (Resolved) Gangrene associated with type 2 diabetes mellitus (Resolved) Anemia, dehydration, complicated advanced diabetes, NSTEMI. Upper endoscopy demonstrated no blood. questionable healing ulcer/superficial erosion in the antral region and distal reflux esophagitis. Colonoscopy report from [facility] - 02/11/2018 - normal-appearing terminal ileum,normal-appearing colon mucosa throughout with small sessile polyp in the distal transverse colon. right and left colon biopsies did return as positive for collagenous colitis in the transverse colon was a tubular adenoma but there were no signs of active/inflammatory colitis noted. Patient's hemoglobin is remained stable. I would not recommend colonoscopy at this time.
[2018-08-14 06:28] LABS: Hematocrit 26.5 % (37-47); Hemoglobin 8.1 g/dl (12.0-15.0); Mean Corp Hgb Conc 30.6 g/gl (32-36); Mean Corpuscular Hgb 26.4 pg (27.0-32.0); Mean Corpuscular Volume 86.3 fL (81-99); Mean Platelet Vol. 11.6 fl (6.2-12.0); Platelet Count 248 K/mm3 (150-450); RBC Distribution Width CV 15.4 % (11.6-14.6); RBC Distribution Width SD 47.3 fl (35.1-43.9); Red Blood Count 3.07 M/mm3 (4.2-5.4); Scan Indicated on CBC? Y/N NO; White Blood Count 7.7 K/mm3 (4.4-11.0)
[2018-08-14 06:30] LABS: Anion Gap 8 (5-15); BUN 49 mg/dL (7-18); BUN/Creat Ratio 25.1 RATIO (10-20); Calcium,Total 8.3 mg/dL (8.5-10.1); Chloride 110 mmol/L (98-107); Creatinine, Serum 1.95 mg/dL (0.55-1.02); EST Glomerular Filtration Rate 27 mL/min (>60); Est Glom Filt Rate - Afr Amer 32 mL/min (>60); Estimated Creatinine Clearance 21.19 ml/min; Glucose 120 mg/dL (74-106); Potassium 4.4 mmol/L (3.5-5.1); Sodium Level 145 mmol/L (136-145)
[2018-08-14 08:25] LABS: Bedside Glucose 104 mg/dL (70-110)
[2018-08-14] MEDS: Aspirin 81 MG TAB.CHEW PO (09:22)
[2018-08-14] MEDS: Atenolol 50 MG Tablet PO (09:22)
[2018-08-14] MEDS: Furosemide 40 MG Tablet PO (09:22)
[2018-08-14] MEDS: Pantoprazole Sodium 40 MG Tablet PO (09:22)
[2018-08-14] MEDS: Loperamide 2 MG Capsule PO (09:25)
--- NOTE | 2018-08-14 11:14 | CASEMGMT ---
RN CM Note RN JOSE EDUARDO spoke with pt regarding Home Health on discharge. Pt is agreeable now, however did request start of care next Sunday or after. Call to Alesia @ [facility] to update, order placed. Pt states her friend Antonia will be able to assist her with her medications in short term, however pt is considering Assisted Living in future. Kartik BOUDREAUX RN ACM
[2018-08-14 11:45] LABS: Bedside Glucose 220 mg/dL (70-110)
[2018-08-14] MEDS: Insulin Lispro 100 UNIT/ML INSULN.PEN SQ (12:14)
--- NOTE | 2018-08-14 12:22 | DCINST_ITS ---
- Discharge Diagnoses Current Active Problems: Current Active and Chronic Problems (Last Reviewed 08/10/18 @ 15:44 by Red Gurrola DO) Acute blood loss anemia (Acute) SELAM (acute kidney injury) (Acute) NSTEMI (non-ST elevated myocardial infarction) (Acute) You will use the following diet at home:: Calorie/Carbohydrate Controlled (specify 1200, 1400, etc) - 1800, Cardiac Your food should be the consistency of: Regular Your liquids should be the consistency of: Regular/Thin Discharge Activity: Return to Normal Activity Call your doctor if you observe: Shortness of breath, Fainting spells, Increased palpitations (irregular heartbeat) Allergies/Adverse Reactions: Allergies latex Allergy (Verified 08/10/18 10:55) Hives Medications to take at Discharge Aspirin [Aspirin, Baby] 81 mg PO DAILY@0800 08/10/18 Atenolol 50 mg PO DAILY 08/10/18 Bupropion HCl 1 tab PO PRN PRN 08/10/18 Calcium Carbonate [Calcium] 600 mg PO DAILY 08/10/18 Fenofibrate [Tricor] 145 mg PO DAILY 08/10/18 Insulin Detemir [Levemir] 40 unit SQ BID 08/10/18 Isosorbide Mononitrate [Imdur] 30 mg PO DAILY 08/10/18 Multivitamin,Therapeutic [Thera] 1 each PO DAILY 08/10/18 Mv-Min/FA/Vit K/Lycop/Lut/Zeax [Ocuvite Eye Plus Multi Tablet] 1 each PO DAILY 08/10/18 Vitamin D3 1 tab PO DAILY 08/10/18 Atorvastatin Calcium [Lipitor] 80 mg PO QHS #30 tablet 08/14/18 Furosemide [Lasix] 40 mg PO DAILY #30 tab 08/14/18 Insulin Aspart [Novolog Flexpen] 10 units SC TIDCM #0 08/14/18 Loperamide [Imodium] 2 mg PO TID PRN capsule 08/14/18 Pantoprazole Sodium [Protonix] 40 mg PO BID #60 tablet 08/14/18 The following prescriptions were given: Atorvastatin Calcium [Lipitor] 80 mg PO QHS #30 tablet Furosemide [Lasix] 40 mg PO DAILY #30 tab Pantoprazole Sodium [Protonix] 40 mg PO BID #60 tablet Orders to be completed after discharge: Basic Metabolic Profile (BMP) Time Frame: 1 Week, Location: Laboratory CBC W/Diff, Automated Time Frame: 1 Week, Location: Laboratory Primary Care Physician: Rosalino Fan DO [Primary Care Provider] - Within 2 Weeks Test Results: Test results from this visit will be discussed in further detail at your follow- up appointment, if applicable. Please Follow Up With: Nelson Felipe MD When: 2-4 weeks Please Follow Up With: Ryley Galloway MD When: 2-4 weeks. Proposed Discharge Date: 08/14/18
--- NOTE | 2018-08-14 12:22 | PCM.DC.SUM ---
Discharge Date and Diagnosis - Problem List Patient Problems: Active and Suspected Problems (Last Reviewed 08/10/18 @ 15:44 by Red Gurrola DO) Peptic ulcer disease (Acute) Acute blood loss anemia (Acute) SELAM (acute kidney injury) (Acute) NSTEMI (non-ST elevated myocardial infarction) (Acute) Date of Admission: 08/10/18 Date of Discharge: 08/14/18 - Primary Discharge Diagnosis Active and Suspected Problems (Last Reviewed 08/10/18 @ 15:44 by Red Gurrola DO) Acute blood loss anemia (Acute) SELAM (acute kidney injury) (Acute) NSTEMI (non-ST elevated myocardial infarction) (Acute) - Secondary Discharge Diagnosis Chronic Problems (Last Reviewed 08/10/18 @ 15:44 by Red Gurrola DO) Chronic diastolic heart failure (Chronic) Essential (primary) hypertension (Chronic) H/O coronary artery bypass surgery (Chronic 06/2009) CABG X 4: ONTIVEROS to LAD, SVG to high lateral cx, SVG to PDA and RCA 03/30/2009 History of coronary artery stent placement (Chronic ~11/2010) GIO to the mid and distal main RCA origin, GIO-Prox PDA, GIO- RCA and AV continution of the RCA 11/2010 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) Atherosclerotic heart disease of campo coronary artery without angina pectoris (Chronic) Bilateral carotid artery stenosis (Chronic) Hyperlipidemia (Chronic) PVD (peripheral vascular disease) (Chronic) Hospital Course and Treatment Imaging Results: Clinical Impression(s) from Imaging Studies Chest X-Ray 08/10/18 11:38 IMPRESSION: No acute thoracic pathology. Electronically Signed: Kelechi Keyes, at 11:55 EST Tel , Service support , Aki Rivera MD--cardiology Ryley Galloway MD--general surgery. Operations: - - 08/07/14 Angiogram w/ ballooning, 08/07/14 R 2nd toe amputation per Dr. Bui Procedures: 2-D Echocardiogram, EGD Summary of Care Provided: The patient is a 78 year old F presents with fatigue. 1. Acute blood loss anemia Suspected GI source. noted non-bleeding gastric ulcer stable status post 2 units PRBCs Check ferritin, iron, TIBC, B12, folate and TSH General surgery on consultation for further evaluation start Ferrous sulfate 2. SELAM improving Presumed prerenal but may also be a component of ATN related with volume depletion or her anemia IV fluids Hold her diuretics Follow-up labs in the morning Last creatinine before this admission was 1.56 in May 3. Non-STEMI May be more of a type II event Will continue with aspirin but hold her Plavix in light of the anemia follow up with cardiology not a candidate for intervention given the GI bleed. 4. PUD protonix BID for 2 weeks, then daily. 5. Peripheral arterial disease Hold her Pletal at this time given the anemia 6. DM2 fair control as diet is advanced, resume her regular dosing of Lantus. 7. DVT proph: SCDs. Chemical prophylaxis contraindicated due to acute anemia. 8. Disposition: home pending remainder of cardiac work up + H/H remaining stable and improvement of kidney function 9. Diarrhea: chronic. unclear if pt has IBS. was on an expensive medication as outpt, but had to stop d/t cost (Linzess?), was then changed over to Pepto-Bismol and Imodium). Collagenous colitis per report. [] Patient Problems: Active and Suspected Problems (Last Reviewed 08/10/18 @ 15:44 by Red Gurrola DO) Peptic ulcer disease (Acute) Acute blood loss anemia (Acute) SELAM (acute kidney injury) (Acute) NSTEMI (non-ST elevated myocardial infarction) (Acute) - Physical Exam General: Alert, Cooperative, No apparent distress HEENT: Atraumatic, Normocephalic Psych/Mental Status: Normal Affect, Appropriate Vital Signs Temp Pulse Resp BP Pulse Ox 36.6 C 56 L 16 131/78 H 96 08/14/18 09:09 08/14/18 11:00 08/14/18 09:09 08/14/18 09:08/14/18 10:00 Oxygen Flow Rate (L/min) 2 Oxygen Delivery Method Room Air Weight: 95.8 kg Body Mass Index (BMI) 36.2 Intake and Output for Last 24 Hours 08/12/18 08/13/18 08/14/18 23:59 23:59 23:59 Intake Total 1481 / 1481 1567 / 1567 Output Total 100 / 100 Balance 1381 / 1381 1567 / 1567 Microbiology Past 72 Hours 08/12/18 10:10 Stool Occult Blood (VISHNU) - Final Stool Occult Blood Positive Laboratory Tests Past 24 Hrs 08/14/18 08/14/18 05:20 05:20 WBC 7.7 RBC 3.07 L Hgb 8.1 L Hct 26.5 L MCV 86.3 MCH 26.4 L MCHC 30.6 L RDW 15.4 H RDW Differential 47.3 H Plt Count 248 MPV 11.6 Sodium 145 Potassium 4.4 Chloride 110 H Carbon Dioxide 27.0 Anion Gap 8 BUN 49 H Creatinine 1.95 H Estim Creat Clear Calc 21.19 Est GFR (MDRD) Af Amer 32 L Est GFR (MDRD) Non-Af 27 L BUN/Creatinine Ratio 25.1 H Glucose 120 H Calcium 8.3 L POC Glucose 08/14/18 08/14/18 08/13/18 11:26 07:06 21:13 POC Glucose 220 H 104 245 H 08/13/18 16:50 POC Glucose 234 H Discharge Diet: Low fat/ Low Cholesterol, 1800 Calorie Control Diet Discharge Activity: Return to Normal Activity Call your doctor if you observe: Shortness of breath, Fainting spells, Increased palpitations (irregular heartbeat) Home Medications: Medications to take at Discharge Aspirin [Aspirin, Baby] 81 mg PO DAILY@0800 08/10/18 Atenolol 50 mg PO DAILY 08/10/18 Bupropion HCl 1 tab PO PRN PRN 08/10/18 Calcium Carbonate [Calcium] 600 mg PO DAILY 08/10/18 Fenofibrate [Tricor] 145 mg PO DAILY 08/10/18 Insulin Detemir [Levemir] 40 unit SQ BID 08/10/18 Isosorbide Mononitrate [Imdur] 30 mg PO DAILY 08/10/18 Multivitamin,Therapeutic [Thera] 1 each PO DAILY 08/10/18 Mv-Min/FA/Vit K/Lycop/Lut/Zeax [Ocuvite Eye Plus Multi Tablet] 1 each PO DAILY 08/10/18 Vitamin D3 1 tab PO DAILY 08/10/18 Atorvastatin Calcium [Lipitor] 80 mg PO QHS #30 tablet 08/14/18 Furosemide [Lasix] 40 mg PO DAILY #30 tab 08/14/18 Insulin Aspart [Novolog Flexpen] 10 units SC TIDCM #0 08/14/18 Loperamide [Imodium] 2 mg PO TID PRN capsule 08/14/18 Pantoprazole Sodium [Protonix] 40 mg PO BID #60 tablet 08/14/18 Following Prescrptions Were Given to Patient: Atorvastatin Calcium [Lipitor] 80 mg PO QHS #30 tablet Furosemide [Lasix] 40 mg PO DAILY #30 tab Pantoprazole Sodium [Protonix] 40 mg PO BID #60 tablet Other Amb Orders: Basic Metabolic Profile (BMP) Time Frame: 1 Week, Location: Laboratory CBC W/Diff, Automated Time Frame: 1 Week, Location: Laboratory Primary Care Physician: Rosalino Fan DO [Primary Care Provider] - Within 2 Weeks Please Follow Up With: Nelson Felipe MD When: 2-4 weeks Please Follow Up With: Ryley Galloway MD When: 2-4 weeks. Disposition: Home with Home Health Minutes spent on discharge:: 35 Patient Condition:: Good Medical Necessity - Tobacco Use Smoking Status: Former smoker Meaningful Use Info Meaningful Use Diagnoses (Choose all that apply): None applicable Code Visit Inpatient E&M: 29146 Disch Hosp
--- NOTE | 2018-08-14 12:26 | DS.PCM_ITS ---
Discharge Date and Diagnosis - Problem List Patient Problems: Active and Suspected Problems (Last Reviewed 08/10/18 @ 15:44 by Red Gurrola DO) Peptic ulcer disease (Acute) Acute blood loss anemia (Acute) SELAM (acute kidney injury) (Acute) NSTEMI (non-ST elevated myocardial infarction) (Acute) Date of Admission: 08/10/18 Date of Discharge: 08/14/18 - Primary Discharge Diagnosis Active and Suspected Problems (Last Reviewed 08/10/18 @ 15:44 by Red Gurrola DO) Acute blood loss anemia (Acute) SELAM (acute kidney injury) (Acute) NSTEMI (non-ST elevated myocardial infarction) (Acute) - Secondary Discharge Diagnosis Chronic Problems (Last Reviewed 08/10/18 @ 15:44 by Red Gurrola DO) Chronic diastolic heart failure (Chronic) Essential (primary) hypertension (Chronic) H/O coronary artery bypass surgery (Chronic 06/2009) CABG X 4: ONTIVEROS to LAD, SVG to high lateral cx, SVG to PDA and RCA 03/30/2009 History of coronary artery stent placement (Chronic ~11/2010) GIO to the mid and distal main RCA origin, GIO-Prox PDA, GIO- RCA and AV continution of the RCA 11/2010 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 Electronically Signed: Kelechi Keyes, at 11:55 EST Tel , Service support , Aki Rivera MD--cardiology Ryley Galloway MD--general surgery. Operations: - - 08/07/14 Angiogram w/ ballooning, 08/07/14 R 2nd toe amputation per Dr. Bui Procedures: 2-D Echocardiogram, EGD Summary of Care Provided: The patient is a 78 year old F presents with fatigue. 1. Acute blood loss anemia * Suspected GI source. noted non-bleeding gastric ulcer * stable status post 2 units PRBCs * Check ferritin, iron, TIBC, B12, folate and TSH * General surgery on consultation for further evaluation * start Ferrous sulfate 2. SELAM * improving * Presumed prerenal but may also be a component of ATN related with volume depletion or her anemia * IV fluids * Hold her diuretics * Follow-up labs in the morning * Last creatinine before this admission was 1.56 in May 3. Non-STEMI * May be more of a type II event * Will continue with aspirin but hold her Plavix in light of the anemia * follow up with cardiology * not a candidate for intervention given the GI bleed. 4. PUD * protonix BID for 2 weeks, then daily. 5. Peripheral arterial disease * Hold her Pletal at this time given the anemia 6. DM2 * fair control * as diet is advanced, resume her regular dosing of Lantus. 7. DVT proph: SCDs. Chemical prophylaxis contraindicated due to acute anemia. 8. Disposition: home pending remainder of cardiac work up + H/H remaining stable and improvement of kidney function 9. Diarrhea: chronic. unclear if pt has IBS. was on an expensive medication as outpt, but had to stop d/t cost (Linzess?), was then changed over to Pepto- Bismol and Imodium). Collagenous colitis per report. [] Patient Problems: Active and Suspected Problems (Last Reviewed 08/10/18 @ 15:44 by Red Gurrloa DO) Peptic ulcer disease (Acute) Acute blood loss anemia (Acute) SELAM (acute kidney injury) (Acute) NSTEMI (non-ST elevated myocardial infarction) (Acute) - Physical Exam General: Alert, Cooperative, No apparent distress HEENT: Atraumatic, Normocephalic Psych/Mental Status: Normal Affect, Appropriate Vital Signs Temp Pulse Resp BP Pulse Ox 36.6 C 56 L 16 131/78 H 96 08/14/18 09:09 08/14/18 11:00 08/14/18 09:09 08/14/18 09:09 08/14/18 10:00 Oxygen Flow Rate (L/min) 2 Oxygen Delivery Method Room Air Weight: 95.8 kg Body Mass Index (BMI) 36.2 Intake and Output for Last 24 Hours 08/12/18 08/13/18 08/14/18 23:59 23:59 23:59 Intake Total 1481 / 1481 1567 / 1567 Output Total 100 / 100 Balance 1381 / 1381 1567 / 1567 Microbiology Past 72 Hours 08/12/18 10:10 Stool Occult Blood (VISHNU) - Final Stool Occult Blood Positive Laboratory Tests Past 24 Hrs 08/14/18 08/14/18 05:20 05:20 WBC 7.7 RBC 3.07 L Hgb 8.1 L Hct 26.5 L MCV 86.3 MCH 26.4 L MCHC 30.6 L RDW 15.4 H RDW Differential 47.3 H Plt Count 248 MPV 11.6 Sodium 145 Potassium 4.4 Chloride 110 H Carbon Dioxide 27.0 Anion Gap 8 BUN 49 H Creatinine 1.95 H Estim Creat Clear Calc 21.19 Est GFR (MDRD) Af Amer 32 L Est GFR (MDRD) Non-Af 27 L BUN/Creatinine Ratio 25.1 H Glucose 120 H Calcium 8.3 L POC Glucose 08/14/18 08/14/18 08/13/18 11:26 07:06 21:13 POC Glucose 220 H 104 245 H 08/13/18 16:50 POC Glucose 234 H Discharge Diet: Low fat/ Low Cholesterol, 1800 Calorie Control Diet Discharge Activity: Return to Normal Activity Call your doctor if you observe: Shortness of breath, Fainting spells, Increased palpitations (irregular heartbeat) Home Medications: Medications to take at Discharge Aspirin [Aspirin, Baby] 81 mg PO DAILY@0800 08/10/18 Atenolol 50 mg PO DAILY 08/10/18 Bupropion HCl 1 tab PO PRN PRN 08/10/18 Calcium Carbonate [Calcium] 600 mg PO DAILY 08/10/18 Fenofibrate [Tricor] 145 mg PO DAILY 08/10/18 Insulin Detemir [Levemir] 40 unit SQ BID 08/10/18 Isosorbide Mononitrate [Imdur] 30 mg PO DAILY 08/10/18 Multivitamin,Therapeutic [Thera] 1 each PO DAILY 08/10/18 Mv-Min/FA/Vit K/Lycop/Lut/Zeax [Ocuvite Eye Plus Multi Tablet] 1 each PO DAILY 08/10/18 Vitamin D3 1 tab PO DAILY 08/10/18 Atorvastatin Calcium [Lipitor] 80 mg PO QHS #30 tablet 08/14/18 Furosemide [Lasix] 40 mg PO DAILY #30 tab 08/14/18 Insulin Aspart [Novolog Flexpen] 10 units SC TIDCM #0 08/14/18 Loperamide [Imodium] 2 mg PO TID PRN capsule 08/14/18 Pantoprazole Sodium [Protonix] 40 mg PO BID #60 tablet 08/14/18 Following Prescrptions Were Given to Patient: Atorvastatin Calcium [Lipitor] 80 mg PO QHS #30 tablet Furosemide [Lasix] 40 mg PO DAILY #30 tab Pantoprazole Sodium [Protonix] 40 mg PO BID #60 tablet Other Amb Orders: Basic Metabolic Profile (BMP) Time Frame: 1 Week, Location: Laboratory CBC W/Diff, Automated Time Frame: 1 Week, Location: Laboratory Primary Care Physician: Rosalino Fan DO [Primary Care Provider] - Within 2 Weeks Please Follow Up With: Nelson Felipe MD When: 2-4 weeks Please Follow Up With: Ryley Galloway MD When: 2-4 weeks. Disposition: Home with Home Health Minutes spent on discharge:: 35 Patient Condition:: Good Medical Necessity - Tobacco Use Smoking Status: Former smoker Meaningful Use Info Meaningful Use Diagnoses (Choose all that apply): None applicable Code Visit Inpatient E&M: 24678 Disch Hosp
[2018-08-14 13:16] LABS: Eosinophil Ct. Urine No Eosinophils Seen % (.)
[2018-08-14 14:05] LABS: Folate, Hemolysate Test 422.2 ng/mL (Not Estab.); Folate, RBC (Hct) Test 19.7 % (34.0-46.6)
--- NOTE | 2018-08-14 14:23 | CASEMGMT ---
CELIA WHITT Note: Pt anxious re: dc. Has friend Antonia who assists her with medications. CELIA WHITT had asked pt on sunday and again this am to contact her friend and verify that she can continue to assist with her medications on dc. Pt's sister is in room and is willing to assist pt with picking up prescriptions and medications for this eric. Pt called her friend and left message. -CELIA WHITT again discussed [facility] safety at home re: medication management since pt's eyesight is impaired. Encouraged her to go to [facility] and at least discuss assisted living arrangements with them. Pt seems to understand that this would be a beneficial arrangement for her as being home alone is becoming increasingly difficult for her. -[facility] will begin start of care next week. Pt is aware. Kartik BOUDREUAX RN ACM
[2018-08-15 14:36] LABS: Folates, RBC Test 2143 ng/mL (>498)
--- NOTE | 2018-08-15 17:06 | CASEMGMT ---
CELIA WHITT Discharge Follow-up Phone Call: SUSAN: Sole Strata: 4 Call Date: 08/15/18 Discharge Date: 08/14/18 Time of Call: [id number] Duration: 9 minutes ? Admitting Diagnosis: GI bleeding, ABLA This CELIA WHITT contacted pt via phone regarding discharge follow-up. Pt states she is doing well. States her sister and a neighbor have been assisting her with organizing her medications. States the home health nurse has contacted her and she is expecting a visit tomorrow. Discussed follow-up appointments. Pt states she has appointments with Dr. Galloway and Dr. Felipe. Plans to schedule the appointment with Dr. Fan after her appointment with Dr. Galloway per his direction so she can have further discussions with Dr. Fan and formulate a plan of care based on 's findings. Discussed need for lab draws next week and encouraged pt to check with home health RN to see if these could be obtained by RN as pt thought she needed to come into the hospital to obtain them. Pt states she is going to work on preparing her home and belongings to be sold so she can move into an [facility] facility. States her neighbor and sister will be assisting her with this. Pt denied any further questions or concerns. Sagrario Cuevas RN
== END 2018-08-14 15:15 | disposition home health service (06) | DRG 811 ==
LOC: ED 12:38 → PCU 15:06
PROVIDERS: Hospitalist; Internal Medicine; Surgery; Emergency Provider Emergency Medicine; Family Provider Family Medicine; PCP Family Medicine
PROC: 0DJ08ZZ Inspection of Upper Intestinal Tract, Via Natural or Artificial Opening Endoscopic (ICD-10-PCS; CPT 43235; principal; 2018-08-12 07:55)
DX: D62 Acute posthemorrhagic anemia (principal); I21.4 Non-ST elevation (NSTEMI) myocardial infarction; N17.0 Acute kidney failure with tubular necrosis; I13.0 Hypertensive heart and chronic kidney disease with heart failure and stage 1 through stage 4 chronic kidney disease, or unspecified chronic kidney disease; I50.32 Chronic diastolic (congestive) heart failure; K92.2 Gastrointestinal hemorrhage, unspecified; E11.22 Type 2 diabetes mellitus with diabetic chronic kidney disease; E11.51 Type 2 diabetes mellitus with diabetic peripheral angiopathy without gangrene; K52.831 Collagenous colitis; E78.5 Hyperlipidemia, unspecified; E86.0 Dehydration; H35.30 Unspecified macular degeneration; H54.8 Legal blindness, as defined in USA; I25.10 Atherosclerotic heart disease of native coronary artery without angina pectoris; I27.20 Pulmonary hypertension, unspecified; K21.0 Gastro-esophageal reflux disease with esophagitis; K25.9 Gastric ulcer, unspecified as acute or chronic, without hemorrhage or perforation; N18.3 Chronic kidney disease, stage 3 (moderate); Z79.4 Long term (current) use of insulin; Z87.891 Personal history of nicotine dependence; Z95.5 Presence of coronary angioplasty implant and graft; Z95.1 Presence of aortocoronary bypass graft; Z79.899 Other long term (current) drug therapy; Z79.82 Long term (current) use of aspirin
CPT/HCPCS: 36415; 71045; 80048; 80053; 81001; 82274; 82570; 82607; 82728; 82747; 82962; 83550; 83880; 84443; 84484; 84540; 85014; 85018; 85025; 85027; 85610; 85730; 86850; 86900; 86920; 86922; 87205; 88305; 88313; 88342; 93005; 93306; 97110; 97116; 97161; 97166; 97530; 97535; 99285; J7030; J7040; P9016; A4216; J2405

== ENCOUNTER → 2018-08-21 15:56 | Outpatient (CLI) | payer MEDICARE, OTHER, SELFPAY ==
[2018-08-10 15:19] VITALS: BMI 36.2
[2018-08-21 18:20] LABS: Anion Gap 10 (5-15); BUN 62 mg/dL (7-18); BUN/Creat Ratio 21.3 RATIO (10-20); Chloride 103 mmol/L (98-107); Creatinine, Serum 2.91 mg/dL (0.55-1.02); EST Glomerular Filtration Rate 17 mL/min (>60); Est Glom Filt Rate - Afr Amer 20 mL/min (>60); Glucose 275 mg/dL (74-106); Potassium 4.7 mmol/L (3.5-5.1); Sodium Level 140 mmol/L (136-145)
[2018-08-21 18:41] LABS: Absolute Lymphocyte Count 1.44 X10^3/ul (0.83-4.51); Basophil# 0.04 X10^3/uL; Basophil% 0.6 % (0-1); Eosinophil# 0.11 X10^3/uL; Eosinophils% 1.8 % (0-5); Hematocrit 26.8 % (37-47); Lymphocyte # 1.44 X10^3/ul (4.0); Lymphocyte % 23.2 % (19-41); Mean Corp Hgb Conc 29.9 g/gl (32-36); Mean Corpuscular Hgb 25.4 pg (27.0-32.0); Mean Corpuscular Volume 85.1 fL (81-99); Mean Platelet Vol. 12.2 fl (6.2-12.0); Monocyte# 0.64 X10^3/uL; Monocyte% 10.3 % (0-10); Neutrophil # 3.97 X10^3/uL (2.7-7.7); Neutrophil % 63.9 % (47-70); Platelet Count 247 K/mm3 (150-450); RBC Distribution Width CV 16.1 % (11.6-14.6); RBC Distribution Width SD 49.7 fl (35.1-43.9); Red Blood Count 3.15 M/mm3 (4.2-5.4); White Blood Count 6.2 K/mm3 (4.4-11.0)
[2018-08-21 18:47] LABS: POSITIVE COUNT NO; POSITIVE DIFFERENTIAL NO; POSITIVE MORPHOLOGY NO
== END ==
PROVIDERS: Family Provider Family Medicine; PCP Family Medicine; Referring Provider Family Medicine; Visit Provider Family Medicine
DX: D64.9 Anemia, unspecified (principal)
CPT/HCPCS: 80048; 85025

== ENCOUNTER → 2019-05-28 11:49 | Outpatient (CLI) | payer MEDICARE, OTHER, SELFPAY ==
[2019-05-28 10:51] VITALS: BMI 37.8
[2019-05-28 12:56] LABS: Absolute Lymphocyte Count 2.49 X10^3/uL (0.83-4.51); Absolute Neutrophil Count 5.3 X10^3/uL (2.0-7.7); Basophil# 0.04 X10^3/uL; Basophil% 0.5 % (0-1); Eosinophil# 0.16 X10^3/uL; Eosinophils% 1.9 % (0-5); Hematocrit 34.1 % (37-47); Lymphocyte # 2.49 X10^3/ul (4.0); Lymphocyte % 28.9 % (19-41); Mean Corp Hgb Conc 32.3 g/dL (32-36); Mean Corpuscular Hgb 28.8 pg (27.0-32.0); Mean Corpuscular Volume 89.3 fL (81-99); Mean Platelet Vol. 12.7 fl (6.2-12.0); Monocyte# 0.64 X10^3/uL; Monocyte% 7.4 % (0-10); NRBC Flagged by Analyzer 0 % (0-5); Neutrophil # 5.25 X10^3/uL (2.7-7.7); Platelet Count 235 K/mm3 (150-450); RBC Distribution Width CV 12.5 % (11.6-14.6); RBC Distribution Width SD 40.3 fl (35.1-43.9); Red Blood Count 3.82 M/mm3 (4.2-5.4); White Blood Count 8.6 K/mm3 (4.4-11.0)
[2019-05-28 13:24] LABS: Anion Gap 5 (5-15); BUN 48 mg/dL (7-18); BUN/Creat Ratio 22.3 RATIO (10-20); Calcium,Total 9.3 mg/dL (8.5-10.1); Chloride 105 mmol/L (98-107); Creatinine, Serum 2.15 mg/dL (0.55-1.02); EST Glomerular Filtration Rate 24 mL/min (>60); Est Glom Filt Rate - Afr Amer 29 mL/min (>60); Glucose 90 mg/dL (74-106); Potassium 4.4 mmol/L (3.5-5.1); Sodium Level 140 mmol/L (136-145)
== END ==
PROVIDERS: Family Provider Family Medicine; PCP Family Medicine; Referring Provider Physician Assistant Medical; Visit Provider Physician Assistant Medical
DX: I25.10 Atherosclerotic heart disease of native coronary artery without angina pectoris (principal); I11.0 Hypertensive heart disease with heart failure; I50.32 Chronic diastolic (congestive) heart failure; N28.9 Disorder of kidney and ureter, unspecified; E78.00 Pure hypercholesterolemia, unspecified
CPT/HCPCS: 36415; 80048; 85025

== ENCOUNTER → 2020-07-14 06:16 | Outpatient (CLI) | payer MEDICARE, OTHER, SELFPAY ==
[2020-05-04 10:31] VITALS: BMI 35.6
--- NOTE | 2020-07-14 06:20 | ECHOD_ITS ---
Reason For Study: S/P CABG Procedure This was a 2D Doppler, Color Flow transthoracic echocardiogram. Myocardial strain analysis was performed in this exam to aid in the assessment of cardiac function. Exam performed in department. Left Ventricle Normal LV size. Mild concentric left ventricular hypertrophy. Left ventricular systolic function is lower limits of normal. The estimated ejection fraction is 50 %. Stage 2 diastolic dysfunction. No regional wall motion abnormalities noted. Right Ventricle Normal RV size. Normal systolic function. Atria Normal left atrium. Normal right atrium. Mitral Valve Normal mitral valve. Tricuspid Valve Normal tricuspid valve. Unable to estimate RV systolic pressure/pulmonary artery pressure due to technically difficult study. Aortic Valve Trisinus/trileaflet aortic valve. Mild focal aortic valve calcification. Pulmonic Valve Normal pulmonic valve. Great Vessels Normal aortic root. The pulmonary artery is normal size. Normal inferior vena cava. Pericardium/Pleural No pericardial effusion. MMode/2D Measurements & Calculations LVIDd: 4.9 cm IVSd: 1.5 cm Ao root diam: 3.1 cm LVIDs: 3.5 cm LVPWd: 1.2 cm LA dimension: 5.0 cm FS: 28.6 % LAV(MOD-bp): 62.2 ml LA A4 area: 20.3 cm2 RA A4 area: 12.7 cm2 LAV(MOD-bp) Indexed: 31.3 ml/m2 LAV(MOD-sp2): 58.0 ml LAV(MOD-sp4): 65.2 ml Time Measurements MV dec time: 0.21 sec Doppler Measurements & Calculations MV E max jean-claude: 121.9 cm/sec Lat Peak E' Jean-Claude: 5.5 cm/sec Med Peak E' Jean-Claude: 3.3 cm/sec MV A max jean-claude: 82.7 cm/sec E/E' lat: 22.2 E/E' med: 37.0 MV E/A: 1.5 MV V2 max: 122.1 cm/sec MV P1/2t max jean-claude: 122.1 cm/sec Ao V2 max: 145.6 cm/sec MV max P.0 mmHg MV P1/2t: 103.4 msec Ao max P.5 mmHg MV V2 mean: 64.5 cm/sec MV dec slope: 346.0 cm/sec2 MV mean P.0 mmHg MVA(P1/2t): 2.1 cm2 MV V2 VTI: 40.3 cm LV V1 max: 98.5 cm/sec PA V2 max: 93.6 cm/sec LV V1 max P.9 mmHg Interpretation Summary Normal LV size. Left ventricular systolic function is lower limits of normal. No regional wall motion abnormalities noted. The estimated ejection fraction is 50 %. Mild focal aortic valve calcification. Stage 2 diastolic dysfunction. Mild concentric left ventricular hypertrophy. The global longitudinal strain is moderately abnormal. The global longitudinal strain = -12.7% (abnormal). Compared to prior study, there is no significant change. Ordering Physician: Nelson Felipe Referring Physician: Rosalino Fan Performed By: Govind Boyd RCS
--- NOTE | 2020-07-14 16:27 | STRESSREP ---
Stress Test Report Pharmacologic myocardial perfusion stress test. 79-year-old lady with a history of coronary artery disease. ONTIVEROS to the LAD, saphenous vein graft to the circumflex artery saphenous vein graft to the posterior descending artery. The saphenous vein graft to the circumflex artery and the right coronary artery are occluded. Stress protocol: Resting EKG demonstrates sinus bradycardia with a rate of [address] depression is noted in leads II, III and aVF. Resting blood pressure is 1 and 30/70 2 mmHg. 0.4 mg of regadenoson was infused per usual protocol. The maximum heart rate attained was 88 bpm which was 61% of max impacted heart rate the maximum workload was 1 metabolic equivalent. There was persistent ST depression noted of approximately 2 mm which was downsloping in the inferolateral leads throughout the recording. No chest pain was noted. The above was suggestive of ischemia. The final blood pressure was 130/72 mmHg. Myocardial perfusion protocol. 14.2 mCi of technetium 99m sestamibi was injected at rest. 0.4 mg of regadenoson was infused per usual protocol. Peak infusion 44.7 mCi of technetium 99m sestamibi was injected stress and rest images were reconstructed and compared in the short axis vertical long horizontal long axis. Gated images were also obtained Perfusion SPECT analysis: Review of the stress images demonstrate a medium area noted involving the anterior wall extending to the apex and the lateral wall. This defect is present on the stress images and appears to improve on the resting images. The above is suggestive of an anterolateral ischemic zone. The inferior wall appears to be well perfused as well as the septum. Gated SPECT analysis: The gated ejection fraction is 55%. Conclusion: Abnormal pharmacologic myocardial perfusion stress test with evidence of anterolateral ischemia. Preserved ejection fraction.
== END ==
PROVIDERS: PCP Family Medicine; Referring Provider Internal Medicine Cardiovascular Disease; Visit Provider Internal Medicine Cardiovascular Disease
DX: Z01.810 Encounter for preprocedural cardiovascular examination (principal); Z95.1 Presence of aortocoronary bypass graft
CPT/HCPCS: 78452; 93017; 93306; A9500; A4216; J2785

== ENCOUNTER 2020-07-22 06:16 | Day surgery (SDC) | payer MEDICARE, OTHER, SELFPAY ==
[2020-05-04 10:31] VITALS: BMI 35.6
[2020-07-21 09:49] VITALS: BMI 35.6
--- NOTE | 2020-07-22 06:00 | HP_ITS ---
HPI HPI History of Present Illness Details: ALECIA GUERRERO, is a 79 F who presents to the office today for a cardiovascular outpatient follow-up. She has a history of coronary artery disease with bypass surgery in 2008. She had an ONTIVEROS to the LAD, SVG to circumflex, and SVG to the posterior descending and RCA. Her heart catheterization in 2010 demonstrated an occluded SVG to circumflex, occluded SVG to the RCA and patient ONTIVEROS to the LAD. She did undergo stenting of her RCA. She also has a history of hypertension and hyperlipidemia. She presented to [facility] emergency part in July 2018 for shortness of breath. She had an elevated troponin, anemia, and acute kidney injury. Due to her ongoing anemia it was not recommended she undergo invasive testing/heart catheterization. Her Plavix was discontinued due to anemia. She tells me that she has been diagnosed with bladder cancer for which she has been undergoing localized chemotherapy. She has had no dizziness or diaphoresis near syncope or syncope she continues to be short of breath. She may be requiring further surgery soon. She has also had easy fatigability. Her blood pressure today in the office is rather elevated. She says that it was 140/90 yesterday. Her physical exam today is unremarkable. Intake Vital Signs 05/04/20 Height 5 ft 4 in 05/04/20 Weight: 208 lb 05/04/20 BMI 35.6 05/04/20 BP 186/89 H 05/04/20 Respiration 18 05/04/20 Pulse 60 05/04/20 Pulse Oximetry (%) 98 Intake Visit Reasons: 6 M FU (pt r/s 01/29 & 05/27) Allergies latex Allergy (Verified 05/28/19 10:54) Hives Medications Aspirin [Aspirin, Baby] 81 mg PO DAILY@0800 08/10/18 [History Confirmed 07/06/20] Atenolol 50 mg PO DAILY 08/10/18 [History Confirmed 07/06/20] Calcium Carbonate [Calcium] 600 mg PO DAILY 08/10/18 [History Confirmed 07/06/20] Insulin Detemir [Levemir] 40 unit SQ BID 08/10/18 [History Confirmed 07/06/20] Multivitamin,Therapeutic [Thera] 1 ea PO DAILY 08/10/18 [History Confirmed 07/06/20] Mv-Min/FA/Vit K/Lycop/Lut/Zeax [Ocuvite Eye Plus Multi Tablet] 1 ea PO DAILY 08/10/18 [History Confirmed 07/06/20] Atorvastatin Calcium [Lipitor] 80 mg PO QHS #30 tab 08/14/18 [Rx Confirmed 07/06/20] Ferrous Sulfate 325 mg PO DAILY@0800 #30 tab 08/14/18 [Rx Confirmed 07/06/20] Insulin Aspart [Novolog Flexpen] 10 units SUBCUT TIDCM #0 08/14/18 [Rx Confirmed 07/06/20] Pantoprazole Sodium [Protonix] 40 mg PO BID #60 tab 08/14/18 [Rx Confirmed 07/06/20] bupropion HCl 150 mg 24 hr tablet, extended release 150 mg PO DAILY PRN tab 08/27/18 [History Confirmed 07/06/20] cholecalciferol (vitamin D3) 25 mcg (1,000 unit) capsule 1,000 unit PO DAILY 08/27/18 [History Confirmed 07/06/20] fenofibrate nanocrystallized 145 mg tablet 145 mg PO DAILY 11/26/18 [History Confirmed 07/06/20] nitroglycerin 0.4 mg sublingual tablet 0.4 mg SUBLINGUAL Q5-15M PRN #25 tab 05/28/19 [Rx Confirmed 07/06/20] furosemide 20 mg tablet 20 mg PO DAILY #30 tab 08/18/19 [Rx Confirmed 07/06/20] isosorbide mononitrate 30 mg tablet,extended release 24 hr 30 mg PO DAILY #90 tab 02/04/20 [Rx Confirmed 07/06/20] amlodipine 5 mg tablet 5 mg PO DAILY #90 tab 07/06/20 [Rx Confirmed 07/06/20] loperamide 2 mg capsule 2 mg PO TID PRN cap 07/06/20 [History] Ejection fraction %: 50 to 54 [facility], [facility] Medical History 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) Atherosclerotic heart disease of [place] coronary artery without angina pectoris (Chronic) NSTEMI (non-ST elevated myocardial infarction) (Resolved 08/10/18) Chronic diastolic heart failure (Chronic) Essential (primary) hypertension (Chronic) Hyperlipidemia (Chronic) Bilateral carotid artery stenosis (Chronic) PVD (peripheral vascular disease) (Chronic) Anemia (Chronic) Macular degeneration (Chronic) Type 2 diabetes mellitus (Chronic) Gangrene associated with type 2 diabetes mellitus (Resolved) Surgical History H/O coronary artery bypass surgery (Chronic 06/2009) History of coronary artery stent placement (Chronic 11/2010) H/O transurethral destruction of bladder lesion (Resolved 11/04/19) History of left heart catheterization (Resolved 12/22/16) 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/14) angioplasty to right SFA (Resolved 2013) bilateral iliac stents (Resolved) Family History Father COPD (chronic obstructive pulmonary disease) emphysema Mother , of massive NE CAD (coronary artery disease) Myocardial infarction Diabetes Congestive heart failure Brother CAD (coronary artery disease) S/P CABG x 4 Sister , age 60, after CABG surgery CAD (coronary artery disease) Hx of CABG Social History (Updated 07/06/20 @ 10:[address] Nelson Felipe MD) Smoking Status: Former smoker how long ago did patient quit smokin years ago alcohol intake: never caffeine: No ROS Const Const: Positive for fatigue and weakness; negative for headache(s), frequent falls, difficulty sleeping or excessive sweating Eyes Eyes: Negative for loss of peripheral vision, transient loss of vision, blurry vision, double vision or tunnel vision ENT ENT: Negative for headache(s), dizziness, Nosebleed/epistaxis or balance problems Cardio Chest Pain: No Palpitations: No Edema: None Muscle aches with walking: None Resp Respiratory: Positive for SOB with activity (SOB with increased walking); negative for SOB at rest, SOB orthopnea\SOB lying down, Cough or paroxysmal nocturnal dyspnea GI GI: Negative nausea, vomiting, heartburn or black,tarry stools : Negative for hematuria Musc Musc: Negative for muscle aches/ myalgia, muscle weakness, joint pain or balance problems Skin Skin: Negative non-healing lesions, rash or unusual bruising Neuro Neuro: Positive for weakness; negative for dizziness, lightheadedness, near syncope, syncope, orthostatic symptoms, frequent falls, headache(s), blurry vision, double vision or lack of coordination Yash Hematologic/Lymphatic: Negative for easy bleeding or easy bruising Endo Endo: Positive for fatigue; negative for excessive sweating or increased thirst/drinking Psych Psych: Negative for anxiety or depression Allergy Allergy/Immunology: Negative for hives, Negative for rash Cardiology Exam Const Appearance: cooperative, healthy appearing, no acute distress, well developed and well groomed Nutritional Appearance: average body habitus and well nourished Orientation: alert, awake and oriented x3 Head Head: normal to inspection, normocephalic and atraumatic Ears: hearing grossly normal bilaterally and external ears normal Nose: external nose normal, nares normal, nasal mucous membranes and turbinates normal, septum normal, no nasal discharge Face and Sinus: face symmetric Mouth: oral mucosae normal, tongue normal, oropharynx normal and moist mucous membranes Teeth and gingiva: dentition normal Throat: posterior oropharynx normal, tonsils normal and uvula midline Eyes General: appearance normal, both eyes and all related structures Eyelids: eyelids normal Conjunctivae: conjunctivae normal Pupils: PERRL, normal by confrontation and accommodation normal EOM: EOM intact bilaterally Neck Neck: normal visual inspection, trachea midline and no JVD JVD: +5 Carotids: normal carotid upstroke and bounding pulses Chest Chest inspection: normal inspection of the chest, symmetric chest movement and normal respiratory effort Auscultation: Bilateral: Clear to Auscultation Cardio Palpation: normal PMI Rate: regular rate Rhythm: regular rhythm Heart sounds: S1 normal, S2 normal and normal, physiologic split S2; negative rub, gallop or murmur GI GI: normal to inspection, soft, no hepatosplenomegaly and bowel sounds present Neuro General: alert, awake, oriented x3, gait normal, moves all extremities and no focal sensory deficit Skin Skin: no rashes or lesions noted Extremities Pulses: Normal: Right Femoral Pulse, Left Femoral Pulse, Right Dorsalis Pedis Pulse, Left Dorsalis Pedis Pulse, Right Posterior Tibial Pulse, Left Posterior Tibial Pulse, Right Radial Pulse, Left Radial Pulse Lower Extremity Edema: None: Bilateral Musculoskel Musculoskeletal: No joint tenderness Psych Psychological: normal affect Assessment & Plan 1. H/O coronary artery bypass surgery Z95.1 CABG X 4: ONTIVEROS to LAD, SVG to high lateral cx, Sequential SVG to PDA and RCA 03/30/2009 Plan She is status post coronary artery bypass surgery remotely in 2008. Her last catheterization was in 2017. At that time she was noted to have occluded saphenous vein grafts and a patent ONTIVEROS in her right coronary artery which was stented in 2010 which was patent. It may be prudent to obtain a pharmacologic myocardial perfusion stress test before she undergoes any further invasive surgery with her urologist. Orders Orders: Nuclear Stress Test - Chemical Today 2. History of coronary artery stent placement Z95.5 GIO-Mid and distal main RCA origin, GIO-Prox PDA, GIO-RCA and AV continution of the RCA 11/2010 Plan She is status post previous angioplasty and stenting of the right coronary artery. This will be reevaluated with a noninvasive stress test. 3. Essential (primary) hypertension I10 Plan Her blood pressure is uncontrolled at this time. With her history of coronary artery disease and bladder cancer it may be appropriate for us to be more aggressive with the above by adding amlodipine 5 mg a day to her regimen. 4. Chronic diastolic heart failure I50.32 Plan She does have evidence of chronic diastolic heart failure her last echocardiogram demonstrated an ejection fraction of 50 to 55% with inferior basal and posterior basal hypokinesis pulmonary pressures were noted to be elevated. 5. Pure hypercholesterolemia E78.00 Plan She does have a history of hyperlipidemia and will continue to risk factor modifying her. Plan Detail Other Orders Orders: Echo Complete Today Z01.810 Other Medications New: amlodipine 5 mg PO DAILY 90 tabs 4RF Follow Up 6 Months (mmm) Coding Level of Care Code Off vis,est,level 4 Diagnoses H/O coronary artery bypass surgery Z95.1 History of coronary artery stent placement Z95.5 Essential (primary) hypertension I10 Chronic diastolic heart failure I50.32 Pure hypercholesterolemia E78.00 ??Hyperlipidemia type: pure hypercholesterolemia Coding Level of Care Code Off vis,est,level 4 Diagnoses H/O coronary artery bypass surgery Z95.1 History of coronary artery stent placement Z95.5 Essential (primary) hypertension I10 Chronic diastolic heart failure I50.32 Pure hypercholesterolemia E78.00 ??Hyperlipidemia type: pure hypercholesterolemia
--- NOTE | 2020-07-22 08:56 | CL.D_ITS ---
Patient Name: ALECIA GUERRERO Study Date: 07/22/2020 Performing: Nelson Felipe MD Ht: 64.17 inches 163 cm : 1940 Wt: 207.23 lbs 94 kg Age: 80 Gender: female BSA: 1.99 PROCEDURE(S) PERFORMED [id number]/COR/CABG CLINICAL PROFILE AND INDICATIONS Indications: Suspected CAD Heart Failure: None Stress/Imaging Date: 07/14/2020Stress Test with SPECT MPI: Positive Intermediate Risk CAD Presentations: No Sxs, no angina. CONCLUSIONS Diffuse coronary artery disease with a totally occluded mid left anterior descending artery and mid c ircumflex artery which is a small vessel. Diffusely diseased circumflex artery: Dominant right coron eliana artery with previously placed stent which is patent and an ostial posterior descending artery john nosis. Patent ONTIVEROS to the LAD with diffuse distal LAD disease. RECOMMENDATIONS Medical therapy DESCRIPTION OF PROCEDURE The patient arrived to the procedure lab. The risks and benefits of the procedure as well as a full d escription of our services here and current unavailability of surgical backup were fully explained to the patient and/or their significant other prior to the catheterization. The Timeout was completed, verifying the correct patient and procedure. The patient's procedural site was prepped and draped in the usual fashion. Local anesthetic was given subcutaneously to left radial region with Lidocaine 2%. Using a modified Seldinger technique, arterial access was obtained via the left radial artery, a 6Fr sheath was inserted. Left Coronary Artery selective angiography was performed in multiple views usi ng a 5 Fr. JL3.5 catheter. Right Coronary Artery selective angiography was then performed in multiple views using a 5 Fr. 3DRC (Dave) catheter. Left internal mammary artery graft to the LAD selectiv e angiography was performed in multiple views using a 5 Fr. IM catheter.The arterial sheath was pulled and a TR Band was applied for hemostasis 11cc air CORONARY ANGIOGRAPHY DOMINANCE: Right Dominant LEFT HEART ASSESSMENT Left Ventricular Ejection Fraction: by Echo 50 % Depressed Left Ventricular systolic function LEFT MAIN: No significant disease noted LEFT ANTERIOR DESCENDING ARTERY: MID LAD: is occluded DISTAL LAD: Moderate luminal irregularities up to 50% CIRCUMFLEX ARTERY: MID CIRC: is occluded OM 1: Proximal - Mild luminal irregularities less than 30% RAMUS: Moderate luminal irregularities up to 50% RIGHT CORONARY ARTERY: Mild luminal irregularities MID RCA: Previously placed stent is patent RT PDA: Ostial - 60 % Stenosis GRAFTS: ONTIVEROS graft to the Mid LAD is patent COMPLICATIONS No Complications PROCEDURE MEDICATIONS Versed 1 mg IV Fentanyl 50 mcg IV Versed 1 mg IV Oxygen: 2 L/min via nasal cannula Baby Aspirin (81mg) 1 Tabs PO @ 07/22/2020 07:27:52 Plavix 75 mg PO 07/22/2020 07:27:58 SUMMARY OF HEMODYNAMIC DATA Time AIR REST ECG 07:18:09 AO 177/63 (103) SA 08:13:37 AO 175/58 (96) 08:21:13 Signed By Nelson Felipe MD On 07/22/2020 08:56:13 Nelson Felipe MD
== END 2020-07-22 10:45 | disposition home or self-care (01) ==
LOC: CLSP 06:19
PROVIDERS: PCP Family Medicine; Referring Provider Internal Medicine Cardiovascular Disease; Visit Provider Internal Medicine Cardiovascular Disease
DX: I25.10 Atherosclerotic heart disease of native coronary artery without angina pectoris (principal); I25.82 Chronic total occlusion of coronary artery; I25.2 Old myocardial infarction; D64.9 Anemia, unspecified; E11.51 Type 2 diabetes mellitus with diabetic peripheral angiopathy without gangrene; I11.0 Hypertensive heart disease with heart failure; I50.32 Chronic diastolic (congestive) heart failure; E78.00 Pure hypercholesterolemia, unspecified; I65.23 Occlusion and stenosis of bilateral carotid arteries; Z85.51 Personal history of malignant neoplasm of bladder; Z95.1 Presence of aortocoronary bypass graft; Z79.4 Long term (current) use of insulin; Z79.82 Long term (current) use of aspirin; Z79.899 Other long term (current) drug therapy; Z87.891 Personal history of nicotine dependence
CPT/HCPCS: 93455; 99152; 99153; J7040; C1769; C1894; Q9967

== ENCOUNTER 2020-11-02 11:20 | Outpatient (RCR) | payer MEDICARE, OTHER, SELFPAY ==
[2020-07-21 09:49] VITALS: BMI 35.6
[2020-11-02] MEDS: COVID-19 VACC, MRNA(PFIZER)/PF 30 MCG/0.3 ML SYRINGE IM (10:52)
[2020-11-23] MEDS: COVID-19 VACC, MRNA(PFIZER)/PF 30 MCG/0.3 ML SYRINGE IM (10:44)
== END 2021-01-25 23:59 ==
LOC: IMMUN 11:20
PROVIDERS: PCP Family Medicine; Visit Provider Family Medicine
DX: Z23 Encounter for immunization (principal)
CPT/HCPCS: 0001A; 0002A; 91300

== ENCOUNTER 2021-08-09 00:22 | Inpatient (IN) | payer MEDICARE, OTHER, SELFPAY ==
[2021-08-08 22:15] VITALS: BP 148/58; PULSE 62; RESP 14; TEMP 36.7; O2SAT 95
[2021-08-08 22:57] VITALS: BMI 34.8
[2021-08-08 23:16] VITALS: PULSE 61
--- NOTE | 2021-08-08 23:24 | NURSING ---
pt is a resident at [facility]. Made Shandra RN at [facility] aware that pt was tx here from [facility]. Shandra states she may not be able to get home med list over tonight d/t staffing shortage but would try. If not, she would pass along to dayshift RN that it needs faxed.
--- NOTE | 2021-08-08 23:51 | HP.PCM_ITS ---
HPI - General General Date of Admission: 08/08/21 HPI Narrative ALECIA GUERRERO, is a 81 F who presents to Mr. Emergency room from [facility] due to NSTEMI. Patient has a significant past medical history of bladder cancer and frequent urinary tract infections. Per [facility] report patient also has UTI at this time. She is a resident of [facility]. She states she has had some chest discomfort for approximately a week but that is vague. She does not have any chest pain at present time. Patient denies nausea, vomiting, diarrhea, shortness of breath at present. She does have chronic dysuria secondary to bladder cancer. In discussion direct with patient who is competent and coherent she expressed a clear wish to be DNR Comfort Care arrest. She has seen Dr. Felipe in the past and he will be consulted for potential catheterization in the morning. [facility] Medical History (Updated 07/16/20 @ 09:05 by Marie House) Anemia Atherosclerosis of other coronary artery bypass graft(s) with other forms of angina pectoris Atherosclerotic heart disease of [place] coronary artery without angina pectoris Bilateral carotid artery stenosis Chronic diastolic heart failure Essential (primary) hypertension Gangrene associated with type 2 diabetes mellitus Hyperlipidemia Macular degeneration NSTEMI (non-ST elevated myocardial infarction) (08/10/18) PVD (peripheral vascular disease) Type 2 diabetes mellitus Home Medications aspirin 81 mg PO DAILY@0800 08/10/18 [History Last Taken 07/22/20] atenolol 50 mg PO DAILY 08/10/18 [History Last Taken Unknown] calcium carbonate 600 mg PO DAILY 08/10/18 [History Last Taken Unknown] insulin detemir U-100 40 unit SQ BID 08/10/18 [History Last Taken Unknown] lm-yt-DM-vit O-oarjw-xdpd-zeax 1 ea PO DAILY 08/10/18 [History Last Taken Unknown] therapeutic multivitamin 1 ea PO DAILY 08/10/18 [History Last Taken Unknown] atorvastatin 80 mg PO QHS #30 tab 08/14/18 [Rx Last Taken Unknown] ferrous sulfate 325 mg PO DAILY@0800 #30 tab 08/14/18 [Rx Last Taken Unknown] insulin aspart U-100 10 units SUBCUT TIDCM #0 08/14/18 [Rx Last Taken Unknown] pantoprazole 40 mg PO BID #60 tab 08/14/18 [Rx Last Taken Unknown] bupropion HCl 150 mg 24 hr tablet, extended release 150 mg PO DAILY PRN tab 08/27/18 [History Last Taken Unknown] cholecalciferol (vitamin D3) 25 mcg (1,000 unit) capsule 1,000 unit PO DAILY 08/27/18 [History Last Taken Unknown] fenofibrate nanocrystallized 145 mg tablet 145 mg PO DAILY 11/26/18 [History Last Taken Unknown] nitroglycerin 0.4 mg sublingual tablet 0.4 mg SUBLINGUAL Q5-15M PRN #25 tab 05/28/19 [Rx Last Taken Unknown] amlodipine 5 mg tablet 5 mg PO DAILY #90 tab 07/06/20 [Rx Last Taken Unknown] loperamide 2 mg capsule 2 mg PO TID PRN cap 07/06/20 [History Last Taken U nknown] furosemide 20 mg tablet See Rx Instructions .ROUTE .COMPLEX #90 tab 09/06/20 [Rx Last Taken Unknown] isosorbide mononitrate 30 mg tablet,extended release 24 hr 30 mg PO DAILY #90 tab 02/14/21 [Rx Last Taken Unknown] Allergy/AdvReac Type Severity Reaction Status Date / Time latex Allergy Hives Verified 07/21/20 09:51 Family History Father COPD (chronic obstructive pulmonary disease) emphysema Mother , of massive [place] CAD (coronary artery disease) Myocardial infarction Diabetes Congestive heart failure Brother CAD (coronary artery disease) S/P CABG x 4 Sister , age 60, after CABG surgery CAD (coronary artery disease) Hx of CABG Surgical History (Updated 07/22/20 @ 18:06 by Marie House) amputation of right second toe (08/07/14) angioplasty to right SFA (2013) bilateral iliac stents H/O coronary artery bypass surgery (06/2009) H/O transurethral destruction of bladder lesion (11/04/19) History of coronary artery stent placement (11/2010) History of left heart catheterization (07/22/20) Social History (Updated 07/06/20 @ 10:[address] Nelson Felipe MD) Smoking Status: Former smoker how long ago did patient quit smokin years ago alcohol intake: never caffeine: No ROS Constitutional Constitutional: Denies chills or fever(s) Eyes Eyes: Denies blurry vision ENT HEENT: Denies abnormal hearing Cardiovascular Cardiovascular: Reports chest pain Respiratory/Chest Respiratory/Chest: Denies cough Gastrointestinal Gastrointestinal: Denies abdominal pain Genitourinary Genitourinary: Reports dysuria Musculoskeletal Musculoskeletal: Denies back pain Integumentary Integumentary: Denies dry skin Neurologic Neurologic: Denies abnormal speech Psychiatric Psychiatric: Denies anxiety Vital Signs Vital Signs Vital Signs: 08/08/21 23:16 08/08/21 23:34 Pulse Rate 61 Respiratory Effort Normal Non-Labored Respiratory Depth Normal Respiratory Pattern Normal Oxygen Delivery Method Room Air Weight Weight: 203 lb 0.732 oz Body Mass Index (BMI) 34.8 Physical Exam Const alert and oriented x3 General Appearance: cooperative HEENT normocephalic and head/scalp atraumatic Eyes PERRL Neck supple Lymph Lymphatic: no lymphadenopathy noted Resp normal respiratory effort, normal air movement and clear to auscultation bilaterally Cardio regular rate, regular rhythm, S1 normal heart sound, S2 normal heart sound and no murmurs GI normal to inspection, nondistended, normoactive bowel sounds Extremity no clubbing, cyanosis or edema Skin General Skin Exam: turgor normal Neuro CN's II-XII intact bilaterally Psych affect normal Assessment & Plan Assessment/Plan (1) NSTEMI (non-ST elevated myocardial infarction): (2) Chronic diastolic heart failure: (3) Essential (primary) hypertension: (4) Hyperlipidemia: QUALIFIERS: Hyperlipidemia type: pure hypercholesterolemia Qualified Code(s): E78.00 - Pure hypercholesterolemia, unspecified (5) Bladder cancer: PLAN: 1. Non-ST elevation UT?admit patient to progressive care unit, cycle cardiac enzymes, nitroglycerin as needed, oxygen per routine protocol and aspirin daily. We will consult Dr. Felipe for potential heart catheterization in the morning 2. Urinary tract infection?1 g IV Rocephin daily 3. Hypertension?continue routine home medications patient is stable 4. Hyperlipidemia?continue statin medication when able to take p.o. medication 5. DVT prophylaxis?low molecular weight heparin Charges/Coding Visit Charges Inpatient E&M: 35370 Init Hosp L3
[2021-08-09] VITALS (10 sets, daily range): BP systolic 136–157; BP diastolic 50–59; PULSE 55–62; RESP 14–18; TEMP 36.4–36.8; O2SAT 93–97
--- NOTE | 2021-08-09 00:41 | PCS.PANDOC ---
PANDEMIC DOCUMENTATION INITIATED: Date: 04/04/2021 Time: 190
[2021-08-09] MEDS: 0.9% Normal Saline 1,000 ML 75 ML IV ×2 (01:24→11:55)
[2021-08-09 02:01] LABS: Troponin-I HS 2909 pg/mL (3.0-54.0)
[2021-08-09 03:21] LABS: Troponin-I HS 3276 pg/mL (3.0-54.0)
--- NOTE | 2021-08-09 05:55 | EKG12_ITS ---
Test Reason : AM EKG Blood Pressure : / mmHG Vent. Rate : 053 BPM Atrial Rate : 053 BPM P-R Int : 206 ms QRS Dur : 098 ms QT Int : 466 ms P-R-T Axes : 024 000 189 degrees QTc Int : 437 ms Sinus bradycardia Marked ST abnormality, possible inferolateral subendocardial injury Abnormal ECG Confirmed by FRANCOISE ISAACS, CALISTA ([id number]), make up editor PAPITO SUTHERLAND ([id number]) on 08/10/2021 10:03:58 AM Referred By: CARA Confirmed By:CALISTA OWUSU MD
[2021-08-09 06:40] LABS: Bedside Glucose 287 mg/dL (70-110)
[2021-08-09 06:42] LABS: Absolute Lymphocyte Count 1.37 X10^3/uL (0.83-4.51); Absolute Neutrophil Count 7.5 X10^3/uL (2.0-7.7); Basophil# 0.04 X10^3/uL; Basophil% 0.4 % (0-1); Eosinophil# 0.09 X10^3/uL; Eosinophils% 0.9 % (0-5); Hematocrit 23.7 % (37-47); Hemoglobin 7.5 g/dL (12.0-15.0); Lymphocyte # 1.37 X10^3/ul (0.83-4.51); Lymphocyte % 13.8 % (19-41); Mean Corp Hgb Conc 31.6 g/dL (32-36); Mean Corpuscular Hgb 28.7 pg (27.0-32.0); Mean Corpuscular Volume 90.8 fL (81-99); Mean Platelet Vol. 12.6 fl (6.2-12.0); Monocyte% 8.1 % (0-10); NRBC Flagged by Analyzer 0.2 % (0-5); Neutrophil # 7.53 X10^3/uL (2.7-7.7); Neutrophil % 75.8 % (47-70); Platelet Count 197 K/mm3 (150-450); RBC Distribution Width CV 13.4 % (11.6-14.6); RBC Distribution Width SD 44.2 fl (35.1-43.9); Red Blood Count 2.61 M/mm3 (4.2-5.4); White Blood Count 9.9 K/mm3 (4.4-11.0)
[2021-08-09 06:46] LABS: International Normalized Ratio 1.4; Prothrombin Time (Protime)PT. 16.2 SECONDS (11.7-14.9)
[2021-08-09 07:34] LABS: Anion Gap 12 (5-15); BUN 56 mg/dL (7-18); BUN/Creat Ratio 20.1 RATIO (10-20); Calcium,Total 8.5 mg/dL (8.5-10.1); Chloride 108 mmol/L (98-107); Creatinine, Serum 2.78 mg/dL (0.55-1.02); EST Glomerular Filtration Rate 18 mL/min (>60); Est Glom Filt Rate - Afr Amer 21 mL/min (>60); Estimated Creatinine Clearance 14.17 ml/min; Glucose 284 mg/dL (74-106); Potassium 4.1 mmol/L (3.5-5.1); Sodium Level 139 mmol/L (136-145); Troponin-I HS 2743 pg/mL (3.0-54.0)
[2021-08-09 08:01] LABS: Platelet Count 198 K/mm3 (150-450); RET-HE 29.2 pg (30-35); Reticulocyte Count 3.29 % (0.5-1.5)
[2021-08-09 08:08] LABS: Iron 27 ug/dL (50-170); Iron Binding Capacity,Total 329 ug/dL (250-450); PERCENT IRON SATURATION 8.2 % (15.0-55.0)
--- NOTE | 2021-08-09 08:15 | ECHOCS_ITS ---
Reason For Study: s/p CABG Procedure This was a 2D Doppler, Color Flow transthoracic echocardiogram. The study was technically difficult. Contrast injection was performed. Exam performed portable in patient room. Left Ventricle Normal LV size. Moderate concentric left ventricular hypertrophy. The estimated ejection fraction is 55 %. Segmental dysfunction with preserved ejection fraction (see wall motion). Stage 3 diastolic dysfunction. [place] : Normal. Mid-Anterior : Normal. Basal anteroseptal: Hypokinetic. Mid- anteroseptal : Akinetic. Mid-inferoseptal : Hypokinetic. Mid-Inferior: Hypokinetic. Infero-Basal: Hypokinetic. The rest of the wall segments are normal. Right Ventricle Normal RV size. Normal systolic function. [place] Normal left atrium. Normal right atrium. Mitral Valve Normal mitral valve. Mild (1+) eccentric mitral valve insufficiency. Tricuspid Valve Normal tricuspid valve. Moderate (2+) tricuspid valve insufficiency. Pulmonary artery systolic pressure is 54 mmHg. Aortic Valve Trisinus/trileaflet aortic valve. Pulmonic Valve Normal pulmonic valve. Great Vessels Normal aortic root. The pulmonary artery is normal size. Normal inferior vena cava. Pericardium/Pleural No pericardial effusion. Medication Diluted definity 2ml given slow IV push to enhance endocardial definition. MMode/2D Measurements & Calculations LVIDd: 5.2 cm IVSd: 1.5 cm LA dimension: 4.9 cm LVIDs: 4.0 cm LVPWd: 1.3 cm FS: 23.9 % LAV(MOD-bp): 71.4 ml LA A4 area: 20.3 cm2 RA A4 area: 12.4 cm2 LAV(MOD-bp) Indexed: 36.3 ml/m2 LAV(MOD-sp2): 74.2 ml LAV(MOD-sp4): 65.6 ml Time Measurements MV dec time: 0.18 sec Doppler Measurements & Calculations MV E max jean-claude: 116.3 cm/sec Lat Peak E' Jean-Claude: 4.2 cm/sec Med Peak E' Jean-Claude: 4.1 cm/sec MV A max jean-claude: 54.8 cm/sec E/E' lat: 27.9 E/E' med: 28.6 MV E/A: 2.1 MV V2 max: 130.1 cm/sec MV P1/2t max jean-claude: 131.8 cm/sec Ao V2 max: 124.9 cm/sec MV max P.8 mmHg MV P1/2t: 68.1 msec Ao max P.2 mmHg MV V2 mean: 61.1 cm/sec MV dec slope: 566.7 cm/sec2 MV mean P.9 mmHg MV V2 VTI: 36.7 cm MVA(P1/2t): 3.2 cm2 LV V1 max: 66.8 cm/sec MR max jean-claude: 490.1 cm/sec PA V2 max: 71.6 cm/sec LV V1 max P.8 mmHg MR max P.1 mmHg TR max jean-claude: 357.6 cm/sec TR max P.2 mmHg ECHO/Echo Complete W/ Contrast Interpretation Summary Normal LV size. The estimated ejection fraction is 55 %. Segmental dysfunction with preserved ejection fraction (see wall motion). Stage 3 diastolic dysfunction. Pulmonary artery systolic pressure is 54 mmHg. Moderate concentric left ventricular hypertrophy. Ordering Physician: Nelson Felipe Referring Physician: Rosalino Fan Performed By: Govind Boyd RCS
--- NOTE | 2021-08-09 08:17 | CON.PCM.CA_ITS ---
Assessment & Plan Assessment/Plan (1) NSTEMI (non-ST elevated myocardial infarction): PLAN: She presents with atypical symptoms and is noted to have a non-ST elevation myocardial infarction. She did undergo a cardiac catheterization less than a year ago and her anatomy is as defined above. Medical therapy was recomm ended. I would recommend at this time that we obtain an echocardiogram to assess her ventricular function and depending on the findings further recommendations will be made. I would recommend that we pursue medical therapy at this time especially due to her severe anemia as well as her worsening renal function. (2) H/O coronary artery bypass surgery: PLAN: She has had previous coronary bypass surgery as noted above. At this time I do not think there are any plans to repeat heart catheterization. (3) Essential (primary) hypertension: PLAN: Her blood pressure is under good control and the plan will be to co ntinue the current medical therapy. Would suggest low-dose beta-karina as well as amlodipine. (4) Hyperlipidemia: QUALIFIERS: Hyperlipidemia type: pure hypercholesterolemia Qualified Code(s): E78.00 - Pure hypercholesterolemia, unspecified PLAN: We will institute high intensity statin. HPI Consult Data Date of Consult: 08/09/21 HPI Narrative HPI Narrative: ALECIA GUERRERO, is a 81 F who presents to an outside hospital with nausea and vomiting and mild shortness of breath. She does have a cardiac history as noted below and a physician checked cardiac enzymes which were abnormal and so requested that the patient be transferred to this hospital. She denied any chest pain no paroxysmal nocturnal dyspnea or pedal edema. She has a history of coronary artery disease with bypass surgery in 2008. She had an ONTIVEROS to the LAD, SVG to circumflex, and SVG to the posterior descending and RCA. Her heart catheterization in 2010 demonstrated an occluded SVG to circumflex, occluded SVG to the RCA and patient ONTIVEROS to the LAD. She did undergo stenting of her RCA. She underwent a repeat cardiac catheterization in July 2020 which demonstrated a patent ONTIVEROS to the LAD and the right coronary artery was patent with diffuse distal disease. Medical therapy was recommended. She also has a history of hypertension and hyperlipidemia. In addition she has a history of bladder carcinoma which she tells me that is stable. She had previously been on clopidogrel which was discontinued due to anemia. She says that she does not know that she has been anemic but her hemoglobin here demonstrates hemoglobin of 7 and she has nonspecific EKG changes. COUNT INCLUDES THE [facility] Medical History Anemia Atherosclerosis of other coronary artery bypass graft(s) with other forms of angina pectoris Atherosclerotic heart disease of [place] coronary artery without angina pectoris Bilateral carotid artery stenosis Chronic diastolic heart failure Essential (primary) hypertension Gangrene associated with type 2 diabetes mellitus Hyperlipidemia Macular degeneration NSTEMI (non-ST elevated myocardial infarction) (08/10/18) PVD (peripheral vascular disease) Type 2 diabetes mellitus Home Medications aspirin 81 mg PO DAILY@0800 08/10/18 [History Last Taken 07/22/20] atenolol 50 mg PO DAILY 08/10/18 [History Last Taken Unknown] calcium carbonate 600 mg PO DAILY 08/10/18 [History Last Taken Unknown] insulin detemir U-100 40 unit SQ BID 08/10/18 [History Last Taken Unknown] hw-ar-GW-vit Y-hatpl-dafc-zeax 1 ea PO DAILY 08/10/18 [History Last Taken Unknown] therapeutic multivitamin 1 ea PO DAILY 08/10/18 [History Last Taken Unknown] atorvastatin 80 mg PO QHS #30 tab 08/14/18 [Rx Last Taken Unknown] ferrous sulfate 325 mg PO DAILY@0800 #30 tab 08/14/18 [Rx Last Taken Unknown] insulin aspart U-100 10 units SUBCUT TIDCM #0 08/14/18 [Rx Last Taken Unknown] pantoprazole 40 mg PO BID #60 tab 08/14/18 [Rx Last Taken Unknown] bupropion HCl 150 mg 24 hr tablet, extended release 150 mg PO DAILY PRN tab 08/27/18 [History Last Taken Unknown] cholecalciferol (vitamin D3) 25 mcg (1,000 unit) capsule 1,000 unit PO DAILY 08/27/18 [History Last Taken Unknown] fenofibrate nanocrystallized 145 mg tablet 145 mg PO DAILY 11/26/18 [History Last Taken Unknown] nitroglycerin 0.4 mg sublingual tablet 0.4 mg SUBLINGUAL Q5-15M PRN #25 tab 05/28/19 [Rx Last Taken Unknown] amlodipine 5 mg tablet 5 mg PO DAILY #90 tab 07/06/20 [Rx Last Taken Unknown] loperamide 2 mg capsule 2 mg PO TID PRN cap 07/06/20 [History Last Taken Unknown] furosemide 20 mg tablet See Rx Instructions .ROUTE .COMPLEX #90 tab 09/06/20 [Rx Last Taken Unknown] isosorbide mononitrate 30 mg tablet,extended release 24 hr 30 mg PO DAILY #90 tab 02/14/21 [Rx Last Taken Unknown] Allergy/AdvReac Type Severity Reaction Status Date / Time latex Allergy Hives Verified 07/21/20 09:51 Family History Father COPD (chronic obstructive pulmonary disease) emphysema Mother , of massive [place] CAD (coronary artery disease) Myocardial infarction Diabetes Congestive heart failure Brother CAD (coronary artery disease) S/P CABG x 4 Sister , age 60, after CABG surgery CAD (coronary artery disease) Hx of CABG Surgical History amputation of right second toe (08/07/14) angioplasty to right SFA (2013) bilateral iliac stents H/O coronary artery bypass surgery (06/2009) H/O transurethral destruction of bladder lesion (11/04/19) History of coronary artery stent placement (11/2010) History of left heart catheterization (07/22/20) Social History Smoking Status: Former smoker how long ago did patient quit smokin years ago alcohol intake: never caffeine: No ROS Constitutional Constitutional: Denies fever(s) or weight loss Eyes Eyes: Reports systems reviewed and no addt'l complaints, except as documented ENT HEENT: Reports systems reviewed and no addt'l complaints, except as documented Cardiovascular Cardiovascular: Denies chest pain at rest, chest pain with activity, dyspnea at rest, dyspnea on exertion, edema, palpitations or paroxysmal nocturnal dyspnea Respiratory/Chest Respiratory/Chest: Denies dyspnea on exertion, productive cough, shortness of breath at rest or shortness of breath with exertion Gastrointestinal Gastrointestinal: Reports abdominal pain, change in bowel habits, cramping, diarrhea, nausea and vomiting; Denies weight changes Genitourinary Genitourinary: Denies difficulty urinating Musculoskeletal Musculoskeletal: Denies joint stiffness or muscle weakness Integumentary Integumentary: Denies lesions Neurologic Neurologic: Denies dizziness or syncope Psychiatric Psychiatric: Denies anxiety Endocrine Endocrinology: Denies excessive sweating or fatigue Hematologic/Lymphatic Hematologic/Lymphatic: Denies anemia Allergic/Immunologic Allergic/Immunologic: Denies seasonal rhinorrhea Physical Exam Const alert, oriented x3 and no apparent distress General Appearance: cooperative HEENT hearing grossly normal bilaterally Head and Scalp: atraumatic Eyes EOMs intact bilaterally Neck General: normal visual inspection Chest inspection of chest normal and palpation of chest normal Resp normal respiratory effort Auscultation: clear to auscultation bilaterally Cardio regular rate, regular rhythm, S1 normal heart sound and S2 normal heart sound Jugular Venous Distention: JVD GI normal to inspection, nondistended, normoactive bowel sounds Extremity normal capillary refill and no pedal edema Peripheral Pulses: Yes pulses 2+ throughout and femoral pulses present Skin no rashes or lesions noted Neuro oriented x3 and CN's II-XII intact bilaterally Psych Appearance: grossly normal and appropriate Risk Stratification Risk Stratification Applicable: Yes Age >/= 65: Yes >/= 3 CAD Risk Factors (HTN, HLD, DM, family hx of CAD, or current smoker): Yes Aspirin Use in the Past 7 Days: No Severe Angina (>/= episodes in 24 hours): No EKG ST Changes >/= 0.5mm: No Positive Cardiac Marker: Yes LAURE Risk Stratification Score: 3 LAURE % Risk: 13% Risk Objective Data Vital Signs: Vital Signs Temp Pulse Resp BP Pulse Ox 98.0 F 55 L 14 150/50 H 93 08/09/21 06:43 08/09/21 07:00 08/09/21 06:43 08/09/21 06:43 08/09/21 07:17 Oxygen Delivery Method Room Air Weight: 203 lb 0.732 oz Body Mass Index (BMI) 34.8 Intake & Output: Intake and Output for Last 24 Hours 08/07/21 08/08/21 08/09/21 23:59 23:59 23:59 Intake Total 240 / 240 Balance 240 / 240 Lab / Micro Data Result Diagrams: 08/09/21 06:15 08/09/21 06:15 Labs: Laboratory Results - last 24 hr 08/09/21 01:00: Troponin I High Sens 2909 H* 08/09/21 02:45: Troponin I High Sens 3276 H* 08/09/21 06:15: WBC 9.9, RBC 2.61 L, Hgb 7.5 L, Hct 23.7 L, MCV 90.8, MCH 28.7, MCHC 31.6 L, RDW Std Deviation 44.2 H, RDW Coeff of Shamika 13.4, Plt Count 197, MPV 12.6 H, Immature Gran % (Auto) 1.000 H, Neut % (Auto) 75.8 H, Lymph % (Auto) 13.8 L, Williamson % (Auto) 8.1, Eos % (Auto) 0.9, Baso % (Auto) 0.4, Absolute Neuts (auto) 7.5, Absolute Lymphs (auto) 1.37, Nucleated RBC % 0.2 08/09/21 06:15: PT 16.2 H, INR 1.4 08/09/21 06:15: Sodium 139, Potassium 4.1, Chloride 108 H, Carbon Dioxide 19.0 L , Anion Gap 12, BUN 56 H, Creatinine 2.78 H, Estim Creat Clear Calc 14.17, Est GFR (MDRD) Af Amer 21 L, Est GFR (MDRD) Non-Af 18 L, BUN/Creatinine Ratio 20.1 H , Glucose 284 H, Calcium 8.5, Troponin I High Sens 2743 H* 08/09/21 06:15: Retic Count 3.29 H, Immature Retic Fraction 27.70 H, Retic Hgb Equivalent 29.2 L 08/09/21 06:15: Iron 27 L, TIBC 329, Iron Saturation 8.2 L 08/09/21 06:31: POC Glucose 287 H Cardiology Labs/Tests 08/09/21 06:15: WBC 9.9, RBC 2.61 L, Hgb 7.5 L, Hct 23.7 L, MCV 90.8, MCH 28.7, MCHC 31.6 L, Plt Count 197, MPV 12.6 H, Immature Gran % (Auto) 1.000 H, Neut % (Auto) 75.8 H, Lymph % (Auto) 13.8 L, Williamson % (Auto) 8.1, Eos % (Auto) 0.9, Baso % (Auto) 0.4, Absolute Neuts (auto) 7.5, Nucleated RBC % 0.2 08/09/21 06:15: PT 16.2 H, INR 1.4 08/09/21 06:15: Sodium 139, Potassium 4.1, Chloride 108 H, Carbon Dioxide 19.0 L , Anion Gap 12, BUN 56 H, Creatinine 2.78 H, Est GFR (MDRD) Af Amer 21 L, Est GFR (MDRD) Non-Af 18 L, BUN/Creatinine Ratio 20.1 H, Glucose 284 H, Calcium 8.5 08/09/21 06:15: Iron 27 L, TIBC 329, Iron Saturation 8.2 L Rhythm: EKG: ECHO: Stress Test: Cardiac Cath: PCI: CT Surgery: Holter monitor: EPS: PPM: CXR: Chest CT Scan:
[2021-08-09] MEDS: Atenolol 50 MG Tablet PO (09:17)
[2021-08-09] MEDS: Loperamide 2 MG Capsule PO ×2 (09:17→15:19)
[2021-08-09] MEDS: Pantoprazole Sodium 40 MG Tablet PO ×2 (09:17→21:15)
[2021-08-09] MEDS: amLODIPine 5 MG Tablet PO (09:17)
[2021-08-09] MEDS: Isosorbide Mononitrate 30 MG Tablet PO (09:17)
[2021-08-09] MEDS: Ceftriaxone 1 GM/50 ML BAG IV (09:18)
[2021-08-09] MEDS: Enoxaparin 30 MG/0.3 ML Syringe SC (09:18)
[2021-08-09] MEDS: Multivitamins,Therapeutic Tablet 1 TABLET PO (09:18)
[2021-08-09] MEDS: Furosemide 20 MG Tablet PO (09:18)
[2021-08-09] MEDS: Calcium Carbonate 500 MG Tablet PO (09:21)
[2021-08-09] MEDS: Fenofibrate 145 MG Tablet PO (11:04)
[2021-08-09] MEDS: Cholecalciferol (VIT D3) 25 MCG TABLET (1,000 UNITS) PO (11:04)
[2021-08-09] MEDS: Insulin Lispro 100 UNIT/ML INSULN.PEN 10 UNIT SC ×2 (11:52→16:49)
[2021-08-09 12:05] LABS: Bedside Glucose 344 mg/dL (70-110)
--- NOTE | 2021-08-09 13:29 | PN.HOSP_ITS ---
Documented by User: NEEL Lopez 08/09/21 14:05 Subjective Subjective Patient seen and examined. Patient lying in bed no distress noted. Patient denies any current chest pain or shortness of breath. Objective Data Objective Data Vital Signs: Vital Signs Temp Pulse Resp BP Pulse Ox 97.8 F 57 L 18 157/56 H 97 08/09/21 09:09 08/09/21 09:09 08/09/21 09:09 08/09/21 09:09 08/09/21 09:09 Oxygen Delivery Method Room Air Weight: 203 lb 0.732 oz Body Mass Index (BMI) 34.8 Intake & Output: Intake and Output for Last 24 Hours 08/07/21 08/08/21 08/09/21 23:59 23:59 23:59 Intake Total 240 / 240 838.75 / 838.75 Balance 240 / 240 838.75 / 838.75 Lab / Micro Data Result Diagrams: 08/09/21 06:15 08/09/21 06:15 Labs: Laboratory Results - last 24 hr 08/09/21 01:00: Troponin I High Sens 2909 H* 08/09/21 02:45: Troponin I High Sens 3276 H* 08/09/21 06:15: WBC 9.9, RBC 2.61 L, Hgb 7.5 L, Hct 23.7 L, MCV 90.8, MCH 28.7, MCHC 31.6 L, RDW Std Deviation 44.2 H, RDW Coeff of Shamika 13.4, Plt Count 197, MPV 12.6 H, Immature Gran % (Auto) 1.000 H, Neut % (Auto) 75.8 H, Lymph % (Auto) 13.8 L, Citrus % (Auto) 8.1, Eos % (Auto) 0.9, Baso % (Auto) 0.4, Absolute Neuts (auto) 7.5, Absolute Lymphs (auto) 1.37, Nucleated RBC % 0.2 08/09/21 06:15: PT 16.2 H, INR 1.4 08/09/21 06:15: Sodium 139, Potassium 4.1, Chloride 108 H, Carbon Dioxide 19.0 L , Anion Gap 12, BUN 56 H, Creatinine 2.78 H, Estim Creat Clear Calc 14.17, Est GFR (MDRD) Af Amer 21 L, Est GFR (MDRD) Non-Af 18 L, BUN/Creatinine Ratio 20.1 H , Glucose 284 H, Calcium 8.5, Troponin I High Sens 2743 H* 08/09/21 06:15: Retic Count 3.29 H, Immature Retic Fraction 27.70 H, Retic Hgb Equivalent 29.2 L 08/09/21 06:15: Iron 27 L, TIBC 329, Iron Saturation 8.2 L 08/09/21 06:31: POC Glucose 287 H 08/09/21 11:51: POC Glucose 344 H Radiography Diagnostic Testing: Radiology Impression Echocardiogram 08/09/21 08:15 Interpretation Summary Normal LV size. The estimated ejection fraction is 55 %. Segmental dysfunction with preserved ejection fraction (see wall motion). Stage 3 diastolic dysfunction. Pulmonary artery systolic pressure is 54 mmHg. Moderate concentric left ventricular hypertrophy. Ordering Physician: Nelson Felipe Referring Physician: Rosalino Fan Performed By: Govind Boyd RCS Physical Exam Const alert, oriented x3 and no apparent distress HEENT head/scalp atraumatic Head and Scalp: normocephalic Eyes conjunctivae normal and no scleral icterus Neck full ROM and supple Resp normal respiratory effort and clear to auscultation bilaterally Cardio regular rate, regular rhythm, S1 normal heart sound and S2 normal heart sound GI normal to inspection, nondistended, normoactive bowel sounds, soft to palpation and non-tender Extremity normal to inspection, full ROM and no clubbing, cyanosis or edema Peripheral Pulses: Yes pulses 2+ throughout Skin no rashes or lesions noted, no wounds and skin turgor normal Neuro oriented x3, moves all extremities, no focal motor deficits and no sensory deficits noted Psych affect normal Assessment & Plan Assessment/Plan (1) NSTEMI (non-ST elevated myocardial infarction): PLAN: 1. Non-STEMI -Echocardiogram demonstrates EF 55% with stage III diastolic dysfunction -Dr. Delgado recommending medical management at this time due to patient's severe anemia as well as worsening renal function. -Cardiac enzymes trending down 2. UTI -Continue IV Rocephin 3. Chronic kidney disease stage IV -Patient states she does not follow with nephrology however patient has a documented worsening of BUN and creatinine over the past 3 years. -Will consult nephrology 4. Chronic anemia -Hemoglobin 7.5 -Occult stool ordered -Iron studies completed we'll initiate patient on iron replacement, vitamin C, Colace. -Daily CBC DVT prophylaxis-SCDs This patient was seen by Thais Schwab NP-C under the supervision of Dr. Plunkett. Documented by User: Dr. Love Plunkett MD 08/09/21 15:04 Objective Data Lab / Micro Data Result Diagrams: 08/09/21 06:15 08/09/21 06:15 Charges/Coding Addendum Addendum: This patient was seen in conjunction with Aki Schwab NP. I have independently interviewed and examined the patient and reviewed pertinent historical, laboratory, and other data. I have reviewed her note and concur with her documentation Patient was seen and examined. Denied any more chest pain. 2D ECHO shows EF of 55%, stage III diastolic dysfun acute non-STEMIction Physical Exam: Gen: Appears chronically unwell, not pale, not jaundiced CVS:HS I +II, regular, no murmurs RESP: Diminished at lung bases GI: BS present and normal, soft, nontender, no palpable organs EXT:No edema ASSESSMENT: 1. Acute non-STEMI 2. Iron deficiency anemia -from iron studies today 3. CAD status post CABG/carotid stenosis/PAD 4. Bladder CA 5. Chronic diastolic CHF 6. Hyperlipidemia 7. UTI Plan: Continue on oral PPI Oral iron, vitamin C, stool softeners Continue on IV ceftriaxone Visit Charges Inpatient E&M: 27159 Subs Hosp L2
--- NOTE | 2021-08-09 14:17 | CHAPLAIN ---
Type of Pastoral Visit _x__ Initial Visit ___ Follow-up Visit ___ On-call Visit ___ General Patient Visit ___ Spiritual Assessment ___ Family Conference ___ Bereavement ___ Rapid Response ___ Code Blue ___ Other (describe below) Pastoral Care Referral From _x__ Patient ___ Family ___ Nurse ___ Physician ___ Archivist Political History ___ Sponsorship Coordinator ___ Other (describe below) Sacrament/Intervention _x__ Active listening ___ Anointing ___ Buddhism ___ Bereavement ___ Communion _x__ Britany exploration ___ ___ Life review _x__ Prayer ___ Reconciliation ___ Sacrament of Sick _x__ Supportive presence ___ Wedding ___ Other (describe below) Pastoral Comments patient talks mostly about her living situation at [facility] and about the opportunities for mandaen services she gets in facility and in person uatsdin
--- NOTE | 2021-08-09 15:58 | CASEMGMT ---
Patient is from [facility]. SW faxed updates to them this am. [facility] SERGEI spoke with patient and she confirms she will need transportation. Patient was reluctant to go by wheelchair as she does not think anyone would be able to push her up the ramp at the facility. SW assured her that this would not be a problem. SERGEI explained SW cannot justify a cot as she is able to stand, walk, she isn't confused, she doesn't need oxygen etc. SW told patient a bill for the wheelchair would cost much less than a bill for a cot. Patient finally agreed to wheelchair van. Patient is not going to be discharged today. SERGEI spoke with Natasha at [facility] and let her know this information. SW also let patient know as well. Radha Che [employer] TELMA
[2021-08-09] MEDS: Ferrous Sulfate 325 MG Tablet PO (16:49)
[2021-08-09] MEDS: Ascorbic Acid 500 MG Tablet PO (16:49)
[2021-08-09 18:41] LABS: Bedside Glucose 221 mg/dL (70-110)
[2021-08-09] MEDS: Atorvastatin Calcium 80 MG Tablet PO (21:15)
[2021-08-09 21:51] LABS: Bedside Glucose 160 mg/dL (70-110)
[2021-08-10] MEDS: 0.9% Normal Saline 1,000 ML 75 ML IV (01:09)
[2021-08-10 03:00] VITALS: BP 159/68; PULSE 52; PULSE 58; RESP 16; TEMP 36.5; O2SAT 97
[2021-08-10] MEDS: 0.9% Saline Lock 10 ML Syringe IV (05:18)
[2021-08-10 06:07] LABS: Absolute Lymphocyte Count 1.32 X10^3/uL (0.83-4.51); Absolute Neutrophil Count 6.6 X10^3/uL (2.0-7.7); Basophil# 0.03 X10^3/uL; Basophil% 0.3 % (0-1); Eosinophil# 0.14 X10^3/uL; Eosinophils% 1.6 % (0-5); Hematocrit 22.2 % (37-47); Hemoglobin 7.7 g/dL (12.0-15.0); Lymphocyte # 1.32 X10^3/ul (0.83-4.51); Lymphocyte % 14.9 % (19-41); Mean Corp Hgb Conc 34.7 g/dL (32-36); Mean Corpuscular Hgb 29.8 pg (27.0-32.0); Monocyte# 0.71 X10^3/uL; NRBC Flagged by Analyzer 0.5 % (0-5); Neutrophil # 6.56 X10^3/uL (2.7-7.7); Neutrophil % 74.4 % (47-70); Platelet Count 222 K/mm3 (150-450); RBC Distribution Width CV 13.4 % (11.6-14.6); RBC Distribution Width SD 41.4 fl (35.1-43.9); Red Blood Count 2.58 M/mm3 (4.2-5.4); White Blood Count 8.8 K/mm3 (4.4-11.0)
[2021-08-10 07:00] VITALS: PULSE 60
[2021-08-10 07:25] VITALS: O2SAT 97
[2021-08-10 07:45] VITALS: O2SAT 97
[2021-08-10] MEDS: Insulin Lispro 100 UNIT/ML INSULN.PEN 10 UNIT SC (07:48)
[2021-08-10 07:56] LABS: Bedside Glucose 169 mg/dL (70-110)
[2021-08-10 08:00] LABS: ALB/GLOB Ratio 0.6 RATIO (0.9-2.4); AST(SGOT) 151 U/L (15-37); Alanine Aminotransfer ALT/SGPT 154 U/L (13-56); Albumin, Serum 2.5 g/dL (3.2-5.0); Alkaline Phosphatase 45 U/L (45-117); Anion Gap 8 (5-15); BUN 57 mg/dL (7-18); BUN/Creat Ratio 22.2 RATIO (10-20); Calcium,Total 8.6 mg/dL (8.5-10.1); Chloride 113 mmol/L (98-107); Creatinine, Serum 2.57 mg/dL (0.55-1.02); EST Glomerular Filtration Rate 19 mL/min (>60); Est Glom Filt Rate - Afr Amer 23 mL/min (>60); Estimated Creatinine Clearance 15.33 ml/min; Globulin 4.2 g/dL (2.2-4.2); Glucose 121 mg/dL (74-106); Potassium 3.9 mmol/L (3.5-5.1); Protein, Total 6.7 g/dL (6.4-8.2); Sodium Level 141 mmol/L (136-145)
--- NOTE | 2021-08-10 08:17 | PN.CARD_ITS ---
Subjective Subjective Patient seen and eval. Appears to be doing well sitting in the chair today Objective Data Vital Signs: Vital Signs Temp Pulse Resp BP Pulse Ox 97.7 F L 60 16 159/68 H 97 08/10/21 03:00 08/10/21 07:00 08/10/21 03:00 08/10/21 03:00 08/10/21 07:45 Oxygen Delivery Method Room Air Weight: 203 lb 0.732 oz Body Mass Index (BMI) 34.8 Intake & Output: Intake and Output for Last 24 Hours 08/08/21 08/09/21 08/10/21 23:59 23:59 23:59 Intake Total 240 / 240 1318.75 / 1318.75 992.5 / 992.5 Balance 240 / 240 1318.75 / 1318.75 992.5 / 992.5 Lab / Micro Data Result Diagrams: 08/10/21 05:24 08/10/21 05:24 Labs: Laboratory Results - last 24 hr 08/09/21 11:51: POC Glucose 344 H 08/09/21 16:46: POC Glucose 221 H 08/09/21 21:19: POC Glucose 160 H 08/10/21 05:24: WBC 8.8, RBC 2.58 L, Hgb 7.7 L, Hct 22.2 L, MCV 86.0 D, MCH 29.8, MCHC 34.7 D, RDW Std Deviation 41.4, RDW Coeff of Shamika 13.4, Plt Count 222, MPV 13.0 H, Immature Gran % (Auto) 0.800, Neut % (Auto) 74.4 H, Lymph % (Auto) 14.9 L, Barry % (Auto) 8.0, Eos % (Auto) 1.6, Baso % (Auto) 0.3, Absolute Neuts (auto) 6.6, Absolute Lymphs (auto) 1.32, Nucleated RBC % 0.5 08/10/21 05:24: Sodium 141, Potassium 3.9, Chloride 113 H, Carbon Dioxide 20.0 L , Anion Gap 8, BUN 57 H, Creatinine 2.57 H, Estim Creat Clear Calc 15.33, Est GFR (MDRD) Af Amer 23 L, Est GFR (MDRD) Non-Af 19 L, BUN/Creatinine Ratio 22.2 H , Glucose 121 H, Calcium 8.6, Total Bilirubin 0.30, AST 151 H, ALT 154 H, Alkaline Phosphatase 45, Total Protein 6.7, Albumin 2.5 L, Globulin 4.2, Albumin/Globulin Ratio 0.6 L 08/10/21 07:47: POC Glucose 169 H Cardiology Labs/Tests 08/10/21 05:24: WBC 8.8, RBC 2.58 L, Hgb 7.7 L, Hct 22.2 L, MCV 86.0 D, MCH 29.8, MCHC 34.7 D, Plt Count 222, MPV 13.0 H, Immature Gran % (Auto) 0.800, Neut % (Auto) 74.4 H, Lymph % (Auto) 14.9 L, Barry % (Auto) 8.0, Eos % (Auto) 1.6, Baso % (Auto) 0.3, Absolute Neuts (auto) 6.6, Nucleated RBC % 0.5 08/10/21 05:24: Sodium 141, Potassium 3.9, Chloride 113 H, Carbon Dioxide 20.0 L , Anion Gap 8, BUN 57 H, Creatinine 2.57 H, Est GFR (MDRD) Af Amer 23 L, Est GFR (MDRD) Non-Af 19 L, BUN/Creatinine Ratio 22.2 H, Glucose 121 H, Calcium 8.6, Total Bilirubin 0.30 Rhythm: EKG: ECHO: Stress Test: Cardiac Cath: PCI: CT Surgery: Holter monitor: EPS: PPM: CXR: Chest CT Scan: Radiography Diagnostic Testing: Radiology Impression Echocardiogram 08/09/21 08:15 Interpretation Summary Normal LV size. The estimated ejection fraction is 55 %. Segmental dysfunction with preserved ejection fraction (see wall motion). Stage 3 diastolic dysfunction. Pulmonary artery systolic pressure is 54 mmHg. Moderate concentric left ventricular hypertrophy. Ordering Physician: Matteo, Nelson Referring Physician: Rosalino Fan Performed By: Govind Boyd RCS Physical Exam Const alert, oriented x3 and no apparent distress General Appearance: cooperative HEENT hearing grossly normal bilaterally Head and Scalp: atraumatic Eyes EOMs intact bilaterally Neck General: normal visual inspection Chest inspection of chest normal and palpation of chest normal Resp normal respiratory effort Auscultation: clear to auscultation bilaterally Cardio regular rate, regular rhythm, S1 normal heart sound and S2 normal heart sound Jugular Venous Distention: JVD GI normal to inspection, nondistended, normoactive bowel sounds Extremity normal capillary refill and no pedal edema Peripheral Pulses: Yes pulses 2+ throughout and femoral pulses present Skin no rashes or lesions noted Neuro oriented x3 and CN's II-XII intact bilaterally Psych Appearance: grossly normal and appropriate Assessment & Plan Assessment/Plan (1) NSTEMI (non-ST elevated myocardial infarction): PLAN: She presents with atypical symptoms and is noted to have a non-ST elevation myocardial infarction. She did undergo a cardiac catheterization less than a year ago and her anatomy is as defined above. Medical therapy was recommended. Her echocardiogram demonstrated preserved ejection fraction and thus we will continue with medical therapy. I would recommend that we pursue medical therapy at this time especially due to her severe anemia as well as her worsening renal function. We will continue with expectant management. (2) H/O coronary artery bypass surgery: PLAN: She has had previous coronary bypass surgery as noted above. At thi s time I do not think there are any plans to repeat heart catheterization. (3) Essential (primary) hypertension: PLAN: Her blood pressure is under good control and the plan will be to continue the current medical therapy. Would suggest low-dose beta-karina as well as amlodipine. (4) Hyperlipidemia: QUALIFIERS: Hyperlipidemia type: pure hypercholesterolemia Qualif ied Code(s): E78.00 - Pure hypercholesterolemia, unspecified PLAN: We will institute high intensity statin.
[2021-08-10 09:00] VITALS: BP 157/60; PULSE 60; RESP 16; TEMP 37; O2SAT 98
[2021-08-10] MEDS: Ceftriaxone 1 GM/50 ML BAG IV (09:25)
[2021-08-10] MEDS: Furosemide 20 MG Tablet PO (09:26)
[2021-08-10] MEDS: Enoxaparin 30 MG/0.3 ML Syringe SC (09:26)
[2021-08-10] MEDS: Multivitamins,Therapeutic Tablet 1 TABLET PO (09:26)
[2021-08-10] MEDS: Isosorbide Mononitrate 30 MG Tablet PO (09:27)
[2021-08-10] MEDS: Pantoprazole Sodium 40 MG Tablet PO (09:27)
[2021-08-10] MEDS: Ascorbic Acid 500 MG Tablet PO (09:27)
[2021-08-10] MEDS: Cholecalciferol (VIT D3) 25 MCG TABLET (1,000 UNITS) PO (09:27)
[2021-08-10] MEDS: Calcium Carbonate 500 MG Tablet PO (09:27)
[2021-08-10] MEDS: Atenolol 50 MG Tablet PO (09:27)
[2021-08-10] MEDS: amLODIPine 5 MG Tablet PO (09:27)
[2021-08-10] MEDS: Aspirin 81 MG TAB.CHEW PO (09:27)
[2021-08-10] MEDS: Ferrous Sulfate 325 MG Tablet PO (09:27)
[2021-08-10] MEDS: Fenofibrate 145 MG Tablet PO (09:27)
[2021-08-10] MEDS: Loperamide 2 MG Capsule PO (09:29)
--- NOTE | 2021-08-10 09:48 | PCM.CONS.R ---
Assessment & Plan Assessment/Plan (1) CKD (chronic kidney disease) stage 4, GFR 15-29 ml/min: PLAN: On review of her records, her creatinine seems to have increased to around 2-2.5 in 2018. Since then creatinine has been relatively stable within the same range. Medical issues as below. Urine analysis shows few leukocytes. She does have history of recurrent UTIs since bladder surgery. Apparently had multiple abdominal imaging studies and follows with urology at [place]. No further work-up needed for now. Relatively stable CKD stage IV for almost 3 years. Reviewed cardiology notes. No plans for coronary angiogram. In the long run, patient is not interested about dialysis even if she needs it. We will arrange follow-up as outpatient. We will get records from [facility]. HPI Consult Data Date of Consult: 08/10/21 HPI Narrative HPI Narrative: ALECIA GUERRERO, is a 81 F who presents to the hospital with complaints of generalized weakness. Nephrology consulted for CKD stage IV. She has extensive cardiac history including bypass surgery and stenting procedures. Was found to have non-ST elevation CO. Currently being treated medically. She has known history of bladder cancer and sees urology at [facility]. Gets cystoscopic tumor resections every 3 months. Had multiple abdominal imaging studies apparently at [facility]. Since the last bladder surgery, she has been developing recurrent UTIs. Currently denies any urinary symptoms. Denies taking NSAIDs on a regular basis. No breathing difficulties. Trace lower extremity edema. Other medical issues as below. [facility] Medical History (Updated 08/10/21 @ 09:[address] 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 Bilateral carotid artery stenosis Chronic diastolic heart failure Essential (primary) hypertension Gangrene associated with type 2 diabetes mellitus Hyperlipidemia Macular degeneration NSTEMI (non-ST elevated myocardial infarction) (08/10/18) NSTEMI, initial episode of care PVD (peripheral vascular disease) Type 2 diabetes mellitus Home Medications aspirin 81 mg PO DAILY@0800 08/10/18 [History Last Taken 07/22/20] atenolol 50 mg PO DAILY 08/10/18 [History Last Taken Unknown] calcium carbonate 600 mg PO DAILY 08/10/18 [History Last Taken Unknown] insulin detemir U-100 35 unit SQ BID 08/10/18 [History Last Taken Unknown] fc-ob-FW-vit M-wxtuq-bimx-zeax 1 ea PO DAILY 08/10/18 [History Last Taken Unknown] therapeutic multivitamin 1 ea PO DAILY 08/10/18 [History Last Taken Unknown] atorvastatin 80 mg PO QHS #30 tab 08/14/18 [Rx Last Taken Unknown] ferrous sulfate 325 mg PO DAILY@0800 #30 tab 08/14/18 [Rx Last Taken Unknown] insulin aspart U-100 10 units SUBCUT TIDCM #0 08/14/18 [Rx Last Taken Unknown] pantoprazole 40 mg PO BID #60 tab 08/14/18 [Rx Last Taken Unknown] bupropion HCl 150 mg 24 hr tablet, extended release 150 mg PO DAILY PRN tab 08/27/18 [History Last Taken Unknown] cholecalciferol (vitamin D3) 25 mcg (1,000 unit) capsule 1,000 unit PO DAILY 08/27/18 [History Last Taken Unknown] fenofibrate nanocrystallized 145 mg tablet 145 mg PO DAILY 11/26/18 [History Last Taken Unknown] nitroglycerin 0.4 mg sublingual tablet 0.4 mg SUBLINGUAL Q5-15M PRN #25 tab 05/28/19 [Rx Last Taken Unknown] amlodipine 5 mg tablet 5 mg PO DAILY #90 tab 07/06/20 [Rx Last Taken Unknown] loperamide 2 mg capsule 2 mg PO TID PRN cap 07/06/20 [History Last Taken Unknown] furosemide 20 mg tablet See Rx Instructions .ROUTE .COMPLEX #90 tab 09/06/20 [Rx Last Taken Unknown] isosorbide mononitrate 30 mg tablet,extended release 24 hr 30 mg PO DAILY #90 tab 02/14/21 [Rx Last Taken Unknown] insulin detemir U-100 [Levemir FlexTouch U-100 Insuln] 35 unit SUBCUT DAILY 08/09/21 [History Last Taken Unknown] Allergy/AdvReac Type Severity Reaction Status Date / Time latex Allergy Hives Verified 07/21/20 09:51 Family History Father COPD (chronic obstructive pulmonary disease) emphysema Mother , of massive CO CAD (coronary artery disease) Myocardial infarction Diabetes Congestive heart failure Brother CAD (coronary artery disease) S/P CABG x 4 Sister , age 60, after CABG surgery CAD (coronary artery disease) Hx of CABG Surgical History amputation of right second toe (08/07/14) angioplasty to right SFA (2013) bilateral iliac stents H/O coronary artery bypass surgery (06/2009) H/O transurethral destruction of bladder lesion (11/04/19) History of coronary artery stent placement (11/2010) History of left heart catheterization (07/22/20) Social History Smoking Status: Former smoker how long ago did patient quit smokin years ago alcohol intake: never caffeine: No ROS ROS Narrative Negative except above Physical Exam Narrative Alert awake oriented x 3 no obvious distress no pallor no icterus no JVD s1s2 no murmurs lungs clear abdomen soft no organomegaly no edema no cyanosis Lab / Micro Data Result Diagrams: 08/10/21 05:24 08/10/21 05:24 Labs: Laboratory Results - last 24 hr 08/09/21 11:51: POC Glucose 344 H 08/09/21 16:46: POC Glucose 221 H 08/09/21 21:19: POC Glucose 160 H 08/10/21 05:24: WBC 8.8, RBC 2.58 L, Hgb 7.7 L, Hct 22.2 L, MCV 86.0 D, MCH 29.8, MCHC 34.7 D, RDW Std Deviation 41.4, RDW Coeff of Shamika 13.4, Plt Count 222, MPV 13.0 H, Immature Gran % (Auto) 0.800, Neut % (Auto) 74.4 H, Lymph % (Auto) 14.9 L, [place] % (Auto) 8.0, Eos % (Auto) 1.6, Baso % (Auto) 0.3, Absolute Neuts (auto) 6.6, Absolute Lymphs (auto) 1.32, Nucleated RBC % 0.5 08/10/21 05:24: Sodium 141, Potassium 3.9, Chloride 113 H, Carbon Dioxide 20.0 L, Anion Gap 8, BUN 57 H, Creatinine 2.57 H, Estim Creat Clear Calc 15.33, Est GFR (MDRD) Af Amer 23 L, Est GFR (MDRD) Non-Af 19 L, BUN/Creatinine Ratio 22.2 H, Glucose 121 H, Calcium 8.6, Total Bilirubin 0.30, AST 151 H, ALT 154 H, Alkaline Phosphatase 45, Total Protein 6.7, Albumin 2.5 L, Globulin 4.2, Albumin/Globulin Ratio 0.6 L 08/10/21 07:47: POC Glucose 169 H Micro: Microbiology 08/10/21 04:50 Stool Stool Occult Blood (VISHNU) - Final Occult Blood Positive Radiology Impression Echocardiogram 08/09/21 08:15 Interpretation Summary Normal LV size. The estimated ejection fraction is 55 %. Segmental dysfunction with preserved ejection fraction (see wall motion). Stage 3 diastolic dysfunction. Pulmonary artery systolic pressure is 54 mmHg. Moderate concentric left ventricular hypertrophy. Ordering Physician: Nelson Felipe Referring Physician: Rosalino Fan Performed By: Goivnd Boyd RCS
--- NOTE | 2021-08-10 10:49 | PCM.DC ---
Discharge Instructions Diet Discharge Diet: Low fat / Low cholesterol and 1800 Calorie Control Diet Activity Discharge Activity: Return to Normal Activity Dressing / Incision Call your doctor if you observe: Shortness of breath, Swelling in the ankles and Chest pain Follow Up Care Test Results: Test results from this visit will be discussed in further detail at your follow-up appointment, if applicable. Discharge Plan Admission Admit Date/Time: 08/09/21 00:22 Primary Reason for Your Visit: NSTEMI Attending Provider: Love Plunkett Primary Care Provider: Rosalino Fan Consulting Providers: Nelson Felipe ; Clarence Salazar Discharge Orders/Prescriptions Prescriptions: New ascorbic acid (vitamin C) 500 mg Tablet 500 mg PO BIDCM Qty: 0 RF: 0 ferrous sulfate [FeroSul] 325 mg (65 mg iron) Tablet 325 mg PO 1200,1700 Qty: 0 RF: 0 docusate sodium [DOK] 100 mg Capsule 100 mg PO BID Qty: 0 RF: 0 Continued bupropion HCl 150 mg tablet extended release 24 hr 150 mg PO DAILY PRN (Reason: anxiety) RF: 0 cholecalciferol (vitamin D3) 1,000 unit capsule 1,000 unit capsule 1,000 unit PO DAILY RF: 0 nitroglycerin 0.4 mg tablet, sublingual 0.4 mg SUBLINGUAL Q5-15M PRN (Reason: chest pain) Qty: 25 RF: 3 loperamide 2 mg capsule 2 mg PO TID PRN (Reason: Diarrhea/Loose Stools) RF: 0 amlodipine 5 mg tablet 5 mg PO DAILY Qty: 90 RF: 4 therapeutic multivitamin 1 EACH tablet 1 ea PO DAILY RF: 0 calcium carbonate 600 MG tablet 600 mg PO DAILY RF: 0 aspirin 81 MG tablet,chewable 81 mg PO DAILY@0800 RF: 0 atenolol 50 MG tablet 50 mg PO DAILY RF: 0 insulin detemir U-100 100 UNIT/ML solution 35 unit SQ BID RF: 0 pz-xc-PJ-vit D-qjihk-ivrw-zeax 1 EACH tablet 1 ea PO DAILY RF: 0 atorvastatin 80 MG tablet 80 mg PO QHS Qty: 30 RF: 0 pantoprazole 40 MG tablet 40 mg PO BID Qty: 60 RF: 0 insulin aspart U-100 100 UNITS/ML insulin pen 10 units subcut TIDCM Qty: 0 RF: 0 fenofibrate nanocrystallized 145 mg tablet 145 mg PO DAILY RF: 0 Levemir FlexTouch U-100 Insuln 100 unit/mL (3 mL) Insulin Pen 35 unit SUBCUT DAILY RF: 0 furosemide 20 mg tablet See Rx Instructions .ROUTE .COMPLEX Qty: 90 RF: 3 isosorbide mononitrate 30 mg tablet extended release 24 hr 30 mg PO DAILY Qty: 90 RF: 3 Discontinued ferrous sulfate 325 MG tablet 325 mg PO DAILY@0800 Qty: 30 RF: 0 Referrals / Follow Up: Rosalino Fan DO [Primary Care Provider] - Within 2 Weeks Kelechi Mc MD [NON-STAFF] - Within 2 Weeks Disposition Disposition (needs filled in before D/C Order can be placed): Assisted Living
--- NOTE | 2021-08-10 11:00 | PCM.DC.SUM ---
Documented by User: NEEL Lopez 08/10/21 11:09 Providers Date of Admission: 08/09/21 Primary Care Physician: Dr. Rosalino Fan, Consultations 08/09/21 00:38 Consult: Cardiology Routine Consulting Provider: Nelson Felipe Reason for Consult: nstemi EMERGENT Consult: No Notified: Yes Date Notified: 08/09/21 Time Notified: 00:26 Method of Notification: Text 08/09/21 14:00 Consult: Nephrology Routine Consulting Provider: Clarence Salazar Reason for Consult: CKD EMERGENT Consult: No Notified: Yes Date Notified: 08/09/21 Time Notified: 14:15 Method of Notification: Answering Service Reason For Visit: NSTEMI Diagnosis Discharge Diagnosis (1) CKD (chronic kidney disease) stage 4, GFR 15-29 ml/min: Status: Chronic Code(s): N18.4 - Chronic kidney disease, stage 4 (severe) Medications at Discharge Home Medications aspirin 81 mg PO DAILY@0800 08/10/18 atenolol 50 mg PO DAILY 08/10/18 calcium carbonate 600 mg PO DAILY 08/10/18 insulin detemir U-100 35 unit SQ BID 08/10/18 mi-gw-TJ-vit U-rptzv-euyp-zeax 1 ea PO DAILY 08/10/18 therapeutic multivitamin 1 ea PO DAILY 08/10/18 atorvastatin 80 mg PO QHS #30 tab 08/14/18 insulin aspart U-100 10 units SUBCUT TIDCM #0 08/14/18 pantoprazole 40 mg PO BID #60 tab 08/14/18 bupropion HCl 150 mg 24 hr tablet, extended release 150 mg PO DAILY PRN tab 08/27/18 cholecalciferol (vitamin D3) 25 mcg (1,000 unit) capsule 1,000 unit PO DAILY 08/27/18 fenofibrate nanocrystallized 145 mg tablet 145 mg PO DAILY 11/26/18 nitroglycerin 0.4 mg sublingual tablet 0.4 mg SUBLINGUAL Q5-15M PRN #25 tab 05/28/19 amlodipine 5 mg tablet 5 mg PO DAILY #90 tab 07/06/20 loperamide 2 mg capsule 2 mg PO TID PRN cap 07/06/20 furosemide 20 mg tablet See Rx Instructions .ROUTE .COMPLEX #90 tab 09/06/20 isosorbide mononitrate 30 mg tablet,extended release 24 hr 30 mg PO DAILY #90 tab 02/14/21 Levemir FlexTouch U-100 Insuln 35 unit SUBCUT DAILY 08/09/21 ascorbic acid (vitamin C) 500 mg PO BIDCM #0 tab 08/10/21 docusate sodium [DOK] 100 mg PO BID #0 cap 08/10/21 ferrous sulfate [FeroSul] 325 mg PO 1200,1700 #0 tab 08/10/21 Hospital Course Procedures 2-D Echocardiogram Summary of Care Provided Minutes Spent on Discharge: 35 Hospital Course: Patient is a 81-year-old female who originally presented to the ER as a transfer from [facility] due to non-STEMI. Patient received echocardiogram which demonstrated an EF of 55%. Patient was seen by cardiology who noted that patient had underwent cardiac catheterization less than a year ago and due to her worsening anemia as well as her worsening renal function the medical management would be the plan of care at this time. 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 Patient's iron supplementation increased from daily to twice daily as well as patient started on vitamin C and Colace. Physical Exam Const alert, oriented x3 and no apparent distress General Appearance: cooperative HEENT normocephalic and head/scalp atraumatic Eyes PERRL, conjunctivae normal and no scleral icterus Neck full ROM and supple Lymph Lymphatic: no lymphadenopathy noted Resp normal respiratory effort, normal air movement and clear to auscultation bilaterally Cardio regular rate, regular rhythm, S1 normal heart sound, S2 normal heart sound and no murmurs GI normal to inspection, nondistended, normoactive bowel sounds, soft to palpation and non-tender Extremity normal to inspection, full ROM and no clubbing, cyanosis or edema Skin no rashes or lesions noted, no wounds and skin turgor normal General Skin Exam: turgor normal Neuro oriented x3, CN's II-XII intact bilaterally, moves all extremities, no focal motor deficits and no sensory deficits noted Psych affect normal Weight / BMI Weight Weight: 203 lb 0.732 oz Body Mass Index (BMI) 34.8 ABG / Lab / Microbiology Data Result Diagrams: 08/10/21 05:24 08/10/21 05:24 Laboratory: Laboratory Results - last 24 hr 08/09/21 11:51: POC Glucose 344 H 08/09/21 16:46: POC Glucose 221 H 08/09/21 21:19: POC Glucose 160 H 08/10/21 05:24: WBC 8.8, RBC 2.58 L, Hgb 7.7 L, Hct 22.2 L, MCV 86.0 D, MCH 29.8, MCHC 34.7 D, RDW Std Deviation 41.4, RDW Coeff of [place] 13.4, Plt Count 222, MPV 13.0 H, Immature Gran % (Auto) 0.800, Neut % (Auto) 74.4 H, Lymph % (Auto) 14.9 L, [place] % (Auto) 8.0, Eos % (Auto) 1.6, Baso % (Auto) 0.3, Absolute Neuts (auto) 6.6, Absolute Lymphs (auto) 1.32, Nucleated RBC % 0.5 08/10/21 05:24: Sodium 141, Potassium 3.9, Chloride 113 H, Carbon Dioxide 20.0 L, Anion Gap 8, BUN 57 H, Creatinine 2.57 H, Estim Creat Clear Calc 15.33, Est GFR (MDRD) Af Amer 23 L, Est GFR (MDRD) Non-Af 19 L, BUN/Creatinine Ratio 22.2 H, Glucose 121 H, Calcium 8.6, Total Bilirubin 0.30, AST 151 H, ALT 154 H, Alkaline Phosphatase 45, Total Protein 6.7, Albumin 2.5 L, Globulin 4.2, Albumin/Globulin Ratio 0.6 L 08/10/21 07:47: POC Glucose 169 H Microbiology: Microbiology 08/10/21 04:50 Stool Stool Occult Blood (VISHNU) - Final Occult Blood Positive Radiography Diagnostic Testing: Radiology Impression Echocardiogram 08/09/21 08:15 Interpretation Summary Normal LV size. The estimated ejection fraction is 55 %. Segmental dysfunction with preserved ejection fraction (see wall motion). Stage 3 diastolic dysfunction. Pulmonary artery systolic pressure is 54 mmHg. Moderate concentric left ventricular hypertrophy. Ordering Physician: Nelson Felipe Referring Physician: Rosalino Fan Performed By: Govind Boyd RCS D/C Instructions Discharge Diet: Low fat / Low cholesterol and 1800 Calorie Control Diet Call your doctor if you observe: Shortness of breath, Swelling in the ankles and Chest pain Meaningful Use Info Meaningful Use Diagnoses (Choose all that apply): None applicable Discharge Plan Admission Admit Date/Time: 08/09/21 00:22 Primary Reason for Your Visit: NSTEMI Attending Provider: Love Plunkett Primary Care Provider: Rosalino Fan Consulting Providers: Nelson Felipe ; Clarence Salazar Discharge Orders/Prescriptions Prescriptions: New ascorbic acid (vitamin C) 500 mg Tablet 500 mg PO BIDCM Qty: 0 RF: 0 ferrous sulfate [FeroSul] 325 mg (65 mg iron) Tablet 325 mg PO 1200,1700 Qty: 0 RF: 0 docusate sodium [DOK] 100 mg Capsule 100 mg PO BID Qty: 0 RF: 0 Continued bupropion HCl 150 mg tablet extended release 24 hr 150 mg PO DAILY PRN (Reason: anxiety) RF: 0 cholecalciferol (vitamin D3) 1,000 unit capsule 1,000 unit capsule 1,000 unit PO DAILY RF: 0 nitroglycerin 0.4 mg tablet, sublingual 0.4 mg SUBLINGUAL Q5-15M PRN (Reason: chest pain) Qty: 25 RF: 3 loperamide 2 mg capsule 2 mg PO TID PRN (Reason: Diarrhea/Loose Stools) RF: 0 amlodipine 5 mg tablet 5 mg PO DAILY Qty: 90 RF: 4 therapeutic multivitamin 1 EACH tablet 1 ea PO DAILY RF: 0 calcium carbonate 600 MG tablet 600 mg PO DAILY RF: 0 aspirin 81 MG tablet,chewable 81 mg PO DAILY@0800 RF: 0 atenolol 50 MG tablet 50 mg PO DAILY RF: 0 insulin detemir U-100 100 UNIT/ML solution 35 unit SQ BID RF: 0 vb-xk-JU-vit J-etqmo-iale-zeax 1 EACH tablet 1 ea PO DAILY RF: 0 atorvastatin 80 MG tablet 80 mg PO QHS Qty: 30 RF: 0 pantoprazole 40 MG tablet 40 mg PO BID Qty: 60 RF: 0 insulin aspart U-100 100 UNITS/ML insulin pen 10 units subcut TIDCM Qty: 0 RF: 0 fenofibrate nanocrystallized 145 mg tablet 145 mg PO DAILY RF: 0 Levemir FlexTouch U-100 Insuln 100 unit/mL (3 mL) Insulin Pen 35 unit SUBCUT DAILY RF: 0 furosemide 20 mg tablet See Rx Instructions .ROUTE .COMPLEX Qty: 90 RF: 3 isosorbide mononitrate 30 mg tablet extended release 24 hr 30 mg PO DAILY Qty: 90 RF: 3 Discontinued ferrous sulfate 325 MG tablet 325 mg PO DAILY@0800 Qty: 30 RF: 0 Referrals / Follow Up: Rosalino Fan DO [Primary Care Provider] - Within 2 Weeks Kelechi Mc MD [NON-STAFF] - None (as scheduled) Disposition Disposition (needs filled in before D/C Order can be placed): Assisted Living Documented by User: Dr. Love Plunkett MD 08/10/21 13:50 Providers Date of Admission: 08/09/21 Reason For Visit: NSTEMI Medications at Discharge Home Medications aspirin 81 mg PO DAILY@0800 08/10/18 atenolol 50 mg PO DAILY 08/10/18 calcium carbonate 600 mg PO DAILY 08/10/18 insulin detemir U-100 35 unit SQ BID 08/10/18 as-ej-HM-vit J-epdqp-fotq-zeax 1 ea PO DAILY 08/10/18 therapeutic multivitamin 1 ea PO DAILY 08/10/18 atorvastatin 80 mg PO QHS #30 tab 08/14/18 insulin aspart U-100 10 units SUBCUT TIDCM #0 08/14/18 pantoprazole 40 mg PO BID #60 tab 08/14/18 bupropion HCl 150 mg 24 hr tablet, extended release 150 mg PO DAILY PRN tab 08/27/18 cholecalciferol (vitamin D3) 25 mcg (1,000 unit) capsule 1,000 unit PO DAILY 08/27/18 fenofibrate nanocrystallized 145 mg tablet 145 mg PO DAILY 11/26/18 nitroglycerin 0.4 mg sublingual tablet 0.4 mg SUBLINGUAL Q5-15M PRN #25 tab 05/28/19 amlodipine 5 mg tablet 5 mg PO DAILY #90 tab 07/06/20 loperamide 2 mg capsule 2 mg PO TID PRN cap 07/06/20 furosemide 20 mg tablet See Rx Instructions .ROUTE .COMPLEX #90 tab 09/06/20 isosorbide mononitrate 30 mg tablet,extended release 24 hr 30 mg PO DAILY #90 tab 02/14/21 Levemir FlexTouch U-100 Insuln 35 unit SUBCUT DAILY 08/09/21 ascorbic acid (vitamin C) 500 mg PO BIDCM #0 tab 08/10/21 docusate sodium [DOK] 100 mg PO BID #0 cap 08/10/21 ferrous sulfate [FeroSul] 325 mg PO 1200,1700 #0 tab 08/10/21 ABG / Lab / Microbiology Data Result Diagrams: 08/10/21 05:24 08/10/21 05:24 Discharge Plan Admission Admit Date/Time: 08/09/21 00:22 Primary Reason for Your Visit: NSTEMI Attending Provider: Love Plunkett Primary Care Provider: Rosalino Fan Consulting Providers: Nelson Felipe ; Clarence Salazar Discharge Orders/Prescriptions Prescriptions: New ascorbic acid (vitamin C) 500 mg Tablet 500 mg PO BIDCM Qty: 0 RF: 0 ferrous sulfate [FeroSul] 325 mg (65 mg iron) Tablet 325 mg PO 1200,1700 Qty: 0 RF: 0 docusate sodium [DOK] 100 mg Capsule 100 mg PO BID Qty: 0 RF: 0 Continued bupropion HCl 150 mg tablet extended release 24 hr 150 mg PO DAILY PRN (Reason: anxiety) RF: 0 cholecalciferol (vitamin D3) 1,000 unit capsule 1,000 unit capsule 1,000 unit PO DAILY RF: 0 nitroglycerin 0.4 mg tablet, sublingual 0.4 mg SUBLINGUAL Q5-15M PRN (Reason: chest pain) Qty: 25 RF: 3 loperamide 2 mg capsule 2 mg PO TID PRN (Reason: Diarrhea/Loose Stools) RF: 0 amlodipine 5 mg tablet 5 mg PO DAILY Qty: 90 RF: 4 therapeutic multivitamin 1 EACH tablet 1 ea PO DAILY RF: 0 calcium carbonate 600 MG tablet 600 mg PO DAILY RF: 0 aspirin 81 MG tablet,chewable 81 mg PO DAILY@0800 RF: 0 atenolol 50 MG tablet 50 mg PO DAILY RF: 0 insulin detemir U-100 100 UNIT/ML solution 35 unit SQ BID RF: 0 rt-ka-GC-vit Q-jvgjm-hazu-zeax 1 EACH tablet 1 ea PO DAILY RF: 0 atorvastatin 80 MG tablet 80 mg PO QHS Qty: 30 RF: 0 pantoprazole 40 MG tablet 40 mg PO BID Qty: 60 RF: 0 insulin aspart U-100 100 UNITS/ML insulin pen 10 units subcut TIDCM Qty: 0 RF: 0 fenofibrate nanocrystallized 145 mg tablet 145 mg PO DAILY RF: 0 Levemir FlexTouch U-100 Insuln 100 unit/mL (3 mL) Insulin Pen 35 unit SUBCUT DAILY RF: 0 furosemide 20 mg tablet See Rx Instructions .ROUTE .COMPLEX Qty: 90 RF: 3 isosorbide mononitrate 30 mg tablet extended release 24 hr 30 mg PO DAILY Qty: 90 RF: 3 Discontinued ferrous sulfate 325 MG tablet 325 mg PO DAILY@0800 Qty: 30 RF: 0 Referrals / Follow Up: Rosalino Fan DO [Primary Care Provider] - Within 2 Weeks Kelechi Mc MD [NON-STAFF] - None (as scheduled) Disposition Disposition (needs filled in before D/C Order can be placed): Assisted Living Charges/Coding Addendum Addendum: This patient was seen in conjunction with Aki Schwab NP. I have independently interviewed and examined the patient and reviewed pertinent historical, laboratory, and other data. I have reviewed her note and concur with her documentation 81-year-old female with multiple comorbidities who presented with chest pain and was found to have elevated troponin. Patient's management was that of Acute NSTEMI. Cardiology was consulted and recommended medical management. Patient was found to have iron deficiency anemia. Stool for occult blood was negative. Patient had a colonoscopy 2 months ago. Follows up with GI in the outpatient chronically. She was discharged on oral iron. She also had acute UTI was treated with IV ceftriaxone. Completed 3 days of antibiotics. On the day of discharge, patient was seen and examined. No new complaints. Physical Exam: Gen: Appears chronically unwell, not pale, not jaundiced CVS:HS I +II, regular, no murmurs RESP: Diminished at lung bases GI: BS present and normal, soft, nontender, no palpable organs EXT:No edema Visit Charges Inpatient E&M: 06589 Disch Hosp
--- NOTE | 2021-08-10 11:49 | CASEMGMT ---
Patient is ready for discharge back to [facility]. SERGEI faxed d/c instructions to [facility]. SERGEI wrote on fax face sheet that SERGEI will let them know a flower picker time as soon as SERGEI has one. SERGEI arranged for patient to get picked up at 2p via wheelchair van. SERGEI notified patient, RN, and hostage negotiator. SERGEI also called [facility] and spoke with Cheyenne. No one was available on the assisted living side to take SERGEI's call so SERGEI let Cheyenne know that patient is returning today and will get picked up at 2p. She will notify [facility]. Plan: d/c back to [facility]. [facility] transported via wc van. 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
[2021-08-10 12:00] LABS: Bedside Glucose 85 mg/dL (70-110)
--- NOTE | 2021-08-10 12:55 | NURSING ---
Gave report to Cheyenne YANG at [facility]
[2021-08-10 13:35] VITALS: BP 141/63; PULSE 59; RESP 16; TEMP 36.4; O2SAT 97
== END 2021-08-10 15:15 | disposition home or self-care (01) | DRG 281 ==
PROVIDERS: Hospitalist; Admitting Provider Family Medicine; PCP Family Medicine; Visit Provider Internal Medicine
DX: I21.4 Non-ST elevation (NSTEMI) myocardial infarction (principal); I13.0 Hypertensive heart and chronic kidney disease with heart failure and stage 1 through stage 4 chronic kidney disease, or unspecified chronic kidney disease; I50.32 Chronic diastolic (congestive) heart failure; N18.4 Chronic kidney disease, stage 4 (severe); N39.0 Urinary tract infection, site not specified; D50.9 Iron deficiency anemia, unspecified; C67.9 Malignant neoplasm of bladder, unspecified; E11.22 Type 2 diabetes mellitus with diabetic chronic kidney disease; E78.00 Pure hypercholesterolemia, unspecified; E78.5 Hyperlipidemia, unspecified; E11.51 Type 2 diabetes mellitus with diabetic peripheral angiopathy without gangrene; H35.30 Unspecified macular degeneration; I25.2 Old myocardial infarction; I25.10 Atherosclerotic heart disease of native coronary artery without angina pectoris; Z66 Do not resuscitate; Z87.440 Personal history of urinary (tract) infections; Z95.1 Presence of aortocoronary bypass graft; Z79.4 Long term (current) use of insulin; Z79.82 Long term (current) use of aspirin; Z79.899 Other long term (current) drug therapy; Z87.891 Personal history of nicotine dependence
CPT/HCPCS: 36415; 80048; 80053; 82274; 82962; 83540; 83550; 84484; 85025; 85045; 85610; 93005; 93306; 97110; 97166; 97535; J7030; Q9957; A4216; C8929